=== PATIENT | male | born 1945 | race Caucasian/White ===

== ENCOUNTER 2016-08-10 10:15 | Inpatient (IN) | payer OTHER ==
[~2016-08-10] VITALS: Ht 165.1 cm; Wt 78.6 kg
[~2016-08-10 10:15] MED LIST: ACET-1311 PO; CALC500C3 PO; DOCU100C31 PO; DXM/4 PO; HYG25 PO; INSU1INJ SC; MELA1TAB5 PO; ONDA8TAB6 PO; TEMO1CAP2 PO
[2016-08-10] MEDS ORDERED: OPTIRAY 320 IV PRN (11:00)
[2016-08-10 11:04] LABS: BASO % 0.1 %; BASO ABS # 0.01 K/uL (0-0.2); COMPLETE YES; EOS % 0.6 %; HEMATOCRIT 36.7 % (42-52); IG% 0.7 %; LYMPH % 12.2 %; LYMPH ABS # 1.01 K/uL (1.2-3.4); MEAN CELL VOLUME 96.8 fL (80-100); MEAN CORPUSCULAR HEMOGLOBIN 31.7 pg (25-34); MEAN CORPUSCULAR HGB CONC 32.7 g/dl (32-36); MEAN PLATELET VOLUME 9.2 fL (7.4-10.4); MONO % 6.6 %; NEUT % 79.8 %; PLATELET COUNT 133 K/uL (130-400); RED BLOOD COUNT 3.79 M/uL (4.7-6.1); WHITE BLOOD COUNT 8.29 K/uL (4.8-10.8)
--- NOTE | 2016-08-10 11:09 | DIAGNOSTIC IMAGING REPORT ---
SINGLE VIEW CHEST CLINICAL HISTORY: Dyspnea. FINDINGS: An AP, portable, upright chest radiograph is obtained. No prior studies are available for comparison at the time of dictation. The examination is degraded by portable technique and patient rotation. The cardiomediastinal silhouette is unremarkable. There are peripheral airspace opacities in the right midlung and at the left lung base. No large pleural effusion or pneumothorax is seen. The skeletal structures are osteopenic. The bony thorax is grossly intact. IMPRESSION: There is peripheral airspace consolidation the right midlung as well as patchy consolidative change at the left lung base. Correlate clinically for evidence of pneumonia. Radiographic follow-up to resolution is recommended. Electronically signed by: Cade Douglass M.D. 08/10/2016 11:08 AM Dictated Date/Time: 08/10/2016 11:06 AM
[2016-08-10 11:12] LABS: ISTAT HEMOGLOBIN 12.6 g/dl (14.0-18.0); ISTAT IONIZED CALCIUM 1.12 mmol/l (1.12-1.32)
[2016-08-10 11:20] LABS: INR 1.1 (0.9-1.1); PROTHROMBIN TIME (PATIENT) 11.4 SECONDS (9.0-12.0)
[2016-08-10 11:27] LABS: ALT/SGPT 41 U/L (12-78); AST/SGOT 13 U/L (15-37); BLOOD UREA NITROGEN 25 mg/dl (7-18); BUN/CREATININE RATIO 25.4 (10-20); CALCIUM 8.8 mg/dl (8.5-10.1); CARBON DIOXIDE 34 mmol/L (21-32); CHLORIDE 101 mmol/L (98-107); GLUCOSE 126 mg/dl (70-99); POTASSIUM 3.7 mmol/L (3.5-5.1); SODIUM 142 mmol/L (136-145)
[2016-08-10 11:39] LABS: ALKALINE PHOSPHATASE 100 U/L (45-117)
--- NOTE | 2016-08-10 11:48 | DIAGNOSTIC IMAGING REPORT ---
CT ANGIOGRAM OF THE CHEST CLINICAL HISTORY: Hypoxia. COMPARISON STUDY: Chest x-ray dated 08/10/2016. TECHNIQUE: Following the IV administration of 95 cc of Optiray 320, CT angiogram of the chest was performed from the upper abdomen to the thoracic inlet utilizing the pulmonary embolus protocol. Images are reviewed in the axial, sagittal, and coronal planes. 3-D MIPS images are created and assessed. IV contrast was administered without complication. CT DOSE: 486.73 mGycm FINDINGS: Thyroid: Imaged portions of the thyroid gland are normal in size and attenuation. Thoracic aorta: There is mild atherosclerotic calcification of the thoracic aorta, which is normal in caliber and demonstrates standard 3-vessel arch anatomy. No dissection is seen. Pulmonary vasculature: The pulmonary trunk is mildly dilated, measuring 3.5 cm in diameter. This suggests pulmonary artery hypertension. There is a large pulmonary embolus within the mid to distal right main pulmonary artery. This extends into the upper, middle, and lower lobar branches, reaching segmental and subsegmental branches peripherally. There are also pulmonary emboli within the left upper and left lower lobe pulmonary arteries which extend into segmental and subsegmental branches. Heart: The heart is mildly enlarged and without pericardial effusion. Lungs and pleural spaces: There are foci of subpleural consolidation seen in the right upper lobe, the right lower lobe, and at the left lung base. No pleural effusion is seen. The trachea and central airways are clear. Mediastinum: There is no mediastinal lymphadenopathy. Dolly: Clear. Axillae: There is no axillary lymphadenopathy. Upper abdomen: Hepatic steatosis is noted. There is a tiny hiatal hernia. Partially visualized upper abdominal viscera is otherwise within normal limits. Skeletal structures: The skeletal structures are osteopenic. Mild degenerative change is noted throughout the thoracic spine. No lytic or blastic bony lesions are seen. IMPRESSION: 1. Extensive bilateral pulmonary emboli as above. 2. There are foci of subpleural wedge-shaped consolidation in the right upper, right lower, and left lower lobes. Given the presence of extensive pulmonary emboli these likely represent pulmonary infarcts. An infectious/inflammatory pneumonitis is considered less likely. Clinical correlation will be required. 3. Mild cardiomegaly with evidence of pulmonary artery hypertension. 4. Hepatic steatosis. 5. Additional findings as above. Electronically signed by: Cade Douglass M.D. 08/10/2016 11:47 AM Dictated Date/Time: 08/10/2016 11:38 AM
[2016-08-10] MEDS ORDERED: HEPARIN SOD 5000 UNIT/0.5 ML CARP ONE (12:13)
[2016-08-10] MEDS ORDERED: HEPARIN 25000 UNIT/500 ML D5W ONE (12:13)
[2016-08-10] MEDS: HEPARIN 25,000 UNIT/500ML D5W 500 ML IV PRN (12:22)
[2016-08-10] MEDS ORDERED: ACETAMINOPHEN 325 MG TAB PO PRN (13:45)
[2016-08-10] MEDS ORDERED: DEXTROSE 50% 50 ML SYR IV PRN (13:45)
[2016-08-10] MEDS ORDERED: CALCIUM CARBONATE 500 MG CHEWABLE PO PRN (13:45)
[2016-08-10] MEDS ORDERED: TEMAZEPAM 7.5 MG CAP PO PRN (13:45)
[2016-08-10] MEDS ORDERED: GLUCOSE 40% GEL 15 GM TUBE PO PRN (13:45)
[2016-08-10] MEDS ORDERED: GLUCAGON FOR INJ 1 MG VIAL SQ PRN (13:45)
[2016-08-10] MEDS ORDERED: GLUCOSE 10 TABS/TUBE PO PRN (13:45)
[2016-08-10 13:58] LABS: URINE APPEARANCE CLEAR (CLEAR); URINE BILIRUBIN NEG (NEG); URINE COLOR YELLOW; URINE NITRITE NEG (NEG); URINE PH 6.5 (4.5-7.5); URINE SPECIFIC GRAVITY > 1.045 (1.000-1.030); UROBILINOGEN NEG (NEG); ZZUR CULT IF INDIC CLEAN CATCH NO
[2016-08-10 14:05] LABS: MANUAL MICROSCOPIC REQUIRED? NO; REVIEW REQ? NO
--- NOTE | 2016-08-10 14:17 | EMERGENCY ROOM VISIT NOTE ---
History Report prepared by Michael: Magali Belle Under the Supervision of: Dr. Luis Leon D.O. First contact with patient: 10:30 Chief Complaint: RESPIRATORY PROBLEMS Stated Complaint: DESATS TO 70%ON RA LOW 90'S ON 3L History of Present Illness The patient is a 70 year old male who presents to the Emergency Room with complaints of worsening SOB starting 2 weeks ago. In the last 2-3 days it has become worse. He reports fatigue, some swelling of the calfs and sore throat. He has had the sore throat since getting surgery for glioblastoma. He denies any cough, rhinorrhea, hemoptysis, abdominal pain, nausea, vomiting, or chest pain. He is normally not on oxygen. He denies any history of asthma. He is not on blood thinners. His last radiation treatment was today. He has some paralysis due to the surgery, which he is still recovering from. Source of History: patient Onset: 2 weeks ago Position: other (global) Quality: other (SOB) Timing: worsening Associated Symptoms: + fatigue, + sorethroat, No abdominal pain, No chest pain, No cough, No nausea, No vomiting Note: Pt reports swelling of calfs. Pt denies rhinorrhea, hemoptysis. Review of Systems See HPI for pertinent positives & negatives. A total of 10 systems reviewed and were otherwise negative. Past Medical & Surgical Medical Problems: (1) DM type 2 (diabetes mellitus, type 2) (2) Dyslipidemia (3) GBM (glioblastoma multiforme) (4) Hypertension (5) Hypoxia (6) Pulmonary embolism (7) Pulmonary embolism, bilateral Surgical Problems: (1) H/O craniotomy (2) Status post skin graft Family History Diabetes mellitus FH: cancer FH: heart disease Social History Smoking Status: Never Smoker Alcohol Use: none Marital Status: Housing Status: lives with family Occupation Status: retired Current/Historical Medications Scheduled Chlorthalidone (Chlorthalidone), 12.5 MG PO DAILY Dexamethasone (Decadron), 2 MG PO BID Insulin Glargine (Lantus), 10 UNITS SC QPM Insulin Isophan/Regular (Humulin 70/30), 0 SC ACHS Metformin Hcl (Glucophage), 250 MG PO BID Pantoprazole (Protonix), 40 MG PO DAILY Temozolomide (Temodar), 140 MG PO HS Scheduled PRN Acetaminophen (Tylenol), 325 MG PO Q6 PRN for Pain Calcium Carbonate (Tums), 1 TAB PO Q6H PRN for Dyspepsia Melatonin (Kp Melatonin), 1 TAB PO HS PRN for Sleep Ondansetron Hcl (Zofran), 8 MG PO HS PRN for Nausea Temazepam (Restoril), 7.5 MG PO HS PRN for Sleep Allergies Coded Allergies: No Known Allergies (Unverified , 08/10/16) Physical Exam Vital Signs Date Time Temp Pulse Resp B/P Pulse Ox O2 Delivery O2 Flow Rate FiO2 08/10/16 12:26 91 22 97/67 97 Nasal Cannula 4.0 08/10/16 11:47 91 28 121/83 96 Nasal Cannula 08/10/16 11:05 91 Nasal Cannula 3.0 08/10/16 10:40 98 08/10/16 10:21 36.5 104 24 115/81 96 Nasal Cannula 2.0 Physical Exam GENERAL: sitting up in bed, ill appearing, moderate distress, on nasal cannula EYE EXAM: normal conjunctiva OROPHARYNX: no exudate, no erythema, lips, buccal mucosa, and tongue normal and mucous membranes are moist NECK: supple, no nuchal rigidity, no adenopathy, non-tender LUNGS: course of the bases. HEART: tachycardic rate, no murmurs, S1 normal and S2 normal ABDOMEN: abdomen soft, non-tender, normo-active bowel sounds, no masses, no rebound or guarding. BACK: Back is symmetrical on inspection and there is no deformity, no midline tenderness, no CVA tenderness. SKIN: no rashes and no bruising UPPER EXTREMITIES: upper extremities are grossly normal. LOWER EXTREMITIES: Left lower extremity bigger than right lower extremity. NEURO EXAM: Normal sensorium, cranial nerves II-XII grossly intact, normal speech, no gross weakness of arms, no gross weakness of legs. Medical Decision & Procedures ER Provider Diagnostic Interpretation: Xray results per the radiologist and my interpretation. Other results have been interpreted by the radiologist and reviewed by me. SINGLE VIEW CHEST CLINICAL HISTORY: Dyspnea. FINDINGS: An AP, portable, upright chest radiograph is obtained. No prior studies are available for comparison at the time of dictation. The examination is degraded by portable technique and patient rotation. The cardiomediastinal silhouette is unremarkable. There are peripheral airspace opacities in the right midlung and at the left lung base. No large pleural effusion or pneumothorax is seen. The skeletal structures are osteopenic. The bony thorax is grossly intact. IMPRESSION: There is peripheral airspace consolidation the right midlung as well as patchy consolidative change at the left lung base. Correlate clinically for evidence of pneumonia. Radiographic follow-up to resolution is recommended. Electronically signed by: Cade Douglass M.D. 08/10/2016 11:08 AM Dictated Date/Time: 08/10/2016 11:[address] ANGIOGRAM OF THE CHEST CLINICAL HISTORY: Hypoxia. COMPARISON STUDY: Chest x-ray dated 08/10/2016. TECHNIQUE: Following the IV administration of 95 cc of Optiray 320, CT angiogram of the chest was performed from the upper abdomen to the thoracic inlet utilizing the pulmonary embolus protocol. Images are reviewed in the axial, sagittal, and coronal planes. 3-D MIPS images are created and assessed. IV contrast was administered without complication. CT DOSE: 486.73 mGycm FINDINGS: Thyroid: Imaged portions of the thyroid gland are normal in size and attenuation. Thoracic aorta: There is mild atherosclerotic calcification of the thoracic aorta, which is normal in caliber and demonstrates standard 3-vessel arch anatomy. No dissection is seen. Pulmonary vasculature: The pulmonary trunk is mildly dilated, measuring 3.5 cm in diameter. This suggests pulmonary artery hypertension. There is a large pulmonary embolus within the mid to distal right main pulmonary artery. This extends into the upper, middle, and lower lobar branches, reaching segmental and subsegmental branches peripherally. There are also pulmonary emboli within the left upper and left lower lobe pulmonary arteries which extend into segmental and subsegmental branches. Heart: The heart is mildly enlarged and without pericardial effusion. Lungs and pleural spaces: There are foci of subpleural consolidation seen in the right upper lobe, the right lower lobe, and at the left lung base. No pleural effusion is seen. The trachea and central airways are clear. Mediastinum: There is no mediastinal lymphadenopathy. Dolly: Clear. Axillae: There is no axillary lymphadenopathy. Upper abdomen: Hepatic steatosis is noted. There is a tiny hiatal hernia. Partially visualized upper abdominal viscera is otherwise within normal limits. Skeletal structures: The skeletal structures are osteopenic. Mild degenerative change is noted throughout the thoracic spine. No lytic or blastic bony lesions are seen. IMPRESSION: 1. Extensive bilateral pulmonary emboli as above. 2. There are foci of subpleural wedge-shaped consolidation in the right upper, right lower, and left lower lobes. Given the presence of extensive pulmonary emboli these likely represent pulmonary infarcts. An infectious/inflammatory pneumonitis is considered less likely. Clinical correlation will be required. 3. Mild cardiomegaly with evidence of pulmonary artery hypertension. 4. Hepatic steatosis. 5. Additional findings as above. Electronically signed by: Cade Douglass M.D. 08/10/2016 11:47 AM Dictated Date/Time: 08/10/2016 11:38 AM Laboratory Results 08/10/16 10:52 Red Blood Count 3.79, Mean Corpuscular Volume 96.8, Mean Corpuscular Hemoglobin 31.7, Mean Corpuscular Hemoglobin Concent 32.7, Mean Platelet Volume 9.2, Neutrophils (%) (Auto) 79.8, Lymphocytes (%) (Auto) 12.2, Monocytes (%) (Auto) 6.6, Eosinophils (%) (Auto) 0.6, Basophils (%) (Auto) 0.1, Neutrophils # (Auto) 6.61, Lymphocytes # (Auto) 1.01, Monocytes # (Auto) 0.55, Eosinophils # (Auto) 0.05, Basophils # (Auto) 0.01 08/10/16 10:52 Test 08/10/16 10:52 08/10/16 10:57 08/10/16 13:30 White Blood Count 8.29 K/uL (4.8-10.8) Red Blood Count 3.79 M/uL (4.7-6.1) Hemoglobin 12.0 g/dL (14.0-18.0) Hematocrit 36.7 % (42-52) Mean Corpuscular Volume 96.8 fL (80-100) Mean Corpuscular Hemoglobin 31.7 pg (25-34) Mean Corpuscular Hemoglobin Concent 32.7 g/dl (32-36) Platelet Count 133 K/uL (130-400) Mean Platelet Volume 9.2 fL (7.4-10.4) Neutrophils (%) (Auto) 79.8 % Lymphocytes (%) (Auto) 12.2 % Monocytes (%) (Auto) 6.6 % Eosinophils (%) (Auto) 0.6 % Basophils (%) (Auto) 0.1 % Neutrophils # (Auto) 6.61 K/uL (1.4-6.5) Lymphocytes # (Auto) 1.01 K/uL (1.2-3.4) Monocytes # (Auto) 0.55 K/uL (0.11-0.59) Eosinophils # (Auto) 0.05 K/uL (0-0.5) Basophils # (Auto) 0.01 K/uL (0-0.2) RDW Standard Deviation 59.2 fL (36.4-46.3) RDW Coefficient of Variation 16.7 % (11.5-14.5) Immature Granulocyte % (Auto) 0.7 % Immature Granulocyte # (Auto) 0.06 K/uL (0.00-0.02) Nucleated RBC Absolute Count (auto) 0.09 K/uL (0-0) Nucleated Red Blood Cells % 1.1 % Prothrombin Time 11.4 SECONDS (9.0-12.0) Prothromb Time International Ratio 1.1 (0.9-1.1) Activated Partial Thromboplast Time 26.5 SECONDS (21.0-31.0) Partial Thromboplastin Ratio 1.0 Estimated GFR () 89.2 Estimated GFR (Non- 77.0 BUN/Creatinine Ratio 25.4 (10-20) Calcium Level 8.8 mg/dl (8.5-10.1) Total Bilirubin 0.4 mg/dl (0.2-1) Direct Bilirubin 0.1 mg/dl (0-0.2) Aspartate Amino Transf (AST/SGOT) 13 U/L (15-37) Alanine Aminotransferase (ALT/SGPT) 41 U/L (12-78) Alkaline Phosphatase 100 U/L (45-117) Total Protein 6.6 gm/dl (6.4-8.2) Albumin 2.4 gm/dl (3.4-5.0) Lipase 87 U/L (73-393) Bedside Hemoglobin 12.6 g/dl (14.0-18.0) Bedside Hematocrit 37 % (42-52) Bedside Sodium 140 mEq/L (135-144) Bedside Potassium 3.8 mEq/L (3.3-5.0) Bedside Chloride 96 mEq/L (101-112) Bedside Total CO2 30 mEq/l (24-31) Anion Gap 19.0 mmol/L (16-25) Bedside Blood Urea Nitrogen 25 mg/dl (7-18) Bedside Creatinine 1.0 mg/dl (0.6-1.3) Bedside Glucose (other) 126 mg/dl (70-99) Bedside Ionized Calcium (Laura) 1.12 mmol/l (1.12-1.32) Urine Color YELLOW Urine Appearance CLEAR (CLEAR) Urine pH 6.5 (4.5-7.5) Urine Specific Hamilton > 1.045 (1.000-1.030) Urine Protein NEG (NEG) Urine Glucose (UA) NEG (NEG) Urine Ketones NEG (NEG) Urine Occult Blood NEG (NEG) Urine Nitrite NEG (NEG) Urine Bilirubin NEG (NEG) Urine Urobilinogen NEG (NEG) Urine Leukocyte Esterase NEG (NEG) Urine WBC (Auto) 1-5 /hpf (0-5) Urine RBC (Auto) 0-4 /hpf (0-4) Urine Hyaline Casts (Auto) 5-10 /lpf (0-5) Urine Epithelial Cells (Auto) 10-20 /lpf (0-5) Urine Bacteria (Auto) NEG (NEG) Laboratory results per my review. Medications Administered Medications (Trade) Dose Ordered Sig/Clotilde Route Start Time Stop Time Status Last Admin Dose Admin Heparin Sodium/ Dextrose (Heparin 25,000 Unit/500ml D5W) 500 ml @ 26 mls/hr [id number] PRN IV 08/10/16 12:30 09/09/16 12:29 08/10/16 12:22 26 MLS/HR Heparin Sodium (Porcine) (Heparin Sq 5000 Unit/0.5ml) 10,000 unit STK-MED ONCE .ROUTE 08/10/16 12:13 08/10/16 12:17 DC 08/10/16 12:23 6,000 UNIT ECG Indication: SOB/dyspnea Rate (beats per minute): 101 Rhythm: sinus tachycardia Findings: PVC, left axis deviation, other (septal, inferior Q waves) ED Course ED COURSE: Vital signs were reviewed and showed tachycardia and hypoxia. The patients medical record was reviewed The above diagnostic studies were performed and reviewed. ED treatments and interventions as stated above. 1037: The patient was evaluated in room B12. A complete history and physical examination was performed. 1147: I reevaluated the patient. We had a long discussion. He is agreeable to TPA if he codes in light of recent surgery. 1159: I discussed the patient's case with LILLIAN Jiang - anticoagulation clinic. She recommends heparin bolus and drip based on current literature. 1202: Heparin Sodium/Dextrose 1 ea. 1212: I discussed the patient's case with Genna Cruz - neurological surgery. He agrees with full anticoagulation. 1213: Heparin Sodium (Porcine) 60818 unit IV, Heparin Sodium/Dextrose 82352 unit IV. 1219: I discussed the patient's case with KIERRA Wiggins. The patient will be evaluated for further management. 1223: Upon reevaluation, the patient is resting comfortably. I discussed my findings with the patient and he understands and agrees with the treatment plan. Based on the patients age, coexisting illnesses, exam and lab findings the decision to treat as an inpatient was made. The patient remained stable while under my care. The patient will be evaluated for further management. 1230: Heparin Sodium/Dextrose 500 ml @ 26 mls/hr IV. Medical Decision Differential diagnoses includes but is not limited to pneumonia, bronchitis, COPD/Asthma exacerbation, pneumothorax, pulmonary embolism, congestive heart failure, acute coronary syndrome. Patient is a 62-year-old male who presents the ER for shortness of breath. He is hypoxic, hypotensive and tachycardic. His left lower extremity is bigger than his right. Patient was given a bolus of normal saline and systolic blood pressures improved from the 90s to low 100s. Heart rate did trend down slightly. He had a GBM removed on May 21. This was done at [facility]. I immediately ordered an i-STAT sent him for CT PE. This showed diffuse bilateral PEs. He currently has heart strain with an elevated troponin and unstable vital signs. I discussed this with the patient along with our patent legal assistant and Genna's neurosurgeon that did the procedure. All 3 of us were in agreement of starting heparin drip and bolus. He was given a bolus of IV heparin. He remained stable while in the ER. He did not decompensate. He was not given TPA with the recent brain surgery as he is at a higher risk of bleeding. Patient was discussed with internal medicine and he was admitted for bilateral PEs. Consults Time Called: 1150 Consulting Physician: Dr. Pena [facility] - anticoagulation clinic Returned Call: [phone] I discussed the patient's case with her. She recommends heparin bolus and drip based on current literature. Additional Consults: Time Called: 1205 Consulted Physician: Genna Cruz - neurological surgery Returned Call: [phone] Additional Comments: I discussed the patient's case with him. He agrees with full anticoagulation. Time Called: 1215 Consulted Physician: KIERRA Wiggins Returned Call: [phone] Additional Comments: I discussed the patient's case with her. The patient will be evaluated for further management. Impression Primary Impression: Pulmonary embolism, bilateral Additional Impressions: Hypoxia Elevated troponin Hypotension Critical Care I have personally spent 75 minutes of critical care time in the direct management of this patient. This includes bedside care, interpretation of diagnostic studies, and testing, discussion with consultants, patient, and family members, and other required patient management activities. This 75 minutes is in excess of all separately billable procedures. Scribe Attestation The scribe's documentation has been prepared under my direction and personally reviewed by me in its entirety. I confirm that the note above accurately reflects all work, treatment, procedures, and medical decision making performed by me. Departure Information Dispostion Being Evaluated By Hospitalist Lashawn Husain M.D. (PCP) Patient Instructions My [facility] Problem Qualifiers Additional Impressions: Hypotension Hypotension type: unspecified hypotension type Qualified Codes: I95.9 - Hypotension, unspecified
--- NOTE | 2016-08-10 14:53 | Progress Note ---
Progress Note Date of Service Aug 10, 2016. Progress Note 70 year old male with PMH of Glioblastoma on chemo, DM, HTN presents to the Emergency Room with complaints of worsening SOB for the last 2 weeks.He had craniotomy done on 05/21/16 Pt. he just finshed radiation therapy today. Pt said that for the last few weeks he has not been ambulating much. he said that his SOB got worst even at rest. denies any chest pain, palpitation, cough and dizziness. General- obese Head- atraumatic Eyes- PERRL, EOMI ENT- oropharynx clear Neck- supple, no JVD Lungs- No wheezing, no crackles Heart-tachycardia Abdomen- normal bowel sounds, soft Extremities- + edema, no calf tenderness B/L PE Present with worsening SOB Possible due malignancy and decrease ambulation CTA chest showed Extensive bilateral pulmonary emboli Continue on heparin drip will get doppler of lower ext will start on coumadin pulmonary consult monitor CBC Elevated troponin mostly related to PE due to RV strain will get an echo follow up 2 more CM EKG in am monitor in telemetry Please refer to Lashawn IVORY's documentation for other problems. Conrad Benítez MD
[2016-08-10 16:21] VITALS: BP 110/75; PULSE 89; TEMP 36.5; O2SAT 99
--- NOTE | 2016-08-10 16:58 | History and Physical ---
History & Physical Date & Time of Service: Aug 10, 2016 at 13:40 Chief Complaint: Desats To 70%On Ra Low 90's On 3L Primary Care Physician: Isabel Fuentes C.R.N.P. History of Present Illness Source: patient, clinic records This is a 70 year old male with glioblastoma s/p resection, DM type 2, hypertension, dyslipidemia, who presents to the ED with SOB. Patient underwent resection of glioblastoma in early May 2016 at [facility]. He was in rehab for 1 month and states he was initially bed bound except for PT due to severe L sided weakness. Left side weakness had been improving and was starting to ambulate with a walker at home, but in past few days has been ambulating less due to fatigue. Patient reports SOB and for 2 weeks which has progressively worsened over past 2-3 days. Has dry throat and nonproductive cough since surgery. Has bilateral LE edema x 3 weeks. Denies fever, chills, chest pain, palpitations, N/ V/D, appetite loss, urinary change, calf pain, dizziness, HOWELL, vision change, numbness, seizure. Pt has been on Decadron, oral chemo with Temodar, and radiation with last treatment done today. At radiation oncology was hypoxic to 67% on RA which improved on nasal cannula and was therefore sent to ER after radiation tx. In ER, CT chest showed extensive bilateral PE's with possible infarcts and findings of pulmonary hypertension. Denies prior history of VTE. Denies hx of abnormal bleeding. Past Medical/Surgical History Medical Problems: (1) DM type 2 (diabetes mellitus, type 2) Status: Chronic (2) Dyslipidemia Status: Chronic (3) GBM (glioblastoma multiforme) Permanent Comment: Onset of left-sided weakness CT revealing a right frontal lobe mass Status post gross total resection 05/21/2016 ([facility]- Dr. Rich) Glioblastoma Multiforme, IDH-wild type WHO grade IV Status: Chronic (4) Hypertension Status: Chronic Surgical Problems: (1) H/O craniotomy Permanent Comment: excision of glioblastoma at [facility] 05/21/2016 Status: Chronic (2) Status post skin graft Status: Chronic Family History Diabetes mellitus FH: cancer FH: heart disease Social History Smoking Status: Never Smoker Alcohol Use: none Drug Use: none Marital Status: Housing status: lives with significant other Allergies Coded Allergies: No Known Allergies (Unverified , 08/10/16) Home Medications Scheduled Dexamethasone (Decadron), 2 MG PO BID Enoxaparin (Lovenox), 80 MG SQ Q12@0600,1800 Insulin Glargine (Lantus), 10 UNITS SC QPM Insulin Isophan/Regular (Humulin 70/30), 0 SC ACHS Metformin Hcl (Glucophage), 250 MG PO BID Pantoprazole (Protonix), 40 MG PO DAILY Temozolomide (Temodar), 140 MG PO HS Scheduled PRN Acetaminophen (Tylenol), 325 MG PO Q6 PRN for Pain Calcium Carbonate (Tums), 1 TAB PO Q6H PRN for Dyspepsia Melatonin (Kp Melatonin), 1 TAB PO HS PRN for Sleep Ondansetron Hcl (Zofran), 8 MG PO HS PRN for Nausea Temazepam (Restoril), 7.5 MG PO HS PRN for Sleep Review of Systems Ten point ROS performed with pertinent positives and negatives noted in HPI. Physical Exam Vital Signs Date Time Temp Pulse Resp B/P Pulse Ox O2 Delivery O2 Flow Rate FiO2 08/10/16 12:26 91 22 97/67 97 Nasal Cannula 4.0 08/10/16 11:47 91 28 121/83 96 Nasal Cannula 08/10/16 11:05 91 Nasal Cannula 3.0 08/10/16 10:40 98 08/10/16 10:21 36.5 104 24 115/81 96 Nasal Cannula 2.0 General Appearance: WD/WN, no apparent distress, + pertinent finding (pleasant alert 70 year old male) Head: normocephalic, atraumatic, + pertinent finding (well healed craniotomy scar right frontal scalp) Eyes: normal inspection, PERRL, EOMI ENT: hearing grossly normal, pharynx normal Neck: supple, no JVD, trachea midline Respiratory/Chest: lungs clear, normal breath sounds, no respiratory distress, no accessory muscle use Cardiovascular: regular rate, rhythm, no murmur Extremities/Musculoskelatal: no calf tenderness, + pedal edema (2+ pitting pretibial edema bilaterally), + pertinent finding Neurologic/Psych: alert, normal mood/affect, oriented x 3, + pertinent finding (left upper extremity strength 4/5, left lower extremity strength 3/5, RUE and RLE strength 5/5) Skin: normal color, warm/dry, + pertinent finding (excoriation LLE) Diagnostics Laboratory Results Results Past 24 Hours Test 08/10/16 10:52 08/10/16 10:57 Range/Units White Blood Count 8.29 4.8-10.8 K/uL Red Blood Count 3.79 4.7-6.1 M/uL Hemoglobin 12.0 14.0-18.0 g/dL Hematocrit 36.7 42-52 % Mean Corpuscular Volume 96.8 80-100 fL Mean Corpuscular Hemoglobin 31.7 25-34 pg Mean Corpuscular Hemoglobin Concent 32.7 32-36 g/dl Platelet Count 133 130-400 K/uL Mean Platelet Volume 9.2 7.4-10.4 fL Neutrophils (%) (Auto) 79.8 % Lymphocytes (%) (Auto) 12.2 % Monocytes (%) (Auto) 6.6 % Eosinophils (%) (Auto) 0.6 % Basophils (%) (Auto) 0.1 % Neutrophils # (Auto) 6.61 1.4-6.5 K/uL Lymphocytes # (Auto) 1.01 1.2-3.4 K/uL Monocytes # (Auto) 0.55 0.11-0.59 K/uL Eosinophils # (Auto) 0.05 0-0.5 K/uL Basophils # (Auto) 0.01 0-0.2 K/uL RDW Standard Deviation 59.2 36.4-46.3 fL RDW Coefficient of Variation 16.7 11.5-14.5 % Immature Granulocyte % (Auto) 0.7 % Immature Granulocyte # (Auto) 0.06 0.00-0.02 K/uL Nucleated RBC Absolute Count (auto) 0.09 0-0 K/uL Nucleated Red Blood Cells % 1.1 % Prothrombin Time 11.4 9.0-12.0 SECONDS Prothromb Time International Ratio 1.1 0.9-1.1 Activated Partial Thromboplast Time 26.5 21.0-31.0 SECONDS Partial Thromboplastin Ratio 1.0 Sodium Level 142 136-145 mmol/L Potassium Level 3.7 3.5-5.1 mmol/L Chloride Level 101 98-107 mmol/L Carbon Dioxide Level 34 21-32 mmol/L Anion Gap 7.0 19.0 16-25 mmol/L Blood Urea Nitrogen 25 7-18 mg/dl Creatinine 1.00 0.60-1.40 mg/dl Estimated GFR () 89.2 Estimated GFR (Non- 77.0 BUN/Creatinine Ratio 25.4 10-20 Random Glucose 126 70-99 mg/dl Calcium Level 8.8 8.5-10.1 mg/dl Total Bilirubin 0.4 0.2-1 mg/dl Direct Bilirubin 0.1 0-0.2 mg/dl Aspartate Amino Transf (AST/SGOT) 13 15-37 U/L Alanine Aminotransferase (ALT/SGPT) 41 12-78 U/L Alkaline Phosphatase 100 45-117 U/L Troponin I 0.245 0-0.045 ng/ml Total Protein 6.6 6.4-8.2 gm/dl Albumin 2.4 3.4-5.0 gm/dl Lipase 87 73-393 U/L Bedside Hemoglobin 12.6 14.0-18.0 g/dl Bedside Hematocrit 37 42-52 % Bedside Sodium 140 135-144 mEq/L Bedside Potassium 3.8 3.3-5.0 mEq/L Bedside Chloride 96 101-112 mEq/L Bedside Total CO2 30 24-31 mEq/l Bedside Blood Urea Nitrogen 25 7-18 mg/dl Bedside Creatinine 1.0 0.6-1.3 mg/dl Bedside Glucose (other) 126 70-99 mg/dl Bedside Ionized Calcium (Laura) 1.12 1.12-1.32 mmol/l Diagnostic Radiology SINGLE VIEW CHEST CLINICAL HISTORY: Dyspnea. FINDINGS: An AP, portable, upright chest radiograph is obtained. No prior studies are available for comparison at the time of dictation. The examination is degraded by portable technique and patient rotation. The cardiomediastinal silhouette is unremarkable. There are peripheral airspace opacities in the right midlung and at the left lung base. No large pleural effusion or pneumothorax is seen. The skeletal structures are osteopenic. The bony thorax is grossly intact. IMPRESSION: There is peripheral airspace consolidation the right midlung as well as patchy consolidative change at the left lung base. Correlate clinically for evidence of pneumonia. Radiographic follow-up to resolution is recommended. CT ANGIOGRAM OF THE CHEST CLINICAL HISTORY: Hypoxia. COMPARISON STUDY: Chest x-ray dated 08/10/2016. TECHNIQUE: Following the IV administration of 95 cc of Optiray 320, CT angiogram of the chest was performed from the upper abdomen to the thoracic inlet utilizing the pulmonary embolus protocol. Images are reviewed in the axial, sagittal, and coronal planes. 3-D MIPS images are created and assessed. IV contrast was administered without complication. CT DOSE: 486.73 mGycm FINDINGS: Thyroid: Imaged portions of the thyroid gland are normal in size and attenuation. Thoracic aorta: There is mild atherosclerotic calcification of the thoracic aorta, which is normal in caliber and demonstrates standard 3-vessel arch anatomy. No dissection is seen. Pulmonary vasculature: The pulmonary trunk is mildly dilated, measuring 3.5 cm in diameter. This suggests pulmonary artery hypertension. There is a large pulmonary embolus within the mid to distal right main pulmonary artery. This extends into the upper, middle, and lower lobar branches, reaching segmental and subsegmental branches peripherally. There are also pulmonary emboli within the left upper and left lower lobe pulmonary arteries which extend into segmental and subsegmental branches. Heart: The heart is mildly enlarged and without pericardial effusion. Lungs and pleural spaces: There are foci of subpleural consolidation seen in the right upper lobe, the right lower lobe, and at the left lung base. No pleural effusion is seen. The trachea and central airways are clear. Mediastinum: There is no mediastinal lymphadenopathy. Dolly: Clear. Axillae: There is no axillary lymphadenopathy. Upper abdomen: Hepatic steatosis is noted. There is a tiny hiatal hernia. Partially visualized upper abdominal viscera is otherwise within normal limits. Skeletal structures: The skeletal structures are osteopenic. Mild degenerative change is noted throughout the thoracic spine. No lytic or blastic bony lesions are seen. IMPRESSION: 1. Extensive bilateral pulmonary emboli as above. 2. There are foci of subpleural wedge-shaped consolidation in the right upper, right lower, and left lower lobes. Given the presence of extensive pulmonary emboli these likely represent pulmonary infarcts. An infectious/inflammatory pneumonitis is considered less likely. Clinical correlation will be required. 3. Mild cardiomegaly with evidence of pulmonary artery hypertension. 4. Hepatic steatosis. 5. Additional findings as above. EKG sinus tachycardia with PACs with aberrant conduction, possible old inferior infarct, possible old anteroseptal infarct, in comparison to prior EKG aberrant conduction is now present as per cardiology read Impression Assessment and Plan BILATERAL PULMONARY EMBOLISM Was hypoxic to 67% on RA at radiation oncology; improved to 99-100% on 4 liters NC Initially tachycardic to 100s- resolved; BP running low normal 90s-110s systolic CTA chest- Extensive bilateral pulmonary emboli with possible infarcts and findings of pulmonary hypertension Possibly triggered by malignancy and decreased mobility Check venous doppler of bilateral LE Consult pulmonology Continue heparin drip started in ER Possible transition to Lovenox before discharge as per pulmonology recommendation Continue supplemental O2 per protocol ELEVATED TROPONIN Likely secondary to RV strain from bilateral PE Check echo Trend serial cardiac markers Recheck EKG in am Monitor in telemetry GLIOBLASTOMA S/p craniotomy with resection of glioblastoma 05/21/2016 Has undergone radiation last tx today 08/10/16 Continue Decadron 2 mg BID Continue oral chemo with Temodar HYPERTENSION BP running low normal 90s- 110s systolic Hold chlorthalidone for now DM TYPE 2 Hold metformin Continue basal Lantus Insulin sliding scale coverage Check A1c in am CODE STATUS Full code per my discussion with the patient DISPOSITION Admit to telemetry [facility] Leon ([facility]) for neurosurgery Patient seen in collaboration with Dr. Benítez. Please see his addendum. VTE Prophylaxis VTE Risk Assessment Done? Y/N: Yes Risk Level: High Given or contraindicated: Other Anticoagulation
[2016-08-10] MEDS ORDERED: MELA1TAB5 PO (16:59)
[2016-08-10 17:16] VITALS: BMI 31.8
[2016-08-10 17:17] VITALS: BP 114/67; PULSE 84; TEMP 36.5; O2SAT 98; BMI 30.3
[2016-08-10] MEDS ORDERED: NURSING VERBAL MED ORDER ONE (18:00)
[2016-08-10] MEDS ORDERED: WARFARIN SOD 5 MG TAB PO ONE (18:00)
[2016-08-10] MEDS: INSULIN ASPART 100 UNITS/ML 3 ML PEN SC SCH ×2 (18:41→20:43)
[2016-08-10 19:19] LABS: PARTIAL THROMBOPLASTIN RATIO 3.2
[2016-08-10 19:27] VITALS: BP 116/74; PULSE 83; TEMP 37; O2SAT 96
[2016-08-10] MEDS: DEXAMETHASONE 4 MG TAB PO SCH (19:55)
--- NOTE | 2016-08-10 19:59 | PULMONARY CONSULTATION ---
DATE OF CONSULTATION: 08/10/2016 TIME: 5:15 p.m. HISTORY OF PRESENT ILLNESS: The patient was seen in room 244. He is a 70-year-old male who has a history of a glioblastoma that underwent surgery at [facility] on May 21. He was having some weakness of his left leg, which brought the problem to his attention. He ended up having the surgery. Subsequently, he has had radiation therapy. He also gets what he calls a chemo pill which he has been on for several weeks and he has to take it 1 more week. For about 2 weeks, he has been feeling short of breath. This would be with exertion. Subsequently, the breathing has been much more abnormal for the past 3 days. In spite of the shortness of breath, he has had no chest pains at all. He has had a dry cough, but that has been since his surgery as well. He also has had a sore throat since his surgery. He had gone to [facility] for rehabilitation for approximately 1 month and did very well there. He had been making a nice recovery until the recent problems. He presented to the Emergency Room today with the shortness of breath. He underwent a CAT scan of the chest to rule out pulmonary embolic disease. This shows mild dilation of the pulmonary trunk. There is a large pulmonary embolism within the mid to distal right main pulmonary artery which extends into the upper, middle and lower branches, reaching segmental and subsegmental branches. There are also pulmonary emboli in the left upper and left lower pulmonary arteries. These also extend into the segmental and subsegmental branches. In the lungs themselves, he has some peripheral consolidation seen in the right middle lobe and right lower lobe and at the left lung base. These are thought perhaps to be areas of pulmonary infarcts. Usually however, one does have pain when you have infarction. The patient has been started on IV heparin. The Emergency Room Department had conversations with the patient's neurosurgeon. They also had conversations with a physician from an anticoagulation clinic. They recommended the IV heparin. TPA is considered not usable due to the patient's relatively recent surgery. The patient is overall feeling more comfortable. He is overall fairly relaxed. He has no prior history of blood clots. He has been fairly inactive, especially recently. His energy level was actually better soon after the surgery, but it has gotten lower since the radiation and the chemo medicine started. PAST PULMONARY HISTORY: Denies any other pulmonary problems in the past. PAST SURGICAL HISTORY: 1. Rhinoplasty in the 1970s. 2. Skin grafting for sheppard in 2006. 3. Surgical removal for glioblastoma in May 2016. PAST MEDICAL HISTORY: 1. Hypertension. 2. Diabetes. 3. Hypercholesterolemia. 4. Denies history of coronary artery disease. He denies other illnesses. SOCIAL HISTORY: Tobacco never. ETOH -- None. ALLERGIES: No known allergies. FAMILY HISTORY: Father age 78 of [place]. Mother living, age 87, dementia. 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 REVIEW OF SYSTEMS: GENERAL: The patient's energy level has been fairly low. NEUROLOGIC: He has had a significant return of strength to the left side of his body, compared with before. OPHTHALMIC: No visual complaints. ENT: Denies nasal congestion or coryza. CARDIAC: Denies chest pains or palpitations. PULMONARY: As noted above. GASTROINTESTINAL: Denies nausea, vomiting, diarrhea, constipation. GENITOURINARY: Denies complaints. MUSCULOSKELETAL: Denies myalgias or arthralgias. EXTREMITIES: He has had edema of the lower extremities in the past few weeks. DERMATOLOGIC: No rash. ENDOCRINE: No lymphadenopathy. MEDICATIONS: At home: 1. Chlorthalidone 12.5 mg daily. 2. Decadron 2 mg b.i.d. 3. Lantus insulin 10 units daily. 4. Humulin 70/30 by coverage. 5. Glucophage 250 mg b.i.d. 6. Pantoprazole 40 mg daily. 7. Temodar 140 mg at bedtime. 8. Ondansetron 8 mg p.r.n. nausea. 9. Restoril 7.5 mg at bedtime. PHYSICAL EXAMINATION: GENERAL: The patient is a 70-year-old male who was cooperative, alert and oriented. He was in no distress. He had no difficulty with speech. Temperature was 36.5. HEENT: Pupils were reactive. Nares were clear. Mouth exam was negative. NECK: Palpation of the neck reveals no lymph nodes or masses. CHEST: Of normal expansion and development. HEART: The heart rate is 90 per minute. Occasional extrasystoles were heard. He was not aware of having prior cardiac arrhythmia. Blood pressure 110/75. The lowest pressure seen was 97/67. LUNGS: Respiratory rate was 20 breaths per minute. The lung dunlap were clear bilaterally. No wheezes or rhonchi were heard. Saturation was 99% on 4 liters. ABDOMEN: Soft. It was mildly obese. Bowel sounds were present. There was no tenderness to palpation or masses. EXTREMITIES: Reveal at least +2 edema bilaterally. He does have various sites of skin grafting on the extremities. LABORATORY DATA: White count is 8.29. Hemoglobin is 12. Platelets 133,000. Coags were normal. Urinalysis shows specific gravity greater than 1.045. Electrolytes show sodium 140, potassium 3.8, chloride 96, bicarb 30. BUN was 25 with a creatinine of 1.0. AST was 13, ALT 41, alk phos 100. Troponins were elevated at 0.245. The albumin was 2.4 with total protein of 6.6. EKG showed a sinus rhythm. There appeared to be an inferior wall infarction as well as an anteroseptal infarction. The patient himself is not aware of having had an OR previously. Occasional extrasystoles are seen. These were thought to be due to premature atrial complexes with aberrant conduction. IMPRESSION: Large bilateral pulmonary emboli. COMMENTS AND RECOMMENDATIONS: Apparently they have received recommendation to start IV heparin. This is obviously only a short-term solution. A decision will need to be made in a few days once he is totally stabilized, as to the most appropriate period. In light of his malignancy, Lovenox may be the best way to go. We will need to keep an eye on his renal function however. I believe the patient should have an echocardiogram done. Clearly, his EKG is abnormal and an echo is a good way to follow the stresses on the right side of the heart. I believe the echo has been ordered and possibly even completed. The results are still pending however. He should have a venous Doppler of both lower extremities done if that has not been done thus far. We will be happy to discuss the case with the hospitalist team. His CT angio was very impressive for the degree of clot, especially on the right side and he will need careful monitoring for several days.
[2016-08-10] MEDS: ONDANSETRON INJ 2 MG/ML 2 ML VIAL IV PRN (20:03)
[2016-08-10] MEDS ORDERED: TEMOzolomide 20 MG CAP PO SCH (21:00)
[2016-08-10] MEDS ORDERED: TEMOZOLOMIDE 100 MG PO SCH (21:00)
[2016-08-10] MEDS: INSULIN GLARGINE SOLOSTAR 100 UNITS/ML 3 ML PEN SC SCH (21:26)
[2016-08-10 23:48] LABS: CKMB/CK RATIO 6.3 (0-3.0)
[2016-08-11] VITALS (10 sets, daily range): BP systolic 108–155; BP diastolic 71–96; PULSE 73–99; TEMP 36.4–36.9; O2SAT 94–97; Ht 165.1 cm; Wt 78.6 kg
[2016-08-11 02:34] LABS: HEMATOCRIT 33.5 % (42-52); MEAN CELL VOLUME 94.9 fL (80-100); MEAN CORPUSCULAR HEMOGLOBIN 31.4 pg (25-34); MEAN CORPUSCULAR HGB CONC 33.1 g/dl (32-36); PLATELET COUNT 122 K/uL (130-400); RED BLOOD COUNT 3.53 M/uL (4.7-6.1); WHITE BLOOD COUNT 7.09 K/uL (4.8-10.8)
[2016-08-11 02:54] LABS: INR 1.1 (0.9-1.1); PROTHROMBIN TIME (PATIENT) 11.8 SECONDS (9.0-12.0)
[2016-08-11 07:58] LABS: ESTIMATED AVERAGE GLUCOSE 171 mg/dl; HA1C FLAG Normal (Normal)
--- NOTE | 2016-08-11 09:04 | DIAGNOSTIC IMAGING REPORT ---
BILATERAL LOWER EXTREMITY VENOUS DOPPLER HISTORY: Pain. Edema. assess for DVT COMPARISON STUDY: None. FINDINGS: Study is positive for acute deep venous thrombosis of the right popliteal vein, posterior tibial vein, as well as peroneal vein. There is also positive for acute deep venous thrombosis involving the left posterior tibial vein. IMPRESSION: Findings of bilateral acute deep thrombosis. Electronically signed by: Darren Witt M.D. 08/11/2016 9:03 AM Dictated Date/Time: 08/11/2016 9:02 AM
[2016-08-11] MEDS: PANTOprazole SOD 40 MG TAB PO SCH (09:08)
[2016-08-11] MEDS: DEXAMETHASONE 4 MG TAB PO SCH ×2 (09:08→21:09)
[2016-08-11] MEDS: INSULIN ASPART 100 UNITS/ML 3 ML PEN SC SCH ×4 (09:12→21:12)
[2016-08-11] MEDS: HEPARIN 25,000 UNIT/500ML D5W 500 ML IV PRN (09:14)
--- NOTE | 2016-08-11 13:11 | Clinical Documentation Query ---
PATRICIA Clemons : CLINICAL DOCUMENTATION QUERY Patient is a 70 year old male admitted with acute bilateral pulmonary emboli in the setting of malignancy and decreased mobility. Subsequent ultrasound of the bilateral lower extremities demonstrated bilateral acute deep thrombosis. 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 Thank you. In your clinical opinion is this patient being managed for: ( ) Bilateral pulmonary emboli secondary to acute bilateral DVT ( ) Other explanation of clinical findings (Please Explain) ( ) Unable to determine (Please Define) ( ) Need to Discuss ( ) Not Agree The medical record reflects the following clinical findings, treatment, and risk factors. Clinical Indicators: As above Treatment: Heparin drip, Ultrasound of the bilateral lower extremities, supplemental O2, pulmonary consultation Risk Factors: Malignancy, immobility. Please clarify and document your clinical opinion in the progress notes and discharge summary. Terms such as "probable", "suspected", "likely", "questionable", "possible", or "still to be ruled out" are acceptable. IF IN AGREEMENT, YOU MUST DOCUMENT ABOVE DIAGNOSTIC STATEMENT IN DAILY PROGRESS NOTES AND DISCHARGE SUMMARY. This document is not part of the patient's record. Thank You, Sinan Mckeon, NIECY [phone]
[2016-08-11] MEDS ORDERED: WARFARIN SOD 5 MG TAB PO SCH (16:00)
--- NOTE | 2016-08-11 16:07 | PULMONARY PROGRESS NOTE ---
DATE: 08/11/2016 TIME: 3:35 p.m. SUBJECTIVE: The patient is feeling much better. He is much less short of breath. He still has a dry cough that he has had since his surgery. There has been no sputum production. His appetite is good. OBJECTIVE: GENERAL: The patient is comfortable at rest. He is afebrile with a temperature 36.4. There has been no significant temperature elevation since admission. HEENT: Unremarkable. HEART: Rate is 97 per minute. Extrasystoles are heard. LUNGS: Daley were clear bilaterally. No wheezes, rales or rhonchi were heard. CHEST: Respiratory rate was 20 breaths per minute. Blood pressure 117/78. Saturation was 94% on 4 liters. ABDOMEN: Soft and nontender. Bowel sounds were normal. EXTREMITIES: Showed modest edema. DATA: The patient had a venous Doppler done and this shows evidence of bilateral acute deep vein thrombosis involving the right posterior popliteal, posterior tibial, and peroneal vein. There was also involvement in the left posterior tibial vein. Most recent PTT was 51.5. INR was 1.1. White count today was 7.09. Hemoglobin 11.1. Platelets 122,000. This is down slightly from 133,000 yesterday. We will need to follow the platelet counts. Blood sugar today was 142. Echocardiogram was done according to the patient. There is still no official report. IMPRESSIONS: 1. Acute pulmonary embolism. 2. Deep venous thrombosis involving the right and left legs. 3. Mild decrease in platelet count. COMMENTS AND RECOMMENDATIONS: The patient clinically is improved. If he continues for another day or two, would consider switching to whatever will be his long-term anticoagulation. I would suggest consideration of Lovenox in light of the patient's malignancy. It is suggested that this be discussed with the coke oven patcher to make the original recommendations for the heparin.
--- NOTE | 2016-08-11 17:15 | ECHOCARDIOGRAM REPORT ---
*NOTICE TO RECEIVING [facility] This information is strictly Confidential and protected under [place] law. [place] law prohibits you from making any further disclosure of this information unless further disclosure is expressly permitted by the written consent of the person to whom it pertains or is authorized by law. A general authorization for the release of medical or other information is not sufficient for this purpose. Hospital accepts no responsibility if the information is made available to any other person, INCLUDING THE PATIENT. Interpretation Summary * Name: CITLALY LEÓN Study Date: 08/11/2016 06:46 AM BP: 108/71 mmHg * Patient Location: C.2T\S\S244\S\1 HR: 107 * : 1945 (M/d/yyyy) Gender: Male Height: 66 in * Age: 70 yrs Ethnicity: CA Weight: 190 lb * Ordering Physician: Lashawn Patel * Referring Physician: No Doctor, Assigned * Performed By: Nataly Diamond RCS * * Reason For Study: B/L PE / PULM HTN ON CT / ELEVATED TROPONIN * BSA: 2.0 m2 * -- Conclusions -- * The right ventricle is severely dilated. * The right ventricular systolic function is severely reduced with severe right ventricular hypokinesis that spares the right ventricular apex. * The right atrium is severely dilated. * Flattened septum is consistent with RV pressure/volume overload. * The left ventricular wall motion is otherwise normal. * The left ventricular cavity is small and appears underfilled. * The left ventricle is hyperdynamic. * The LV Ejection Fraction = >70 %. * Findings are consistent with history of pulmonary embilism with resultant severe right ventricular strain. * Findings were discussed with Dr Enamorado and Dr Loyd by telephone, on 08/11/16 at 17:00 and 1708. Procedure Details * A complete two-dimensional transthoracic echocardiogram was performed (2D, M-mode, Doppler and color flow Doppler). * A saline contrast injection was performed to assess for cardiac shunting. * The injection was performed through an intravenous line in the right arm. * The attending nurse who injected the saline contrast was JOHN ORTIZ, RN. * A total of 30 cc of agitated saline was given. Left Ventricle * The left ventricular cavity is small. * There is mild concentric left ventricular hypertrophy. * The left ventricle is hyperdynamic. * Ejection Fraction = >70 %. * Flattened septum is consistent with RV pressure/volume overload. * The left ventricular wall motion is otherwise normal. Right Ventricle * The right ventricle is severely dilated. * The right ventricular systolic function is severely reduced. Atria * The left atrial size is normal. * The right atrium is severely dilated. 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 The interatrial septum is intact with no evidence for an atrial septal defect with administration of agitated saline contrast. The interatrial septum bows toward the left atrium consistent with elevated right atrial pressure. atrial pressure. Mitral Valve * The mitral valve is normal. * There is no mitral valve stenosis. * Significant mitral regurgitation is absent. Tricuspid Valve * The tricuspid valve is normal. * There is no tricuspid stenosis. * Significant tricuspid regurgitation is absent. Aortic Valve * The aortic valve is trileaflet. * Aortic stenosis is absent. * There is no significant aortic regurgitation. Pulmonic Valve * The pulmonary valve is not well seen, but the Doppler examination is normal without significant regurgitation or stenosis. Great Vessels * The aortic root and proximal ascending aorta are normal sized. Pericardium/Pleural * There is a small loculated posterior pericardial effusion. * There are no echocardiographic indications of cardiac tamponade. Great Vessels * Normal inferior vena cava diameter and respiratory variation suggests normal central venous pressure. MMode 2D Measurements and Calculations IVSd 1.1 cm IVSs 1.6 cm LVIDd 3.0 cm LVIDs 1.8 cm LVPWd 1.1 cm LVPWs 1.4 cm IVS/LVPW 0.98 FS 39.0 % EDV(Teich) 34.8 ml ESV(Teich) 10.1 ml EF(Teich) 71.1 % EDV(cubed) 26.8 ml ESV(cubed) 6.1 ml EF(cubed) 77.3 % % IVS thick 43.7 % % LVPW thick 25.5 % LV mass(C)d 94.4 grams LV mass(C)dI 48.3 grams/m\S\2 LV mass(C)s 86.2 grams LV mass(C)sI 44.0 grams/m\S\2 SV(Teich) 24.7 ml SI(Teich) 12.6 ml/m\S\2 SV(cubed) 20.7 ml SI(cubed) 10.6 ml/m\S\2 Ao root diam 3.9 cm Ao root area 12.0 cm\S\2 LA dimension 4.0 cm LA/Ao 1.0 LVOT diam 2.0 cm LVOT area 3.2 cm\S\2 LVAd ap4 22.7 cm\S\2 LVLd ap4 7.6 cm EDV(MOD-sp4) 55.0 ml EDV(sp4-el) 57.2 ml LVAs ap4 12.6 cm\S\2 LVLs ap4 7.3 cm ESV(MOD-sp4) 20.3 ml ESV(sp4-el) 18.6 ml EF(MOD-sp4) 63.1 % EF(sp4-el) 67.5 % LVAd ap2 21.9 cm\S\2 LVLd ap2 7.0 cm EDV(MOD-sp2) 56.2 ml EDV(sp2-el) 57.9 ml LVAs ap2 15.1 cm\S\2 LVLs ap2 6.2 cm ESV(MOD-sp2) 30.3 ml ESV(sp2-el) 31.4 ml EF(MOD-sp2) 46.1 % EF(sp2-el) 45.8 % LVLd %diff -8.78 % EDV(MOD-bp) 57.9 ml LVLs %diff -18.28 % ESV(MOD-bp) 25.1 ml EF(MOD-bp) 56.7 % SV(MOD-sp4) 34.7 ml SI(MOD-sp4) 17.7 ml/m\S\2 SV(MOD-sp2) 25.9 ml SI(MOD-sp2) 13.2 ml/m\S\2 SV(MOD-bp) 32.9 ml SI(MOD-bp) 16.8 ml/m\S\2 SV(sp4-el) 38.6 ml SI(sp4-el) 19.7 ml/m\S\2 SV(sp2-el) 26.5 ml SI(sp2-el) 13.6 ml/m\S\2 Doppler Measurements and Calculations MV E max candace 57.5 cm/sec MV A max candace 108.8 cm/sec MV E/A 0.53 MV P1/2t max candace 60.7 cm/sec MV P1/2t 61.0 msec MVA(P1/2t) 3.6 cm\S\2 MV dec slope 291.2 cm/sec\S\2 MV dec time 0.22 sec Ao V2 max 97.3 cm/sec Ao max PG 3.8 mmHg Ao max PG (full) 0.11 mmHg JES(V,A) 3.1 cm\S\2 JES(V,D) 3.1 cm\S\2 AI max candace 328.4 cm/sec AI max PG 43.1 mmHg AI dec slope 88.9 cm/sec\S\2 AI P1/2t 1082.4 msec LV V1 max PG 3.7 mmHg LV V1 max 95.8 cm/sec TR max candace 251.9 cm/sec
--- NOTE | 2016-08-11 19:12 | Progress Note ---
Subjective Date of Service: Aug 11, 2016. Subjective Pt evaluation today including: conversation w/ patient, physical exam, lab review, review of studies, review of inpatient medication list Saw/examined the patient in room 244 He states he feels much better; breathing is improved still seems to be working to breath slightly No chest pain, no palpitations no nausea/vomiting/diarrhea Problem List Medical Problems: (1) Brain mass Status: Acute (2) Elevated troponin Status: Acute (3) Hypotension Status: Acute (4) Left-sided weakness Status: Acute Review of Systems Constitutional: No chills, No fever Respiratory: + shortness of breath, No cough, No hemoptysis, No sputum, No wheezing Cardiac: No chest pain Abdomen: No diarrhea, No nausea, No pain, No vomiting Medications Current Inpatient Medications Medications (Trade) Dose Ordered Sig/Clotilde Route Start Time Stop Time Status Last Admin Dose Admin Ioversol 125 ml 125 ml UD PRN IV 08/10/16 11:00 08/14/16 10:59 Heparin Sodium/ Dextrose (Heparin 25,000 Unit/500ml D5W) 500 ml @ 23 mls/hr [id number] PRN IV 08/10/16 12:30 09/09/16 12:29 08/11/16 09:14 23 MLS/HR Acetaminophen (Tylenol Tab) 650 mg Q4H PRN PO 08/10/16 13:45 09/09/16 13:44 Ondansetron HCl (Zofran Inj) 4 mg Q6H PRN IV 08/10/16 13:45 09/09/16 13:44 08/10/16 20:03 4 MG Insulin Aspart (novoLOG ASPART) SLIDING SCALE If C... ACHS SC 08/10/16 16:15 09/09/16 16:14 08/11/16 18:34 5 UNITS Glucose (Glucose 40% Gel) 15-30 GRAMS 15 GRAMS... UD PRN PO 08/10/16 13:45 09/09/16 13:44 Glucose (Glucose Chew Tab) 4-8 Tablets 4 Tabl... UD PRN PO 08/10/16 13:45 09/09/16 13:44 Dextrose (Dextrose 50% 50ML Syringe) 25-50ML OF 50% DW IV FOR... UD PRN IV 08/10/16 13:45 09/09/16 13:44 Glucagon (Glucagon Inj) 1 mg UD PRN SQ 08/10/16 13:45 09/09/16 13:44 Calcium Carbonate (Tums Chew Tab) 500 mg Q6H PRN PO 08/10/16 13:45 09/09/16 13:44 Dexamethasone (Decadron Tab) 2 mg BID PO 08/10/16 21:00 09/09/16 20:59 08/11/16 09:08 2 MG Insulin Glargine (Lantus Solostar Pen) 10 unit QPM SC 08/10/16 21:00 09/09/16 20:59 08/10/16 21:26 10 UNIT Pantoprazole Sodium (Protonix Tab) 40 mg DAILY PO 08/11/16 09:00 09/10/16 08:59 08/11/16 09:08 40 MG Temazepam (Restoril Cap) 7.5 mg HS PRN PO 08/10/16 13:45 09/09/16 13:44 Non-Formulary Medication (Non-Formulary Patient'S Own Med) 1 ea HS PO 08/11/16 21:00 09/10/16 20:59 Objective Vital Signs Date Time Temp Pulse Resp B/P Pulse Ox O2 Delivery O2 Flow Rate FiO2 08/11/16 16:05 95 Nasal Cannula 4.0 08/11/16 16:02 36.8 92 18 155/96 95 Room Air 08/11/16 16:00 Nasal Cannula 4.0 08/11/16 13:46 Nasal Cannula 4.0 08/11/16 12:03 36.4 87 19 117/78 94 Nasal Cannula 4.0 08/11/16 12:00 Nasal Cannula 4.0 08/11/16 08:00 36.4 80 20 114/73 95 Nasal Cannula 4.0 08/11/16 08:00 Nasal Cannula 4.0 08/11/16 04:00 Nasal Cannula 4.0 08/11/16 03:32 36.6 73 20 108/71 97 Nasal Cannula 4.0 08/11/16 00:49 36.4 86 20 113/74 96 Nasal Cannula 4.0 08/10/16 23:59 Nasal Cannula 4.0 08/10/16 20:00 Nasal Cannula 4.0 08/10/16 19:27 37.0 83 20 116/74 96 Nasal Cannula 4.0 Physical Exam General Appearance: no apparent distress Respiratory/Chest: chest non-tender, lungs clear, normal breath sounds, no respiratory distress, no accessory muscle use Cardiovascular: regular rate, rhythm, no edema, no murmur Abdomen: normal bowel sounds, non tender, soft Neurologic/Psychiatric: no motor/sensory deficits, alert, normal mood/affect Laboratory Results Last 24 Hours Test 08/10/16 20:26 08/10/16 23:15 08/11/16 02:27 08/11/16 07:02 Bedside Glucose 108 mg/dl 101 mg/dl Total Creatine Kinase 24 U/L Creatine Kinase MB 1.5 ng/ml Creatine Kinase MB Ratio 6.3 Troponin I 0.172 ng/ml White Blood Count 7.09 K/uL Red Blood Count 3.53 M/uL Hemoglobin 11.1 g/dL Hematocrit 33.5 % Mean Corpuscular Volume 94.9 fL Mean Corpuscular Hemoglobin 31.4 pg Mean Corpuscular Hemoglobin Concent 33.1 g/dl RDW Standard Deviation 57.9 fL RDW Coefficient of Variation 16.7 % Platelet Count 122 K/uL Mean Platelet Volume 9.0 fL Nucleated RBC Absolute Count (auto) 0.09 K/uL Nucleated Red Blood Cells % 1.3 % Prothrombin Time 11.8 SECONDS Prothromb Time International Ratio 1.1 Activated Partial Thromboplast Time 51.5 SECONDS Partial Thromboplastin Ratio 2.0 Estimated Average Glucose 171 mg/dl Hemoglobin A1c 7.6 % Hepatitis C Antibody Screen NEG Test 08/11/16 11:18 08/11/16 15:56 08/11/16 16:22 Bedside Glucose 142 mg/dl 162 mg/dl 170 mg/dl Assessment and Plan This is a 70 year old male with PMH of glioblastoma s/p resection, HTN, DM2 presents with acute shortness of breath and found to have bilateral PE Acute Bilateral PEs significant and extensive bilateral PEs seen on chest CTA pulmonary infarction also seen on the chest CTA patient has been started on IV heparin convert to subq Lovenox soon - though patient states he prefers oral agent, will discuss with pulmonary U/S = bilateral acute DVTs seen on lower extremities echo performed - showing significant right heart strain * The right ventricle is severely dilated * The right ventricular systolic function is severely reduced with severe right ventricular hypokinesis that spares the right ventricular apex. * The right atrium is severely dilated appreciate cardiology input appreciate pulmonary input will consult vascular surgery for possible Homer filter - as next pulmonary emboli could have disastrous consequences regarding right heart Elevated Troponin this is more likely related to right heart strain echo showing significant right ventricular and right atrial dilatation, and significantly reduced right ventricular function Glioblastoma S/p craniotomy with resection of glioblastoma 05/21/2016 Has undergone radiation last tx today 08/10/16 Continue Decadron 2 mg BID Continue oral chemo with Temodar HTN holding thiazide diuretic secondary to low blood pressures can restart when blood pressures improve DM2 Ha1c = 7.6% hold oral agents insulin sliding scale continue Lantus 10 units FULL CODE
[2016-08-11] MEDS ORDERED: TEMOZOLOMIDE 140 MG PO SCH (21:00)
[2016-08-11] MEDS: INSULIN GLARGINE SOLOSTAR 100 UNITS/ML 3 ML PEN SC SCH (21:10)
[2016-08-12] VITALS (10 sets, daily range): BP systolic 112–146; BP diastolic 75–84; PULSE 65–93; TEMP 36.3–37; O2SAT 95–98
[2016-08-12] MEDS: HEPARIN 25,000 UNIT/500ML D5W 500 ML IV PRN (05:49)
[2016-08-12] MEDS ORDERED: CEFAZOLIN 2000 MG/60 ML D5W IV SCH (06:00)
[2016-08-12 07:16] LABS: HEMATOCRIT 35.1 % (42-52); MEAN CORPUSCULAR HEMOGLOBIN 31.5 pg (25-34); MEAN CORPUSCULAR HGB CONC 32.5 g/dl (32-36); PLATELET COUNT 129 K/uL (130-400); RED BLOOD COUNT 3.62 M/uL (4.7-6.1); WHITE BLOOD COUNT 6.37 K/uL (4.8-10.8)
[2016-08-12 07:47] LABS: INR 1.1 (0.9-1.1); PARTIAL THROMBOPLASTIN RATIO 1.8; PROTHROMBIN TIME (PATIENT) 11.8 SECONDS (9.0-12.0)
[2016-08-12 07:49] LABS: BUN/CREATININE RATIO 26.8 (10-20); CALCIUM 8.5 mg/dl (8.5-10.1); CREATININE 0.81 mg/dl (0.60-1.40); MAGNESIUM 1.9 mg/dl (1.8-2.4); POTASSIUM 3.8 mmol/L (3.5-5.1)
[2016-08-12] MEDS: PANTOprazole SOD 40 MG TAB PO SCH (08:05)
[2016-08-12] MEDS: DEXAMETHASONE 4 MG TAB PO SCH ×2 (08:06→21:47)
[2016-08-12] MEDS: INSULIN ASPART 100 UNITS/ML 3 ML PEN SC SCH ×4 (08:13→21:44)
--- NOTE | 2016-08-12 09:17 | Surgery Consultation ---
Consultation Date of Service Aug 12, 2016. (Luiza Tripp, KIERRA) Chief Complaint DVT/PE, R heart strain, glioblastome (Luiza Tripp PA-C) History of Present Illness The patient is a 70 year old male with hx of HTN and on chemo/radiation for glioblastoma since excision in 06/02, admitted with BLE DVT and extensive PE, seen in consultation for IVC filter insertion. Pt noted to have severe R heart strain on echo. Currently on heparin, however, senior care AC not recommended d/ t brain ca. Pt admits chronic L sided weakness since tumor discovery, as well as worsening generalized weakness since starting chemo. Admits KINGSLEY and SOB. Denies HOWELL, fever, chills, chest pain, abd pain, N/V, rest pain, claudication, other complaints. (Luiza Tripp, KIERRA) Vitals Vital Signs Past 12 Hours Date Time Temp Pulse Resp B/P Pulse Ox O2 Delivery O2 Flow Rate FiO2 08/12/16 08:44 36.9 75 20 133/83 98 Nasal Cannula 4.0 08/12/16 04:00 98 Nasal Cannula 4.0 08/12/16 03:41 36.6 80 18 130/84 98 Nasal Cannula 08/11/16 23:59 96 Nasal Cannula 4.0 08/11/16 23:53 36.6 84 18 110/77 96 Nasal Cannula (Luiza Tripp, KIERRA) Allergies Coded Allergies: No Known Allergies (Unverified , 08/10/16) Home Medications Scheduled Chlorthalidone (Chlorthalidone), 12.5 MG PO DAILY Dexamethasone (Decadron), 2 MG PO BID Insulin Glargine (Lantus), 10 UNITS SC QPM Insulin Isophan/Regular (Humulin 70/30), 0 SC ACHS Metformin Hcl (Glucophage), 250 MG PO BID Pantoprazole (Protonix), 40 MG PO DAILY Temozolomide (Temodar), 140 MG PO HS Scheduled PRN Acetaminophen (Tylenol), 325 MG PO Q6 PRN for Pain Calcium Carbonate (Tums), 1 TAB PO Q6H PRN for Dyspepsia Melatonin (Kp Melatonin), 1 TAB PO HS PRN for Sleep Ondansetron Hcl (Zofran), 8 MG PO HS PRN for Nausea Temazepam (Restoril), 7.5 MG PO HS PRN for Sleep Problem List Medical Problems: (1) DM type 2 (diabetes mellitus, type 2) (2) Dyslipidemia (3) GBM (glioblastoma multiforme) (4) Hypertension (5) Hypoxia (6) Pulmonary embolism (7) Pulmonary embolism, bilateral Surgical Problems: (1) H/O craniotomy (2) Status post skin graft (Luiza Tripp PA-C) Surgical / Medical History Hx Cardiac Surgery: No Hx Cancer Surgery: Yes (05/21/2016) Past Medical/Surgical History: Cancer, Diabetes, Hypertension (Luiza Tripp, ANGELC) Family History Diabetes mellitus FH: cancer FH: heart disease (Luiza Tripp PA-C) Diabetes mellitus FH: cancer FH: heart disease (Samson Boyd M.D.) Social History Smoking Status: Never Smoker Hx Tobacco Use In Past Year?: No Hx Alcohol Use - Type & Amnt: No Hx Substance Use -Type & Amnt: No (Luiza Tripp, ANGELC) Review of Systems Constitutional: + malaise, No chills, No fever Skin: No change in color Eyes: No visual changes ENMT: No sore throat Respiratory: + KINGSLEY, + cough (chronic), + short of breath, No hemoptysis Cardiovascular: + edema (mild), No chest pain, No intermittent claudication, No palpitations, No syncope Gastrointestinal: No abdominal pain, No nausea, No vomiting Neurologic: + numbness, + tingling, + weakness, No dizziness, No headache ( Luiza Tripp, CACHORRO-C) Physical Exam Constitutional: General Apperance: well-nourished, well-developed, obese Level of Distress: NAD, chronically ill Psychiatric: Mental Status: active & alert, normal mood, normal affect Orientation: oriented except where noted, to time, to place, to person Memory: recent memory normal, remote memory normal Head: normocephalic, atraumatic Eyes: EOM: EOMI ENMT: normal ENT inspection, hearing grossly normal Neck: supple, trachea midline Lungs: Respiratory effort: no dyspnea Auscultation: no rhonchi, decreased breath sounds Cardiovascular: Apical Impulse: not displaced Heart Auscultation: RRR, no rubs, no gallops Peripheral Pulses: Pulses: full and equal, in all extremities except if noted Bruits: none appreciated Carotid Pulse: normal on the left, normal on the right Brachial Pulses: normal on the left, normal on the right Radial Pulse: normal on the left, normal on the right Femoral Pulse: normal on the left, normal on the right Posterior Tibialis Pulse: decreased on the left, decreased on the right Dorsalis Pedis Pulse: decreased on the left, decreased on the right Abdomen: Bowel Sounds: normal Inspection & Palpation: soft, non-distended, no tenderness, guarding & rebound Musculoskeletal: normal tone, pertinent finding (L arm and leg weakness) Extremities: Upper Right: no cyanosis, no edema, no varicosities Upper Left: no cyanosis, no edema, no varicosities Lower Right: no cyanosis, no varicosities, edema (trace) Lower Left: no cyanosis, no varicosities, no palpable cord, edema Neurologic: Cranial Nerves: grossly intact Sensation: grossly intact (Luiza Tripp, PA-C) Assessment and Plan ASSESSMENT and PLAN: DVT/PE R heart strain Glioblastoma Pt discussed with Dr Boyd, recommends IVC filter insertion today in OR. Procedure, risks, benefits, and alternatives discussed with pt, he expresses understanding and agreement. Sister also present. (Luiza Tripp, PA-C) Patient was seen, examined, and chart reviewed. Agree with exam and treatment plan of the Vascular PA. Patient for insertion of IVC filter. I have discussed the risks options and benefits of the procedure with the patient. The patient understands the risks options and benefits and agrees to the procedure. (Samson Boyd M.D.)
[2016-08-12] MEDS ORDERED: CEFAZOLIN IV 1,000 MG in DEXTROSE 5% 50ML 50 ML IV ONE (09:30)
[2016-08-12] MEDS ORDERED: FENTANYL CITRATE INJ 50 MCG/1 ML 2 ML VIAL ONE (14:04)
[2016-08-12] MEDS ORDERED: MIDAZOLAM HCL 1 MG/ML 2ML VIAL ONE (14:05)
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
[2016-08-12] MEDS ORDERED: KEFZOL SPECIAL PROCEDURE STOCK 1 GM ADDVIAL IV ONE (14:42)
--- NOTE | 2016-08-12 14:52 | [facility] Post Operative Brief Note ---
Immediate Operative Summary Operative Date Aug 12, 2016. Pre-Operative Diagnosis Right Lower Extremity DVT, PE, Pulmonary hypertension Post-Operative Diagnosis Same Procedure(s) Performed Insertion of Vena Cava FIlter, Right Femoral Approach, Ultrasound Localization of Right Femoral Vein, Fluoroscopy for positioning. Surgeon Dr. Boyd Architecture Consultant Surgeon(s) Dr. Lozano Estimated Blood Loss 3 Findings filter in infrarenal vena cava upright, no cava clot seen Specimens none Anesthesia Local Complication(s) None Disposition
[2016-08-12] MEDS ORDERED: IODIXANOL (VISIPAQUE) 270 MG/ML 50ML FLUSH ONE (15:00)
[2016-08-12] MEDS ORDERED: LIDOCAINE HCL 1% 20 ML VIAL SQ ONE (15:00)
--- NOTE | 2016-08-12 15:10 | DIAGNOSTIC IMAGING REPORT ---
DATE OF PROCEDURE: 08/12/2016 PREOPERATIVE DIAGNOSIS: Deep venous thrombosis and pulmonary embolism in the setting of pulmonary hypertension and right heart strain. POSTOPERATIVE DIAGNOSIS: Same. PROCEDURE: 1. Ultrasound guided access right common femoral vein. 2. Insertion of Cook Celect inferior vena cava filter. SURGEON: Samson Boyd M.D. CAMPAIGN MANAGEMENT SPECIALIST: Sha Lozano M.D. ANESTHESIA: Local anesthesia only. ESTIMATED BLOOD LOSS: 2 mL. COMPLICATIONS: None. INDICATIONS: This is an unfortunate 70-year-old gentleman with a diagnosis of brain mass. He presented with DVT and PE. He also had a significant right heart strain and pulmonary hypertension. Vena cava filter was indicated to prevent massive PE. PROCEDURE: The patient was brought to the endovascular suite and placed in supine position. The right groin was prepped and draped in normal sterile fashion. A timeout was performed and all parties agreed to the correct patient and procedure to be performed. Appropriate surgical prophylactic antibiotics were administered within 1 hour of the incision. Under ultrasound guidance, the right common femoral vein was accessed on the first attempt. The wire was inserted to the level of the inferior vena cava. Dilator was used to dilate the tract and then the sheath was inserted. A venogram was performed at this time which showed clearly the right and left renal veins. The right renal vein was slightly lower. The sheath was positioned below the level of the renal veins. The filter was advanced through the sheath. The sheath was slowly retracted ensuring that it did not inadvertently advance. The sheath was retracted and the filter was deployed. It was in good position with only a very small tilt. All sheath wires and catheters were then removed. Pressure was held on the access site. Hemostasis was achieved. The patient was transferred to recovery room in satisfactory condition with no apparent complications.
[2016-08-12] MEDS: ENOXAPARIN 80 MG/0.8 ML SYR SQ SCH (17:44)
[2016-08-12] MEDS ORDERED: LOVENOX TEACHING KIT SCH (17:45)
[2016-08-12] MEDS: INSULIN GLARGINE SOLOSTAR 100 UNITS/ML 3 ML PEN SC SCH (21:50)
[2016-08-12] MEDS: TEMOZOLOMIDE 140 MG PO SCH (21:50)
[2016-08-13] VITALS (7 sets, daily range): BP systolic 115–144; BP diastolic 64–83; PULSE 67–80; TEMP 36.3–36.8; O2SAT 95–97
[2016-08-13] MEDS: ONDANSETRON INJ 2 MG/ML 2 ML VIAL IV PRN ×2 (06:06→21:33)
[2016-08-13] MEDS: ENOXAPARIN 80 MG/0.8 ML SYR SQ SCH ×2 (06:07→17:20)
[2016-08-13 07:42] LABS: HEMATOCRIT 33.8 % (42-52); MEAN CELL VOLUME 95.5 fL (80-100); MEAN CORPUSCULAR HEMOGLOBIN 31.4 pg (25-34); MEAN CORPUSCULAR HGB CONC 32.8 g/dl (32-36); PLATELET COUNT 129 K/uL (130-400); RED BLOOD COUNT 3.54 M/uL (4.7-6.1); WHITE BLOOD COUNT 5.66 K/uL (4.8-10.8)
[2016-08-13 07:52] LABS: INR 1.1 (0.9-1.1); PARTIAL THROMBOPLASTIN RATIO 1.2; PROTHROMBIN TIME (PATIENT) 11.8 SECONDS (9.0-12.0)
[2016-08-13 08:09] LABS: BUN/CREATININE RATIO 26.2 (10-20); CALCIUM 8.7 mg/dl (8.5-10.1); CREATININE 0.81 mg/dl (0.60-1.40); MAGNESIUM 1.9 mg/dl (1.8-2.4); POTASSIUM 4.2 mmol/L (3.5-5.1)
[2016-08-13] MEDS: PANTOprazole SOD 40 MG TAB PO SCH (08:26)
[2016-08-13] MEDS: DEXAMETHASONE 4 MG TAB PO SCH ×2 (08:26→21:32)
[2016-08-13] MEDS: INSULIN ASPART 100 UNITS/ML 3 ML PEN SC SCH ×4 (08:30→21:38)
--- NOTE | 2016-08-13 10:06 | Progress Note ---
Subjective Date of Service: Aug 13, 2016. Subjective Pt evaluation today including: conversation w/ patient, physical exam, lab review, review of studies, review of inpatient medication list Saw/examined the patient in room 244 Comfortable, in no acute distress today Oxygen via nasal cannula in place; no shortness of breath or respiratory distress good PO intake Denies chest pain/palpitations Problem List Medical Problems: (1) Brain mass Status: Acute (2) Elevated troponin Status: Acute (3) Hypotension Status: Acute (4) Left-sided weakness Status: Acute Review of Systems Constitutional: + weakness Respiratory: No cough, No dyspnea on exertion, No shortness of breath (improved ), No sputum Cardiac: No chest pain, No edema, No palpitations Abdomen: No diarrhea, No nausea, No pain, No vomiting Heme: No abnormal bleeding/bruising Medications Current Inpatient Medications Medications (Trade) Dose Ordered Sig/Clotilde Route Start Time Stop Time Status Last Admin Dose Admin Ioversol (Optiray 320) 125 ml UD PRN IV 08/10/16 11:00 08/14/16 10:59 Acetaminophen (Tylenol Tab) 650 mg Q4H PRN PO 08/10/16 13:45 09/09/16 13:44 Ondansetron HCl (Zofran Inj) 4 mg Q6H PRN IV 08/10/16 13:45 09/09/16 13:44 08/13/16 06:06 4 MG Insulin Aspart (novoLOG ASPART) SLIDING SCALE If C... ACHS SC 08/10/16 16:15 09/09/16 16:14 08/13/16 08:30 4 UNITS Glucose (Glucose 40% Gel) 15-30 GRAMS 15 GRAMS... UD PRN PO 08/10/16 13:45 09/09/16 13:44 Glucose (Glucose Chew Tab) 4-8 Tablets 4 Tabl... UD PRN PO 08/10/16 13:45 09/09/16 13:44 Dextrose (Dextrose 50% 50ML Syringe) 25-50ML OF 50% DW IV FOR... UD PRN IV 08/10/16 13:45 09/09/16 13:44 Glucagon (Glucagon Inj) 1 mg UD PRN SQ 08/10/16 13:45 09/09/16 13:44 Calcium Carbonate (Tums Chew Tab) 500 mg Q6H PRN PO 08/10/16 13:45 09/09/16 13:44 Dexamethasone (Decadron Tab) 2 mg BID PO 08/10/16 21:00 09/09/16 20:59 08/13/16 08:26 2 MG Insulin Glargine (Lantus Solostar Pen) 10 unit QPM SC 08/10/16 21:00 09/09/16 20:59 08/12/16 21:50 10 UNIT Pantoprazole Sodium (Protonix Tab) 40 mg DAILY PO 08/11/16 09:00 09/10/16 08:59 08/13/16 08:26 40 MG Temazepam (Restoril Cap) 7.5 mg HS PRN PO 08/10/16 13:45 09/09/16 13:44 Temozolomide (Temozolomide) 140 mg HS PO 08/12/16 21:00 09/11/16 20:59 08/12/16 21:50 140 MG Enoxaparin Sodium (Lovenox Inj) 80 mg Q12@0600,1800 SQ 08/12/16 16:30 09/11/16 16:29 08/13/16 06:07 80 MG Miscellaneous (Lovenox Teaching Kit) 1 ea UD N/A 08/12/16 17:45 09/11/16 17:44 Objective Vital Signs Date Time Temp Pulse Resp B/P Pulse Ox O2 Delivery O2 Flow Rate FiO2 08/13/16 07:48 36.5 67 20 115/71 97 Nasal Cannula 2.0 08/13/16 04:00 Nasal Cannula 08/13/16 03:50 36.8 79 20 144/83 97 Nasal Cannula 4.0 08/13/16 00:18 36.7 80 21 121/81 96 Nasal Cannula 4.0 08/12/16 23:59 Nasal Cannula 08/12/16 20:00 Nasal Cannula 08/12/16 19:45 36.3 79 20 141/77 95 Nasal Cannula 4.0 08/12/16 17:30 36.7 93 20 128/80 96 Nasal Cannula 4.0 08/12/16 16:30 37.0 65 20 129/80 95 Nasal Cannula 4.0 08/12/16 16:00 36.6 74 20 126/78 97 Nasal Cannula 4.0 08/12/16 15:48 Nasal Cannula 4.0 08/12/16 15:30 36.6 74 20 112/75 95 Nasal Cannula 4.0 08/12/16 12:24 36.4 87 20 146/84 96 Room Air 08/12/16 12:14 Nasal Cannula 4.0 08/12/16 11:06 36.9 75 20 133/83 98 Nasal Cannula 4.0 Physical Exam General Appearance: no apparent distress Respiratory/Chest: chest non-tender, lungs clear, normal breath sounds, no respiratory distress, no accessory muscle use Cardiovascular: regular rate, rhythm, no edema, no gallop, no JVD, no murmur Abdomen: normal bowel sounds, non tender, soft Extremities: normal inspection, no pedal edema Neurologic/Psychiatric: no motor/sensory deficits, alert, normal mood/affect Laboratory Results Last 24 Hours Test 08/12/16 11:03 08/12/16 16:02 08/12/16 20:25 08/13/16 06:52 Bedside Glucose 283 mg/dl 160 mg/dl 143 mg/dl 142 mg/dl Test 08/13/16 07:16 White Blood Count 5.66 K/uL Red Blood Count 3.54 M/uL Hemoglobin 11.1 g/dL Hematocrit 33.8 % Mean Corpuscular Volume 95.5 fL Mean Corpuscular Hemoglobin 31.4 pg Mean Corpuscular Hemoglobin Concent 32.8 g/dl RDW Standard Deviation 57.3 fL RDW Coefficient of Variation 16.3 % Platelet Count 129 K/uL Mean Platelet Volume 9.0 fL Nucleated RBC Absolute Count (auto) 0.03 K/uL Nucleated Red Blood Cells % 0.6 % Prothrombin Time 11.8 SECONDS Prothromb Time International Ratio 1.1 Activated Partial Thromboplast Time 31.1 SECONDS Partial Thromboplastin Ratio 1.2 Sodium Level 140 mmol/L Potassium Level 4.2 mmol/L Chloride Level 101 mmol/L Carbon Dioxide Level 32 mmol/L Anion Gap 7.0 mmol/L Blood Urea Nitrogen 21 mg/dl Creatinine 0.81 mg/dl Est Creatinine Clear Calc Drug Dose 85.1 ml/min Estimated GFR () 105.8 Estimated GFR (Non- 91.3 BUN/Creatinine Ratio 26.2 Random Glucose 136 mg/dl Calcium Level 8.7 mg/dl Magnesium Level 1.9 mg/dl Assessment and Plan This is a 70 year old male with PMH of glioblastoma s/p resection, HTN, DM2 presents with acute shortness of breath and found to have bilateral PE Acute Bilateral PEs 08/13 clinically improving s/p IVC filter on 08/12 Lovenox 1mg/kg q12 currently on 2L O2 via nasal cannula we can try to wean O2 as tolerated PT/OT ordered discharge planning to rehab (~08/14) 08/12 patient is doing okay today, breathing status improved currently on 4L O2 for symptomatic relief No chest pain currently on IV heparin, may switch to subq Lovenox in AM, he is agreeable to try to learn how to inject ( may need teaching) appreciate vascular surgery consultation plan for IVC filter later today 08/11 significant and extensive bilateral PEs seen on chest CTA pulmonary infarction also seen on the chest CTA patient has been started on IV heparin convert to subq Lovenox soon - though patient states he prefers oral agent, will discuss with pulmonary U/S = bilateral acute DVTs seen on lower extremities echo performed - showing significant right heart strain * The right ventricle is severely dilated * The right ventricular systolic function is severely reduced with severe right ventricular hypokinesis that spares the right ventricular apex. * The right atrium is severely dilated appreciate cardiology input appreciate pulmonary input will consult vascular surgery for possible [place] filter - as next pulmonary emboli could have disastrous consequences regarding right heart Elevated Troponin this is more likely related to right heart strain echo showing significant right ventricular and right atrial dilatation, and significantly reduced right ventricular function Glioblastoma S/p craniotomy with resection of glioblastoma 05/21/2016 Has undergone radiation last tx today 08/10/16 Continue Decadron 2 mg BID Continue oral chemo with Temodar HTN holding thiazide diuretic secondary to low blood pressures can restart when blood pressures improve DM2 Ha1c = 7.6% hold oral agents insulin sliding scale continue Lantus 10 units FULL CODE
--- NOTE | 2016-08-13 11:29 | PULMONARY PROGRESS NOTE ---
DATE: 08/13/2016 TIME: 11:10 a.m. SUBJECTIVE: The patient is feeling pretty well. He is not noticing any significant shortness of breath. He is not having chest pain. He has his chronic mild dry cough which started soon after his surgery. The patient does have a history of reflux. He relates that he used to get heartburn a lot at night. He has not had any such symptoms in here and he has been receiving pantoprazole. He feels that his cough may be getting better. The patient had a filter put in yesterday. He was in the OR, when I came to evaluate him yesterday. The suggestion for the filter was done because of a severely abnormal echocardiogram showing severe pulmonary hypertension with severely reduced right ventricular hypokinesis. Right atrium was severely dilated. OBJECTIVE: GENERAL: The patient appears comfortable at rest. He was awake, alert and oriented. Temperature was 36.5. EARS, NOSE, THROAT: Exam otherwise unremarkable. VITAL SIGNS: Heart rate was 67 per minute. It was somewhat irregular. Blood pressure is 115/71. Respiratory rate is 20 breaths per minute. LUNGS: Lung dunlap were clear bilaterally. Saturation was 97% on 2 liters. The patient does notice that he feels short of breath if he takes the oxygen off. ABDOMEN: Soft and nontender. No masses are palpable. EXTREMITIES: Showed the edema is lessening. He does have the scars from the chronic sheppard has had been noted previously. LABORATORY DATA: White count today is 5.66. Hemoglobin 11.1. Platelets 129,000. There has been relative stability since admission. Electrolytes show sodium 140, potassium 4.2, chloride 101, bicarbonate 32. BUN is 21 with a creatinine of 0.8. IMPRESSIONS: 1. Acute pulmonary embolism - severe. 2. Deep vein thrombosis involving both legs. 3. Mild decreased platelet count. COMMENTS AND RECOMMENDATIONS: The patient seems to be doing reasonably well. He is now on Lovenox. The patient is agreeable to using this at home. He may soon be able to increase his activity somewhat in terms of getting out of bed and mild walking.
[2016-08-13] MEDS: TEMOZOLOMIDE 140 MG PO SCH (21:32)
[2016-08-13] MEDS: INSULIN GLARGINE SOLOSTAR 100 UNITS/ML 3 ML PEN SC SCH (21:38)
[2016-08-14 00:26] VITALS: BP 132/81; PULSE 71; TEMP 36.6; O2SAT 94
[2016-08-14 03:53] VITALS: BP 126/74; PULSE 86; TEMP 36.8; O2SAT 93
[2016-08-14] MEDS: ENOXAPARIN 80 MG/0.8 ML SYR SQ SCH (06:01)
[2016-08-14 07:41] LABS: HEMATOCRIT 34.3 % (42-52); MEAN CELL VOLUME 97.2 fL (80-100); MEAN CORPUSCULAR HEMOGLOBIN 31.7 pg (25-34); MEAN CORPUSCULAR HGB CONC 32.7 g/dl (32-36); MEAN PLATELET VOLUME 8.9 fL (7.4-10.4); PLATELET COUNT 129 K/uL (130-400); RED BLOOD COUNT 3.53 M/uL (4.7-6.1); WHITE BLOOD COUNT 5.63 K/uL (4.8-10.8)
[2016-08-14] MEDS: DEXAMETHASONE 4 MG TAB PO SCH (07:55)
[2016-08-14] MEDS: PANTOprazole SOD 40 MG TAB PO SCH (07:55)
[2016-08-14 08:13] VITALS: BP 127/84; PULSE 59; TEMP 36.5; O2SAT 95
--- NOTE | 2016-08-14 08:44 | Progress Note ---
Subjective Date of Service: Aug 14, 2016. Subjective Pt evaluation today including: conversation w/ patient, physical exam, lab review, review of studies, review of inpatient medication list Saw/examined the patient in room 244 He's doing well, no chest pain currently requiring oxygen has ambulated to the bathroom and worked with PT/OT - states he felt fine walking No other issues to note Problem List Medical Problems: (1) Brain mass Status: Acute (2) Elevated troponin Status: Acute (3) Hypotension Status: Acute (4) Left-sided weakness Status: Acute Review of Systems Constitutional: No chills, No fever Respiratory: + shortness of breath (improving), No cough, No dyspnea at rest, No dyspnea on exertion, No hemoptysis, No sputum, No wheezing Cardiac: No chest pain, No edema, No palpitations Medications Current Inpatient Medications Medications (Trade) Dose Ordered Sig/Clotilde Route Start Time Stop Time Status Last Admin Dose Admin Ioversol (Optiray 320) 125 ml UD PRN IV 08/10/16 11:00 08/14/16 10:59 Acetaminophen (Tylenol Tab) 650 mg Q4H PRN PO 08/10/16 13:45 09/09/16 13:44 Ondansetron HCl (Zofran Inj) 4 mg Q6H PRN IV 08/10/16 13:45 09/09/16 13:44 08/13/16 21:33 4 MG Insulin Aspart (novoLOG ASPART) SLIDING SCALE If C... ACHS SC 08/10/16 16:15 09/09/16 16:14 08/13/16 21:38 2 UNITS Glucose (Glucose 40% Gel) 15-30 GRAMS 15 GRAMS... UD PRN PO 08/10/16 13:45 09/09/16 13:44 Glucose (Glucose Chew Tab) 4-8 Tablets 4 Tabl... UD PRN PO 08/10/16 13:45 09/09/16 13:44 Dextrose (Dextrose 50% 50ML Syringe) 25-50ML OF 50% DW IV FOR... UD PRN IV 08/10/16 13:45 09/09/16 13:44 Glucagon (Glucagon Inj) 1 mg UD PRN SQ 08/10/16 13:45 09/09/16 13:44 Calcium Carbonate (Tums Chew Tab) 500 mg Q6H PRN PO 08/10/16 13:45 09/09/16 13:44 Dexamethasone (Decadron Tab) 2 mg BID PO 08/10/16 21:00 09/09/16 20:59 08/13/16 21:32 2 MG Insulin Glargine (Lantus Solostar Pen) 10 unit QPM SC 08/10/16 21:00 09/09/16 20:59 08/13/16 21:38 10 UNIT Pantoprazole Sodium (Protonix Tab) 40 mg DAILY PO 08/11/16 09:00 09/10/16 08:59 08/13/16 08:26 40 MG Temazepam (Restoril Cap) 7.5 mg HS PRN PO 08/10/16 13:45 09/09/16 13:44 08/13/16 21:32 7.5 MG Temozolomide (Temozolomide) 140 mg HS PO 08/12/16 21:00 09/11/16 20:59 08/13/16 21:32 140 MG Enoxaparin Sodium (Lovenox Inj) 80 mg Q12@0600,1800 SQ 08/12/16 16:30 09/11/16 16:29 08/14/16 06:01 80 MG Miscellaneous (Lovenox Teaching Kit) 1 ea UD N/A 08/12/16 17:45 09/11/16 17:44 Objective Vital Signs Date Time Temp Pulse Resp B/P Pulse Ox O2 Delivery O2 Flow Rate FiO2 08/14/16 08:13 36.5 59 20 127/84 95 Nasal Cannula 2.0 08/14/16 04:00 Nasal Cannula 08/14/16 03:53 36.8 86 20 126/74 93 Nasal Cannula 3.0 08/14/16 00:26 36.6 71 22 132/81 94 Nasal Cannula 3.0 08/13/16 23:59 Nasal Cannula 08/13/16 20:00 Nasal Cannula 08/13/16 19:48 36.3 76 22 125/65 95 Nasal Cannula 4.0 08/13/16 16:00 Nasal Cannula 4.0 08/13/16 15:33 36.3 67 22 125/79 97 Nasal Cannula 4.0 08/13/16 14:45 95 08/13/16 12:23 36.4 80 20 117/64 97 Room Air 08/13/16 12:00 Nasal Cannula 4.0 Physical Exam General Appearance: no apparent distress Respiratory/Chest: chest non-tender, lungs clear, normal breath sounds, no respiratory distress, no accessory muscle use Cardiovascular: regular rate, rhythm, no edema, no JVD, no murmur Extremities: non-tender, no pedal edema Neurologic/Psychiatric: no motor/sensory deficits, alert, normal mood/affect Laboratory Results Last 24 Hours Test 08/13/16 10:58 08/13/16 16:21 08/13/16 20:11 08/14/16 06:57 Bedside Glucose 234 mg/dl 140 mg/dl 212 mg/dl 135 mg/dl Test 08/14/16 07:34 White Blood Count 5.63 K/uL Red Blood Count 3.53 M/uL Hemoglobin 11.2 g/dL Hematocrit 34.3 % Mean Corpuscular Volume 97.2 fL Mean Corpuscular Hemoglobin 31.7 pg Mean Corpuscular Hemoglobin Concent 32.7 g/dl RDW Standard Deviation 57.0 fL RDW Coefficient of Variation 16.2 % Platelet Count 129 K/uL Mean Platelet Volume 8.9 fL Assessment and Plan This is a 70 year old male with PMH of glioblastoma s/p resection, HTN, DM2 presents with acute shortness of breath and found to have bilateral PE Acute Bilateral PEs 08/14 clinically doing well s/p IVC filter on 08/12 continue Lovenox 1mg/kg q12 PT/OT discharge planning to [facility] 08/13 clinically improving s/p IVC filter on 08/12 Lovenox 1mg/kg q12 currently on 2L O2 via nasal cannula we can try to wean O2 as tolerated PT/OT ordered discharge planning to rehab (~08/14) 08/12 patient is doing okay today, breathing status improved currently on 4L O2 for symptomatic relief No chest pain currently on IV heparin, may switch to subq Lovenox in AM, he is agreeable to try to learn how to inject ( may need teaching) appreciate vascular surgery consultation plan for IVC filter later today 08/11 significant and extensive bilateral PEs seen on chest CTA pulmonary infarction also seen on the chest CTA patient has been started on IV heparin convert to subq Lovenox soon - though patient states he prefers oral agent, will discuss with pulmonary U/S = bilateral acute DVTs seen on lower extremities echo performed - showing significant right heart strain * The right ventricle is severely dilated * The right ventricular systolic function is severely reduced with severe right ventricular hypokinesis that spares the right ventricular apex. * The right atrium is severely dilated appreciate cardiology input appreciate pulmonary input will consult vascular surgery for possible [place] filter - as next pulmonary emboli could have disastrous consequences regarding right heart Elevated Troponin this is more likely related to right heart strain echo showing significant right ventricular and right atrial dilatation, and significantly reduced right ventricular function Glioblastoma S/p craniotomy with resection of glioblastoma 05/21/2016 Has undergone radiation last tx today 08/10/16 Continue Decadron 2 mg BID Continue oral chemo with Temodar HTN holding thiazide diuretic secondary to low blood pressures can restart when blood pressures improve DM2 Ha1c = 7.6% hold oral agents insulin sliding scale continue Lantus 10 units FULL CODE Discharge planning: rehab hospital
[2016-08-14] MEDS: INSULIN ASPART 100 UNITS/ML 3 ML PEN SC SCH ×3 (08:49→16:15)
[2016-08-14 12:02] VITALS: BP 132/75; PULSE 75; TEMP 36.5; O2SAT 97
[2016-08-14] MEDS ORDERED: LVNIS80 SQ (12:18)
--- NOTE | 2016-08-14 12:26 | Discharge Instructions ---
Discharge Instructions Date of Service Aug 14, 2016. Admission Reason for Admission: Hypoxia, Pulmonary Embolism, Bilateral Discharge Discharge Diagnosis / Problem: Acute Bilateral PE; severely dilated RV; hypoxia Discharge Goals Goal(s): Decrease discomfort, Improve function, Diagnostic testing, Therapeutic intervention Activity Recommendations Activity Level: Up Ad Linda, Ambulates in room, Assistance Required Therapies: Physical Therapy (ADL training only), Occupational Therapy (ADL training only) Exercise/Sports Limitations: as tolerated (ADL training) Due to severely dilated Right Ventricle - exercise should be limited to strengthening, fall prevention, gait training and ADL training Additional Information Patient informed of condition: Yes Advance Directives: No DNR: No Level of Care: Acute Rehab Communicable Disease: No Prognosis: Stable Oxygen at (LPM): 2L Instructions / Follow-Up Instructions / Follow-Up Due to severely dilated Right Ventricle - exercise should be limited to strengthening, fall prevention, gait training and ADL training Repeat echo in one month Lovenox subq 80mg BID for Bilateral PE s/p IVC filter to prevent further right heart strain Current Hospital Diet Patient's current hospital diet: AHA Diet (Heart Healthy), Diabetes Type 2 Diet Discharge Diet Recommended Diet: AHA Diet (Heart Healthy), Diabetes Type 2 Diet Procedures Procedures Performed: Insertion of Vena Cava Filter, Right Femoral Approach, Ultrasound Localization of Right Femoral Vein, Fluoroscopy for positioning. Pending Studies Studies pending at discharge: no Laboratory Results Hemoglobin A1c Test 08/11/16 02:27 Range/Units Estimated Average Glucose 171 mg/dl Hemoglobin A1c 7.6 H 4.5-5.6 % Medical Emergencies . Who to Call and When: Medical Emergencies: If at any time you feel your situation is an emergency, please call 911 immediately. . Non-Emergent Contact Non-Emergency issues call your: Primary Care Provider . . "Provider Documentation" section prepared by Lea Loyd. Core Measure Problem Core Measures: None
--- NOTE | 2016-08-14 12:29 | Discharge Summary ---
Discharge Summary Date of Service Aug 14, 2016. Discharge Summary Admission Date: Aug 10, 2016 at 13:31 Discharge Date: Aug 14, 2016 Discharge Disposition: Rehab Principal Diagnosis: Acute bilateral PE s/p IVC filter on Lovenox Severely Dilated Right Ventricle/Right Heart Strain Glioblastoma s/p resection Medication Reconciliation New Medications: Enoxaparin (Lovenox) 80 Mg/0.8 Ml Inj 80 MG SQ Q12@0600,1800 for 30 Days, #1 Continued Medications: Acetaminophen (Tylenol) 325 Mg Tab 325 MG PO Q6 PRN for Pain, TAB Calcium Carbonate (Tums) 500 Mg Chew 1 TAB PO Q6H PRN for Dyspepsia Dexamethasone (Decadron) 4 Mg Tab 2 MG PO BID, TAB Insulin Glargine (Lantus) 100 Unit/Ml Inj 10 UNITS SC QPM, VIAL Insulin Isophan/Regular (Humulin 70/30) Susp 0 SC ACHS, VIAL Sliding scale only. 0-150 = none 151-200 = 4 units 201-250 = 8 units 251-300 = 12 units 301-350 = 16 units Greater than 350 = call Melatonin ( Melatonin) 3 Mg Tab 1 TAB PO HS PRN for Sleep for 30 Days, #30 TAB 2 Refills Metformin Hcl (Glucophage) 500 Mg Tab 250 MG PO BID, TAB Ondansetron Hcl (Zofran) 8 Mg Tab 8 MG PO HS PRN for Nausea, TAB TAKES WITH TEMODAR AT NIGHT Pantoprazole (Protonix) 40 Mg Tab 40 MG PO DAILY, #30 TAB Temazepam (Restoril) Unknown Strength Cap 7.5 MG PO HS PRN for Sleep, CAP Temozolomide (Temodar) 100 Mg Cap 140 MG PO HS Discontinued Medications: Chlorthalidone (Chlorthalidone) 25 Mg Tab 12.5 MG PO DAILY Admission Information HPI (per Admitting provider): This is a 70 year old male with glioblastoma s/p resection, DM type 2, hypertension, dyslipidemia, who presents to the ED with SOB. Patient underwent resection of glioblastoma in early May 2016 at [facility] [place] He was in rehab for 1 month and states he was initially bed bound except for PT due to severe L sided weakness. Left side weakness had been improving and was starting to ambulate with a walker at home, but in past few days has been ambulating less due to fatigue. Patient reports SOB and for 2 weeks which has progressively worsened over past 2-3 days. Has dry throat and nonproductive cough since surgery. Has bilateral LE edema x 3 weeks. Denies fever, chills, chest pain, palpitations, N/ V/D, appetite loss, urinary change, calf pain, dizziness, HOWELL, vision change, numbness, seizure. Pt has been on Decadron, oral chemo with Temodar, and radiation with last treatment done today. At radiation oncology was hypoxic to 67% on RA which improved on nasal cannula and was therefore sent to ER after radiation tx. In ER, CT chest showed extensive bilateral PE's with possible infarcts and findings of pulmonary hypertension. Denies prior history of VTE. Denies hx of abnormal bleeding. Physical Exam (per Admitting): General Appearance: WD/WN, no apparent distress, + pertinent finding ( pleasant alert 70 year old male) Head: normocephalic, atraumatic, + pertinent finding (well healed craniotomy scar right frontal scalp) Eyes: normal inspection, PERRL, EOMI ENT: hearing grossly normal, pharynx normal Neck: supple, no JVD, trachea midline Respiratory/Chest: lungs clear, normal breath sounds, no respiratory distress, no accessory muscle use Cardiovascular: regular rate, rhythm, no murmur Extremities/Musculoskelatal: no calf tenderness, + pedal edema (2+ pitting pretibial edema bilaterally), + pertinent finding Neurologic/Psych: alert, normal mood/affect, oriented x 3, + pertinent finding (left upper extremity strength 4/5, left lower extremity strength 3/5, RUE and RLE strength 5/5) Skin: normal color, warm/dry, + pertinent finding (excoriation LLE) Hospital Course This is a 70 year old male with PMH of glioblastoma s/p resection, HTN, DM2 presents with acute shortness of breath and found to have bilateral PE Acute Bilateral PEs 08/14 clinically doing well s/p IVC filter on 08/12 continue Lovenox 1mg/kg q12 PT/OT [facility]13 clinically improving s/p IVC filter on 08/12 Lovenox 1mg/kg q12 currently on 2L O2 via nasal cannula we can try to wean O2 as tolerated PT/OT ordered discharge planning to rehab (~08/14) 08/12 patient is doing okay today, breathing status improved currently on 4L O2 for symptomatic relief No chest pain currently on IV heparin, may switch to subq Lovenox in AM, he is agreeable to try to learn how to inject ( may need teaching) appreciate vascular surgery consultation plan for IVC filter later today 08/11 significant and extensive bilateral PEs seen on chest CTA pulmonary infarction also seen on the chest CTA patient has been started on IV heparin convert to subq Lovenox soon - though patient states he prefers oral agent, will discuss with pulmonary U/S = bilateral acute DVTs seen on lower extremities echo performed - showing significant right heart strain * The right ventricle is severely dilated * The right ventricular systolic function is severely reduced with severe right ventricular hypokinesis that spares the right ventricular apex. * The right atrium is severely dilated appreciate cardiology input appreciate pulmonary input will consult vascular surgery for possible Darby filter - as next pulmonary emboli could have disastrous consequences regarding right heart Elevated Troponin this is more likely related to right heart strain echo showing significant right ventricular and right atrial dilatation, and significantly reduced right ventricular function Glioblastoma S/p craniotomy with resection of glioblastoma 05/21/2016 Has undergone radiation last tx today 08/10/16 Continue Decadron 2 mg BID Continue oral chemo with Temodar HTN holding thiazide diuretic secondary to low blood pressures can restart when blood pressures improve DM2 Ha1c = 7.6% hold oral agents insulin sliding scale continue Lantus 10 units FULL CODE Discharge planning: rehab hospital Total time spent on discharge = 60 minutes This includes examination of the patient, discharge planning, medication reconciliation, and communication with other providers. Discharge Instructions Due to severely dilated Right Ventricle - exercise should be limited to strengthening, fall prevention, gait training and ADL training Repeat echo in one month Lovenox subq 80mg BID for Bilateral PE s/p IVC filter to prevent further right heart strain
[2016-08-14 12:32] VITALS: BP 132/75; PULSE 75; TEMP 36.5; O2SAT 97
[2016-08-14 15:48] VITALS: BP 129/79; PULSE 73; TEMP 36.3; O2SAT 97
[2016-09-15] MEDS ORDERED: INSDGI SC (09:59)
[2016-09-15] MEDS ORDERED: PANT40TA PO (09:59)
[2016-09-15] MEDS ORDERED: TEMA15CA4 PO (11:07)
[2016-09-15] MEDS ORDERED: GLC/500 PO (13:19)
== END 2016-08-14 17:13 | DRG 252 ==
LOC: ENRESERVTM → ENRESERVDT → C.EDB 10:17 → C.2T 13:31
PROVIDERS: ADMIT Internal Medicine; ATTEND Family Medicine
PROC: 06H03DZ Insertion of Intraluminal Device into Inferior Vena Cava, Percutaneous Approach (ICD-10-PCS; principal; 2016-08-12 15:45)
DX: I82.431 Acute embolism and thrombosis of right popliteal vein (principal); I26.99 Other pulmonary embolism without acute cor pulmonale; C71.1 Malignant neoplasm of frontal lobe; I82.443 Acute embolism and thrombosis of tibial vein, bilateral; I82.491 Acute embolism and thrombosis of other specified deep vein of right lower extremity; I27.2 Other secondary pulmonary hypertension; R93.1 Abnormal findings on diagnostic imaging of heart and coronary circulation; I95.9 Hypotension, unspecified; I10 Essential (primary) hypertension; E11.9 Type 2 diabetes mellitus without complications; Z79.4 Long term (current) use of insulin; Z79.52 Long term (current) use of systemic steroids; Z79.84 Long term (current) use of oral hypoglycemic drugs; Z79.899 Other long term (current) drug therapy; Z83.3 Family history of diabetes mellitus; Z82.49 Family history of ischemic heart disease and other diseases of the circulatory system; Z82.0 Family history of epilepsy and other diseases of the nervous system; Z51.0 Encounter for antineoplastic radiation therapy

== ENCOUNTER → 2016-09-09 | Outpatient (CLI) | payer OTHER ==
[~2016-09-09] MED LIST changes: +ACET-1256 PO; +CIPR1TAB10 PO; -DOCU100C31 PO; +ENOX80IN SQ; +GLC/500 PO; -HYG25 PO; +INSDGI SC; +INSDGIPEN SC; +KFL500 PO; +LCTX PO; +LVNIS80 SQ; +MELA3TAB29 PO; +PANT40TA PO; +QSTP PO; +RST75 PO; +TEMA15CA4 PO
[2016-09-09 13:50] VITALS: BP 134/68; PULSE 100; TEMP 36.8; O2SAT 95
--- NOTE | 2016-09-09 14:48 | Radiation Oncology Follow-Up ---
Radiation Oncology Follow-Up Date of Visit Sep 09, 2016. (Terri Diamond PA-C) Reason For Visit One-month follow-up (Terri Diamond PA-C) Radiation Completion Date 08/10/16 (Terri Diamond PA-C) Diagnosis (1) GBM (glioblastoma multiforme) Status: Acute Onset Date: 05/21/2016 Location: right frontal lobe Stage: IV Permanent Comment: Onset of left-sided weakness CT revealing a right frontal lobe mass Status post gross total [place] [place] Glioblastoma Multiforme, IDH-wild type WHO grade IV Status post completion of combined radiation and chemotherapy. Radiation completed 08/10/2016 he received 6000 cGy. Chemotherapy comprised of Temodar Last Edited By: Terri Diamond on Aug 17, 2016 18:23 (Terri Diamond PA-C) History of Present Illness Mr. Sue is a 70 year old male who recently presented with left lower extremity weakness. He presented to the emergency room at [facility] and had a CT of the head on 05/05/2016 which revealed a 3 cm right frontal lobe mass with surrounding vasogenic edema concerning for malignancy. The patient was subsequently transferred to [facility] in [place], [place]. He did have an MRI of the brain on 05/14/2016 which revealed: "IMPRESSION: Large centrally-necrotic intra-axial mass with in the right frontal lobe satellite regions of enhancement likely represents a high- grade glioma, although a metastasis potentially appear similar." He subsequently underwent a CT chest, abdomen, pelvis on 05/14/2016 which revealed : "IMPRESSION: 1. No evidence of primary or metastasis within the chest, abdomen or pelvis. 2. Incidental findings as described." The patient subsequently underwent a right craniotomy and resection of the brain mass by Dr. Rich on 05/21/2016 which revealed glioblastoma, IDH wild-type, WHO grade IV. The patient subsequently had a postop MRI of the brain on 05/21/2016 which revealed: "IMPRESSION: Expected postoperative changes of right parietal craniotomy for resection of right frontal lobe tumor, as described above, with complete or near-complete resection of the dominant enhancing tumor. Several enhancing satellite lesions are again noted in the adjacent right frontal and parietal lobes." The patient's case was evaluated in the neuro oncology tumor clinic and the recommendation was for adjuvant chemotherapy and radiation therapy. The patient was evaluated by Dr. Leon who recommended temozolomide with radiation therapy. We are now seeing the patient in consultation discussed the role of radiation therapy. The patient is coming from [facility] where he is undergoing subacute rehabilitation. Overall, the patient states continues to do a little bit better. The patient states his strength in his left upper extremity is slowly increasing. He states that he does still have significant weakness in his left lower extremity. Otherwise he has no significant complaints. He was treated with combined radiation chemotherapy. Radiation was completed . He received 6000 cGy. Chemotherapy comprised of Temodar. (Terri Diamond PA-C) Interim History He developed shortness of breath and was found to have DVTs and bilateral PEs. He had a low pulse oximetry on the last day of treatment. He was sent to the emergency room and evaluated in the DVTs and bilateral PEs were found. He was hospitalized and anticoagulated treatment was started. He is on Lovenox. He had a filter placed. He had steady improvement in his respiratory status. He was in the hospital for 4 days. He was then discharged to the rehabilitation hospital. He was there for 2 weeks. During that time. He did have an episode of diarrhea which caused him to have fatigue. He was evaluated for Clostridium difficile. This was negative. The diarrhea has steadily resolved. He was able to continue his physical therapy 2-3 times per week. He continues have weakness of the left leg. He was down to [facility] and seen by Dr. Miko Leon. A new prescription was written for Temodar. He is currently waiting for this to arrive the mail and he will begin his chemotherapy. He'll take this 5 days of the month. While at [facility] he had a recheck MRI of the brain. (Terri Diamond PA-C) Allergies Coded Allergies: No Known Allergies (Unverified , 08/10/16) Home Medications Scheduled Dexamethasone (Decadron), 2 MG PO BID Enoxaparin (Lovenox), 80 MG SQ Q12@0600,1800 Insulin Glargine (Lantus), 20 UNITS SC QPM Insulin Isophan/Regular (Humulin 70/30), 0 SC ACHS Metformin Hcl (Glucophage), 250 MG PO BID Pantoprazole (Protonix), 40 MG PO DAILY Scheduled PRN Acetaminophen (Tylenol), 325 MG PO Q6 PRN for Pain Calcium Carbonate (Tums), 1 TAB PO Q6H PRN for Dyspepsia Ondansetron Hcl (Zofran), 8 MG PO HS PRN for Nausea Temazepam (Restoril), 7.5 MG PO HS PRN for Sleep Review of Systems Gastrointestinal: Symptoms: WNL Oral: Symptoms: No Problems Respiratory: Symptoms: WNL Urinary: Symptoms: WNL Skin: Symptoms: No Problems (Terri Diamond PA-C) Physical Exam Vital Signs Date Time Temp Pulse Resp B/P Pulse Ox O2 Delivery O2 Flow Rate FiO2 09/09/16 13:50 36.8 100 20 134/68 95 Pain: Patient Pain Scale: 0 - 10 Initial Pain Intensity: 0.0 Fatigue: Mild General Appearance: no apparent distress, + pertinent finding (well-healed incision of the right frontal area) Eyes: normal inspection, EOMI ENT: normal ENT inspection, hearing grossly normal, pharynx normal Neck: no adenopathy, thyroid normal Respiratory/Chest: lungs clear, no respiratory distress, no accessory muscle use Cardiovascular: regular rate, rhythm, no gallop, no murmur Extremities: no pedal edema Neurologic/Psychiatric: alert, normal mood/affect, + pertinent finding (there is weakness of the left leg to over 5. The remainder of the examination. Her strength is equal) Skin: warm/dry (Terri Diamond PA-C) Laboratory Studies Test 07/29/16 09:38 08/05/16 09:41 08/10/16 10:52 08/10/16 10:57 Globulin 3.6 gm/dl (2.5-4.0) 4.1 gm/dl (2.5-4.0) Albumin/Globulin Ratio 0.8 (0.9-2) 0.6 (0.9-2) Immature Granulocyte % (Auto) 0.4 % 0.7 % White Blood Count 9.42 K/uL (4.8-10.8) 8.29 K/uL (4.8-10.8) Red Blood Count 3.90 M/uL (4.7-6.1) 3.79 M/uL (4.7-6.1) Hemoglobin 12.6 g/dL (14.0-18.0) 12.0 g/dL (14.0-18.0) Hematocrit 38.3 % (42-52) 36.7 % (42-52) Mean Corpuscular Volume 98.2 fL (80-100) 96.8 fL (80-100) Mean Corpuscular Hemoglobin 32.3 pg (25-34) 31.7 pg (25-34) Mean Corpuscular Hemoglobin Concent 32.9 g/dl (32-36) 32.7 g/dl (32-36) Platelet Count 99 K/uL (130-400) 133 K/uL (130-400) Mean Platelet Volume 9.7 fL (7.4-10.4) 9.2 fL (7.4-10.4) Neutrophils (%) (Auto) 83.9 % 79.8 % Lymphocytes (%) (Auto) 9.0 % 12.2 % Monocytes (%) (Auto) 6.1 % 6.6 % Eosinophils (%) (Auto) 0.5 % 0.6 % Basophils (%) (Auto) 0.1 % 0.1 % Neutrophils # (Auto) 7.90 K/uL (1.4-6.5) 6.61 K/uL (1.4-6.5) Lymphocytes # (Auto) 0.85 K/uL (1.2-3.4) 1.01 K/uL (1.2-3.4) Monocytes # (Auto) 0.57 K/uL (0.11-0.59) 0.55 K/uL (0.11-0.59) Eosinophils # (Auto) 0.05 K/uL (0-0.5) 0.05 K/uL (0-0.5) Basophils # (Auto) 0.01 K/uL (0-0.2) 0.01 K/uL (0-0.2) Immature Granulocyte # (Auto) 0.04 K/uL (0.00-0.02) 0.06 K/uL (0.00-0.02) Platelet Estimate DECREASED Total Bilirubin 0.7 mg/dl (0.2-1) 0.4 mg/dl (0.2-1) Aspartate Amino Transferase (AST) 12 U/L (15-37) 13 U/L (15-37) Alanine Aminotransferase (ALT) 34 U/L (12-78) 41 U/L (12-78) Alkaline Phosphatase 104 U/L (45-117) 100 U/L (45-117) Total Protein 6.6 gm/dl (6.4-8.2) 6.6 gm/dl (6.4-8.2) Albumin 2.5 gm/dl (3.4-5.0) 2.4 gm/dl (3.4-5.0) Direct Bilirubin 0.1 mg/dl (0-0.2) Lipase 87 U/L (73-393) POC Hemoglobin 12.6 g/dl (14.0-18.0) POC Hematocrit 37 % (42-52) POC Sodium 140 mEq/L (135-144) POC Potassium 3.8 mEq/L (3.3-5.0) POC Chloride 96 mEq/L (101-112) POC Total CO2 30 mEq/l (24-31) POC Blood Urea Nitrogen 25 mg/dl (7-18) POC Creatinine 1.0 mg/dl (0.6-1.3) POC Glucose 126 mg/dl (70-99) POC Ionized Calcium (Laura) 1.12 mmol/l (1.12-1.32) Test 08/10/16 13:30 08/10/16 17:20 08/10/16 23:15 08/11/16 02:27 Urine Color YELLOW Urine Appearance CLEAR (CLEAR) Urine pH 6.5 (4.5-7.5) Urine Specific [place] > 1.045 (1.000-1.030) Urine Protein NEG (NEG) Urine Glucose (UA) NEG (NEG) Urine Ketones NEG (NEG) Urine Occult Blood NEG (NEG) Urine Nitrite NEG (NEG) Urine Bilirubin NEG (NEG) Urine Urobilinogen NEG (NEG) Urine Leukocyte Esterase NEG (NEG) Urine WBC (Auto) 1-5 /hpf (0-5) Urine RBC (Auto) 0-4 /hpf (0-4) Urine Hyaline Casts (Auto) 5-10 /lpf (0-5) Urine Epithelial Cells (Auto) 10-20 /lpf (0-5) Urine Bacteria (Auto) NEG (NEG) Total Creatine Kinase 30 U/L (39-308) 24 U/L (39-308) Creatine Kinase MB 1.8 ng/ml (0.5-3.6) 1.5 ng/ml (0.5-3.6) Creatine Kinase MB Ratio 6.0 (0-3.0) 6.3 (0-3.0) Troponin I 0.237 ng/ml (0-0.045) 0.172 ng/ml (0-0.045) Estimated Average Glucose 171 mg/dl Hemoglobin A1c 7.6 % (4.5-5.6) Hepatitis C Antibody Screen NEG (NEG) Test 08/12/16 06:55 08/13/16 07:16 08/14/16 06:57 08/14/16 07:34 Nucleated RBC Absolute Count (auto) 0.04 K/uL (0-0) 0.03 K/uL (0-0) Nucleated Red Blood Cells % 0.6 % 0.6 % Prothrombin Time 11.8 SECONDS (9.0-12.0) 11.8 SECONDS (9.0-12.0) Prothrombin Time INR 1.1 (0.9-1.1) 1.1 (0.9-1.1) PTT 47.4 SECONDS (21.0-31.0) 31.1 SECONDS (21.0-31.0) Partial Thromboplastin Ratio 1.8 1.2 Sodium Level 139 mmol/L (136-145) 140 mmol/L (136-145) Potassium Level 3.8 mmol/L (3.5-5.1) 4.2 mmol/L (3.5-5.1) Chloride Level 100 mmol/L (98-107) 101 mmol/L (98-107) Carbon Dioxide Level 34 mmol/L (21-32) 32 mmol/L (21-32) Anion Gap 5.0 mmol/L (3-11) 7.0 mmol/L (3-11) Blood Urea Nitrogen 22 mg/dl (7-18) 21 mg/dl (7-18) Creatinine 0.81 mg/dl (0.60-1.40) 0.81 mg/dl (0.60-1.40) Est Creatinine Clear Calc Drug Dose 85.7 ml/min 85.1 ml/min Estimated GFR () 105.8 105.8 Estimated GFR (Non- 91.3 91.3 BUN/Creatinine Ratio 26.8 (10-20) 26.2 (10-20) Random Glucose 147 mg/dl (70-99) 136 mg/dl (70-99) Calcium Level 8.5 mg/dl (8.5-10.1) 8.7 mg/dl (8.5-10.1) Magnesium Level 1.9 mg/dl (1.8-2.4) 1.9 mg/dl (1.8-2.4) White Blood Count 5.66 K/uL (4.8-10.8) 5.63 K/uL (4.8-10.8) Red Blood Count 3.54 M/uL (4.7-6.1) 3.53 M/uL (4.7-6.1) Hemoglobin 11.1 g/dL (14.0-18.0) 11.2 g/dL (14.0-18.0) Hematocrit 33.8 % (42-52) 34.3 % (42-52) Mean Corpuscular Volume 95.5 fL (80-100) 97.2 fL (80-100) Mean Corpuscular Hemoglobin 31.4 pg (25-34) 31.7 pg (25-34) Mean Corpuscular Hemoglobin Concent 32.8 g/dl (32-36) 32.7 g/dl (32-36) RDW Standard Deviation 57.3 fL (36.4-46.3) 57.0 fL (36.4-46.3) RDW Coefficient of Variation 16.3 % (11.5-14.5) 16.2 % (11.5-14.5) Platelet Count 129 K/uL (130-400) 129 K/uL (130-400) Mean Platelet Volume 9.0 fL (7.4-10.4) 8.9 fL (7.4-10.4) POC Glucose 135 mg/dl (70-99) Test 08/14/16 10:47 POC Glucose 226 mg/dl (70-99) (Terri Diamond PA-C) Additional Studies He had an MRI of the brain 09/07/2016 at [facility] in [place]. This showed evolving posttreatment changes following resection of right frontal glioblastoma with slight decreased parenchymal enhancement in the adjacent right frontal and parietal lobes and decreased peritumoral flare signal hyperintensity. (Terri Diamond PA-C) Assessment & Plan Plan: Patient is also seen and examined by Dr. Rothman today. He'll be starting his Temodar. He'll take this 5 days of the month. He is on a tapering dose of dexamethasone that will finish on Wednesday. He does have some pills for thrush that he will complete in the next few days. The MRI was reviewed. Currently he is continuing on Lovenox. Recheck scanning per Dr. Leon. We asked him to return to our office in 6 months. He is having physical therapy through home health agency. He may call if he has any questions or concerns in the interim. (Terri Diamond PA-C) I agree with note created by Terri Diamond PA-C. I reviewed the patient's chart and information with her. I have examined and evaluated the patient. I reviewed relevant clinical information and answered the patient's and/or family' s questions. (Veeral. Rothman MD) Total Time In Follow-Up I spent 20 minutes speaking to the patient and performing examination. I spent 15 minutes reviewing information in completing this note. (Terri Diamond PA-C) I spent 15 minutes examining and counseling the patient. (Veeral. Rothman MD) Copy To Lashawn Patten M.D.; Miko Leon M.D.
== END | disposition home or self-care (01) ==
LOC: C.ONC 13:15
PROVIDERS: ATTEND Physician Assistant Medical
DX: Z08 Encounter for follow-up examination after completed treatment for malignant neoplasm (principal); Z92.3 Personal history of irradiation; Z85.841 Personal history of malignant neoplasm of brain

== ENCOUNTER 2016-09-15 16:00 | Inpatient (IN) | payer OTHER ==
[~2016-09-15] VITALS: Ht 165.1 cm; Wt 83.9 kg
[~2016-09-15 16:00] MED LIST changes: -ACET-1256 PO; -CIPR1TAB10 PO; -ENOX80IN SQ; -INSDGIPEN SC; -KFL500 PO; -LCTX PO; -MELA1TAB5 PO; -MELA3TAB29 PO; -QSTP PO; -RST75 PO; -TEMO1CAP2 PO
[2016-09-15] MEDS ORDERED: ENOX80IN SQ (16:20)
[2016-09-15] MEDS ORDERED: ACET-1256 PO (16:22)
[2016-09-15] MEDS ORDERED: MELA3TAB29 PO (16:22)
[2016-09-15 16:49] LABS: HEMATOCRIT 34.3 % (42-52); MEAN CELL VOLUME 99.7 fL (80-100); MEAN CORPUSCULAR HEMOGLOBIN 31.4 pg (25-34); MEAN CORPUSCULAR HGB CONC 31.5 g/dl (32-36); MEAN PLATELET VOLUME 9.4 fL (7.4-10.4); PLATELET COUNT 128 K/uL (130-400); RED BLOOD COUNT 3.44 M/uL (4.7-6.1); WHITE BLOOD COUNT 10.81 K/uL (4.8-10.8)
[2016-09-15 17:03] LABS: INR 1.2 (0.9-1.1); PARTIAL THROMBOPLASTIN RATIO 1.5; PROTHROMBIN TIME (PATIENT) 12.7 SECONDS (9.0-12.0)
[2016-09-15 17:05] LABS: BLOOD UREA NITROGEN 20 mg/dl (7-18); BUN/CREATININE RATIO 17.8 (10-20); CALCIUM 8.6 mg/dl (8.5-10.1); CARBON DIOXIDE 28 mmol/L (21-32); CHLORIDE 104 mmol/L (98-107); GLUCOSE 144 mg/dl (70-99); POTASSIUM 3.9 mmol/L (3.5-5.1); SODIUM 140 mmol/L (136-145)
[2016-09-15 17:08] LABS: ALKALINE PHOSPHATASE 86 U/L (45-117); ALT/SGPT 31 U/L (12-78); AST/SGOT 14 U/L (15-37)
--- NOTE | 2016-09-15 17:18 | DIAGNOSTIC IMAGING REPORT ---
CHEST 2 VIEWS ROUTINE CLINICAL HISTORY: Shortness of breath and fever. COMPARISON STUDY: Chest radiograph and chest CT August 10, 2016. FINDINGS: No pneumothorax or pleural effusion is identified. An IVC filter is partially imaged. Cardiomediastinal silhouette is stable. There is no evidence of pulmonary edema. A 4.9 x 1.6 cm right midlung opacity is similar to prior exam. Mild left lower lung opacity is improved. IMPRESSION: Persistent 3.9 x 1.6 cm right mid lung opacity, similar to exam of August 10, 2016. This may reflect a resolving pulmonary infarct given the pulmonary emboli shown on prior CT. However, follow-up PA and lateral chest radiograph in 2 months to ensure complete resolution are recommended. Electronically signed by: Cam Jean Baptiste M.D. 09/15/2016 5:17 PM Dictated Date/Time: 09/15/2016 5:11 PM
[2016-09-15 17:38] LABS: BASO % 0.1 %; BASO ABS # 0.01 K/uL (0-0.2); COMPLETE YES; EOS % 0.4 %; IG% 0.4 %; LYMPH % 11.9 %; LYMPH ABS # 1.29 K/uL (1.2-3.4); MONO % 7.5 %; NEUT % 79.7 %
[2016-09-15 17:50] LABS: URINE APPEARANCE CLOUDY (CLEAR); URINE BILIRUBIN NEG (NEG); URINE COLOR DK YELLOW; URINE NITRITE POS (NEG); URINE PH 5.5 (4.5-7.5); URINE SPECIFIC GRAVITY 1.025 (1.000-1.030); UROBILINOGEN NEG (NEG); ZZUR CULT IF INDIC CLEAN CATCH YES
[2016-09-15 17:54] LABS: MANUAL MICROSCOPIC REQUIRED? NO; REVIEW REQ? YES
[2016-09-15] MEDS ORDERED: CIPROFLOXACIN 500 MG TAB PO STA (18:27)
--- NOTE | 2016-09-15 18:38 | EMERGENCY ROOM VISIT NOTE ---
ED Visit Note First contact with patient: 16:09 This Patient was discussed with the physician [employer], Jigna Witt PA-C. The pertinent historical and physical exam findings were confirmed. I agree with the studies ordered and with the interpretations of these studies. I agree with the disposition and care plan.
[2016-09-15] MEDS ORDERED: CIPR1TAB10 PO (18:41)
--- NOTE | 2016-09-15 18:42 | EMERGENCY ROOM VISIT NOTE ---
History First contact with patient: 16:09 Chief Complaint: DIARRHEA Stated Complaint: HIGH TEMP,WEAKNESS,DIARRHEA History of Present Illness The patient is a 70 year old male who presents to the Emergency Room with complaints of fever and weakness. The patient has a home health nurse and she took his temperature earlier today and it was over [address] Rothman, the patient's oncologist and they were instructed to come to the emergency room. The patient had a glioblastoma removed by Dr. Rich in [place] in May. He underwent chemotherapy and radiation therapy. His last chemotherapy was 3 weeks ago. In that timeframe he also was admitted to the hospital for multiple clots in his legs and lungs. He had a filter placed. The patient states he has continued to be very weak and is taking Lovenox daily. The home health nurse was concerned because he started coughing and had the fever. He also states that he has ongoing diarrhea. He states he had diarrhea the last 5 days he was in [facility] which she was released from one week ago. For the past week he has had 2 or more loose bowel movements daily. The patient denies any chest pain or any abdominal pain. The patient denies any urinary symptoms of frequency, urgency or dysuria. Review of Systems 10 system review was performed and was negative unless stated otherwise history of present illness. Past Medical/Surgical History Medical Problems: (1) DM type 2 (diabetes mellitus, type 2) (2) Dyslipidemia (3) Hypertension (4) Hypoxia (5) Pulmonary embolism (6) Pulmonary embolism, bilateral Surgical Problems: (1) H/O craniotomy (2) Status post skin graft Family History Diabetes mellitus FH: cancer FH: heart disease Social History Smoking Status: Never Smoker Alcohol Use: none Drug Use: none Marital Status: Housing Status: lives with family Current/Historical Medications Scheduled Ciprofloxacin Hcl (Cipro), 500 MG PO BID Enoxaparin (Lovenox), 80 MG SQ Q12H Insulin Glargine (Lantus), 20 UNITS SC QPM Melatonin (Cvs Melatonin), 3 MG PO HS Metformin Hcl (Glucophage), 250 MG PO BID Pantoprazole (Protonix), 40 MG PO DAILY Scheduled PRN Acetaminophen (Tylenol), 500 MG PO Q4 PRN for Pain or Fever Temazepam (Restoril), 7.5 MG PO HS PRN for Sleep Allergies Coded Allergies: No Known Allergies (Unverified , 09/15/16) Physical Exam Vital Signs Date Time Temp Pulse Resp B/P Pulse Ox O2 Delivery O2 Flow Rate FiO2 09/15/16 19:37 101 18 95/66 95 Room Air 09/15/16 18:40 99/61 09/15/16 17:45 80 21 94 09/15/16 17:41 97/63 09/15/16 17:40 66 30 93 09/15/16 16:55 70 29 94 09/15/16 16:50 84 20 94 09/15/16 16:45 93 13 09/15/16 16:43 92 Room Air 09/15/16 16:40 71 17 09/15/16 16:02 36.8 82 20 131/46 96 Room Air Physical Exam GENERAL: 70-year-old white male appears in no acute distress. MENTAL Status: Alert and oriented 3. EYES: PERRLA. EOMs intact. EARS: Canals clear. TMs without fluid level noted. NECK: Supple, no lymphadenopathy noted. No carotid bruits noted. LUNGS: Clear auscultation without wheezes rales or rhonchi. The patient is taking shallow breaths. CARDIAC: Regular rate and rhythm without murmur. Pulses is full and equal throughout. ABDOMEN: Positive bowel sounds all 4 quadrants. Soft, nontender to palpation without organomegaly or masses. LOWER EXTREMITIES: No cyanosis or edema noted. Medical Decision & Procedures ER Provider Diagnostic Interpretation: CHEST 2 VIEWS ROUTINE CLINICAL HISTORY: Shortness of breath and fever. COMPARISON STUDY: Chest radiograph and chest CT August 10, 2016. FINDINGS: No pneumothorax or pleural effusion is identified. An IVC filter is partially imaged. Cardiomediastinal silhouette is stable. There is no evidence of pulmonary edema. A 4.9 x 1.6 cm right midlung opacity is similar to prior exam. Mild left lower lung opacity is improved. IMPRESSION: Persistent 3.9 x 1.6 cm right mid lung opacity, similar to exam of August 10, 2016. This may reflect a resolving pulmonary infarct given the pulmonary emboli shown on prior CT. However, follow-up PA and lateral chest radiograph in 2 months to ensure complete resolution are recommended. Electronically signed by: Cam Jean Baptiste M.D. 09/15/2016 5:17 PM Laboratory Results 09/15/16 16:40 Red Blood Count 3.44, Mean Corpuscular Volume 99.7, Mean Corpuscular Hemoglobin 31.4, Mean Corpuscular Hemoglobin Concent 31.5, Mean Platelet Volume 9.4, Neutrophils (%) (Auto) 79.7, Lymphocytes (%) (Auto) 11.9, Monocytes (%) (Auto) 7.5, Eosinophils (%) (Auto) 0.4, Basophils (%) (Auto) 0.1, Neutrophils # (Auto) 8.62, Lymphocytes # (Auto) 1.29, Monocytes # (Auto) 0.81, Eosinophils # (Auto) 0.04, Basophils # (Auto) 0.01 09/15/16 16:40 Test 09/15/16 16:40 09/15/16 16:42 09/15/16 17:25 09/15/16 17:50 White Blood Count 10.81 K/uL (4.8-10.8) Red Blood Count 3.44 M/uL (4.7-6.1) Hemoglobin 10.8 g/dL (14.0-18.0) Hematocrit 34.3 % (42-52) Mean Corpuscular Volume 99.7 fL (80-100) Mean Corpuscular Hemoglobin 31.4 pg (25-34) Mean Corpuscular Hemoglobin Concent 31.5 g/dl (32-36) Platelet Count 128 K/uL (130-400) Mean Platelet Volume 9.4 fL (7.4-10.4) Neutrophils (%) (Auto) 79.7 % Lymphocytes (%) (Auto) 11.9 % Monocytes (%) (Auto) 7.5 % Eosinophils (%) (Auto) 0.4 % Basophils (%) (Auto) 0.1 % Neutrophils # (Auto) 8.62 K/uL (1.4-6.5) Lymphocytes # (Auto) 1.29 K/uL (1.2-3.4) Monocytes # (Auto) 0.81 K/uL (0.11-0.59) Eosinophils # (Auto) 0.04 K/uL (0-0.5) Basophils # (Auto) 0.01 K/uL (0-0.2) RDW Standard Deviation 59.1 fL (36.4-46.3) RDW Coefficient of Variation 16.2 % (11.5-14.5) Immature Granulocyte % (Auto) 0.4 % Immature Granulocyte # (Auto) 0.04 K/uL (0.00-0.02) Prothrombin Time 12.7 SECONDS (9.0-12.0) Prothromb Time International Ratio 1.2 (0.9-1.1) Activated Partial Thromboplast Time 38.0 SECONDS (21.0-31.0) Partial Thromboplastin Ratio 1.5 Anion Gap 8.0 mmol/L (3-11) Estimated GFR () 79.5 Estimated GFR (Non- 68.6 BUN/Creatinine Ratio 17.8 (10-20) Calcium Level 8.6 mg/dl (8.5-10.1) Magnesium Level 2.1 mg/dl (1.8-2.4) Total Bilirubin 0.5 mg/dl (0.2-1) Direct Bilirubin 0.1 mg/dl (0-0.2) Aspartate Amino Transf (AST/SGOT) 14 U/L (15-37) Alanine Aminotransferase (ALT/SGPT) 31 U/L (12-78) Alkaline Phosphatase 86 U/L (45-117) Total Protein 6.2 gm/dl (6.4-8.2) Albumin 2.5 gm/dl (3.4-5.0) Lipase 59 U/L (73-393) Bedside D-Dimer > 450 ng/mlFEU (0-450) Urine Color DK YELLOW Urine Appearance CLOUDY (CLEAR) Urine pH 5.5 (4.5-7.5) Urine Specific [place] 1.025 (1.000-1.030) Urine Protein 2+ (NEG) Urine Glucose (UA) NEG (NEG) Urine Ketones TRACE (NEG) Urine Occult Blood 2+ (NEG) Urine Nitrite POS (NEG) Urine Bilirubin NEG (NEG) Urine Urobilinogen NEG (NEG) Urine Leukocyte Esterase MODERATE (NEG) Urine WBC (Auto) >30 /hpf (0-5) Urine RBC (Auto) 0-4 /hpf (0-4) Urine Hyaline Casts (Auto) 1-5 /lpf (0-5) Urine Epithelial Cells (Auto) 5-10 /lpf (0-5) Urine Bacteria (Auto) 4+ (NEG) Urine Pathogenic Casts /lpf (0) Bedside Troponin I 0.030 ng/ml (0-0.045) Test 09/15/16 19:02 Random Cortisol 19.05 mcg/dl Medications Administered Medications (Trade) Dose Ordered Sig/Clotilde Route Start Time Stop Time Status Last Admin Dose Admin Ciprofloxacin 500 mg 500 mg NOW STAT PO 09/15/16 18:27 09/15/16 18:28 DC 09/15/16 18:38 500 MG Sodium Chloride (Nss 1000ml) 1,000 ml @ 999 mls/hr Q1H1M STAT IV 09/15/16 18:45 09/15/16 19:45 DC 09/15/16 18:45 999 MLS/HR ECG Indication: SOB/dyspnea Rhythm: sinus tachycardia Findings: no acute ischemic change, other (bigeminy) Comparison ECG Date: no longer evidence of PVCs, new bigeminy ED Course The patient was evaluated. The patient's EMR was reviewed. IV access was obtained. CBC and differential, renal profile, LFTs and lipase levels were ordered. Coags were ordered. CBC and differential and renal profile were unremarkable. LFTs were normal. Patient's d-dimer was elevated but he is already under treatment for pulmonary embolus. Point of care d-dimer was ordered. Magnesium was 2.1. Troponin was .02 which was compared to his prior troponin when he was hospitalized for PE which was 0.17. EKG was ordered and interpreted as above. No acute ST changes. Chest x-ray was ordered and interpreted by the radiologist and myself as above. Urinalysis was ordered. His urine revealed positive nitrates positive leukocytes and positive blood and positive bacteria. Urine will be sent for culture. The patient was given Cipro 500 mg by mouth. He was also given a Cipro home pack. The patient's case was discussed with Dr. Lamb who independently evaluated the patient. The patient's blood pressure dropped to 99/61. The patient was given a liter of normal saline wide-open. Cortisol level was checked and was normal. Due to the patient's pressure dropping and UTI I feel at the patient needs to be admitted. A lactic acid was ordered as well as blood cultures 2. Hospitalist was consulted for admission. Medical Decision Differential diagnosis include pneumonia, UTI, resolving PE Impression Primary Impression: UTI (urinary tract infection) Additional Impressions: Shortness of breath Hypotension Departure Information Dispostion Being Evaluated By Hospitalist Condition GOOD Prescriptions Ciprofloxacin Hcl (CIPRO) 500 Mg Tab 500 MG PO BID for 8 Days, #16 TAB Prov: Jigna Witt PA-C 09/15/16 Referrals Isabel Fuentes C.R.N.PDanii (PCP) Forms HOME CARE DOCUMENTATION FORM, IMPORTANT VISIT INFORMATION, WORK / SCHOOL INSTRUCTIONS Patient Instructions [facility] Problem Qualifiers Primary Impression: UTI (urinary tract infection) Urinary tract infection type: acute cystitis Hematuria presence: with hematuria Qualified Codes: N30.01 - Acute cystitis with hematuria
[2016-09-15] MEDS ORDERED: CIPROFLOXACIN 500MG HOME PACK PO ONE (18:45)
[2016-09-15] MEDS ORDERED: SODIUM CHLORIDE 0.9% 1000ML 1,000 ML IV STA (18:45)
[2016-09-15] MEDS ORDERED: DEXTROSE 50% 50 ML SYR IV PRN (20:30)
[2016-09-15] MEDS ORDERED: GLUCAGON FOR INJ 1 MG VIAL SQ PRN (20:30)
[2016-09-15] MEDS ORDERED: ACETAMINOPHEN 325 MG TAB PO PRN (20:30)
[2016-09-15] MEDS ORDERED: TEMAZEPAM 7.5 MG CAP PO PRN (20:30)
[2016-09-15] MEDS ORDERED: ZOLPIDEM TARTRATE 5 MG TAB PO PRN (20:30)
[2016-09-15] MEDS ORDERED: ONDANSETRON INJ 2 MG/ML 2 ML VIAL IV PRN (20:30)
[2016-09-15] MEDS ORDERED: GLUCOSE 10 TABS/TUBE PO PRN (20:30)
[2016-09-15] MEDS ORDERED: GLUCOSE 40% GEL 15 GM TUBE PO PRN (20:30)
[2016-09-15] MEDS: INSULIN ASPART 100 UNITS/ML 3 ML PEN SC SCH (21:00)
[2016-09-15] MEDS ORDERED: MELATONIN 3 MG PO SCH (21:00)
[2016-09-15 21:43] VITALS: BP 106/63; PULSE 109; TEMP 37.2; O2SAT 94; Ht 165.1 cm; Wt 83.9 kg
[2016-09-15] MEDS ORDERED: PATIENT'S HEIGHT AND/OR WEIGHT NEEDED SCH (21:45)
[2016-09-15] MEDS: NSS + 20MEQ KCL 1000ML 1,000 ML IV SCH (21:50)
[2016-09-15] MEDS: CEFTRIAXONE SOD INJ 1 GM in DEXTROSE 5% ADD-VANTAGE 50ML 50 ML IV SCH (22:07)
[2016-09-15] MEDS: INSULIN GLARGINE SOLOSTAR 100 UNITS/ML 3 ML PEN SC SCH (22:12)
--- NOTE | 2016-09-15 23:23 | History and Physical ---
History & Physical Date & Time of Service: September 15, 2016 at 23:24 Chief Complaint: Sirs, Uti Primary Care Physician: Isabel Fuentes C.R.N.P. History of Present Illness Source: patient The patient is a 70-year-old male who presents to the emergency department with complaint of severe generalized weakness and fatigue and fever. He was sent to the ED by his oncologist Dr. Rothman after that office received a call from the home health nurse with a temperature reported over 100. He is status post glioblastoma multiform surgery by Dr. Rich at [place] in May, then underwent chemotherapy, with the last therapy being 3 weeks ago, and radiation therapy. He was admitted to [facility] from August 10 to August 14 for extensive bilateral pulmonary emboli, and has been on therapeutic Lovenox since that time , and had an IVC filter placed. He was discharged from [facility] 1 week ago. He's had intermittent loose bowels since that time without abdominal pain. Past Medical/Surgical History Medical Problems: (1) DM type 2 (diabetes mellitus, type 2) Status: Chronic (2) Dyslipidemia Status: Chronic (3) Hypertension Status: Chronic Surgical Problems: (1) H/O craniotomy Permanent Comment[place] [facility] [place] Status: Chronic (2) Status post skin graft Status: Chronic Family History Diabetes mellitus FH: cancer FH: heart disease Social History Smoking Status: Never Smoker Smokeless Tobacco Use: No Alcohol Use: none Drug Use: none Marital Status: Housing status: lives with significant other Multi-Drug Resistant Organisms History of MDRO: No Allergies Coded Allergies: No Known Allergies (Unverified , 09/15/16) Home Medications Scheduled Ciprofloxacin Hcl (Cipro), 500 MG PO BID Enoxaparin (Lovenox), 80 MG SQ Q12H Insulin Glargine (Lantus), 20 UNITS SC QPM Melatonin (Cvs Melatonin), 3 MG PO HS Metformin Hcl (Glucophage), 250 MG PO BID Pantoprazole (Protonix), 40 MG PO DAILY Scheduled PRN Acetaminophen (Tylenol), 500 MG PO Q4 PRN for Pain or Fever Temazepam (Restoril), 7.5 MG PO HS PRN for Sleep Review of Systems Constitutional: + chills, + fatigue, + fever, + sweats, + weakness, No weight loss Eyes: No diplopia, No discharge, No eye pain, No problem reported, No redness, No worsening of vision ENT: No dental problems, No hearing loss, No nasal symptoms, No problem reported, No sore throat, No tinnitus, No trouble swallowing, No unusual epistaxis Respiratory: + dyspnea on exertion, + shortness of breath, No cough, No dyspnea at rest, No hemoptysis, No sputum, No wheezing Cardiovascular: + chest pain, No PND, No claudication, No edema, No orthopnea, No palpitations Abdomen: + diarrhea, No GI bleeding, No constipation, No nausea, No pain, No vomiting Musculoskeletal: No calf pain, No joint pain, No muscle pain, No problem reported, No swelling Genitourinary - Male: No dysuria, No hematuria, No impotence, No lesions, No penile discharge, No problem reported, No urinary frequency, No urinary hesitancy, No urinary incontinence, No urinary retention, No urinary urgency Neurologic: No balance problems, No memory loss, No numbness/tingling, No paralysis, No problem reported, No vertigo, No weakness Psychiatric: No anhedonism, No anxiety, No depression symptoms, No insomnia, No problem reported, No substance abuse Endocrine: No excessive thirst, No excessive urination, No fatigue, No problem reported Hematologic / Lymphatic: No abnormal bleeding/bruising, No clotting problems, No night sweats, No problem reported, No swollen lymph nodes Allergic / Immunologic: No environmental allergies, No food allergies, No frequent infections, No hives, No pet sensitivities, No poor healing, No problem reported, No prolonged convalescence, No seasonal allergies Physical Exam Vital Signs Date Time Temp Pulse Resp B/P Pulse Ox O2 Delivery O2 Flow Rate FiO2 09/15/16 21:43 37.2 109 20 106/63 94 Room Air 09/15/16 21:20 36.8 71 18 104/56 94 09/15/16 21:12 104/56 09/15/16 20:56 71 96/45 94 Room Air 09/15/16 19:37 101 18 95/66 95 Room Air 09/15/16 19:36 95/66 09/15/16 18:40 99/61 09/15/16 18:37 99/61 09/15/16 18:35 98 27 93 09/15/16 18:20 69 21 92 09/15/16 18:05 60 30 92 09/15/16 17:50 101 23 92 09/15/16 17:45 80 21 94 09/15/16 17:41 97/63 09/15/16 17:40 66 30 93 09/15/16 16:55 70 29 94 09/15/16 16:50 84 20 94 09/15/16 16:45 93 13 09/15/16 16:43 92 Room Air 09/15/16 16:40 71 17 09/15/16 16:02 36.8 82 20 131/46 96 Room Air General Appearance: no apparent distress Head: normocephalic, atraumatic Eyes: normal inspection, PERRL, EOMI ENT: normal ENT inspection, hearing grossly normal, pharynx normal Neck: supple, no adenopathy, thyroid normal, no JVD, no carotid bruits, trachea midline Respiratory/Chest: chest non-tender, lungs clear, no respiratory distress, no accessory muscle use, + decreased breath sounds Cardiovascular: regular rate, rhythm, no edema, no gallop, no JVD, no murmur, normal peripheral pulses Abdomen/GI: normal bowel sounds, non tender, soft, no organomegaly, no pulsatile mass Back: normal inspection, no CVA tenderness, no muscle spasm, normal range of motion Extremities/Musculoskelatal: normal inspection, no calf tenderness, normal capillary refill, no pedal edema, normal range of motion, non-tender Neurologic/Psych: machine sorter II-XII nml as tested, no motor/sensory deficits, alert, normal mood/affect, oriented x 3 Skin: normal color, warm/dry, no rash Lymphatic: no adenopathy Diagnostics Laboratory Results Results Past 24 Hours Test 09/15/16 16:40 09/15/16 16:42 09/15/16 17:25 09/15/16 17:50 Range/Units White Blood Count 10.81 4.8-10.8 K/uL Red Blood Count 3.44 4.7-6.1 M/uL Hemoglobin 10.8 14.0-18.0 g/dL Hematocrit 34.3 42-52 % Mean Corpuscular Volume 99.7 80-100 fL Mean Corpuscular Hemoglobin 31.4 25-34 pg Mean Corpuscular Hemoglobin Concent 31.5 32-36 g/dl Platelet Count 128 130-400 K/uL Mean Platelet Volume 9.4 7.4-10.4 fL Neutrophils (%) (Auto) 79.7 % Lymphocytes (%) (Auto) 11.9 % Monocytes (%) (Auto) 7.5 % Eosinophils (%) (Auto) 0.4 % Basophils (%) (Auto) 0.1 % Neutrophils # (Auto) 8.62 1.4-6.5 K/uL Lymphocytes # (Auto) 1.29 1.2-3.4 K/uL Monocytes # (Auto) 0.81 0.11-0.59 K/uL Eosinophils # (Auto) 0.04 0-0.5 K/uL Basophils # (Auto) 0.01 0-0.2 K/uL RDW Standard Deviation 59.1 36.4-46.3 fL RDW Coefficient of Variation 16.2 11.5-14.5 % Immature Granulocyte % (Auto) 0.4 % Immature Granulocyte # (Auto) 0.04 0.00-0.02 K/uL Prothrombin Time 12.7 9.0-12.0 SECONDS Prothromb Time International Ratio 1.2 0.9-1.1 Activated Partial Thromboplast Time 38.0 21.0-31.0 SECONDS Partial Thromboplastin Ratio 1.5 Sodium Level 140 136-145 mmol/L Potassium Level 3.9 3.5-5.1 mmol/L Chloride Level 104 98-107 mmol/L Carbon Dioxide Level 28 21-32 mmol/L Anion Gap 8.0 3-11 mmol/L Blood Urea Nitrogen 20 7-18 mg/dl Creatinine 1.10 0.60-1.40 mg/dl Estimated GFR () 79.5 Estimated GFR (Non- 68.6 BUN/Creatinine Ratio 17.8 10-20 Random Glucose 144 70-99 mg/dl Calcium Level 8.6 8.5-10.1 mg/dl Magnesium Level 2.1 1.8-2.4 mg/dl Total Bilirubin 0.5 0.2-1 mg/dl Direct Bilirubin 0.1 0-0.2 mg/dl Aspartate Amino Transf (AST/SGOT) 14 15-37 U/L Alanine Aminotransferase (ALT/SGPT) 31 12-78 U/L Alkaline Phosphatase 86 45-117 U/L Total Protein 6.2 6.4-8.2 gm/dl Albumin 2.5 3.4-5.0 gm/dl Lipase 59 73-393 U/L Bedside D-Dimer > 450 0-450 ng/mlFEU Urine Color DK YELLOW Urine Appearance CLOUDY CLEAR Urine pH 5.5 4.5-7.5 Urine Specific [place] 1.025 1.000-1.030 Urine Protein 2+ NEG Urine Glucose (UA) NEG NEG Urine Ketones TRACE NEG Urine Occult Blood 2+ NEG Urine Nitrite POS NEG Urine Bilirubin NEG NEG Urine Urobilinogen NEG NEG Urine Leukocyte Esterase MODERATE NEG Urine WBC (Auto) >30 0-5 /hpf Urine RBC (Auto) 0-4 0-4 /hpf Urine Hyaline Casts (Auto) 1-5 0-5 /lpf Urine Epithelial Cells (Auto) 5-10 0-5 /lpf Urine Bacteria (Auto) 4+ NEG Urine Pathogenic Casts 0 /lpf Bedside Troponin I 0.030 0-0.045 ng/ml Test 09/15/16 19:02 09/15/16 20:44 09/15/16 21:36 Range/Units Random Cortisol 19.05 mcg/dl Bedside Lactic Acid Venous 0.85 0.90-1.70 mmol/L Bedside Glucose 98 70-99 mg/dl Microbiology Results 09/15/16 Blood Culture, Received Pending 09/15/16 Blood Culture, Received Pending 09/15/16 Urine Culture, Received Pending Diagnostic Radiology Patient Name: CITLALY LEÓN Unit Number: [id number] Dictated: 09/15/161710 Transcribed: 09/15/161710 FEROZ Printed Date/Time: [~ rep prt dt]/[~ rep prt tm] [~ rep ct labl] - [~ rep ct ivnm] [facility] Radiology Department [place], [place] [id number] Dictated: 09/15/161710 Transcribed: 09/15/161710 FEROZ Printed Date/Time: [~ rep prt dt]/[~ rep prt tm] [~ rep ct labl] - [~ rep ct ivnm] [~ rep ct add3]] CHEST 2 VIEWS ROUTINE CLINICAL HISTORY: Shortness of breath and fever. COMPARISON STUDY: Chest radiograph and chest CT August 10, 2016. FINDINGS: No pneumothorax or pleural effusion is identified. An IVC filter is partially imaged. Cardiomediastinal silhouette is stable. There is no evidence of pulmonary edema. A 4.9 x 1.6 cm right midlung opacity is similar to prior exam. Mild left lower lung opacity is improved. IMPRESSION: Persistent 3.9 x 1.6 cm right mid lung opacity, similar to exam of August 10, 2016. This may reflect a resolving pulmonary infarct given the pulmonary emboli shown on prior CT. However, follow-up PA and lateral chest radiograph in 2 months to ensure complete resolution are recommended. Electronically signed by: Cam Jean Baptiste M.D. 09/15/2016 5:17 PM Dictated Date/Time: 09/15/2016 5:11 PM The status of this report is Signed. Draft = Not yet reviewed or approved by Radiologist. Signed = Reviewed and approved by Radiologist. <AttendingPhy></AttendingPhy> <FamilyPhy>Isabel Fuentes C.RDaniiN.P.</FamilyPhy> < PrimaryPhy>Isabel Fuentes C.R.N.P.</PrimaryPhy> <UnitNumber>[id number]</ UnitNumber> <VisitNumber>[id number]</VisitNumber> <PatientName>CITLALY LEÓN</PatientName> <DateOfBirth>1945</DateOfBirth> <Location>[facility]</ Location> <ServiceDate>09/15/16</ServiceDate> <MNE>ESINDI</MNE> <OrderingPhy> Jigna Witt PA-C</OrderingPhy> <OrderingPhyMNE>f rep ord dr evans</ OrderingPhyMNE> <DictatingPhyMNE>f rep dict dr evans</DictatingPhyMNE> <CCListMNE> f rep ct [facility]</CCListMNE> <AdmittingPhyMNE>f pt admit dr evans</AdmittingPhyMNE> < AttendingPhyMNE>f pt attend dr evans</AttendingPhyMNE> <ConsultingPhyMNE>f pt consult dr evans</ConsultingPhyMNE> <FamilyPhyMNE>f pt fam dr evans</FamilyPhyMNE> <OtherPhyMNE>f pt other dr evans</OtherPhyMNE> < PrimaryPhyMNE>f pt prim care dr evans</PrimaryPhyMNE> <ReferringPhyMNE>f pt referring dr evans</ReferringPhyMNE> EKG EKG shows sinus tachycardia 110 bpm, old inferior RI, old anterior RI, PACs, no acute ST-T changes. Impression Assessment and Plan UTI/SIRS/dehydration-- placed on normal saline with KCl 20 mEq at 100 ML's per hour, ceftriaxone 1 g IV daily. Follow urine culture and sensitivity results. Serial BMP and magnesium levels. Bilateral pulmonary emboli/status post IVC filter--continue Lovenox 80 mg subcutaneous every 12 hours. Diabetes mellitus--continue Lantus insulin 20 units subcutaneous every afternoon. Hold metformin 250 mg by mouth twice a day. Ice and Accu-Cheks before meals and at bedtime with NovoLog coverage scale. Status post GBM surgery/chemotherapy/radiation therapy--no acute issues at this time. Most recently following with Dr. Rothman from radiation oncology. GERD--continue pantoprazole 40 mg by mouth daily. Insomnia--continue melatonin 3 mg by mouth at bedtime and temazepam 0.5 mg by mouth at bedtime when necessary. Level of Care Telemetry Advanced Directives Existing Advance Directive: No Existing Living Will: No Existing Power of Search Analyst: No Resuscitation Status FULL RESUSCITATION VTE Prophylaxis VTE Risk Assessment Done? Y/N: Yes Risk Level: Moderate Given or contraindicated: Enoxaparin (Lovenox)SQ Social Service Consult Cancer Patient Under [place]
[2016-09-15 23:53] VITALS: BP 103/57; PULSE 94; TEMP 37.2; O2SAT 94
[2016-09-16 04:18] VITALS: BP 93/50; PULSE 73; TEMP 36.9; O2SAT 92
[2016-09-16 06:01] LABS: MEAN CELL VOLUME 101.6 fL (80-100); MEAN CORPUSCULAR HEMOGLOBIN 32.1 pg (25-34); MEAN CORPUSCULAR HGB CONC 31.6 g/dl (32-36); RED BLOOD COUNT 3.05 M/uL (4.7-6.1); WHITE BLOOD COUNT 5.92 K/uL (4.8-10.8)
[2016-09-16 06:18] LABS: INR 1.1 (0.9-1.1); PARTIAL THROMBOPLASTIN RATIO 1.4; PROTHROMBIN TIME (PATIENT) 11.4 SECONDS (9.0-12.0)
[2016-09-16 06:24] LABS: PLATELET COUNT 98 K/uL (130-400)
[2016-09-16 06:27] LABS: BASO % 0.2 %; BASO ABS # 0.01 K/uL (0-0.2); COMPLETE YES; EOS % 1.9 %; LYMPH % 14.2 %; LYMPH ABS # 0.84 K/uL (1.2-3.4); MONO % 7.4 %; NEUT % 76.3 %; PLT ESTIMATE DECREASED; TOXIC GRANULATION 1+
[2016-09-16] MEDS: ENOXAPARIN 80 MG/0.8 ML SQ SCH ×2 (06:30→18:24)
[2016-09-16 06:49] LABS: BUN/CREATININE RATIO 19.6 (10-20); CALCIUM 7.9 mg/dl (8.5-10.1); CREATININE 0.78 mg/dl (0.60-1.40); MAGNESIUM 2.1 mg/dl (1.8-2.4); POTASSIUM 3.8 mmol/L (3.5-5.1)
[2016-09-16 07:44] VITALS: BP 91/50; PULSE 90; TEMP 37.2; O2SAT 91
[2016-09-16] MEDS: PANTOprazole SOD 40 MG TAB PO SCH (08:09)
[2016-09-16] MEDS: NSS + 20MEQ KCL 1000ML 1,000 ML IV SCH ×2 (08:10→17:17)
[2016-09-16] MEDS: INSULIN ASPART 100 UNITS/ML 3 ML PEN SC SCH ×4 (08:14→21:00)
--- NOTE | 2016-09-16 09:39 | Hospitalist Progress Note ---
Hospitalist Progress Note Date of Service September 16, 2016. Subjective Pt evaluation today including: conversation w/ patient, physical exam, chart review, lab review, review of studies, review of inpatient medication list Patient seen and evaluated. He was admitted overnight for generalized weakness , fatigue, fever. He reports that he is feeling somewhat better this morning and not at baseline. He denies fever/chills. Urine culture significant for Escherichia coli with sensitivities pending. He denies urinary symptoms. He complains of a nonproductive cough and intermittent wheezing with exertion that has been present since his glioblastoma resection. Also notes baseline bilateral lower extremity edema but denies calf tenderness. Patient's last chemotherapy was 3 weeks ago. He follows with Dr. Rothman for radiation and Dr. Leon as his primary oncologist. He has home health services 2-3 times a week for PT therapy. He uses a walker for ambulation at home and states that he may need some more services. After resection of his glioblastoma he developed left-sided deficits that are slowly improving. Additional Comments: REVIEW OF SYSTEMS: General/Constitutional: +fatigue/generalized weakness (improving); Denies fever/ chills ENT: Denies visual changes, nasal drainage, hearing loss, sore throat, trouble swallowing Cardiovascular: Denies chest pain, palpitations, edema Respiratory: +nonproductive cough (chronic); +exertion intermittent wheeze ( chronic); Denies sputum, SOB, orthopnea GI: Denies nausea, vomiting, abdominal pain, constipation, diarrhea, melena/ hematochezia : Denies dysuria, frequency, hematuria Musculoskeletal: bilateral lower extremity edema (chronic - baseline); Denies joint/muscle aches Neurologic: +L sided weakness (chronic - improving with outpatient PT); Denies dizziness/lightheadedness, numbness/tingling Psychiatric: Deferred Endocrine: Deferred Hematologic/Lymphatic: Denies bleeding/clotting abnormalities Skin: Denies rash, itch, new skin changes, easy bruising Allergy/Immunologic: Deferred Medications Current Inpatient Medications Medications (Trade) Dose Ordered Sig/Clotilde Route Start Time Stop Time Status Last Admin Dose Admin Potassium Chloride/Sodium Chloride (Nss + 20meq KCl 1000ml) 1,000 ml @ 100 mls/hr Q10H IV 09/15/16 21:15 10/15/16 21:14 09/16/16 08:10 100 MLS/HR Acetaminophen (Tylenol Tab) 650 mg Q4H PRN PO 09/15/16 20:30 10/15/16 20:29 Zolpidem Tartrate (Ambien Tab) 5 mg HSZ PRN PO 09/15/16 20:30 10/15/16 20:29 Enoxaparin Sodium (Lovenox Inj) 80 mg Q12H SQ 09/16/16 06:00 10/16/16 05:59 09/16/16 06:30 80 MG Insulin Glargine (Lantus Solostar Pen) 20 unit QPM SC 09/15/16 21:00 10/15/16 20:59 09/15/16 22:12 20 UNIT Pantoprazole Sodium (Protonix Tab) 40 mg DAILY PO 09/16/16 09:00 10/16/16 08:59 09/16/16 08:09 40 MG Temazepam (Restoril Cap) 7.5 mg HS PRN PO 09/15/16 20:30 10/15/16 20:29 Ondansetron HCl (Zofran Inj) 4 mg Q6H PRN IV 09/15/16 20:30 10/15/16 20:29 Insulin Aspart (novoLOG ASPART) SLIDING SCALE If C... ACHS SC 09/15/16 21:00 10/15/16 20:59 09/16/16 08:14 3 UNITS Glucose (Glucose 40% Gel) UD PRN PO 09/15/16 20:30 10/15/16 20:29 Glucose (Glucose Chew Tab) 1 tabs UD PRN PO 09/15/16 20:30 10/15/16 20:29 Dextrose (Dextrose 50% 50ML Syringe) 50 ml UD PRN IV 09/15/16 20:30 10/15/16 20:29 Glucagon 1 mg 1 mg UD PRN SQ 09/15/16 20:30 10/15/16 20:29 Ceftriaxone Sodium/Dextrose (Rocephin Inj/ Dextrose Add-[place] 50ML) 50 ml @ 100 mls/hr Q24H IV 09/15/16 22:00 09/25/16 21:59 09/15/16 22:07 100 MLS/HR Objective Vital Signs Date Time Temp Pulse Resp B/P Pulse Ox O2 Delivery O2 Flow Rate FiO2 09/16/16 07:44 37.2 90 18 91/50 91 Room Air 09/16/16 04:18 36.9 73 20 93/50 92 Room Air 09/16/16 04:00 Room Air 09/15/16 23:59 Room Air 09/15/16 23:53 37.2 94 16 103/57 94 Room Air 09/15/16 21:43 37.2 109 20 106/63 94 Room Air 09/15/16 21:20 36.8 71 18 104/56 94 09/15/16 21:12 104/56 09/15/16 20:56 71 96/45 94 Room Air 09/15/16 19:37 101 18 95/66 95 Room Air 09/15/16 19:36 95/66 09/15/16 18:40 99/61 09/15/16 18:37 99/61 09/15/16 18:35 98 27 93 09/15/16 18:20 69 21 92 09/15/16 18:05 60 30 92 09/15/16 17:50 101 23 92 09/15/16 17:45 80 21 94 09/15/16 17:41 97/63 09/15/16 17:40 66 30 93 09/15/16 16:55 70 29 94 09/15/16 16:50 84 20 94 09/15/16 16:45 93 13 09/15/16 16:43 92 Room Air 09/15/16 16:40 71 17 09/15/16 16:02 36.8 82 20 131/46 96 Room Air Physical Exam Notes: PHYSICAL EXAM:: General Appearance: WDWN in NAD who is A&O x 3 HEENT: Head is normocephalic; EOMI; PERRLA; Hearing grossly intact; Mucous membranes moist; Pharynx negative for exudate/lesions Neck: Supple; Trachea midline; Neg JVD; Neg lymphadenopathy Heart: regular rate with irregular rhythm with no M/G/R Lungs: CTA in all lung dunlap bilaterally but diminished at bases; Respirations unlabored; Neg accessory muscle use Abdomen: Soft, non-tender, non-distended; Positive BS x 4 quadrants; Neg organomegaly Extremities: 1+ pitting edema bilateral lower extremities; neg calf tenderness Neurological: Speech clear Psychiatric: Appropriate mood/affect Skin: Normal Color; Warm/Dry; Neg rashes, ecchymosis, lacerations/ulcerations Laboratory Results Last 24 Hours Test 09/15/16 16:40 09/15/16 16:42 09/15/16 17:25 09/15/16 17:50 White Blood Count 10.81 K/uL Red Blood Count 3.44 M/uL Hemoglobin 10.8 g/dL Hematocrit 34.3 % Mean Corpuscular Volume 99.7 fL Mean Corpuscular Hemoglobin 31.4 pg Mean Corpuscular Hemoglobin Concent 31.5 g/dl Platelet Count 128 K/uL Mean Platelet Volume 9.4 fL Neutrophils (%) (Auto) 79.7 % Lymphocytes (%) (Auto) 11.9 % Monocytes (%) (Auto) 7.5 % Eosinophils (%) (Auto) 0.4 % Basophils (%) (Auto) 0.1 % Neutrophils # (Auto) 8.62 K/uL Lymphocytes # (Auto) 1.29 K/uL Monocytes # (Auto) 0.81 K/uL Eosinophils # (Auto) 0.04 K/uL Basophils # (Auto) 0.01 K/uL RDW Standard Deviation 59.1 fL RDW Coefficient of Variation 16.2 % Immature Granulocyte % (Auto) 0.4 % Immature Granulocyte # (Auto) 0.04 K/uL Prothrombin Time 12.7 SECONDS Prothromb Time International Ratio 1.2 Activated Partial Thromboplast Time 38.0 SECONDS Partial Thromboplastin Ratio 1.5 Sodium Level 140 mmol/L Potassium Level 3.9 mmol/L Chloride Level 104 mmol/L Carbon Dioxide Level 28 mmol/L Anion Gap 8.0 mmol/L Blood Urea Nitrogen 20 mg/dl Creatinine 1.10 mg/dl Estimated GFR () 79.5 Estimated GFR (Non- 68.6 BUN/Creatinine Ratio 17.8 Random Glucose 144 mg/dl Calcium Level 8.6 mg/dl Magnesium Level 2.1 mg/dl Total Bilirubin 0.5 mg/dl Direct Bilirubin 0.1 mg/dl Aspartate Amino Transf (AST/SGOT) 14 U/L Alanine Aminotransferase (ALT/SGPT) 31 U/L Alkaline Phosphatase 86 U/L Total Protein 6.2 gm/dl Albumin 2.5 gm/dl Lipase 59 U/L Bedside D-Dimer > 450 ng/mlFEU Urine Color DK YELLOW Urine Appearance CLOUDY Urine pH 5.5 Urine Specific [place] 1.025 Urine Protein 2+ Urine Glucose (UA) NEG Urine Ketones TRACE Urine Occult Blood 2+ Urine Nitrite POS Urine Bilirubin NEG Urine Urobilinogen NEG Urine Leukocyte Esterase MODERATE Urine WBC (Auto) >30 /hpf Urine RBC (Auto) 0-4 /hpf Urine Hyaline Casts (Auto) 1-5 /lpf Urine Epithelial Cells (Auto) 5-10 /lpf Urine Bacteria (Auto) 4+ Urine Pathogenic Casts /lpf Bedside Troponin I 0.030 ng/ml Test 09/15/16 19:02 09/15/16 20:44 09/15/16 21:36 09/16/16 05:49 Random Cortisol 19.05 mcg/dl Bedside Lactic Acid Venous 0.85 mmol/L Bedside Glucose 98 mg/dl White Blood Count 5.92 K/uL Red Blood Count 3.05 M/uL Hemoglobin 9.8 g/dL Hematocrit 31.0 % Mean Corpuscular Volume 101.6 fL Mean Corpuscular Hemoglobin 32.1 pg Mean Corpuscular Hemoglobin Concent 31.6 g/dl Platelet Count 98 K/uL Mean Platelet Volume 9.0 fL Neutrophils (%) (Auto) 76.3 % Lymphocytes (%) (Auto) 14.2 % Monocytes (%) (Auto) 7.4 % Eosinophils (%) (Auto) 1.9 % Basophils (%) (Auto) 0.2 % Neutrophils # (Auto) 4.52 K/uL Lymphocytes # (Auto) 0.84 K/uL Monocytes # (Auto) 0.44 K/uL Eosinophils # (Auto) 0.11 K/uL Basophils # (Auto) 0.01 K/uL RDW Standard Deviation 60.8 fL RDW Coefficient of Variation 16.2 % Immature Granulocyte % (Auto) 0.0 % Immature Granulocyte # (Auto) 0.00 K/uL Toxic Granulation 1+ Platelet Estimate DECREASED Prothrombin Time 11.4 SECONDS Prothromb Time International Ratio 1.1 Activated Partial Thromboplast Time 36.4 SECONDS Partial Thromboplastin Ratio 1.4 Sodium Level 144 mmol/L Potassium Level 3.8 mmol/L Chloride Level 111 mmol/L Carbon Dioxide Level 28 mmol/L Anion Gap 5.0 mmol/L Blood Urea Nitrogen 15 mg/dl Creatinine 0.78 mg/dl Est Creatinine Clear Calc Drug Dose 89.7 ml/min Estimated GFR () 107.5 Estimated GFR (Non- 92.8 BUN/Creatinine Ratio 19.6 Random Glucose 95 mg/dl Calcium Level 7.9 mg/dl Magnesium Level 2.1 mg/dl Test 09/16/16 07:14 Bedside Glucose 82 mg/dl Assessment and Plan Mr. Sue is a 70 y/o male with PMHx of Glioblastoma S/P Excision, T2DM, and PE who presents for generalized weakness/fatigue with evidence of SIRS and UTI. SIRS 2/2 E. coli UTI with Assoc. Dehydration: IMPROVING - Await UCx sensitivities - Ceftriaxone 1 g IV daily - NSS + 20 mEq KCl at 100 mL/hr Bilateral Pulmonary Emboli S/P IVC Filter: - Therapeutic Lovenox 80 mg SC BID T2DM: - Lantus 20 units SC daily and SSI Glioblastoma Multiforme S/P Resection/Chemo/Radiation: Last Tx 3 weeks ago - Follows with Dr. Rothman - Primary Oncologist - Dr. Leon - [facility] DVT Prophylaxis: Therapeutic Lovenox Code Status: FULL RESUSCITATION Disposition: [facility] for PT therapy - PT/OT evaluations - lives at home with and utilizes walker - Recommend PA/Lat CXR in 2 months - monitor resolution of opacity likely due to recent PE - resolving pulmonary infarct Continued [facility] stay due to: multiple IV medications needed Discharge planning: home with home health
[2016-09-16 11:05] VITALS: BP 97/43; PULSE 82; TEMP 37.1; O2SAT 94
[2016-09-16] MEDS ORDERED: SODIUM CHLORIDE 0.9% 500ML 500 ML IV ONE (13:15)
--- NOTE | 2016-09-16 14:02 | Clinical Documentation Query ---
CLINICAL DOCUMENTATION QUERY Dr. ACEVEDO, In your clinical opinion is this patient being managed for: (x ) Sepsis with a UTI ( ) UTI without sepsis ( ) Other explanation of clinical findings (Please Explain) ( ) Unable to determine (Please Define) ( ) Need to Discuss ( ) Not Agree The medical record reflects the following clinical findings, treatment, and risk factors. Clinical Indicators: 70 yo male presenting with fever and weakness. Pt is also currently being treated with chemotherapy (last dose 3 weeks ago). WBC 10.81, E Coli UTI, VS 36.8-82-20 131/46. BP did drop as low as 91/50. Reportedly fever of > 100 at home which was reported to oncologist's office. Treatment:1L NSS bolus then continuous, IV rocephin, IV cipro, pending blood cx Risk Factors: immunocompromised, DM, UTI In ICD 10, SIRS with an infectious source (UTI in this case) will not be coded to SEPSIS with a UTI. Please clarify and document your clinical opinion in the progress notes and discharge summary. Terms such as "probable", "suspected", "likely", "questionable", "possible", or "still to be ruled out" are acceptable. IF IN AGREEMENT, YOU MUST DOCUMENT ABOVE DIAGNOSTIC STATEMENT IN DAILY PROGRESS NOTES AND DISCHARGE SUMMARY. This document is not part of the patient's record. Thank You, Mariya Mohan, RN [phone]
--- NOTE | 2016-09-16 14:04 | Clinical Documentation Query ---
CLINICAL DOCUMENTATION QUERY Ms. HONG, In your clinical opinion is this patient being managed for: NOT SEEING THIS PATIENT. HE IS ON DR. ACEVEDO' SERVICE WITH ALEXY MCINTOSH PA-C ( x ) Sepsis with a UTI ( ) UTI without sepsis ( ) Other explanation of clinical findings (Please Explain) ( ) Unable to determine (Please Define) ( ) Need to Discuss ( ) Not Agree The medical record reflects the following clinical findings, treatment, and risk factors. Clinical Indicators: 70 yo male presenting with fever and weakness. Pt is also currently being treated with chemotherapy (last dose 3 weeks ago). WBC 10.81, E Coli UTI, VS 36.8-82-20 131/46. BP did drop as low as 91/50. Reportedly fever of > 100 at home which was reported to oncologist's office. Treatment:1L NSS bolus then continuous, IV rocephin, IV cipro, pending blood cx Risk Factors: immunocompromised, DM, UTI In ICD 10, SIRS with an infectious source (UTI in this case) will not be coded to SEPSIS with a UTI. Please clarify and document your clinical opinion in the progress notes and discharge summary. Terms such as "probable", "suspected", "likely", "questionable", "possible", or "still to be ruled out" are acceptable. IF IN AGREEMENT, YOU MUST DOCUMENT ABOVE DIAGNOSTIC STATEMENT IN DAILY PROGRESS NOTES AND DISCHARGE SUMMARY. This document is not part of the patient's record. Thank You, Mariya Mohan RN [phone]
[2016-09-16 15:14] VITALS: BP 115/81; PULSE 97; TEMP 36.5; O2SAT 95
[2016-09-16 16:00] VITALS: O2SAT 95
[2016-09-16] MEDS: CEFTRIAXONE SOD INJ 1 GM in DEXTROSE 5% ADD-VANTAGE 50ML 50 ML IV SCH (21:39)
[2016-09-16] MEDS: INSULIN GLARGINE SOLOSTAR 100 UNITS/ML 3 ML PEN SC SCH (21:40)
[2016-09-16 23:32] VITALS: BP 102/69; PULSE 94; TEMP 37.1; O2SAT 95
[2016-09-17] VITALS: O2SAT 95
[2016-09-17] MEDS: ENOXAPARIN 80 MG/0.8 ML SQ SCH ×2 (05:51→17:44)
[2016-09-17] MEDS: NSS + 20MEQ KCL 1000ML 1,000 ML IV SCH (05:51)
[2016-09-17 07:13] VITALS: BP 116/74; PULSE 71; TEMP 36.9; O2SAT 95
[2016-09-17 07:22] LABS: BASO % 0.2 %; BASO ABS # 0.01 K/uL (0-0.2); COMPLETE YES; EOS % 2.7 %; HEMATOCRIT 30.2 % (42-52); IG% 0.2 %; LYMPH % 17.2 %; LYMPH ABS # 0.69 K/uL (1.2-3.4); MEAN CELL VOLUME 101.3 fL (80-100); MEAN CORPUSCULAR HEMOGLOBIN 30.9 pg (25-34); MEAN CORPUSCULAR HGB CONC 30.5 g/dl (32-36); MEAN PLATELET VOLUME 9.1 fL (7.4-10.4); MONO % 9.2 %; NEUT % 70.5 %; PLATELET COUNT 110 K/uL (130-400); RED BLOOD COUNT 2.98 M/uL (4.7-6.1); WHITE BLOOD COUNT 4.01 K/uL (4.8-10.8)
[2016-09-17 07:33] LABS: PARTIAL THROMBOPLASTIN RATIO 1.4; PROTHROMBIN TIME (PATIENT) 10.9 SECONDS (9.0-12.0)
[2016-09-17 07:57] LABS: BUN/CREATININE RATIO 15.9 (10-20); CALCIUM 7.9 mg/dl (8.5-10.1); CREATININE 0.74 mg/dl (0.60-1.40); MAGNESIUM 2.1 mg/dl (1.8-2.4)
[2016-09-17] MEDS: INSULIN ASPART 100 UNITS/ML 3 ML PEN SC SCH ×4 (08:33→20:35)
[2016-09-17] MEDS ORDERED: CEPHALEXIN MONOHYDRATE 500 MG CAP PO ONE (10:00)
[2016-09-17] MEDS: PANTOprazole SOD 40 MG TAB PO SCH (10:19)
[2016-09-17 11:04] VITALS: BP 116/74; PULSE 71; O2SAT 95
--- NOTE | 2016-09-17 12:45 | Hospitalist Progress Note ---
Hospitalist Progress Note Date of Service September 17, 2016. Subjective Pt evaluation today including: conversation w/ patient, physical exam, chart review, lab review, review of studies, review of inpatient medication list Patient seen and evaluated. No acute events overnight. He is reporting more frequent bowel movements that are diarrhea. Will obtain C. difficile. Continues to have generalized weakness with ambulation. Urine culture reveals pansensitive Escherichia coli. Bilateral lower extremity edema is chronic however appears slightly worse today. Left lower extremity worse than right lower extremity due to limited movement. Small bolus given due to low blood pressure yesterday but will discontinue IV fluids at this time as he is adequately taking in oral. Verbalizes no new complaints. Additional Comments: General/Constitutional: +fatigue/generalized weakness; Denies fever/chills ENT: Denies nasal drainage, sore throat, trouble swallowing Cardiovascular: Denies chest pain, palpitations, edema Respiratory: +nonproductive cough (chronic); +exertion intermittent wheeze ( chronic); Denies sputum, SOB, orthopnea GI: +diarrhea; Denies nausea, vomiting, abdominal pain, constipation, melena/ hematochezia : Denies dysuria, frequency, hematuria Musculoskeletal: bilateral lower extremity edema (chronic - baseline - L>R); Denies joint/muscle aches Neurologic: +L sided weakness (chronic - improving with outpatient PT); Denies dizziness/lightheadedness, numbness/tingling Psychiatric: Deferred Endocrine: Deferred Hematologic/Lymphatic: Denies bleeding/clotting abnormalities Skin: Denies rash, itch, new skin changes, easy bruising Allergy/Immunologic: Deferred Medications Current Inpatient Medications Medications (Trade) Dose Ordered Sig/Clotilde Route Start Time Stop Time Status Last Admin Dose Admin Acetaminophen (Tylenol Tab) 650 mg Q4H PRN PO 09/15/16 20:30 10/15/16 20:29 Zolpidem Tartrate (Ambien Tab) 5 mg HSZ PRN PO 09/15/16 20:30 10/15/16 20:29 Enoxaparin Sodium (Lovenox Inj) 80 mg Q12H SQ 09/16/16 06:00 10/16/16 05:59 09/17/16 05:51 80 MG Insulin Glargine (Lantus Solostar Pen) 20 unit QPM SC 09/15/16 21:00 10/15/16 20:59 09/16/16 21:40 20 UNIT Pantoprazole Sodium (Protonix Tab) 40 mg DAILY PO 09/16/16 09:00 10/16/16 08:59 09/17/16 10:19 40 MG Temazepam (Restoril Cap) 7.5 mg HS PRN PO 09/15/16 20:30 10/15/16 20:29 Ondansetron HCl (Zofran Inj) 4 mg Q6H PRN IV 09/15/16 20:30 10/15/16 20:29 Insulin Aspart (novoLOG ASPART) SLIDING SCALE If C... ACHS SC 09/15/16 21:00 10/15/16 20:59 09/17/16 12:11 5 UNITS Glucose (Glucose 40% Gel) UD PRN PO 09/15/16 20:30 10/15/16 20:29 Glucose (Glucose Chew Tab) 1 tabs UD PRN PO 09/15/16 20:30 10/15/16 20:29 Dextrose (Dextrose 50% 50ML Syringe) 50 ml UD PRN IV 09/15/16 20:30 10/15/16 20:29 Glucagon (Glucagon Inj) 1 mg UD PRN SQ 09/15/16 20:30 10/15/16 20:29 Cephalexin Monohydrate (Keflex Cap) 500 mg BID PO 09/17/16 21:00 09/27/16 20:59 Objective Vital Signs Date Time Temp Pulse Resp B/P Pulse Ox O2 Delivery O2 Flow Rate FiO2 09/17/16 11:04 71 95 09/17/16 09:36 Room Air 09/17/16 07:13 36.9 71 18 116/74 95 Room Air 09/17/16 00:00 95 Room Air 09/16/16 23:32 37.1 94 16 102/69 95 Room Air 09/16/16 16:00 95 Room Air 09/16/16 15:14 36.5 97 20 115/81 95 Room Air Physical Exam Notes: PHYSICAL EXAM:: General Appearance: WDWN in NAD who is A&O x 3 HEENT: Head is normocephalic; Hearing grossly intact; Mucous membranes moist; Pharynx negative for exudate/lesions Neck: Supple; Trachea midline; Neg JVD; Neg lymphadenopathy Heart: regular rate with irregular rhythm with no M/G/R Lungs: CTA in all lung dunlap bilaterally but diminished at bases; Respirations unlabored; Neg accessory muscle use Abdomen: Soft, non-tender, non-distended; Positive BS x 4 quadrants; Neg organomegaly Extremities: 3+ pitting edema L lower extremity with 1-2+ pitting edema of RLE; neg calf tenderness Neurological: Speech clear, residual L sided weakness compared to R extremities Psychiatric: Appropriate mood/affect Skin: Normal Color; Warm/Dry; Neg rashes, ecchymosis, lacerations/ulcerations Laboratory Results Last 24 Hours Test 09/16/16 20:18 09/17/16 07:11 09/17/16 07:20 Bedside Glucose 117 mg/dl 74 mg/dl White Blood Count 4.01 K/uL Red Blood Count 2.98 M/uL Hemoglobin 9.2 g/dL Hematocrit 30.2 % Mean Corpuscular Volume 101.3 fL Mean Corpuscular Hemoglobin 30.9 pg Mean Corpuscular Hemoglobin Concent 30.5 g/dl Platelet Count 110 K/uL Mean Platelet Volume 9.1 fL Neutrophils (%) (Auto) 70.5 % Lymphocytes (%) (Auto) 17.2 % Monocytes (%) (Auto) 9.2 % Eosinophils (%) (Auto) 2.7 % Basophils (%) (Auto) 0.2 % Neutrophils # (Auto) 2.82 K/uL Lymphocytes # (Auto) 0.69 K/uL Monocytes # (Auto) 0.37 K/uL Eosinophils # (Auto) 0.11 K/uL Basophils # (Auto) 0.01 K/uL RDW Standard Deviation 60.2 fL RDW Coefficient of Variation 16.1 % Immature Granulocyte % (Auto) 0.2 % Immature Granulocyte # (Auto) 0.01 K/uL Prothrombin Time 10.9 SECONDS Prothromb Time International Ratio 1.0 Activated Partial Thromboplast Time 36.9 SECONDS Partial Thromboplastin Ratio 1.4 Sodium Level 145 mmol/L Potassium Level 4.0 mmol/L Chloride Level 112 mmol/L Carbon Dioxide Level 26 mmol/L Anion Gap 7.0 mmol/L Blood Urea Nitrogen 12 mg/dl Creatinine 0.74 mg/dl Est Creatinine Clear Calc Drug Dose 95.5 ml/min Estimated GFR () 109.8 Estimated GFR (Non- 94.8 BUN/Creatinine Ratio 15.9 Random Glucose 71 mg/dl Calcium Level 7.9 mg/dl Magnesium Level 2.1 mg/dl Assessment and Plan Mr. Sue is a 70 y/o male with PMHx of Glioblastoma S/P Excision, T2DM, and PE who presents for generalized weakness/fatigue with evidence of SIRS and UTI. SIRS 2/2 E. coli UTI with Assoc. Dehydration: Pansensitive - Keflex 500 mg BID x 10 days - DAY #3/10 - Allow oral intake of fluids and monitor for reinstitution Bilateral Pulmonary Emboli S/P IVC Filter: - Therapeutic Lovenox 80 mg SC BID T2DM: - Lantus 20 units SC daily and SSI Glioblastoma Multiforme S/P Resection/Chemo/Radiation: Last Tx 3 weeks ago - Follows with Dr. Rothman - Primary Oncologist - Dr. Leon - [facility] DVT Prophylaxis: Therapeutic Lovenox Code Status: FULL RESUSCITATION Disposition: [facility] for PT therapy - PT/OT evaluations - lives at home with and utilizes walker - PT recommending rehab - [facility] - If tolerating oral conversion of Abx possible discharge tomorrow if [facility] accept - Recommend PA/Lat CXR in 2 months - monitor resolution of opacity likely due to recent PE - resolving pulmonary infarct Continued [facility] stay due to: ambulation difficulties Discharge planning: custodial facility
[2016-09-17 14:58] VITALS: BP 116/70; PULSE 79; TEMP 36.9; O2SAT 95
[2016-09-17] MEDS: CEPHALEXIN MONOHYDRATE 500 MG CAP PO SCH (20:35)
[2016-09-17] MEDS ORDERED: INSULIN GLARGINE SOLOSTAR 100 UNITS/ML 3 ML PEN SC SCH (21:00)
[2016-09-17 23:07] VITALS: BP 130/71; PULSE 96; TEMP 37.6; O2SAT 94
[2016-09-18] MEDS: INSULIN ASPART 100 UNITS/ML 3 ML PEN SC SCH ×2 (06:30→11:00)
[2016-09-18 06:48] LABS: BASO % 0.6 %; BASO ABS # 0.02 K/uL (0-0.2); COMPLETE YES; EOS % 3.2 %; HEMATOCRIT 31.4 % (42-52); IG% 0.3 %; LYMPH % 22.3 %; LYMPH ABS # 0.76 K/uL (1.2-3.4); MEAN CELL VOLUME 100.3 fL (80-100); MEAN CORPUSCULAR HEMOGLOBIN 30.4 pg (25-34); MEAN CORPUSCULAR HGB CONC 30.3 g/dl (32-36); MEAN PLATELET VOLUME 8.8 fL (7.4-10.4); MONO % 7.9 %; NEUT % 65.7 %; PLATELET COUNT 129 K/uL (130-400); RED BLOOD COUNT 3.13 M/uL (4.7-6.1); WHITE BLOOD COUNT 3.41 K/uL (4.8-10.8)
[2016-09-18 06:58] LABS: PARTIAL THROMBOPLASTIN RATIO 1.2; PROTHROMBIN TIME (PATIENT) 10.7 SECONDS (9.0-12.0)
[2016-09-18 07:28] LABS: BUN/CREATININE RATIO 14.3 (10-20); CALCIUM 7.7 mg/dl (8.5-10.1); CREATININE 0.73 mg/dl (0.60-1.40); MAGNESIUM 2.1 mg/dl (1.8-2.4); POTASSIUM 3.7 mmol/L (3.5-5.1)
[2016-09-18 07:53] VITALS: BP 133/75; PULSE 90; TEMP 36.8; O2SAT 92
[2016-09-18] MEDS: ENOXAPARIN 80 MG/0.8 ML SQ SCH (08:04)
[2016-09-18] MEDS: PANTOprazole SOD 40 MG TAB PO SCH (08:48)
[2016-09-18] MEDS: CEPHALEXIN MONOHYDRATE 500 MG CAP PO SCH (08:48)
[2016-09-18] MEDS ORDERED: CHOLESTYRAMINE LIGHT 4 GM PKT PO SCH (10:00)
[2016-09-18] MEDS ORDERED: INSDGIPEN SC (11:08)
[2016-09-18] MEDS ORDERED: QSTP PO (11:08)
[2016-09-18] MEDS ORDERED: RST75 PO (11:08)
[2016-09-18] MEDS ORDERED: KFL500 PO (11:08)
[2016-09-18] MEDS ORDERED: LCTX PO (11:08)
--- NOTE | 2016-09-18 11:19 | Discharge Instructions ---
Discharge Instructions Date of Service September 18, 2016. Admission Reason for Admission: Sirs, Uti Discharge Discharge Diagnosis / Problem: Urinary Tract Infection - E. Coli Pansensitive Discharge Goals Goal(s): Decrease discomfort, Improve function, Increase independence Activity Recommendations Activity Level: Assistance Required Therapies: Physical Therapy, Occupational Therapy Shower/Bathe: no limitations . Additional Information Patient informed of condition: Yes Advance Directives: No DNR: No Level of Care: Skilled Communicable Disease: No Prognosis: Improving Monte Catheter: No Instructions / Follow-Up Instructions / Follow-Up Mr. Sue is a 70 y/o male with PMHx of Glioblastoma S/P Excision, T2DM, and PE who presents for generalized weakness/fatigue with evidence of SIRS and UTI. Sepsis 2/2 E. coli UTI with Assoc. Dehydration: Pansensitive - Keflex 500 mg BID x 10 days - DAY #08/24 -- Had morning dose. Needs dose this evening 09/18 then resume twice a day to finish a 10 day course - Allow oral intake of fluids Diarrhea: C. Diff is negative - Has had frequent loose stool likely due to antibiotic treatment - having 4-8 BMs a day - Continue Questran while having diarrhea and probiotic while on antibiotic treatment Bilateral Pulmonary Emboli S/P IVC Filter: - Therapeutic Lovenox 80 mg SC BID T2DM: - His Lantus dose was reduced to 15 units SC daily from his home dose of 20 units daily due to lower glucose readings that were going into the 70s - I have continued to hold his Metformin in regards to hypoglycemia and mildly reduced oral intake. Can be reinstituted when oral intake better and when glucose readings dictate Glioblastoma Multiforme S/P Resection/Chemo/Radiation: Last Tx 3 weeks ago - Follows with Dr. Rothman - Has left upper and lower extremity weakness since resection and will need assistance with certain tasks - Primary Oncologist - Dr. Edward Vail DVT Prophylaxis: Therapeutic Lovenox Code Status: FULL RESUSCITATION Disposition: - PT/OT evaluations - lives at home with and utilizes walker - Recommend PA/Lat CXR in 2 months - monitor resolution of opacity likely due to recent PE - resolving pulmonary infarct - this can be handled as outpatient Current Hospital Diet Patient's current hospital diet: AHA Diet (Heart Healthy), Diabetes Type 2 Diet Discharge Diet Recommended Diet: Diabetes Type 2 Diet Pending Studies Studies pending at discharge: no Physician Orders On Transfer POLST Discussion: Not Applicable Laboratory Results Hemoglobin A1c Test 08/11/16 02:27 Range/Units Estimated Average Glucose 171 mg/dl Hemoglobin A1c 7.6 H 4.5-5.6 % Medical Emergencies . Who to Call and When: Medical Emergencies: If at any time you feel your situation is an emergency, please call 911 immediately. . Non-Emergent Contact Non-Emergency issues call your: Primary Care Provider Call Non-Emergent contact if: you have a fever, your pain is concerning you, you have any medication questions . . "Provider Documentation" section prepared by Lourdes Howard. . Core Measure Problem Core Measures: None
[2016-09-18] MEDS ORDERED: LACTOBACILLUS ACIDOPHILUS (FLORANEX) TAB PO SCH (12:00)
[2016-09-18 12:21] VITALS: BP 133/75; PULSE 90; TEMP 36.8; O2SAT 92
--- NOTE | 2016-09-18 13:28 | Discharge Summary ---
Discharge Summary Date of Service September 18, 2016. Discharge Summary Admission Date: September 15, 2016 at 20:26 Discharge Date: September 18, 2016 Discharge Disposition: halfway facility Principal Diagnosis: Sepsis from Pansenstive E. Coli UTI Problems/Secondary Diagnoses: 1. Glioblastoma Multiforme S/P Craniotomy/Chemo/Radiation 2. Type 2 Diabetes Mellitus 3. Bilateral Pulmonary Embolism S/P IVC Filter Procedures: 1. CHEST 2 VIEWS ROUTINE FINDINGS: No pneumothorax or pleural effusion is identified. An IVC filter is partially imaged. Cardiomediastinal silhouette is stable. There is no evidence of pulmonary edema. A 4.9 x 1.6 cm right midlung opacity is similar to prior exam. Mild left lower lung opacity is improved. IMPRESSION: Persistent 3.9 x 1.6 cm right mid lung opacity, similar to exam of August 10, 2016. This may reflect a resolving pulmonary infarct given the pulmonary emboli shown on prior CT. However, follow-up PA and lateral chest radiograph in 2 months to ensure complete resolution are recommended. Consultations: 1. PT/OT Evaluations Medication Reconciliation New Medications: Cephalexin Monohydrate (Cephalexin) 500 Mg Cap 500 MG PO BID, #13 CAP Take one dose tonight 5/5 then resume twice a day Cholestyramine (Cholestyramine Light) 4 Gm Pack 4 GM PO BID@10,22 for 14 Days Take while having loose stool Insulin Glargine (Lantus Solostar) 100 Unit/Ml Inj 15 UNIT SC QPM for 14 Days Lactobacillus Acidophilus (Floranex) 1 Tab Tab 4 TAB PO TIDM for 10 Days, TAB Take while on antibiotics Temazepam (Temazepam) 7.5 Mg Cap 7.5 MG PO HS PRN for Insomnia for 14 Days, CAP Continued Medications: Acetaminophen (Tylenol) 500 Mg Tab 500 MG PO Q4 PRN for Pain or Fever, TAB Enoxaparin (Lovenox) 80 Mg/0.8 Ml Inj 80 MG SQ Q12H, SYR Melatonin (Cvs Melatonin) 3 Mg Tab 3 MG PO HS Pantoprazole (Protonix) 40 Mg Tab 40 MG PO DAILY, #30 TAB Discontinued Medications: Ciprofloxacin Hcl (Cipro) 500 Mg Tab 500 MG PO BID for 8 Days, #16 TAB Insulin Glargine (Lantus) 100 Unit/Ml Inj 20 UNITS SC QPM, VIAL Metformin Hcl (Glucophage) 500 Mg Tab 250 MG PO BID, TAB Temazepam (Restoril) Unknown Strength Cap 7.5 MG PO HS PRN for Sleep, CAP Discharge Exam General/Constitutional: +fatigue/generalized weakness (mild improvement); Denies fever/chills ENT: Denies nasal drainage, sore throat, trouble swallowing Cardiovascular: Denies chest pain, palpitations, edema Respiratory: +nonproductive cough (chronic); +exertion intermittent wheeze ( chronic); Denies sputum, SOB, orthopnea GI: +diarrhea; Denies nausea, vomiting, abdominal pain, constipation, melena/ hematochezia : Denies dysuria, frequency, hematuria Musculoskeletal: bilateral lower extremity edema (chronic - baseline - L>R); Denies joint/muscle aches Neurologic: +L sided weakness (chronic - some improvement); Denies dizziness/ lightheadedness, numbness/tingling Psychiatric: Deferred Endocrine: Deferred Hematologic/Lymphatic: Denies bleeding/clotting abnormalities Skin: Denies rash, itch, new skin changes, easy bruising Allergy/Immunologic: Deferred PHYSICAL EXAM:: General Appearance: WDWN in NAD who is A&O x 3 HEENT: Head is normocephalic; Hearing grossly intact; Mucous membranes moist; Pharynx negative for exudate/lesions Neck: Supple; Trachea midline; Neg JVD; Neg lymphadenopathy Heart: RRR with no M/G/R Lungs: CTA in all lung dunlap bilaterally but diminished at bases; Respirations unlabored; Neg accessory muscle use Abdomen: Soft, non-tender, non-distended; Positive BS x 4 quadrants; Neg organomegaly Extremities: 2+ pitting edema L lower extremity with 1-2+ pitting edema of RLE; neg calf tenderness Neurological: Speech clear, residual L sided weakness compared to R extremities Psychiatric: Appropriate mood/affect Skin: Normal Color; Warm/Dry; Neg rashes, ecchymosis, lacerations/ulcerations Hospital Course ADMISSION: The patient is a 70-year-old male who presents to the emergency department with complaint of severe generalized weakness and fatigue and fever. He was sent to the ED by his oncologist Dr. Rothman after that office received a call from the home health nurse with a temperature reported over 100. He is status post glioblastoma multiform surgery by Dr. Rich at [facility] in May, then underwent chemotherapy, with the last therapy being 3 weeks ago, and radiation therapy. He was admitted to [facility] from August 10 to August 14 for extensive bilateral pulmonary emboli, and has been on therapeutic Lovenox since that time, and had an IVC filter placed. He was discharged from [facility] week ago. He's had intermittent loose bowels since that time without abdominal pain. HOSPITAL COURSE: Mr. Sue was admitted for generalized weakness, fatigue, and fever which revealed sepsis 2/2 pansensitive E. coli. Blood cultures with NGTD. He was treated with IV antibiotics and converted to Keflex 500 mg BID to finish a 10 day course. During admission, he developed loose stools with frequency of 4-8 BMs a day. He was C. diff negative and initiated on Questran and probiotics. Glucose readings significant for readings in the 70s and Lantus was reduced from 20 units to 15 units SC daily. His metformin was on hold during admission due to concern for not having adequate oral intake and prevention of hypoglycemia. PT/OT evaluations completed suggesting need for acute inpatient rehab due to generalized weakness and L sided residual deficits from his resection of his glioblastoma. Instructions given to [facility] to continue holding Metformin and reinstitute based on oral intake and glucose readings. All home medications continued as previously prescribed except for Metformin. His therapeutic Lovenox continued for recent PEs. He is optimal for discharge to [facility] today. Disposition: - Recommend PA/Lat CXR in 2 months - monitor resolution of opacity likely due to recent PE - resolving pulmonary infarct Total Time Spent: Greater than 30 minutes This includes examination of the patient, discharge planning, medication reconciliation, and communication with other providers. Discharge Instructions Please refer to the electronic Patient Visit Report (Discharge Instructions) for additional information. Additional Copies To Isabel Fuentes C.R.N.P.
== END 2016-09-18 15:58 | DRG 871 ==
LOC: ENRESERVTM → ENRESERVDT → C.EDB 16:01 → C.2E 20:26 → C.MS2W 09-16 14:58
PROVIDERS: ADMIT Hospitalist; ATTEND Internal Medicine
DX: A41.51 Sepsis due to Escherichia coli [E. coli] (principal); I26.99 Other pulmonary embolism without acute cor pulmonale; N39.0 Urinary tract infection, site not specified; C71.9 Malignant neoplasm of brain, unspecified; E86.0 Dehydration; R19.7 Diarrhea, unspecified; T36.95XA Adverse effect of unspecified systemic antibiotic, initial encounter; E11.9 Type 2 diabetes mellitus without complications; K21.9 Gastro-esophageal reflux disease without esophagitis; G47.00 Insomnia, unspecified; Z95.828 Presence of other vascular implants and grafts; Z79.01 Long term (current) use of anticoagulants; Z79.4 Long term (current) use of insulin; Z79.84 Long term (current) use of oral hypoglycemic drugs; Z79.899 Other long term (current) drug therapy

== ENCOUNTER 2017-09-16 15:16 | Inpatient (IN) | payer OTHER ==
[~2017-09-16] VITALS: Ht 165.1 cm; Wt 78.2 kg
[~2017-09-16 15:16] MED LIST changes: +ACET-1256 PO; -ACET-1311 PO; -CALC500C3 PO; -DXM/4 PO; +ENOX80IN SQ; -GLC/500 PO; -INSDGI SC; +INSDGIPEN SC; -INSU1INJ SC; +KFL500 PO; +LCTX PO; -LVNIS80 SQ; +MELA3TAB29 PO; -ONDA8TAB6 PO; +QSTP PO; +RST75 PO; -TEMA15CA4 PO
[2017-09-16] MEDS ORDERED: ONDANSETRON INJ 2 MG/ML 2 ML VIAL IV STA (15:36)
[2017-09-16] MEDS ORDERED: SODIUM CHLORIDE 0.9% 1000ML 1,000 ML IV STA ×2 (15:36→20:29)
--- NOTE | 2017-09-16 15:53 | DIAGNOSTIC IMAGING REPORT ---
CHEST ONE VIEW PORTABLE CLINICAL HISTORY: 71 years-old Male presenting with EVALUATE WEAKNESS. TECHNIQUE: Portable upright AP view of the chest was obtained. COMPARISON: 09/15/2016. FINDINGS: Atherosclerosis of aortic arch. Cardiac silhouette enlarged. Mildly low lung volumes, unchanged. Significant interval decrease in right midlung opacity. Only a thin linear opacity remains. No large pleural effusion or pneumothorax. Osseous structures normal. Upper abdomen normal. IMPRESSION: 1. Near-complete resolution of the right midlung opacity. Only a thin linear opacity remains, likely scarring or atelectasis. Electronically signed by: Mason Wells M.D. 09/16/2017 3:51 PM Dictated Date/Time: 09/16/2017 3:50 PM
[2017-09-16 16:15] LABS: BASO % 0.1 %; BASO ABS # 0.01 K/uL (0-0.2); EOS % 0.1 %; EOS ABS # 0.01 K/uL (0-0.5); HEMATOCRIT 29.6 % (42-52); HEMOGLOBIN 10.2 g/dL (14.0-18.0); IG# 0.08 K/uL (0.00-0.02); LYMPH % 9.3 %; LYMPH ABS # 0.62 K/uL (1.2-3.4); MEAN CELL VOLUME 95.5 fL (80-100); MEAN CORPUSCULAR HEMOGLOBIN 32.9 pg (25-34); MEAN CORPUSCULAR HGB CONC 34.5 g/dl (32-36); MEAN PLATELET VOLUME 9.4 fL (7.4-10.4); MONO % 7.6 %; MONO ABS # 0.51 K/uL (0.11-0.59); NEUT % 81.7 %; NEUT ABS # 5.44 K/uL (1.4-6.5); NUCLEATED RED BLOOD CELL ABS 0.09 K/uL (0-0); PLATELET COUNT 105 K/uL (130-400); RED CELL DISTRIBUTION WIDTH CV 19.1 % (11.5-14.5); RED CELL DISTRIBUTION WIDTH SD 63.8 fL (36.4-46.3); WHITE BLOOD COUNT 6.67 K/uL (4.8-10.8)
[2017-09-16 16:27] LABS: PTT PATIENT 30.3 SECONDS (21.0-31.0)
[2017-09-16] MEDS ORDERED: CALC1CHW46 PO (16:27)
[2017-09-16] MEDS ORDERED: ERGO500037 PO (16:27)
[2017-09-16] MEDS ORDERED: OMEP20TA PO (16:27)
[2017-09-16] MEDS ORDERED: INSDGIPEN SC (16:27)
[2017-09-16] MEDS ORDERED: LEVE750T PO (16:27)
[2017-09-16] MEDS ORDERED: TEMA15CA4 PO (16:27)
[2017-09-16] MEDS ORDERED: DXM/4 PO (16:27)
[2017-09-16] MEDS ORDERED: CZR50 PO (16:27)
[2017-09-16 16:37] LABS: ALBUMIN 2.5 gm/dl (3.4-5.0); ALT/SGPT 37 U/L (12-78); AST/SGOT 25 U/L (15-37); BLOOD UREA NITROGEN 20 mg/dl (7-18); CALCIUM 7.6 mg/dl (8.5-10.1); CARBON DIOXIDE 25 mmol/L (21-32); CREATININE 0.74 mg/dl (0.60-1.40); GLUCOSE 194 mg/dl (70-99); LIPASE 119 U/L (73-393); POTASSIUM 3.7 mmol/L (3.5-5.1); SODIUM 138 mmol/L (136-145)
[2017-09-16] MEDS ORDERED: CALCIUM GLUCONATE 10% 10 ML VIAL IV STA (16:54)
[2017-09-16 16:56] LABS: ALKALINE PHOSPHATASE 95 U/L (45-117); TOTAL PROTEIN 5.3 gm/dl (6.4-8.2)
[2017-09-16] MEDS ORDERED: CALCIUM GLUCONATE 10% 2,000 MG in SODIUM CHLORIDE 0.9% 50ML 50 ML IV ONE (17:30)
--- NOTE | 2017-09-16 19:24 | DIAGNOSTIC IMAGING REPORT ---
CAD LIBRARIAN TOMOGRAM OF THE BRAIN CLINICAL HISTORY: Generalized weakness. FINDINGS: A lateral accounting office manager tomogram of the brain was performed prior to CT scan of the brain. Numerous metallic electronic electrodes liver the calvarium. This could not be removed and CT scan was not performed due to the degree of expected metallic artifact. No calvarial abnormality is seen on the tomographic image. IMPRESSION: Leather Cleaner tomogram as above. CT was deferred due to numerous metallic electrodes surrounding the calvarium. Electronically signed by: Cade Douglass M.D. 09/16/2017 4:43 PM Dictated Date/Time: 09/16/2017 4:41 PM
--- NOTE | 2017-09-16 19:42 | DIAGNOSTIC IMAGING REPORT ---
HEAD WITHOUT CONTRAST (CT) CLINICAL HISTORY: 71 years-old Male presenting with WEAKNESS. TECHNIQUE: Multidetector CT imaging of the head was performed without the use of intravenous contrast. IV contrast: None. A dose lowering technique was used consistent with the principles of ALARA (as low as reasonably achievable). COMPARISON: 05/21/2016. CT DOSE (mGy.cm): The estimated cumulative dose is 687.98 mGy.cm. FINDINGS: Precision Aircraft Structure Assembler topogram: Unremarkable. Proportional ventricular and sulcal prominence, likely age-related parenchymal volume loss. Periventricular and subcortical white matter hypoattenuation, nonspecific but likely indicative of chronic small vessel ischemic change. Bilateral old lacunar infarcts in the basal ganglia. Encephalomalacia and gliosis noted in the right paramedian frontal lobe near the vertex with associated ex vacuo dilatation of the body of the right lateral ventricle. No mass effect or midline shift. No hemorrhage or acute territorial infarct. No extra-axial fluid collection. Paranasal sinuses and mastoid air cells clear. Postsurgical changes of right frontal craniotomy. IMPRESSION: 1. Postsurgical changes of right frontal craniotomy with encephalomalacia and gliosis in the right frontal lobe vertex resection cavity. 2. Chronic small vessel ischemic change and bilateral old lacunar infarcts in the basal ganglia. 3. No acute intracranial abnormality. Electronically signed by: Mason Wells M.D. 09/16/2017 7:41 PM Dictated Date/Time: 09/16/2017 7:37 PM
--- NOTE | 2017-09-16 20:15 | EMERGENCY ROOM VISIT NOTE ---
History Report prepared by Michael: Kel Agrawal Under the Supervision of: Dr. Madi Dai M.D. First contact with patient: 15:22 Chief Complaint: WEAKNESS Stated Complaint: WEAKNESS History of Present Illness The patient is a 71 year old white male with a past medical history of glioblastoma, craniotomy, diabetes mellitus, hypertension, and pulmonary emboli who presents to the Emergency Room with complaints of progressively worsening weakness that began 1 week ago. The patient states the before this past week the patient has been able to get himself up out of his wheel chair and walk. Recently, he is not able to do either. He did mention that he slid off of his wheelchair a couple of days ago. He hit his back on this fall, but did not hit his head. He denies any recent headaches or vision/hearing irregularities. The patient did notice some blood in his stool recently as well. He is on Lovenox. Source of History: patient Onset: 1 week ago Position: leg, other (Globally) Quality: other (weakness) Timing: worsening Associated Symptoms: No headache Review of Systems See HPI for pertinent positives and negatives. A total of ten systems were reviewed and were otherwise negative. Past Medical & Surgical Medical Problems: (1) DM type 2 (diabetes mellitus, type 2) (2) Dyslipidemia (3) Generalized weakness (4) Hypertension (5) Hypoxia (6) Paroxysmal atrial fibrillation with RVR (7) Pulmonary embolism (8) Pulmonary embolism, bilateral (9) SIRS (systemic inflammatory response syndrome) Surgical Problems: (1) H/O craniotomy (2) Status post skin graft Family History Diabetes mellitus FH: cancer FH: heart disease Social History Smoking Status: Never Smoker Alcohol Use: none Drug Use: none Marital Status: Housing Status: lives with family Current/Historical Medications Scheduled Dexamethasone (Decadron), 2 MG PO AMPM Enoxaparin (Lovenox), 80 MG SQ Q12H Ergocalciferol (Vitamin D 97786 Unit), 50,000 UNIT PO WK Insulin Glargine (Lantus Solostar), 8 UNITS SC HS Levetiracetam (Keppra), 750 MG PO BID Losartan Potassium (Losartan Potassium), 50 MG PO QAM Omeprazole (Omeprazole), 20 MG PO HS Temazepam (Restoril), 15 MG PO HS Scheduled PRN Acetaminophen (Tylenol), 500 MG PO Q4 PRN for Pain or Fever Calcium Carbonate-Mag Hydrox (Antacid), 750 MG PO DIRECTED PRN for Indigestion Allergies Coded Allergies: No Known Allergies (Unverified , 09/16/17) Physical Exam Vital Signs Date Time Temp Pulse Resp B/P (MAP) Pulse Ox O2 Delivery O2 Flow Rate FiO2 09/16/17 20:42 124 18 150/106 98 Room Air 09/16/17 20:30 135 09/16/17 19:58 69 19 164/95 98 Room Air 09/16/17 19:41 65 09/16/17 18:18 36.4 75 18 164/84 97 Room Air 09/16/17 17:22 72 18 136/83 96 Room Air 09/16/17 15:56 Room Air 09/16/17 15:29 75 09/16/17 15:27 36.8 80 18 135/83 96 Room Air Physical Exam GENERAL: Awake, alert, well-appearing, NAD HENT: Normocephalic, atraumatic. Brain stimulator is in place. PEERL. No anisocoria, right eye is slightly proptotic as compared to the left. No conjunctival injection. EYES: Normal conjunctiva. Sclera non-icteric. PERRL. No anisocoria. NECK: Supple. No nuchal rigidity. FROM. RESPIRATORY: CTAB, no rhonchi, wheezing, crackles CARDIAC: RRR, no MRG ABDOMEN: Soft, NTND, BS+ MSK: No chest wall TTP, no LE edema NEURO: GCS 15, CN 2-12 intact, moves all 4s on command. 3/5 strength in LLE and LUE, 5/5 in RUE and RLE. LLE is in a lower extremity brace. SKIN: No rash or jaundice noted. Old scarring to RUE consistent w/ prior skin graft placement and scarring Medical Decision & Procedures ER Provider Diagnostic Interpretation: Radiology results as stated below per my review and radiologist interpretation: CHEST ONE VIEW PORTABLE CLINICAL HISTORY: 71 years-old Male presenting with EVALUATE WEAKNESS. TECHNIQUE: Portable upright AP view of the chest was obtained. COMPARISON: 09/15/2016. FINDINGS: Atherosclerosis of aortic arch. Cardiac silhouette enlarged. Mildly low lung volumes, unchanged. Significant interval decrease in right midlung opacity. Only a thin linear opacity remains. No large pleural effusion or pneumothorax. Osseous structures normal. Upper abdomen normal. IMPRESSION: 1. Near-complete resolution of the right midlung opacity. Only a thin linear opacity remains, likely scarring or atelectasis. Electronically signed by: Mason Wells M.D. 09/16/2017 3:51 PM Dictated Date/Time: 09/16/2017 3:50 PM [employer]NCER TOMOGRAM OF THE BRAIN CLINICAL HISTORY: Generalized weakness. FINDINGS: A lateral mapping technician tomogram of the brain was performed prior to CT scan of the brain. Numerous metallic electronic electrodes liver the calvarium. This could not be removed and CT scan was not performed due to the degree of expected metallic artifact. No calvarial abnormality is seen on the tomographic image. IMPRESSION: [employer] tomogram as above. CT was deferred due to numerous metallic electrodes surrounding the calvarium. Electronically signed by: Cade Douglass M.D. 09/16/2017 4:43 PM Dictated Date/Time: 09/16/2017 4:41 PM HEAD WITHOUT CONTRAST (CT) CLINICAL HISTORY: 71 years-old Male presenting with WEAKNESS. TECHNIQUE: Multidetector CT imaging of the head was performed without the use of intravenous contrast. IV contrast: None. A dose lowering technique was used consistent with the principles of ALARA (as low as reasonably achievable). COMPARISON: 05/21/2016. CT DOSE (mGy.cm): The estimated cumulative dose is 687.98 mGy.cm. FINDINGS: [employer] topogram: Unremarkable. Proportional ventricular and sulcal prominence, likely age-related parenchymal volume loss. Periventricular and subcortical white matter hypoattenuation, nonspecific but likely indicative of chronic small vessel ischemic change. Bilateral old lacunar infarcts in the basal ganglia. Encephalomalacia and gliosis noted in the right paramedian frontal lobe near the vertex with associated ex vacuo dilatation of the body of the right lateral ventricle. No mass effect or midline shift. No hemorrhage or acute territorial infarct. No extra-axial fluid collection. Paranasal sinuses and mastoid air cells clear. Postsurgical changes of right frontal craniotomy. IMPRESSION: 1. Postsurgical changes of right frontal craniotomy with encephalomalacia and gliosis in the right frontal lobe vertex resection cavity. 2. Chronic small vessel ischemic change and bilateral old lacunar infarcts in the basal ganglia. 3. No acute intracranial abnormality. Electronically signed by: Mason Wells M.D. 09/16/2017 7:41 PM Dictated Date/Time: 09/16/2017 7:37 PM Laboratory Results 09/16/17 16:00 Red Blood Count 3.10, Mean Corpuscular Volume 95.5, Mean Corpuscular Hemoglobin 32.9, Mean Corpuscular Hemoglobin Concent 34.5, Mean Platelet Volume 9.4, Neutrophils (%) (Auto) 81.7, Lymphocytes (%) (Auto) 9.3, Monocytes (%) (Auto) 7.6, Eosinophils (%) (Auto) 0.1, Basophils (%) (Auto) 0.1, Neutrophils # (Auto) 5.44, Lymphocytes # (Auto) 0.62, Monocytes # (Auto) 0.51, Eosinophils # (Auto) 0.01, Basophils # (Auto) 0.01 09/16/17 16:00 Test 09/16/17 16:00 09/16/17 17:10 White Blood Count 6.67 K/uL (4.8-10.8) Red Blood Count 3.10 M/uL (4.7-6.1) Hemoglobin 10.2 g/dL (14.0-18.0) Hematocrit 29.6 % (42-52) Mean Corpuscular Volume 95.5 fL (80-100) Mean Corpuscular Hemoglobin 32.9 pg (25-34) Mean Corpuscular Hemoglobin Concent 34.5 g/dl (32-36) Platelet Count 105 K/uL (130-400) Mean Platelet Volume 9.4 fL (7.4-10.4) Neutrophils (%) (Auto) 81.7 % Lymphocytes (%) (Auto) 9.3 % Monocytes (%) (Auto) 7.6 % Eosinophils (%) (Auto) 0.1 % Basophils (%) (Auto) 0.1 % Neutrophils # (Auto) 5.44 K/uL (1.4-6.5) Lymphocytes # (Auto) 0.62 K/uL (1.2-3.4) Monocytes # (Auto) 0.51 K/uL (0.11-0.59) Eosinophils # (Auto) 0.01 K/uL (0-0.5) Basophils # (Auto) 0.01 K/uL (0-0.2) RDW Standard Deviation 63.8 fL (36.4-46.3) RDW Coefficient of Variation 19.1 % (11.5-14.5) Immature Granulocyte % (Auto) 1.2 % Immature Granulocyte # (Auto) 0.08 K/uL (0.00-0.02) Nucleated RBC Absolute Count (auto) 0.09 K/uL (0-0) Nucleated Red Blood Cells % 1.3 % Prothrombin Time 10.2 SECONDS (9.0-12.0) Prothromb Time International Ratio 1.0 (0.9-1.1) Activated Partial Thromboplast Time 30.3 SECONDS (21.0-31.0) Partial Thromboplastin Ratio 1.2 Anion Gap 8.0 mmol/L (3-11) Est Creatinine Clear Calc Drug Dose 95.7 ml/min Estimated GFR () 109.1 Estimated GFR (Non- 94.1 BUN/Creatinine Ratio 27.2 (10-20) Calcium Level 7.6 mg/dl (8.5-10.1) Magnesium Level 2.0 mg/dl (1.8-2.4) Total Bilirubin 0.5 mg/dl (0.2-1) Direct Bilirubin 0.1 mg/dl (0-0.2) Aspartate Amino Transf (AST/SGOT) 25 U/L (15-37) Alanine Aminotransferase (ALT/SGPT) 37 U/L (12-78) Alkaline Phosphatase 95 U/L (45-117) Total Creatine Kinase 300 U/L (39-308) Troponin I < 0.015 ng/ml (0-0.045) Pro-B-Type Natriuretic Peptide 66 pg/ml (0-900) Total Protein 5.3 gm/dl (6.4-8.2) Albumin 2.5 gm/dl (3.4-5.0) Lipase 119 U/L (73-393) Thyroid Stimulating Hormone (TSH) 1.020 uIu/ml (0.300-4.500) Urine Color YELLOW Urine Appearance CLEAR (CLEAR) Urine pH 5.5 (4.5-7.5) Urine Specific Butler 1.028 (1.000-1.030) Urine Protein NEG (NEG) Urine Glucose (UA) TRACE (NEG) Urine Ketones NEG (NEG) Urine Occult Blood NEG (NEG) Urine Nitrite NEG (NEG) Urine Bilirubin NEG (NEG) Urine Urobilinogen NEG (NEG) Urine Leukocyte Esterase NEG (NEG) Laboratory results reviewed by me Medications Administered Medications (Trade) Dose Ordered Sig/Clotilde Route Start Time Stop Time Status Last Admin Dose Admin Sodium Chloride 1,000 ml @ 999 mls/hr Q1H1M STAT IV 09/16/17 15:36 09/16/17 16:36 DC 09/16/17 15:42 999 MLS/HR Calcium Gluconate 2000 mg/Sodium Chloride 70 ml @ 140 mls/hr TODAY@1730 ONCE IV 09/16/17 17:30 09/16/17 17:59 DC 09/16/17 17:44 140 MLS/HR Sodium Chloride 1,000 ml @ 999 mls/hr Q1H1M STAT IV 09/16/17 20:29 09/16/17 21:29 DC 09/16/17 20:33 999 MLS/HR Levetiracetam (Keppra Tab) 750 mg BID STAT PO 09/16/17 20:39 09/16/17 20:54 DC 09/16/17 21:13 750 MG Dexamethasone (Decadron Tab) 2 mg BID STAT PO 09/16/17 20:39 09/16/17 20:54 DC 09/16/17 21:13 2 MG ECG Per My Interpretation Indication: weakness Rate (beats per minute): 73 Rhythm: normal sinus Findings: Q waves (Inferior), T-wave inversion (Lead 3), other (Normal intervals, LAD) Change: Repeat EKG obtained showed a fib w/ RVR, ventricular rate of 132, normal QRS duration, PVCs noted, +ectopy, depressions in lateral leads and TWI in high lateral leads ED Course 1529: The patient was evaluated in room B5. A complete history and physical exam was performed. 1640: The patient cannot have a CT of the head secondary to the brain stimulator that is in place. 1722: I discussed the case with Dr. Haq - Neurology. He said that there was nothing to do for the patient. He recommended we talk to the Doctor. 1801: I discussed the case with Dr. Robin - Neurooncology. He states that we can take the brain stimulator off and the patient will be fine to have it placed back on in 4 days. Medical Decision The patient is a 71 year old white male with a past medical history of glioblastoma, craniotomy, diabetes mellitus, hypertension, and pulmonary emboli who presents to the Emergency Room with complaints of progressively worsening weakness that began 1 week ago. Nursing notes reviewed. Ancillary studies and prior records reviewed. Differential diagnosis: Etiologies such as metabolic, infection, hypo/hyperglycemia, electrolyte abnormalities, cardiac sources, intracerebral event, toxicologic, neurologic, as well as others were entertained. Patient was seen and evaluated the bedside. Patient does have a prior history of glioblastoma status post resection completed by Dr. Lee at [facility] in May 2016. Patient is presented with a complaint of weakness. Patient reports that his generalized nonfocal. The patient does have some baseline left-sided deficits secondary to his glioblastoma but denies of any focal weakness at this time. Patient denies of infectious symptoms. The patient currently does live at home with his and does ambulate with a walker but states he is too weak to do even this. Patient did blood work completed, EKG, troponin, chest x-ray, CT brain, urinalysis. Patient CT brain does show some encephalomalacia from his prior GBM status post resection but no acute changes. It did show older lacunar infarcts of the basal ganglia. Patient's chest x-ray was improved compared to prior. Urinalysis negative. The patient does have some hypocalcemia and some prerenal azotemia. The patient was given IV fluids and repleted with calcium. Patient's white blood cell count is normal. The patient does have some chronic anemia. I did discuss the case with the on-call neurosurgeon at [facility] given prior concerns about removing his brain stimulator for CT scan. I did refer me to a neuro-oncologist. I did discuss with the neuro oncologist who stated that it was perfectly acceptable to remove the brain stimulator and told the patient to have it placed back on his head as soon as he is able. Upon reassessment, the patient is unable to be ambulatory at this time. He does have chronic L sided weakness but does ambulate w/ a walker at home. He is unable to get up out of bed nor ambulate at this time. He was given additional IV and p.o. fluids. Given that the patient is unable to be ambulatory and cannot be placed in rehab at this time he would require PT and OT evaluation prior to discharge to a rehab facility. I did discuss this with the on-call hospitalist who agreed to further evaluate and treat patient. Shortly after the patient was admitted to the hospitalist service it was noted that the patient had a fast heart rate. The patient denied any chest pains or shortness of breath. An EKG was obtained at the bedside. This showed A. fib with RVR. I did perform a bedside ultrasound. This was a technically difficult study but there appeared to be no evidence of a pericardial effusion. There was no septal bowing demonstrating increased or elevated right-sided heart pressures. Of note the patient is currently on Lovenox for bilateral PEs and is already anticoagulated. The patient does not take any rate control medications. Patient does have a prior history of A. fib but is not on any rate control medications i.e. beta donnell or CCBs. The patient was continued on IV fluids and a Cardizem drip was ordered. Additional potassium was also ordered. His calcium had been repleted earlier during his stay. This was further discussed with the hospitalist during the admission process and patient was admitted to the medicine service. Consults Time Called: 1718 Consulting Physician: Dr. Haq - Neurology Returned Call: 1722 I discussed the case with Dr. eSverino Vail. He said that there was nothing to do for the patient. He recommended we talk to the neuro-oncologist w / regard to patient's brain stimulator. Additional Consults: Time Called: 1726 Consulted Physician: Dr. Robin - Neuroncology Returned Call: [id number] Additional Comments: I discussed the case with Dr. Robin - Neuro-oncology. He states that we can take the brain stimulator off and the patient will be fine to have it placed back on in 4 days. Impression Primary Impression: Weakness Additional Impressions: Dehydration Left-sided weakness Hypocalcemia Anemia Paroxysmal atrial fibrillation with RVR Critical Care I have personally spent greater than 38 minutes of critical care time in the direct management of this patient. This includes bedside care, interpretation of diagnostic studies, and testing, discussion with consultants, patient, and family members, and other required patient management activities. This 38 minutes is in excess of all separately billable procedures. Scribe Attestation The scribe's documentation has been prepared under my direction and personally reviewed by me in its entirety. I confirm that the note above accurately reflects all work, treatment, procedures, and medical decision making performed by me. Departure Information Dispostion Being Evaluated By Hospitalist Referrals Isabel Fuentes C.R.N.P. (PCP) Patient Instructions My [facility] Problem Qualifiers Additional Impressions: Anemia Anemia type: unspecified type Qualified Codes: D64.9 - Anemia, unspecified
[2017-09-16] MEDS ORDERED: LEVETIRACETAM 250 MG TAB PO STA (20:39)
[2017-09-16] MEDS ORDERED: DEXAMETHASONE 1 MG TAB PO STA (20:39)
[2017-09-16] MEDS: POTASSIUM CHLR 10 MEQ / WTR 100 ML IV STA ×2 (20:54→21:16)
[2017-09-16] MEDS ORDERED: DILTIAZEM BOLUS / DRIP IV STA ×2 (20:54→22:40)
[2017-09-16] MEDS ORDERED: ACETAMINOPHEN 325 MG TAB PO PRN (21:00)
[2017-09-16] MEDS ORDERED: DILTIAZEM HCL INJ 125 MG in DEXTROSE 5% 100ML IV PRN (21:00)
[2017-09-16] MEDS ORDERED: DILTIAZEM BOLUS / DRIP IV SCH (21:00)
[2017-09-16] MEDS ORDERED: INSULIN GLARGINE SOLOSTAR 100 UNITS/ML 3 ML PEN SC SCH (21:00)
[2017-09-16] MEDS ORDERED: DILTIAZEM HCL 5 MG/ML 5 ML VIAL ONE (21:31)
[2017-09-16] MEDS ORDERED: ALBUMIN HUMAN 25% 12.5 GM/50 ML VIAL IV STA (21:35)
[2017-09-16] MEDS: ALBUMIN HUMAN 25% 12.5 GM/50 ML VIAL IV SCH ×2 (21:39→21:40)
--- NOTE | 2017-09-16 22:45 | History and Physical ---
History & Physical Date & Time of Service: September 16, 2017 at 22:45 Chief Complaint: Weakness Primary Care Physician: Isabel Fuentes C.R.N.P. History of Present Illness Source: patient, hospital records The patient is a 71-year-old white male with a past medical history of glioblastoma, status post craniotomy 2, diabetes mellitus, hypertension and pulmonary emboli who presents to the emergency department with complaint of progressively worsening weakness over the past 3-4 weeks, in particular over the past week. His initial surgery was May 2016, and second surgery was May 2017. Over the past week he has not been able to get himself up out of his chair. Prior to that he was able to pull himself up out of his wheelchair and walk. He has residual left-sided weakness from previous surgeries. He reports a recent episode where he slid out of his chair a few days ago,did not sustain any head injury, but did have some minor back discomfort. Past Medical/Surgical History Medical Problems: (1) Brain mass (2) DM type 2 (diabetes mellitus, type 2) (3) Dyslipidemia (4) Elevated troponin (5) GBM (glioblastoma multiforme) (6) Generalized weakness (7) Hypertension (8) Hypotension (9) Hypotension (10) Hypoxia (11) Left-sided weakness (12) Paroxysmal atrial fibrillation with RVR (13) Pulmonary embolism (14) Pulmonary embolism, bilateral (15) Shortness of breath (16) SIRS (systemic inflammatory response syndrome) (17) UTI (urinary tract infection) Surgical Problems: (1) H/O craniotomy (2) Status post skin graft Family History Diabetes mellitus FH: cancer FH: heart disease Social History Smoking Status: Never Smoker Smokeless Tobacco Use: No Alcohol Use: none Drug Use: none Marital Status: Housing status: lives with significant other Occupational Status: disabled Immunizations History of Influenza Vaccine: Unknown History of Tetanus Vaccine?: Unknown History of Pneumococcal: Unknown History of Hepatitis B Vaccine: Unknown Allergies Coded Allergies: No Known Allergies (Unverified , 09/16/17) Home Medications Scheduled Dexamethasone (Decadron), 2 MG PO AMPM Enoxaparin (Lovenox), 80 MG SQ Q12H Ergocalciferol (Vitamin D 62492 Unit), 50,000 UNIT PO WK Insulin Glargine (Lantus Solostar), 8 UNITS SC HS Levetiracetam (Keppra), 750 MG PO BID Losartan Potassium (Losartan Potassium), 50 MG PO QAM Omeprazole (Omeprazole), 20 MG PO HS Temazepam (Restoril), 15 MG PO HS Scheduled PRN Acetaminophen (Tylenol), 500 MG PO Q4 PRN for Pain or Fever Calcium Carbonate-Mag Hydrox (Antacid), 750 MG PO DIRECTED PRN for Indigestion Review of Systems The patient denies chest pain, palpitations, shortness of breath, dyspnea on exertion, cough, sore throat, fevers, chills, sweats, nausea, vomiting, diarrhea , constipation, abdominal pain, pelvic pain, blood in urine, dysuria, urinary frequency or urgency, loss of consciousness, rash, generalized arthralgias or myalgias, neck pain, or night sweats. The review of systems is otherwise negative other than for that already noted above, and at least 10 systems have been reviewed. Physical Exam Vital Signs Date Time Temp Pulse Resp B/P (MAP) Pulse Ox O2 Delivery O2 Flow Rate FiO2 09/16/17 22:28 124 152/96 95 09/16/17 21:40 132 16 129/85 95 Room Air 09/16/17 20:42 124 18 150/106 98 Room Air 09/16/17 20:30 135 09/16/17 19:58 69 19 164/95 98 Room Air 09/16/17 19:41 65 09/16/17 18:18 36.4 75 18 164/84 97 Room Air 09/16/17 17:22 72 18 136/83 96 Room Air 09/16/17 15:56 Room Air 09/16/17 15:29 75 09/16/17 15:27 36.8 80 18 135/83 96 Room Air The patient is awake, alert and oriented 3, lying in bed and in no acute distress. HEENT--PERRL, EOMI, mucous membranes and oropharynx dry. Neck--supple. No JVD. No bruits. Thyroid normal, trachea midline, no adenopathy. Heart--normal S1 and S2. No murmurs, rubs or gallops. Lungs--clear bilaterally, no respiratory distress, no accessory muscle use. Abdomen--normal bowel sounds and soft. Nontender. Nondistended. Extremities--no cyanosis or clubbing. There is bilateral pretibial 2-3+ pitting edema. Dermatologic--normal skin turgor, normal color, no abnormal lymph nodes, no rash. Right upper extremity with skin graft scarring Neurologic--cranial nerves II through XII grossly intact. Left upper and left lower extremity 3/5 strength. Right upper extremity and right lower extremity 5 /5 strength Rheumatologic--normal range of motion. Psychiatric--normal affect. Diagnostics Laboratory Results Results Past 24 Hours Test 09/16/17 16:00 09/16/17 17:10 Range/Units White Blood Count 6.67 4.8-10.8 K/uL Red Blood Count 3.10 4.7-6.1 M/uL Hemoglobin 10.2 14.0-18.0 g/dL Hematocrit 29.6 42-52 % Mean Corpuscular Volume 95.5 80-100 fL Mean Corpuscular Hemoglobin 32.9 25-34 pg Mean Corpuscular Hemoglobin Concent 34.5 32-36 g/dl Platelet Count 105 130-400 K/uL Mean Platelet Volume 9.4 7.4-10.4 fL Neutrophils (%) (Auto) 81.7 % Lymphocytes (%) (Auto) 9.3 % Monocytes (%) (Auto) 7.6 % Eosinophils (%) (Auto) 0.1 % Basophils (%) (Auto) 0.1 % Neutrophils # (Auto) 5.44 1.4-6.5 K/uL Lymphocytes # (Auto) 0.62 1.2-3.4 K/uL Monocytes # (Auto) 0.51 0.11-0.59 K/uL Eosinophils # (Auto) 0.01 0-0.5 K/uL Basophils # (Auto) 0.01 0-0.2 K/uL RDW Standard Deviation 63.8 36.4-46.3 fL RDW Coefficient of Variation 19.1 11.5-14.5 % Immature Granulocyte % (Auto) 1.2 % Immature Granulocyte # (Auto) 0.08 0.00-0.02 K/uL Nucleated RBC Absolute Count (auto) 0.09 0-0 K/uL Nucleated Red Blood Cells % 1.3 % Prothrombin Time 10.2 9.0-12.0 SECONDS Prothromb Time International Ratio 1.0 0.9-1.1 Activated Partial Thromboplast Time 30.3 21.0-31.0 SECONDS Partial Thromboplastin Ratio 1.2 Sodium Level 138 136-145 mmol/L Potassium Level 3.7 3.5-5.1 mmol/L Chloride Level 105 98-107 mmol/L Carbon Dioxide Level 25 21-32 mmol/L Anion Gap 8.0 3-11 mmol/L Blood Urea Nitrogen 20 7-18 mg/dl Creatinine 0.74 0.60-1.40 mg/dl Est Creatinine Clear Calc Drug Dose 95.7 ml/min Estimated GFR () 109.1 Estimated GFR (Non- 94.1 BUN/Creatinine Ratio 27.2 10-20 Random Glucose 194 70-99 mg/dl Calcium Level 7.6 8.5-10.1 mg/dl Magnesium Level 2.0 1.8-2.4 mg/dl Total Bilirubin 0.5 0.2-1 mg/dl Direct Bilirubin 0.1 0-0.2 mg/dl Aspartate Amino Transf (AST/SGOT) 25 15-37 U/L Alanine Aminotransferase (ALT/SGPT) 37 12-78 U/L Alkaline Phosphatase 95 45-117 U/L Total Creatine Kinase 300 39-308 U/L Troponin I < 0.015 0-0.045 ng/ml Pro-B-Type Natriuretic Peptide 66 0-900 pg/ml Total Protein 5.3 6.4-8.2 gm/dl Albumin 2.5 3.4-5.0 gm/dl Lipase 119 73-393 U/L Thyroid Stimulating Hormone (TSH) 1.020 0.300-4.500 uIu/ml Urine Color YELLOW Urine Appearance CLEAR CLEAR Urine pH 5.5 4.5-7.5 Urine Specific [place] 1.028 1.000-1.030 Urine Protein NEG NEG Urine Glucose (UA) TRACE NEG Urine Ketones NEG NEG Urine Occult Blood NEG NEG Urine Nitrite NEG NEG Urine Bilirubin NEG NEG Urine Urobilinogen NEG NEG Urine Leukocyte Esterase NEG NEG Microbiology Results 09/16/17 Urine Culture, Received Pending Diagnostic Radiology Patient Name: CITLALY LEÓN Unit Number: [id number] Dictated: 09/16/171640 Transcribed: 09/16/171640 EV Printed Date/Time: [~ rep prt dt]/[~ rep prt tm] [~ rep ct labl] - [~ rep ct ivnm] [facility] [place] [address] Dictated: 09/16/171640 Transcribed: 09/16/171640 EV Printed Date/Time: [~ rep prt dt]/[~ rep prt tm] [~ rep ct labl] - [~ rep ct ivnm] VP ANCILLARY TOMOGRAM OF THE BRAIN CLINICAL HISTORY: Generalized weakness. FINDINGS: A lateral center mgr tomogram of the brain was performed prior to CT scan of the brain. Numerous metallic electronic electrodes liver the calvarium. This could not be removed and CT scan was not performed due to the degree of expected metallic artifact. No calvarial abnormality is seen on the tomographic image. IMPRESSION: Gluing Machine Adjuster tomogram as above. CT was deferred due to numerous metallic electrodes surrounding the calvarium. Electronically signed by: Cade Douglass M.D. 09/16/2017 4:43 PM Dictated Date/Time: 09/16/2017 4:41 PM The status of this report is Signed. Draft = Not yet reviewed or approved by Radiologist. Signed = Reviewed and approved by Radiologist. <AttendingPhy></AttendingPhy> <FamilyPhy>Isabel Fuentes C.R.N.P.</FamilyPhy> < PrimaryPhy>Isabel Fuentes C.R.N.P.</PrimaryPhy> <UnitNumber>[id number]</ UnitNumber> <VisitNumber>[id number]</VisitNumber> <PatientName>CITLALY LEÓN</PatientName> <DateOfBirth>1945</DateOfBirth> <Location>[facility]</ Location> <ServiceDate>09/16/17</ServiceDate> <MNE>ESINDI</MNE> <OrderingPhy> Madi Dai M.D.</OrderingPhy> <OrderingPhyMNE>f rep ord dr evans</ OrderingPhyMNE> <DictatingPhyMNE>f rep dict dr evans</DictatingPhyMNE> <CCListMNE> f rep ct mne</CCListMNE> <AdmittingPhyMNE>f pt admit dr evans</AdmittingPhyMNE> < AttendingPhyMNE>f pt attend dr evans</AttendingPhyMNE> <ConsultingPhyMNE>f pt consult dr evans</ConsultingPhyMNE> <FamilyPhyMNE>f pt fam dr evans</FamilyPhyMNE> <OtherPhyMNE>f pt other dr evans</OtherPhyMNE> < PrimaryPhyMNE>f pt prim care dr evans</PrimaryPhyMNE> <ReferringPhyMNE>f pt referring dr evans</ReferringPhyMNE> Patient Name: CITLALY LEÓN Unit Number: [id number] Dictated: 09/16/171549 Transcribed: 09/16/171549 PBS Printed Date/Time: [~ rep prt dt]/[~ rep prt tm] [~ rep ct labl] - [~ rep ct ivnm] [facility] [place] [address] Dictated: 09/16/171549 Transcribed: 09/16/171549 PBS Printed Date/Time: [~ rep prt dt]/[~ rep prt tm] [~ rep ct labl] - [~ rep ct ivnm] CHEST ONE VIEW PORTABLE CLINICAL HISTORY: 71 years-old Male presenting with EVALUATE WEAKNESS. TECHNIQUE: Portable upright AP view of the chest was obtained. COMPARISON: 09/15/2016. FINDINGS: Atherosclerosis of aortic arch. Cardiac silhouette enlarged. Mildly low lung volumes, unchanged. Significant interval decrease in right midlung opacity. Only a thin linear opacity remains. No large pleural effusion or pneumothorax. Osseous structures normal. Upper abdomen normal. IMPRESSION: 1. Near-complete resolution of the right midlung opacity. Only a thin linear opacity remains, likely scarring or atelectasis. Electronically signed by: Mason Wells M.D. 09/16/2017 3:51 PM Dictated Date/Time: 09/16/2017 3:50 PM The status of this report is Signed. Draft = Not yet reviewed or approved by Radiologist. Signed = Reviewed and approved by Radiologist. <AttendingPhy></AttendingPhy> <FamilyPhy>Isabel Fuentes C.R.N.P.</FamilyPhy> < PrimaryPhy>Isabel Fuentes C.R.N.P.</PrimaryPhy> <UnitNumber>[id number]</ UnitNumber> <VisitNumber>[id number]</VisitNumber> <PatientName>CITLALY LEÓN</PatientName> <DateOfBirth>1945</DateOfBirth> <Location>[facility]</ Location> <ServiceDate>09/16/17</ServiceDate> <MNE>ESINDI</MNE> <OrderingPhy> Madi Dai M.D.</OrderingPhy> <OrderingPhyMNE>f rep ord dr evans</ OrderingPhyMNE> <DictatingPhyMNE>f rep dict dr evans</DictatingPhyMNE> <CCListMNE> f rep ct mne</CCListMNE> <AdmittingPhyMNE>f pt admit dr evans</AdmittingPhyMNE> < AttendingPhyMNE>f pt attend dr evans</AttendingPhyMNE> <ConsultingPhyMNE>f pt consult dr evans</ConsultingPhyMNE> <FamilyPhyMNE>f pt fam dr evans</FamilyPhyMNE> <OtherPhyMNE>f pt other dr evans</OtherPhyMNE> < PrimaryPhyMNE>f pt prim care dr evans</PrimaryPhyMNE> <ReferringPhyMNE>f pt referring dr evans</ReferringPhyMNE> Patient Name: CITLALY LEÓN Unit Number: [id number] Dictated: 09/16/171936 Transcribed: 09/16/171936 PBS Printed Date/Time: [~ rep prt dt]/[~ rep prt tm] [~ rep ct labl] - [~ rep ct ivnm] [facility] [place] [address] Dictated: 09/16/171936 Transcribed: 09/16/171936 PBS Printed Date/Time: [~ rep prt dt]/[~ rep prt tm] [~ rep ct labl] - [~ rep ct ivnm] HEAD WITHOUT CONTRAST (CT) CLINICAL HISTORY: 71 years-old Male presenting with WEAKNESS. TECHNIQUE: Multidetector CT imaging of the head was performed without the use of intravenous contrast. IV contrast: None. A dose lowering technique was used consistent with the principles of ALARA (as low as reasonably achievable). COMPARISON: 05/21/2016. CT DOSE (mGy.cm): The estimated cumulative dose is 687.98 mGy.cm. FINDINGS: Gluing Machine Adjuster topogram: Unremarkable. Proportional ventricular and sulcal prominence, likely age-related parenchymal volume loss. Periventricular and subcortical white matter hypoattenuation, nonspecific but likely indicative of chronic small vessel ischemic change. Bilateral old lacunar infarcts in the basal ganglia. Encephalomalacia and gliosis noted in the right paramedian frontal lobe near the vertex with associated ex vacuo dilatation of the body of the right lateral ventricle. No mass effect or midline shift. No hemorrhage or acute territorial infarct. No extra-axial fluid collection. Paranasal sinuses and mastoid air cells clear. Postsurgical changes of right frontal craniotomy. IMPRESSION: 1. Postsurgical changes of right frontal craniotomy with encephalomalacia and gliosis in the right frontal lobe vertex resection cavity. 2. Chronic small vessel ischemic change and bilateral old lacunar infarcts in the basal ganglia. 3. No acute intracranial abnormality. Electronically signed by: Mason Wells M.D. 09/16/2017 7:41 PM Dictated Date/Time: 09/16/2017 7:37 PM The status of this report is Signed. Draft = Not yet reviewed or approved by Radiologist. Signed = Reviewed and approved by Radiologist. <AttendingPhy></AttendingPhy> <FamilyPhy>Isabel Fuentes C.RDaniiNDaniiPDanii</FamilyPhy> < PrimaryPhy>Isabel Fuentes C.RDaniiN.P.</PrimaryPhy> <UnitNumber>[id number]</ UnitNumber> <VisitNumber>[id number]</VisitNumber> <PatientName>CITLALY LEÓN</PatientName> <DateOfBirth>1945</DateOfBirth> <Location>[facility]</ Location> <ServiceDate>09/16/17</ServiceDate> <MNE>ESINDI</MNE> <OrderingPhy> Madi Dai M.D.</OrderingPhy> <OrderingPhyMNE>f rep ord dr evans</ OrderingPhyMNE> <DictatingPhyMNE>f rep dict dr evans</DictatingPhyMNE> <CCListMNE> f rep ct drewe</CCListMNE> <AdmittingPhyMNE>f pt admit dr evans</AdmittingPhyMNE> < AttendingPhyMNE>f pt attend dr evans</AttendingPhyMNE> <ConsultingPhyMNE>f pt consult dr evans</ConsultingPhyMNE> <FamilyPhyMNE>f pt fam dr evans</FamilyPhyMNE> <OtherPhyMNE>f pt other dr evans</OtherPhyMNE> < PrimaryPhyMNE>f pt prim care dr evans</PrimaryPhyMNE> <ReferringPhyMNE>f pt referring dr evans</ReferringPhyMNE> EKG CITLALY LEÓN ID:[id number] 16-SEP-2017 16:07:45 [facility] Poor data quality, interpretation may be adversely affected Normal sinus rhythm Left axis deviation Minimal voltage criteria for LVH, may be normal variant Inferior infarct (cited on or before 13-MAY-2016) Anteroseptal infarct (cited on or before 13-MAY-2016) Abnormal ECG When compared with ECG of 17-SEP-2016 07:29, Premature ventricular complexes are no longer Present Premature atrial complexes are no longer Present ... 25mm/s 10mm/mV 150Hz 8.0 SP2 12SL 241 EMY: 10 Referred by: Referred Self Confirmed By: HANSA Ruano rate 73 BPM KS interval 178 ms QRS duration 68 ms QT/QTc 370/407 ms P-R-T axes 44 -35 35 1945 (71 yr) Male Room: Loc:15 Exercise Equipment Repair Technician:YARI PATTERSON Impression Assessment and Plan Progressive generalized weakness/history of glioblastoma with surgery 2-- Initial CT performed primarily showed scarring in the right frontoparietal area. MRI of head showed mildly increased enhancement adjacent to the resection cavity and more extensive, now confluent T2/flair hyperintensity in the right frontal and parietal lobes which is suspicious for tumor progression, with recommendation to compare to more recent MRIs than this comparison of 09/07/16. We will increase Decadron 2 mg p.o. twice daily to 4 mg p.o. twice daily for possible adrenal insufficiency. Continue Keppra 750 mg p.o. twice daily. His case was discussed by Dr. Ford from the ED with neurosurgery Dr. Haq and neuro oncology Dr. Robin from [facility]. New onset paroxysmal atrial fibrillation with RVR/hypertension-- The patient will be admitted to telemetry for serial cardiac enzymes, serial EKG's, cardiac rhythm monitoring and a 2-D echocardiogram with Dopplers. Patient did develop this rhythm while in the emergency department. He was started on Cardizem drip after bolus. He is already anticoagulated on Lovenox, and will continue. We will consult cardiology in the a.m. MRI did not show any new strokes related to possible previous episodes of atrial fibrillation. Hold losartan 50 mg p.o. every morning. Diabetes mellitus-- Continue Lantus 8 units subcu at bedtime, as would expect sugars to increase on increased Decadron. Placed on Accu-Cheks before meals and at bedtime with NovoLog coverage per scale. GERD--change omeprazole to pantoprazole. Insomnia-- Continue temazepam 15 mg p.o. at bedtime. Advanced Directives Existing Advance Directive: No Existing Living Will: No Existing Power of Senior Radiation Therapist: No Resuscitation Status VTE Prophylaxis Will order VTE Prophylaxis: Yes
[2017-09-17] VITALS (7 sets, daily range): BP systolic 100–135; BP diastolic 58–79; PULSE 70–113; TEMP 36.3–36.9; O2SAT 94–97; Ht 165.1 cm; Wt 78.2 kg
[2017-09-17] MEDS ORDERED: GADAVIST IV PRN
[2017-09-17] MEDS ORDERED: GLUCOSE 40% GEL 15 GM TUBE PO PRN (01:00)
[2017-09-17] MEDS ORDERED: CARBOHYDRATES FOR HYPOGLYCEMIA PO PRN (01:00)
[2017-09-17] MEDS ORDERED: DEXTROSE 50% 50 ML SYR IV PRN (01:00)
[2017-09-17] MEDS ORDERED: GLUCAGON FOR INJ 1 MG VIAL IM PRN (01:00)
[2017-09-17] MEDS ORDERED: GLUCOSE 10 TABS/TUBE PO PRN (01:00)
[2017-09-17] MEDS: ENOXAPARIN 80 MG/0.8 ML SYR SQ SCH ×3 (01:07→20:50)
[2017-09-17] MEDS: NSS + 20MEQ KCL 1000ML 1,000 ML IV SCH ×2 (01:08→13:58)
[2017-09-17] MEDS: DEXAMETHASONE 4 MG TAB PO SCH ×3 (01:08→20:40)
[2017-09-17] MEDS: LEVETIRACETAM 250 MG TAB PO SCH ×3 (01:09→20:41)
[2017-09-17] MEDS ORDERED: DILTIAZEM HCL INJ 125 MG in DEXTROSE 5% 100ML IV PRN (01:15)
[2017-09-17] MEDS: TEMAZEPAM 15 MG CAP PO SCH ×2 (01:16→20:48)
[2017-09-17] MEDS: ALBUMIN HUMAN 25% 12.5 GM/50 ML VIAL IV SCH ×2 (04:09→10:53)
[2017-09-17 06:40] LABS: HEMATOCRIT 29.7 % (42-52); HEMOGLOBIN 9.8 g/dL (14.0-18.0); MEAN CELL VOLUME 97.7 fL (80-100); MEAN CORPUSCULAR HEMOGLOBIN 32.2 pg (25-34); NUCLEATED RED BLOOD CELL ABS 0.05 K/uL (0-0); RED CELL DISTRIBUTION WIDTH CV 19.6 % (11.5-14.5); RED CELL DISTRIBUTION WIDTH SD 66.7 fL (36.4-46.3); WHITE BLOOD COUNT 6.07 K/uL (4.8-10.8)
--- NOTE | 2017-09-17 07:10 | DIAGNOSTIC IMAGING REPORT ---
MRI OF THE BRAIN COMBO CLINICAL HISTORY: Generalized weakness. COMPARISON STUDY: CT of the brain dated 09/16/2017. TECHNIQUE: MRI of the brain was performed utilizing various T1 and T2-weighted sequences in the axial, sagittal, and coronal planes. Contrast-enhanced sequences were acquired following the administration of 8.5 cc of Gadavist. The examination is performed using the seizure protocol. FINDINGS: Brain parenchyma: There are age-related involutional changes noting moderate subcortical and periventricular microangiopathic disease. There is no hemorrhage or mass effect. Right frontoparietal encephalomalacia is consistent with a site of previous resection. Foci of hemosiderin deposition are likely related to remote blood products. There is increasing sulcal enhancement deep to the craniotomy site (coronal image #16, axial image #21). There is also increasing FLAIR signal abnormality within the right frontoparietal region. There is no restricted diffusion to suggest acute ischemia. Pat-white matter differentiation is preserved. No extra-axial fluid collection is seen. The cerebellar tonsils are normal in configuration. Ventricles, sulci, and cisterns: Prominent secondary to involutional change. Pituitary and sella: Partially empty sella is incidentally noted. Intracranial vasculature: Normal flow voids are maintained at the skull base. Orbits: The bony orbits are grossly intact. Orbital contents are normal in appearance. Sinuses and mastoids: Clear. Calvarium: There is evidence of previous right-sided craniotomy. No destructive calvarial lesion is seen. Cervical cord: Partially visualized cervical spinal cord is normal in morphology and signal intensity. IMPRESSION: 1. There is no hemorrhage or evidence of acute ischemia. 2. Again seen are postoperative changes from right frontoparietal mass resection. 3. There is increasing gyriform enhancement along the resection margin. Although this could represent postoperative change, the appearance is more concerning for tumor progression. 4. Increasing FLAIR signal abnormality throughout the right frontoparietal white matter could related to tumor progression or possibly post radiation change. Electronically signed by: Cade Douglass M.D. 09/17/2017 7:08 AM Dictated Date/Time: 09/17/2017 6:59 AM
[2017-09-17 07:13] LABS: IG# 0.06 K/uL (0.00-0.02); LYMPH % 8.4 %; LYMPH ABS # 0.51 K/uL (1.2-3.4); MEAN PLATELET VOLUME 8.9 fL (7.4-10.4); MONO % 5.3 %; MONO ABS # 0.32 K/uL (0.11-0.59); NEUT % 85.3 %; NEUT ABS # 5.18 K/uL (1.4-6.5); PLATELET COUNT 80 K/uL (130-400)
[2017-09-17 07:20] LABS: CALCIUM 8.5 mg/dl (8.5-10.1); CREATININE 0.68 mg/dl (0.60-1.40); PHOSPHORUS 2.8 mg/dl (2.5-4.9); POTASSIUM 4.2 mmol/L (3.5-5.1)
[2017-09-17] MEDS: LOSARTAN POTASSIUM 50 MG TAB PO SCH (07:49)
[2017-09-17] MEDS: PANTOprazole SOD 40 MG TAB PO SCH (07:49)
[2017-09-17] MEDS ORDERED: POLYETHYLENE (MIRALAX) 17 GM PACK ONE (08:59)
[2017-09-17] MEDS ORDERED: NURSING VERBAL MED ORDER ONE ×3 (09:00→10:45)
--- NOTE | 2017-09-17 09:01 | Hospitalist Progress Note ---
Hospitalist Progress Note Date of Service September 17, 2017. (Libia Medina PA-C) Subjective Pt evaluation today including: conversation w/ patient, conversation w/ family , physical exam, chart review, lab review, review of studies Pain: None PO Intake: Fair Voiding: no voiding problems The patient was seen and examined this morning. Pt reports he initially had surgery in May 2016 and then underwent radiation tx daily x 6 weeks. He then had recurrence and yet had another surgery in May 2017. He now presents with increase LLE weakness to the point where he is unable to transfer from his wheelchair to another chair. He follows with Dr. Lee and Debbie Light PA-C from [facility] neurosurgery in [place]. He denies any lightheadedness or dizziness, no chest pain or chest complaints. This morning he remains in Afib, with rates in the 90s and was transitioned off cardizem gtt to an amiodarone gtt per cardiology. Constitutional: + fatigue, No fever, No chills, No sweats Eyes: No redness, No diplopia ENT: No nasal symptoms, No sore throat Respiratory: No cough, No dyspnea at rest Cardiovascular: No chest pain, No edema Abdomen: No pain, No nausea, No vomiting, No diarrhea, No constipation Musculoskeletal: + see HPI Male : No dysuria Neurologic: + see HPI, + weakness, + balance problems, No numbness/tingling Endo: No fatigue Skin: No rash, No itch (Libia Medina PA-C) Objective Vital Signs Date Time Temp Pulse Resp B/P (MAP) Pulse Ox O2 Delivery O2 Flow Rate FiO2 09/17/17 08:00 Room Air 09/17/17 07:05 36.4 70 18 125/72 (89) 94 Room Air 09/17/17 04:00 Room Air 09/17/17 03:00 36.4 70 16 115/74 (88) 95 Room Air 09/17/17 01:50 36.4 113 16 133/79 94 Room Air 09/16/17 22:28 124 152/96 95 09/16/17 21:40 132 16 129/85 95 Room Air 09/16/17 20:42 124 18 150/106 98 Room Air 09/16/17 20:30 135 09/16/17 19:58 69 19 164/95 98 Room Air 09/16/17 19:41 65 09/16/17 18:18 36.4 75 18 164/84 97 Room Air 09/16/17 17:22 72 18 136/83 96 Room Air 09/16/17 15:56 Room Air 09/16/17 15:29 75 09/16/17 15:27 36.8 80 18 135/83 96 Room Air (Libia Medina PA-C) Physical Exam General Appearance: WD/WN, no apparent distress, + pertinent finding (alopecia) Eyes: PERRL, EOMI ENT: hearing grossly normal, pharynx normal, + pertinent finding (MMM ) Neck: supple, no JVD Respiratory/Chest: lungs clear, no respiratory distress, no accessory muscle use Cardiovascular: + systolic murmur, + irregularly irregular (HR in 90s and fluctuating on cardizem gtt) Abdomen: normal bowel sounds, non tender, soft Extremities: + pertinent finding (LLE weakness grade 3/5 compared to the RLL grade 5/5. LUE with weakness rate 1/5 compared to RUE rated 5/5. + BLE 2+ pitting edema.) Neurologic/Psychiatric: alert, normal mood/affect, oriented x 3 Skin: normal color, warm/dry (Libia Medina PA-C) Laboratory Results Last 24 Hours Test 09/16/17 16:00 09/16/17 17:10 09/17/17 01:05 09/17/17 06:16 White Blood Count 6.67 K/uL 6.07 K/uL Red Blood Count 3.10 M/uL 3.04 M/uL Hemoglobin 10.2 g/dL 9.8 g/dL Hematocrit 29.6 % 29.7 % Mean Corpuscular Volume 95.5 fL 97.7 fL Mean Corpuscular Hemoglobin 32.9 pg 32.2 pg Mean Corpuscular Hemoglobin Concent 34.5 g/dl 33.0 g/dl Platelet Count 105 K/uL 80 K/uL Mean Platelet Volume 9.4 fL 8.9 fL Neutrophils (%) (Auto) 81.7 % 85.3 % Lymphocytes (%) (Auto) 9.3 % 8.4 % Monocytes (%) (Auto) 7.6 % 5.3 % Eosinophils (%) (Auto) 0.1 % 0.0 % Basophils (%) (Auto) 0.1 % 0.0 % Neutrophils # (Auto) 5.44 K/uL 5.18 K/uL Lymphocytes # (Auto) 0.62 K/uL 0.51 K/uL Monocytes # (Auto) 0.51 K/uL 0.32 K/uL Eosinophils # (Auto) 0.01 K/uL 0.00 K/uL Basophils # (Auto) 0.01 K/uL 0.00 K/uL RDW Standard Deviation 63.8 fL 66.7 fL RDW Coefficient of Variation 19.1 % 19.6 % Immature Granulocyte % (Auto) 1.2 % 1.0 % Immature Granulocyte # (Auto) 0.08 K/uL 0.06 K/uL Nucleated RBC Absolute Count (auto) 0.09 K/uL 0.05 K/uL Nucleated Red Blood Cells % 1.3 % 0.7 % Prothrombin Time 10.2 SECONDS Prothromb Time International Ratio 1.0 Activated Partial Thromboplast Time 30.3 SECONDS Partial Thromboplastin Ratio 1.2 Sodium Level 138 mmol/L 140 mmol/L Potassium Level 3.7 mmol/L 4.2 mmol/L Chloride Level 105 mmol/L 108 mmol/L Carbon Dioxide Level 25 mmol/L 27 mmol/L Anion Gap 8.0 mmol/L 5.0 mmol/L Blood Urea Nitrogen 20 mg/dl 18 mg/dl Creatinine 0.74 mg/dl 0.68 mg/dl Est Creatinine Clear Calc Drug Dose 95.7 ml/min 101.1 ml/min Estimated GFR () 109.1 112.9 Estimated GFR (Non- 94.1 97.4 BUN/Creatinine Ratio 27.2 26.0 Random Glucose 194 mg/dl 183 mg/dl Calcium Level 7.6 mg/dl 8.5 mg/dl Magnesium Level 2.0 mg/dl 2.2 mg/dl Total Bilirubin 0.5 mg/dl Direct Bilirubin 0.1 mg/dl Aspartate Amino Transf (AST/SGOT) 25 U/L Alanine Aminotransferase (ALT/SGPT) 37 U/L Alkaline Phosphatase 95 U/L Total Creatine Kinase 300 U/L Troponin I < 0.015 ng/ml Pro-B-Type Natriuretic Peptide 66 pg/ml Total Protein 5.3 gm/dl Albumin 2.5 gm/dl Lipase 119 U/L Thyroid Stimulating Hormone (TSH) 1.020 uIu/ml Urine Color YELLOW Urine Appearance CLEAR Urine pH 5.5 Urine Specific [place] 1.028 Urine Protein NEG Urine Glucose (UA) TRACE Urine Ketones NEG Urine Occult Blood NEG Urine Nitrite NEG Urine Bilirubin NEG Urine Urobilinogen NEG Urine Leukocyte Esterase NEG Bedside Glucose 189 mg/dl Toxic Granulation 1+ Platelet Estimate DECREASED Anisocytosis PRESENT Phosphorus Level 2.8 mg/dl Test 09/17/17 07:20 Bedside Glucose 193 mg/dl (Libia Medina PA-C) Assessment and Plan This is a 71 yo M with Progressive generalized weakness Hx of glioblastoma with surgery 2 - Initial surgery completed by Dr. Rich May 2016 followed by 6wks XRT and chemotherapy, and subsequent resection in May 2017. Currently undergoing oral chemotherapy with PO temazolamide - has underwent 3 rounds. Next round scheduled around 10/04 this month. - Discussion held with Debbie Light PA-C neurosurg at [facility] - agree with increased decadron dosing, requesting MRI imaging to have it for Tumor Board review next Wednesday. - MRI showing mildly increased enhancement adjacent to the resection cavity and more extensive, now confluent T2/flair hyperintensity in the right frontal and parietal lobes which is suspicious for tumor progression, Pt was scheduled for outpatient MRI follow up on October 01, as well as has outpatient f/u with KIERRA above on 10/01 at 10:10am. Will send MRI to [facility] today, Fax report to [phone] If questions for neurosurg at [facility] call: [phone] for Tracy or [phone] - Cont Decadron 4 mg p.o BID for tumor swelling - Follow ANC, consider antibiotics for prophylaxis if ANC < 0.5 due to immunosuppression - Continue Keppra 750 mg p.o. BID - Will ask palliative care to consult on the patient. New onset paroxysmal atrial fibrillation with RVR Hypertension - on telemetry - initial trop neg, will check 2nd set as add on to labs this morning - EKG showing afib this morning at 06:51 but rate is much better controlled. - Cards on board- Pt switched off cardizem gtt to amiodarone gtt, with plan to transition to PO tabs tomorrow. - 2D echo pending. - Pt currently anticoagulated on Lovenox - cardiology recommending switch to xarelto - will need to discuss wtih pt. - MRI did not show any new strokes related to possible previous episodes of atrial fibrillation. - Hold losartan 50 mg p.o. every morning. Thrombocytopenia - Plt 80 and have dropped from 105, follow cbc - monitor for signs of pancytopenia. Hgb/hct wbc ok so far. - neurosurg recommending prophylaxis with bactrim if ANC drops as above. Strep UTI - Pt without urinary complaints, UA appeared clean, currently not on antibiotic therapy - may start on amoxicillin. Diabetes mellitus-- - Continue Lantus 8 units subcu at bedtime, as would expect sugars to increase on increased Decadron. - likely will need to increase - ISS with accuchecks achs GERD- -change omeprazole to pantoprazole Insomnia - Continue temazepam 15 mg qhs DVT ppx: lovenox, scds, teds CODE: Full Disposition: From home, PT/OT evals, await neurosurgery recs, palliative care consult. Likely to be in the hospital over the weekend. Discussion was held with pts brother and sister at bedside. Long discussion held with sister, Candie, outside of the room where she talked very rapidly and seemed irritated when discussing the health concerns of multiple family members. It appears she has taken on a large role caring for the mother in this time as the patient has been declining in health. POA is the patients who may have issues with travel outside the home. No next of kin. This was also discussed with Sophie [place]. Time spent discussing with family, outside neurosurgery sales operations consultant, chart review , and direct care includes 75 min. (Libia Medina, PALorna) Attending Attestation - pt seen/examined, chart reviewed, care plan d/w CACHORRO Medina. I agree w/ the oro components of her documentation. Pt w/ c/o fatigue and weakness on left side (arm worse than leg). Weakness progressive for 1 month. NO dysuria, frequency, incontinence, stream issues, suprapubic pain. NO fever. Good appetite. tele - a. fib VSS no fever gen - nad, wearing device on head neck - no JVD mouth - MMM heart - irregular, s1, s2, rate <100 lungs - CTA b/l abd - soft, NT ext - no edema musculo - left knee w/ minimal effusion with mild warmth but NO pain w/ passive ROM neuro - strength 3/ LUE, LLE A/P: 1. new onset a. fib - agree w/ plans outlined by cardiology. leave on tele. 2. h/o DVT/PE - cont lovenox. 3. progressive GBM - cont higher dose of steroids; Ms. Medina spoke with [facility] Neurosurgery - films sent to them for their review. They agree w/ plan of care. 4. progressive weakness - 2nd to #3 5. ?UTI - no symptoms, and u/a was normal; would not Rx 6. uncontrolled T2DM - increase lantus, add novolog, and adjust as needed 7. anemia, thrombocytopenia - these are chronic and near baseline PT, OT ms. Medina thoroughly updated family today Jeni PERAZA MD (Pedro Peraza MD)
[2017-09-17] MEDS ORDERED: POLYETHYLENE (MIRALAX) 17 GM PACK PO PRN (09:15)
[2017-09-17] MEDS ORDERED: AMIODARONE IV BOLUS / DRIP IV STA (09:42)
--- NOTE | 2017-09-17 10:12 | Cardiology Consultation ---
Cardiology Consultation Date of Consultation: September 17, 2017. Requesting Physician: Dr. Bell Attending Physician: Dr. Rodriguez Reason for Consultation: Atrial fibrillation with RVR Pt evaluation today including: conversation w/ patient, conversation w/ family , physical exam, chart review, lab review, review of studies, review of inpatient medication list, conversation w/ attending History of Present Illness Mr. Sue is a 71-year-old male with a complex past medical history including glioblastoma status post surgical resection x2, history of DVT/PE status post IVC filter and chronic anticoagulation with Lovenox, RV dysfunction following PE , hypertension, dyslipidemia, and type 2 diabetes mellitus who presented to the ED yesterday with complaints of progressively worsening generalized weakness. The patient reports that he underwent his second surgery for glioblastoma in May of this year. He was in rehab for about a month following surgery and then returned home. Since being back home, he has noted gradual decline and increased weakness. He had gotten to the point where he was unable to stand up at all from his wheelchair and therefore came to [facility] for further evaluation. On arrival to the ED, he was in normal sinus rhythm. He subsequently went into atrial fibrillation with RVR while in the ED and was treated with a Diltiazem bolus followed by a Dilt drip. His rate was adequately controlled in the 70's- 90s overnight, but he has had rates up to the 140s this morning. He remains on SQ Lovenox for anticoagulation therapy. The patient is currently being seen in his room in [facility]. His brother accompanies him in the room today. He reports that he is asymptomatic in regards to the atrial fibrillation. He specifically denies any palpitations and is unaware of the abnormal heart rhythm. He denies chest pain or shortness of breath. He denies lightheadedness, syncope, or presyncope. He notes chronic lower extremity edema following his first surgery on his glioblastoma last year with the left leg being worse than the right. He notes that he has been having difficulty with constipation and had some bright red blood when having a hard bowel movement a few days ago. He denies melena or hematuria. He denies coughing , wheezing, fevers, or chills. He denies abdominal pain, nausea, or vomiting. Review of Systems: As noted in HPI. All other 10 point ROS are reviewed and otherwise negative at this time. Past Medical/Surgical History 1. Glioblastoma status post surgical removal in May 2016 and repeat surgery in May 2017 for recurrence. Patient also received prior radiation therapy, and is currently undergoing chemotherapy. 2. History of bilateral deep venous thrombosis and pulmonary emboli in July 2016 status post IVC filter and chronic anticoagulation therapy with Lovenox. 3. Severe RV dysfunction following PE 4. Diabetes mellitus, on insulin 5. Hypertension 6. Dyslipidemia 7. Rhinoplasty in 1970s 8. Skin grafting for sheppard in 2006 Family History Diabetes mellitus FH: cancer FH: heart disease Father with intracoronary stenting in 60s; of an SD at the age of 78. Mother is currently living with dementia; history of intracoronary stenting in 60s. Social History Smoking Status: Never Smoker History of Alcohol Use: No No smoking, alcohol, or illicit drug use. Allergies Coded Allergies: No Known Allergies (Unverified , 09/16/17) Medications Current Inpatient Medications Medications (Trade) Dose Ordered Sig/Clotilde Route Start Time Stop Time Status Last Admin Dose Admin Potassium Chloride/Sodium Chloride 1,000 ml @ 80 mls/hr [id number] IV 09/17/17 01:00 10/17/17 00:59 09/17/17 01:08 80 MLS/HR Acetaminophen (Tylenol Tab) 650 mg Q4H PRN PO 09/16/17 21:00 10/16/17 20:59 Dexamethasone (Decadron Tab) 4 mg BID PO 09/16/17 21:00 10/16/17 20:59 09/17/17 07:49 4 MG Enoxaparin Sodium (Lovenox Inj) 80 mg Q12H SQ 09/16/17 21:00 10/16/17 20:59 09/17/17 07:51 80 MG Insulin Glargine (Lantus Solostar Pen) 8 units HS SC 09/16/17 21:00 10/16/17 20:59 09/17/17 01:15 8 UNITS Levetiracetam (Keppra Tab) 750 mg BID PO 09/16/17 21:00 10/16/17 20:59 09/17/17 07:49 750 MG Losartan Potassium (coZAAR TAB) 50 mg QAM PO 09/17/17 09:00 10/17/17 08:59 09/17/17 07:49 50 MG Temazepam (Restoril Cap) 15 mg HS PO 09/16/17 21:00 10/16/17 20:59 09/17/17 01:16 15 MG Pantoprazole Sodium (Protonix Tab) 40 mg QAM PO 09/17/17 09:00 10/17/17 08:59 09/17/17 07:49 40 MG Albumin Human (Albumin 25%) 25 gm Q6H IV 09/17/17 04:00 09/17/17 10:00 09/17/17 04:09 25 GM Glucose (Glucose 40% Gel) 15-30 GRAMS 15 GRAMS... UD PRN PO 09/17/17 01:00 10/17/17 00:59 Glucose (Glucose Chew Tab) 4-8 Tablets 4 Tabl... UD PRN PO 09/17/17 01:00 10/17/17 00:59 Dextrose (Dextrose 50% 50ML Syringe) 25-50ML 25ML FOR ... UD PRN IV 09/17/17 01:00 10/17/17 00:59 Glucagon (Glucagon Inj) 1 mg UD PRN IM 09/17/17 01:00 10/17/17 00:59 Carbohydrates (Carbohydrates For Hypoglycemia) 15-30 GRAMS 15 grams if BSG 54-69... UD PRN PO 09/17/17 01:00 10/17/17 00:59 Diltiazem HCl 125 mg/Dextrose 125 ml @ 0 mls/hr Q0M PRN IV 09/17/17 01:15 10/17/17 01:14 Gadobutrol (Gadavist) 8.5 mmol UD PRN IV 09/17/17 00:00 09/21/17 00:00 Polyethylene (Miralax Powder Packet) 17 gm DAILY PRN PO 09/17/17 09:15 10/17/17 09:14 Physical Exam Vital Signs Past 12 Hours Date Time Temp Pulse Resp B/P (MAP) Pulse Ox O2 Delivery O2 Flow Rate FiO2 09/17/17 08:00 Room Air 09/17/17 07:05 36.4 70 18 125/72 (89) 94 Room Air 09/17/17 04:00 Room Air 09/17/17 03:00 36.4 70 16 115/74 (88) 95 Room Air 09/17/17 01:50 36.4 113 16 133/79 94 Room Air 09/16/17 22:28 124 152/96 95 09/16/17 21:40 132 16 129/85 95 Room Air Constitutional: Alert, oriented, in no acute distress HEENT: Head is atraumatic. EOMs intact. Sclera anicteric. Face is symmetric. No perioral cyanosis. Mucous membranes moist. Neck: Supple, difficult to assess JVP given thick neck, no carotid bruits Pulmonary: Normal respiratory effort, clear to auscultation bilaterally Cardiac: Irregularly irregular, normal S1 and S2, no gallops, no rubs, no murmurs Extremities: 1-2+ left lower extremity edema extending to the knee and trace above the knee. Trace to 1+ right lower extremity edema to the knee. No clubbing or cyanosis. Pulses 2+ and symmetric Abdomen: Normal bowel sounds, soft, non-tender, no abdominal mass palpated Skin: Scattered areas of ecchymosis. No rash or skin lesions Neurological: Oriented to person, place, and time Data Laboratory Results: Last 24 Hours Test 09/16/17 16:00 09/16/17 17:10 09/17/17 01:05 09/17/17 06:16 White Blood Count 6.67 K/uL 6.07 K/uL Red Blood Count 3.10 M/uL 3.04 M/uL Hemoglobin 10.2 g/dL 9.8 g/dL Hematocrit 29.6 % 29.7 % Mean Corpuscular Volume 95.5 fL 97.7 fL Mean Corpuscular Hemoglobin 32.9 pg 32.2 pg Mean Corpuscular Hemoglobin Concent 34.5 g/dl 33.0 g/dl Platelet Count 105 K/uL 80 K/uL Mean Platelet Volume 9.4 fL 8.9 fL Neutrophils (%) (Auto) 81.7 % 85.3 % Lymphocytes (%) (Auto) 9.3 % 8.4 % Monocytes (%) (Auto) 7.6 % 5.3 % Eosinophils (%) (Auto) 0.1 % 0.0 % Basophils (%) (Auto) 0.1 % 0.0 % Neutrophils # (Auto) 5.44 K/uL 5.18 K/uL Lymphocytes # (Auto) 0.62 K/uL 0.51 K/uL Monocytes # (Auto) 0.51 K/uL 0.32 K/uL Eosinophils # (Auto) 0.01 K/uL 0.00 K/uL Basophils # (Auto) 0.01 K/uL 0.00 K/uL RDW Standard Deviation 63.8 fL 66.7 fL RDW Coefficient of Variation 19.1 % 19.6 % Immature Granulocyte % (Auto) 1.2 % 1.0 % Immature Granulocyte # (Auto) 0.08 K/uL 0.06 K/uL Nucleated RBC Absolute Count (auto) 0.09 K/uL 0.05 K/uL Nucleated Red Blood Cells % 1.3 % 0.7 % Prothrombin Time 10.2 SECONDS Prothromb Time International Ratio 1.0 Activated Partial Thromboplast Time 30.3 SECONDS Partial Thromboplastin Ratio 1.2 Sodium Level 138 mmol/L 140 mmol/L Potassium Level 3.7 mmol/L 4.2 mmol/L Chloride Level 105 mmol/L 108 mmol/L Carbon Dioxide Level 25 mmol/L 27 mmol/L Anion Gap 8.0 mmol/L 5.0 mmol/L Blood Urea Nitrogen 20 mg/dl 18 mg/dl Creatinine 0.74 mg/dl 0.68 mg/dl Est Creatinine Clear Calc Drug Dose 95.7 ml/min 101.1 ml/min Estimated GFR () 109.1 112.9 Estimated GFR (Non- 94.1 97.4 BUN/Creatinine Ratio 27.2 26.0 Random Glucose 194 mg/dl 183 mg/dl Calcium Level 7.6 mg/dl 8.5 mg/dl Magnesium Level 2.0 mg/dl 2.2 mg/dl Total Bilirubin 0.5 mg/dl Direct Bilirubin 0.1 mg/dl Aspartate Amino Transf (AST/SGOT) 25 U/L Alanine Aminotransferase (ALT/SGPT) 37 U/L Alkaline Phosphatase 95 U/L Total Creatine Kinase 300 U/L Troponin I < 0.015 ng/ml Pro-B-Type Natriuretic Peptide 66 pg/ml Total Protein 5.3 gm/dl Albumin 2.5 gm/dl Lipase 119 U/L Thyroid Stimulating Hormone (TSH) 1.020 uIu/ml Urine Color YELLOW Urine Appearance CLEAR Urine pH 5.5 Urine Specific [place] 1.028 Urine Protein NEG Urine Glucose (UA) TRACE Urine Ketones NEG Urine Occult Blood NEG Urine Nitrite NEG Urine Bilirubin NEG Urine Urobilinogen NEG Urine Leukocyte Esterase NEG Bedside Glucose 189 mg/dl Toxic Granulation 1+ Platelet Estimate DECREASED Anisocytosis PRESENT Phosphorus Level 2.8 mg/dl Test 09/17/17 07:20 Bedside Glucose 193 mg/dl Initial ECG with normal sinus rhythm, left axis deviation, voltage criteria for LVH, inferior infarct, and anteroseptal infarct. Subsequent ECGs show atrial fibrillation. Telemetry reviewed: Atrial fibrillation with rates in the 70-90s overnight. Atrial fibrillation in the 100-110s on average but at times, it rises to the 130 -140s. Assessment & Plan ASSESSMENT/PLAN: 1. Atrial fibrillation: Patient developed new onset atrial fibrillation with rapid ventricular response during admission. He is asymptomatic with the arrhythmia. He has been treated with a Diltiazem bolus/drip thus far with inadequate rate control. Recommend discontinuing Diltiazem drip and initiating Amiodarone drip for a rhythm control strategy. The IV amiodarone can be converted to PO Amiodarone prior to discharge. He has been chronically anticoagulated with Lovenox following his DVT/PE in July 2016. As this is not an ideal jail anticoagulation strategy, would consider switching him to a novel anticoagulant such as Eliquis or Xarelto. Will defer the decision to the primary service as he has other significant comorbidities which have to be considered. Echocardiogram is pending. 2. RV dysfunction: He has known RV systolic dysfunction following bilateral PE in July 2016. Repeat echocardiogram is pending. 3. Hypertension: BP has been well controlled. Continue his current antihypertensive regimen with losartan 50 mg daily. 4. History of bilateral DVT/PE in 2017 status post IVC filter: Would consider switching his Lovenox to a novel anticoagulant. Thank you for allowing us to see this patient in consultation. The patient was discussed with Dr. Rodriguez, who will also be in to see the patient later today.
[2017-09-17] MEDS ORDERED: AMIODARONE / D5W 100 ML PHARMACY PREPARED IV ONE ×2 (10:30)
[2017-09-17] MEDS ORDERED: 0.2 MICRON FILTER SET 1 EA IV ONE (10:30)
[2017-09-17] MEDS ORDERED: AMIODARONE / D5W 200 ML IV SCH (10:30)
[2017-09-17] MEDS ORDERED: BISACODYL 10 MG SUPP ONE (10:46)
--- NOTE | 2017-09-17 13:55 | ECHOCARDIOGRAM REPORT ---
*NOTICE TO RECEIVING CONSTITUTION PARTY AGENCY This information is strictly Confidential and protected under [place] law. [place] law prohibits you from making any further disclosure of this information unless further disclosure is expressly permitted by the written consent of the person to whom it pertains or is authorized by law. A general authorization for the release of medical or other information is not sufficient for this purpose. Hospital accepts no responsibility if the information is made available to any other person, INCLUDING THE PATIENT. Interpretation Summary * Name: CITLALY LEÓN Study Date: 09/17/2017 10:48 AM BP: 125/72 mmHg * Patient Location: C.2T\S\S240\S\2 HR: 88 * : 1945 (M/d/yyyy) Gender: Male Height: 65 in * Age: 71 yrs Ethnicity: CA Weight: 192 lb * Ordering Physician: Thor Bell * Referring Physician: Self, Referred * Performed By: Nataly Diamond RCS * * Reason For Study: A-FIB * BSA: 1.9 m2 * -- Conclusions -- * Left ventricular systolic function is normal. * No regional wall motion abnormalities noted. * Ejection Fraction = 60-65%. * There is mild concentric left ventricular hypertrophy. * Mild aortic regurgitation. Procedure Details * A complete two-dimensional transthoracic echocardiogram was performed (2D, M-mode, Doppler and color flow Doppler). Left Ventricle * The left ventricle is normal in size. * There is mild concentric left ventricular hypertrophy. * Left ventricular systolic function is normal. * Ejection Fraction = 60-65%. * No regional wall motion abnormalities noted. Right Ventricle * The right ventricle is grossly normal size. * The right ventricular systolic function is normal as assessed by tricuspid annular plane systolic excursion (TAPSE) (normal >1.5 cm). Atria * The left atrial size is normal. * Right atrial size is normal. * No ASD detected; PFO is not assessed. Mitral Valve * The mitral valve anatomy is normal. * There is no mitral valve stenosis. * Significant mitral regurgitation is absent. Tricuspid Valve * The tricuspid valve anatomy is normal. * There is no tricuspid stenosis. * Significant tricuspid regurgitation is absent. Aortic Valve * The aortic valve is trileaflet. * The aortic valve opens well. * No hemodynamically significant valvular aortic stenosis. * Mild aortic regurgitation. Pulmonic Valve * The pulmonary valve is not well seen, but the Doppler examination is normal without significant regurgitation or stenosis. Great Vessels * The aortic root is normal size. * The pulmonary is not well visualized. Pericardium/Pleural * There is no pericardial effusion. Great Vessels * Normal inferior vena cava size and collapsability with sniff indicates a normal right atrial pressure of 3 mmHg MMode 2D Measurements and Calculations IVSd 1.1 cm IVSs 1.7 cm LVIDd 3.4 cm LVIDs 1.6 cm LVPWd 1.0 cm LVPWs 10 cm IVS/LVPW 1.0 FS 54.0 % EDV(Teich) 46.7 ml ESV(Teich) 6.6 ml EF(Teich) 85.8 % EDV(cubed) 38.6 ml ESV(cubed) 3.8 ml EF(cubed) 90.3 % % IVS thick 64.4 % % LVPW thick -4.36 % LV mass(C)d 105.6 grams LV mass(C)dI 54.3 grams/m\S\2 LV mass(C)s 63.4 grams LV mass(C)sI 32.6 grams/m\S\2 SV(Teich) 40.1 ml SI(Teich) 20.6 ml/m\S\2 SV(cubed) 34.8 ml SI(cubed) 17.9 ml/m\S\2 Ao root diam 3.4 cm Ao root area 8.8 cm\S\2 LA dimension 4.1 cm LA/Ao 1.2 LVOT diam 2.3 cm LVOT area 4.1 cm\S\2 LVAd ap4 30.5 cm\S\2 LVLd ap4 8.2 cm EDV(MOD-sp4) 91.7 ml EDV(sp4-el) 96.5 ml LVAs ap4 18.7 cm\S\2 LVLs ap4 7.2 cm ESV(MOD-sp4) 39.3 ml ESV(sp4-el) 41.0 ml EF(MOD-sp4) 57.1 % EF(sp4-el) 57.5 % LVAd ap2 28.3 cm\S\2 LVLd ap2 8.1 cm EDV(MOD-sp2) 80.6 ml EDV(sp2-el) 84.2 ml LVAs ap2 18.0 cm\S\2 LVLs ap2 7.2 cm ESV(MOD-sp2) 37.5 ml ESV(sp2-el) 38.4 ml EF(MOD-sp2) 53.5 % EF(sp2-el) 54.5 % LVLd %diff -1.50 % EDV(MOD-bp) 87.3 ml LVLs %diff -0.64 % ESV(MOD-bp) 38.4 ml EF(MOD-bp) 56.0 % SV(MOD-sp4) 52.4 ml SI(MOD-sp4) 26.9 ml/m\S\2 SV(MOD-sp2) 43.1 ml SI(MOD-sp2) 22.2 ml/m\S\2 SV(MOD-bp) 48.9 ml SI(MOD-bp) 25.1 ml/m\S\2 SV(sp4-el) 55.5 ml SI(sp4-el) 28.5 ml/m\S\2 SV(sp2-el) 45.9 ml SI(sp2-el) 23.6 ml/m\S\2 Doppler Measurements and Calculations MV E max candace 109.3 cm/sec MV P1/2t max candace 100.9 cm/sec MV P1/2t 79.3 msec MVA(P1/2t) 2.8 cm\S\2 MV dec slope 372.7 cm/sec\S\2 MV dec time 0.15 sec Ao V2 max 113.0 cm/sec Ao max PG 5.1 mmHg Ao max PG (full) 2.3 mmHg JES(V,A) 3.0 cm\S\2 JES(V,D) 3.0 cm\S\2 AI max candace 337.3 cm/sec AI max PG 45.5 mmHg AI dec slope 97.9 cm/sec\S\2 AI P1/2t 1009.4 msec LV V1 max PG 2.8 mmHg LV V1 max 83.8 cm/sec TR max candace 220.0 cm/sec
[2017-09-17] MEDS: AMIODARONE / D5W 200 ML IV SCH (17:34)
[2017-09-17] MEDS ORDERED: INSULIN GLARGINE SOLOSTAR 100 UNITS/ML 3 ML PEN SC SCH (21:00)
[2017-09-17] MEDS: INSULIN ASPART 100 UNITS/ML 3 ML PEN SC SCH (21:44)
[2017-09-18 03:48] VITALS: BP 117/72; PULSE 94; TEMP 36.4; O2SAT 96
[2017-09-18] MEDS: AMIODARONE / D5W 200 ML IV SCH ×2 (05:18→17:01)
[2017-09-18 07:15] VITALS: BP 130/77; PULSE 95; TEMP 36.6; O2SAT 96
[2017-09-18 07:19] LABS: HEMATOCRIT 30.4 % (42-52); MEAN CELL VOLUME 97.4 fL (80-100); MEAN CORPUSCULAR HEMOGLOBIN 32.1 pg (25-34); MEAN CORPUSCULAR HGB CONC 32.9 g/dl (32-36); NUCLEATED RED BLOOD CELL ABS 0.13 K/uL (0-0); RED CELL DISTRIBUTION WIDTH CV 19.7 % (11.5-14.5); RED CELL DISTRIBUTION WIDTH SD 68.2 fL (36.4-46.3); WHITE BLOOD COUNT 5.74 K/uL (4.8-10.8)
[2017-09-18 07:42] LABS: MEAN PLATELET VOLUME 9.1 fL (7.4-10.4); PLATELET COUNT 91 K/uL (130-400)
[2017-09-18 07:53] LABS: IG# 0.05 K/uL (0.00-0.02); LYMPH % 6.1 %; LYMPH ABS # 0.35 K/uL (1.2-3.4); MONO % 7.3 %; MONO ABS # 0.42 K/uL (0.11-0.59); NEUT % 85.7 %; NEUT ABS # 4.92 K/uL (1.4-6.5)
[2017-09-18 07:54] LABS: CALCIUM 8.6 mg/dl (8.5-10.1); CREATININE 0.77 mg/dl (0.60-1.40); POTASSIUM 4.1 mmol/L (3.5-5.1)
[2017-09-18] MEDS: ENOXAPARIN 80 MG/0.8 ML SYR SQ SCH ×2 (09:00→21:03)
[2017-09-18] MEDS ORDERED: INSULIN GLARGINE SOLOSTAR 100 UNITS/ML 3 ML PEN SC SCH (09:00)
[2017-09-18] MEDS: LOSARTAN POTASSIUM 50 MG TAB PO SCH (09:01)
[2017-09-18] MEDS: LEVETIRACETAM 250 MG TAB PO SCH ×2 (09:01→21:02)
[2017-09-18] MEDS: DEXAMETHASONE 4 MG TAB PO SCH ×2 (09:01→21:03)
[2017-09-18] MEDS: PANTOprazole SOD 40 MG TAB PO SCH (09:01)
[2017-09-18] MEDS: INSULIN ASPART 100 UNITS/ML 3 ML PEN SC SCH ×4 (09:07→21:02)
--- NOTE | 2017-09-18 10:47 | CARDIOLOGY PROGRESS NOTE ---
DATE: 09/18/2017 SUBJECTIVE: Mr. Sue is resting comfortably in bed without complaints of chest pain, dyspnea, or palpitations. OBJECTIVE: VITAL SIGNS: Blood pressure 130/77 with an irregular pulse of 90. Respiratory rate is 20. The patient is afebrile at 36.6 degrees Celsius. Saturation is 96% on room air. NECK: Supple with full carotid upstrokes. No carotid bruits. Jugular venous pressure is flat at 90 degrees. There is no thyromegaly. CARDIOVASCULAR: Reveals an irregular regular rhythm with distant heart sounds. No obvious murmurs. No S3. LUNGS: Clear without rales, rhonchi, or wheeze. ABDOMEN: Soft without bruits. EXTREMITIES: Reveal intact radial artery pulses bilaterally. There is no peripheral edema. DATA: CBC notes hemoglobin of 10.0, hematocrit 30.4, white count 5.7, platelet count 91,000. The electrolytes note a sodium of 136, potassium 4.1, chloride 105, bicarbonate 26, BUN 22, creatinine 0.77, glucose of 297. Telemetry monitoring notes atrial fibrillation with ventricular response varying between 80 and 110 beats per minute. IMPRESSION AND PLAN: 1. Paroxysmal atrial fibrillation - the patient remains on intravenous amiodarone. Hopefully, he will convert to sinus rhythm soon. Could use IV metoprolol if necessary for an elevated ventricular response. 2. Hypertension - controlled. 3. Hypercholesterolemia. 4. Glioblastoma multiforme - may have progressive tumor. 5. History of deep venous thrombosis/pulmonary embolism - 07/2016. Status post Darby filter and chronic anticoagulation.
[2017-09-18 11:04] VITALS: BP 127/74; PULSE 102; TEMP 36.6; O2SAT 96
[2017-09-18 15:20] VITALS: BP 160/79; PULSE 65; TEMP 36.8; O2SAT 96
[2017-09-18 19:16] VITALS: BP 164/64; PULSE 61; TEMP 36.5; O2SAT 96
[2017-09-18] MEDS: INSULIN GLARGINE SOLOSTAR 100 UNITS/ML 3 ML PEN SC SCH (21:01)
[2017-09-18] MEDS: TEMAZEPAM 15 MG CAP PO SCH (21:11)
--- NOTE | 2017-09-18 21:25 | Progress Note ---
Subjective Date of Service: September 18, 2017. Subjective Pt evaluation today including: conversation w/ patient, physical exam, chart review, lab review, review of inpatient medication list Pain: denies PO Intake: normal Voiding: no voiding problems, no incontinence tele overnight a. fib, then converted to NSR late this am has been NSR since then feels "better" today with more energy left sided weakness is unchanged no new complaints Problem List Medical Problems: (1) Anemia Status: Acute (2) Brain mass Status: Acute (3) Dehydration Status: Acute (4) Elevated troponin Status: Acute (5) Hypocalcemia Status: Acute (6) Hypotension Status: Acute (7) Hypotension Status: Acute (8) Left-sided weakness Status: Acute (9) Left-sided weakness Status: Acute (10) Shortness of breath Status: Acute (11) UTI (urinary tract infection) Status: Acute (12) Weakness Status: Acute Review of Systems Constitutional: No fever, No chills Respiratory: No shortness of breath Cardiac: No chest pain Abdomen: No pain Male : No dysuria Objective Vital Signs Date Time Temp Pulse Resp B/P (MAP) Pulse Ox O2 Delivery O2 Flow Rate FiO2 09/18/17 19:16 36.5 61 19 164/64 (97) 96 Room Air 09/18/17 16:00 Room Air 09/18/17 15:20 36.8 65 18 160/79 (106) 96 Room Air 09/18/17 12:00 Room Air 09/18/17 11:04 36.6 102 18 127/74 (91) 96 Room Air 09/18/17 08:00 Room Air 09/18/17 07:15 36.6 95 20 130/77 (94) 96 Room Air 09/18/17 04:00 Room Air 09/18/17 03:48 36.4 94 16 117/72 (87) 96 Room Air 09/18/17 00:01 Room Air 09/17/17 23:34 36.6 92 18 135/70 (91) 97 Room Air Physical Exam General Appearance: no apparent distress ENT: pharynx normal Neck: no JVD Respiratory/Chest: lungs clear, no respiratory distress, no accessory muscle use Cardiovascular: regular rate, rhythm, no gallop, no murmur Abdomen: normal bowel sounds, non tender, soft, no organomegaly Extremities: + pedal edema (b/l legs, worse on left) Neurologic/Psychiatric: alert, oriented x 3, + motor weakness (LUE/LLE - no change) Laboratory Results Last 24 Hours Test 09/18/17 06:37 09/18/17 07:05 09/18/17 11:18 09/18/17 16:29 White Blood Count 5.74 K/uL Red Blood Count 3.12 M/uL Hemoglobin 10.0 g/dL Hematocrit 30.4 % Mean Corpuscular Volume 97.4 fL Mean Corpuscular Hemoglobin 32.1 pg Mean Corpuscular Hemoglobin Concent 32.9 g/dl Platelet Count 91 K/uL Mean Platelet Volume 9.1 fL Neutrophils (%) (Auto) 85.7 % Lymphocytes (%) (Auto) 6.1 % Monocytes (%) (Auto) 7.3 % Eosinophils (%) (Auto) 0.0 % Basophils (%) (Auto) 0.0 % Neutrophils # (Auto) 4.92 K/uL Lymphocytes # (Auto) 0.35 K/uL Monocytes # (Auto) 0.42 K/uL Eosinophils # (Auto) 0.00 K/uL Basophils # (Auto) 0.00 K/uL RDW Standard Deviation 68.2 fL RDW Coefficient of Variation 19.7 % Immature Granulocyte % (Auto) 0.9 % Immature Granulocyte # (Auto) 0.05 K/uL Nucleated RBC Absolute Count (auto) 0.13 K/uL Nucleated Red Blood Cells % 2.2 % Polychromasia 1+ Anisocytosis PRESENT Sodium Level 136 mmol/L Potassium Level 4.1 mmol/L Chloride Level 105 mmol/L Carbon Dioxide Level 26 mmol/L Anion Gap 5.0 mmol/L Blood Urea Nitrogen 22 mg/dl Creatinine 0.77 mg/dl Est Creatinine Clear Calc Drug Dose 89.1 ml/min Estimated GFR () 107.3 Estimated GFR (Non- 92.6 BUN/Creatinine Ratio 28.1 Random Glucose 297 mg/dl Calcium Level 8.6 mg/dl Bedside Glucose 233 mg/dl 285 mg/dl 254 mg/dl Test 09/18/17 20:47 Bedside Glucose 321 mg/dl Assessment and Plan 71yo male - 1. new onset a. fib - resolved, converted to NSR today. Can likely convert IV amiodarone to PO amiodarone tomorrow. Appreciate cardiology input. Remains on therapeutic lovenox. 2. h/o DVT/PE - cont lovenox. 3. progressive GBM - cont higher dose of steroids; Ms. Medina spoke with [facility] [place] [facility] yesterday - films sent to them for their review. They agree w/ plan of care. 4. progressive weakness - 2nd to #3; PT, OT; likely needs rehab. 5. ?UTI - no symptoms, and u/a was normal; would not Rx as this likely represents asymptomatic bacteriuria. 6. uncontrolled T2DM - increase lantus once again, adjust novolog correction and carb ratio. Could consider metformin 500 BID as well. 7. anemia, thrombocytopenia - these are chronic and near baseline; check b12/ folate to be complete. 8. HTN - uncontrolled; suspect due to higher doses of steroids; will increase losartan. 9. seizure d/o - cont keppra. Continued [facility] stay due to: multiple IV medications needed Discharge planning: uncertain
[2017-09-18 23:40] VITALS: BP 137/69; PULSE 63; TEMP 36.6; O2SAT 96
[2017-09-19 03:43] VITALS: BP 126/70; PULSE 59; TEMP 36.6; O2SAT 96
[2017-09-19] MEDS: AMIODARONE / D5W 200 ML IV SCH (04:44)
[2017-09-19 06:44] LABS: HEMATOCRIT 30.9 % (42-52); HEMOGLOBIN 10.3 g/dL (14.0-18.0); LYMPH % 9.6 %; MEAN CELL VOLUME 98.1 fL (80-100); MEAN CORPUSCULAR HEMOGLOBIN 32.7 pg (25-34); MEAN CORPUSCULAR HGB CONC 33.3 g/dl (32-36); MEAN PLATELET VOLUME 9.3 fL (7.4-10.4); NEUT % 81.7 %; PLATELET COUNT 100 K/uL (130-400); RED CELL DISTRIBUTION WIDTH CV 19.8 % (11.5-14.5); RED CELL DISTRIBUTION WIDTH SD 69.2 fL (36.4-46.3); WHITE BLOOD COUNT 6.68 K/uL (4.8-10.8)
[2017-09-19 06:45] LABS: BASO % 0.1 %; BASO ABS # 0.01 K/uL (0-0.2); IG# 0.07 K/uL (0.00-0.02); LYMPH ABS # 0.64 K/uL (1.2-3.4); MONO % 7.6 %; MONO ABS # 0.51 K/uL (0.11-0.59); NEUT ABS # 5.45 K/uL (1.4-6.5); NUCLEATED RED BLOOD CELL ABS 0.21 K/uL (0-0)
[2017-09-19 07:10] VITALS: BP 149/69; PULSE 63; TEMP 36.7; O2SAT 96
[2017-09-19 07:26] LABS: CALCIUM 8.8 mg/dl (8.5-10.1); CREATININE 0.77 mg/dl (0.60-1.40); POTASSIUM 4.2 mmol/L (3.5-5.1)
[2017-09-19] MEDS: PANTOprazole SOD 40 MG TAB PO SCH (08:46)
[2017-09-19] MEDS: LOSARTAN POTASSIUM 50 MG TAB PO SCH (08:46)
[2017-09-19] MEDS: DEXAMETHASONE 4 MG TAB PO SCH ×2 (08:46→20:53)
[2017-09-19] MEDS: LEVETIRACETAM 250 MG TAB PO SCH ×2 (08:46→20:52)
[2017-09-19] MEDS: ENOXAPARIN 80 MG/0.8 ML SYR SQ SCH ×2 (08:47→20:57)
[2017-09-19] MEDS: INSULIN ASPART 100 UNITS/ML 3 ML PEN SC SCH ×5 (08:50→20:56)
[2017-09-19] MEDS: INSULIN GLARGINE SOLOSTAR 100 UNITS/ML 3 ML PEN SC SCH ×2 (08:51→20:57)
[2017-09-19] MEDS: CYANOCOBALAMIN 1000 MCG/ML VIAL IM SCH (10:08)
--- NOTE | 2017-09-19 10:48 | CARDIOLOGY PROGRESS NOTE ---
DATE: 09/19/2017 SUBJECTIVE: Mr. Sue is resting comfortably in bed without complaints of chest pain, dyspnea, or palpitations. Continues to note fatigue. OBJECTIVE: VITAL SIGNS: Blood pressure is 149/69 with a regular pulse of 63. Respiratory rate is 20. The patient is afebrile at 36.7 degrees Celsius. Saturations 96% on room air. NECK: Supple with full carotid upstrokes. There are no carotid bruits. Jugular venous pressure is flat at 90 degrees. There is no thyromegaly. CARDIOVASCULAR: Reveals a regular rhythm with normal S1, S2. Heart sounds are distant. No obvious murmurs. No S3. LUNGS: Clear without rales, rhonchi, or wheezes. ABDOMEN: Soft and nontender without bruits. EXTREMITIES: Reveal intact radial artery pulses bilaterally. There is no peripheral edema. DATA: CBC notes hemoglobin 10.3, hematocrit 30.9, white count 6.6, platelet count 100,000. Electrolytes note a sodium of 136, potassium 4.2, chloride 104, bicarbonate 27, BUN 27, creatinine 0.77, glucose 199. laboratory monitor notes normal sinus rhythm. Converted from atrial fibrillation at approximately 11:00 a.m. yesterday. IMPRESSION AND PLAN: 1. Paroxysmal atrial fibrillation - the patient has successfully converted to sinus rhythm on intravenous amiodarone. Could discontinue the drip today and start amiodarone at 200 mg twice daily for approximately 1-2 weeks. Could then reduce to 200 mg daily. 2. Hypertension - controlled. 3. Hypercholesterolemia. 4. Glioblastoma multiforme - with progressive tumor burden. 5. History of deep venous thrombosis/pulmonary embolism - 07/2016. Status post Darby filter and chronic anticoagulation. 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
[2017-09-19 11:53] VITALS: BP 132/72; PULSE 61; TEMP 36.5; O2SAT 94
[2017-09-19] MEDS ORDERED: AMIODARONE 200 MG TAB PO ONE (12:30)
[2017-09-19 15:28] VITALS: BP 112/56; PULSE 86; TEMP 36.7; O2SAT 94
[2017-09-19 19:23] VITALS: BP 125/68; PULSE 70; TEMP 36.4; O2SAT 96
[2017-09-19] MEDS: METFORMIN HCL 500 MG TABCR PO SCH (20:52)
[2017-09-19] MEDS: AMIODARONE 200 MG TAB PO SCH (20:53)
[2017-09-19] MEDS: TEMAZEPAM 15 MG CAP PO SCH (20:59)
[2017-09-19 23:40] VITALS: BP 118/61; PULSE 69; TEMP 36.7; O2SAT 95
[2017-09-20] VITALS (8 sets, daily range): BP systolic 101–118; BP diastolic 60–73; PULSE 58–76; TEMP 36.4–36.9; O2SAT 94–97
[2017-09-20 06:52] LABS: CREATININE 0.78 mg/dl (0.60-1.40); POTASSIUM 5.1 mmol/L (3.5-5.1)
--- NOTE | 2017-09-20 07:30 | Progress Note ---
Subjective Date of Service: September 19, 2017. Subjective Pt evaluation today including: conversation w/ patient, conversation w/ family ( by phone), physical exam, chart review, lab review, review of inpatient medication list Pain: denies PO Intake: eating well Voiding: no voiding problems tele stable overnight feeling "pretty good" today denies any new complaints left hemiparesis is at baseline he confirms he wants to go to [facility] ([facility]] tele with NSR overnight; no a. fib Problem List Medical Problems: (1) Anemia Status: Acute (2) Brain mass Status: Acute (3) Dehydration Status: Acute (4) Elevated troponin Status: Acute (5) Hypocalcemia Status: Acute (6) Hypotension Status: Acute (7) Hypotension Status: Acute (8) Left-sided weakness Status: Acute (9) Left-sided weakness Status: Acute (10) Shortness of breath Status: Acute (11) UTI (urinary tract infection) Status: Acute (12) Weakness Status: Acute Review of Systems Constitutional: No fever, No chills Respiratory: No cough, No shortness of breath Cardiac: No chest pain Abdomen: No pain Male : No dysuria Objective Vital Signs Date Time Temp Pulse Resp B/P (MAP) Pulse Ox O2 Delivery O2 Flow Rate FiO2 09/19/17 23:59 Room Air 09/19/17 23:40 36.7 69 17 118/61 (80) 95 Room Air 09/19/17 20:00 Room Air 09/19/17 19:23 36.4 70 19 125/68 (87) 96 Room Air 09/19/17 16:00 Room Air 09/19/17 15:28 36.7 86 20 112/56 (74) 94 Room Air 09/19/17 12:00 Room Air 09/19/17 11:53 36.5 61 19 132/72 (92) 94 Room Air 09/19/17 08:00 Room Air 09/19/17 07:10 36.7 63 20 149/69 (95) 96 Room Air 09/19/17 04:00 Room Air 09/19/17 03:43 36.6 59 16 126/70 (88) 96 Room Air Physical Exam General Appearance: no apparent distress, + pertinent finding (wearing electronic device on head) ENT: pharynx normal Neck: no JVD Respiratory/Chest: lungs clear, no respiratory distress, no accessory muscle use Cardiovascular: regular rate, rhythm, no gallop, no murmur Abdomen: normal bowel sounds, non tender, soft, no organomegaly Extremities: + pedal edema (trace-1+ on left, trace on right) Neurologic/Psychiatric: alert, oriented x 3, + motor weakness (LUE/LLE, about 3 /5 strength (worse in arm)) Laboratory Results Last 24 Hours Test 09/19/17 06:13 09/19/17 07:21 09/19/17 11:09 09/19/17 16:17 White Blood Count 6.68 K/uL Red Blood Count 3.15 M/uL Hemoglobin 10.3 g/dL Hematocrit 30.9 % Mean Corpuscular Volume 98.1 fL Mean Corpuscular Hemoglobin 32.7 pg Mean Corpuscular Hemoglobin Concent 33.3 g/dl Platelet Count 100 K/uL Mean Platelet Volume 9.3 fL Neutrophils (%) (Auto) 81.7 % Lymphocytes (%) (Auto) 9.6 % Monocytes (%) (Auto) 7.6 % Eosinophils (%) (Auto) 0.0 % Basophils (%) (Auto) 0.1 % Neutrophils # (Auto) 5.45 K/uL Lymphocytes # (Auto) 0.64 K/uL Monocytes # (Auto) 0.51 K/uL Eosinophils # (Auto) 0.00 K/uL Basophils # (Auto) 0.01 K/uL RDW Standard Deviation 69.2 fL RDW Coefficient of Variation 19.8 % Immature Granulocyte % (Auto) 1.0 % Immature Granulocyte # (Auto) 0.07 K/uL Nucleated RBC Absolute Count (auto) 0.21 K/uL Nucleated Red Blood Cells % 3.1 % Anisocytosis PRESENT Sodium Level 136 mmol/L Potassium Level 4.2 mmol/L Chloride Level 104 mmol/L Carbon Dioxide Level 27 mmol/L Anion Gap 5.0 mmol/L Blood Urea Nitrogen 27 mg/dl Creatinine 0.77 mg/dl Est Creatinine Clear Calc Drug Dose 89.0 ml/min Estimated GFR () 107.3 Estimated GFR (Non- 92.6 BUN/Creatinine Ratio 34.9 Random Glucose 199 mg/dl Calcium Level 8.8 mg/dl Vitamin B12 Level 188 pg/mL Folate 8.96 ng/mL Bedside Glucose 209 mg/dl 144 mg/dl 319 mg/dl Test 09/19/17 20:05 Bedside Glucose 208 mg/dl Assessment and Plan 71yo male - 1. new onset a. fib - resolved, converted to NSR yesterday on amiodarone infusion. convert IV amiodarone to PO amiodarone today 200mg BID. Appreciate cardiology input. Remains on therapeutic lovenox. Echo was wnl with preserved LV function and valve function. 2. h/o DVT/PE - cont lovenox. 3. progressive GBM - cont higher dose of steroids; Ms. Medina spoke with [facility] [place] [facility] on Wednesday - MRI brain sent to them for their review. They plan to discuss his plan of care at [facility] on Wednesday of this week. They agree w/ plan of care. 4. progressive weakness - 2nd to #3; PT, OT; likely needs rehab. 5. ?UTI - no symptoms, and u/a was normal; would not Rx as this likely represents asymptomatic bacteriuria. 6. uncontrolled T2DM - increase lantus once again and adjust novolog correction and carb ratio. Also add metformin 500mg once daily to help with insulin resistance. 7. anemia, thrombocytopenia - this could be 2nd to vitamin B12 deficiency - will start daily IM shots while hospitalized, and can convert to PO B12 after discharge. 8. HTN - was uncontrolled but now improved. Cont home meds. 9. seizure d/o - cont keppra. can likely d/c tele tomorrow if he remains in NSR progressing social work to assist w/ dispo - again pt desires to go to [facility] in their [place] location extensively updated by phone 09/19/17 Continued [facility] stay due to: ambulation difficulties, multiple IV medications needed Discharge planning: rehab hospital (vs SNF for rehab)
[2017-09-20] MEDS: DEXAMETHASONE 4 MG TAB PO SCH ×2 (07:57→20:49)
[2017-09-20] MEDS: AMIODARONE 200 MG TAB PO SCH ×2 (07:57→20:50)
[2017-09-20] MEDS: ENOXAPARIN 80 MG/0.8 ML SYR SQ SCH ×2 (07:58→20:49)
[2017-09-20] MEDS: LOSARTAN POTASSIUM 50 MG TAB PO SCH (07:58)
[2017-09-20] MEDS: CYANOCOBALAMIN 1000 MCG/ML VIAL IM SCH (07:58)
[2017-09-20] MEDS: LEVETIRACETAM 250 MG TAB PO SCH ×2 (07:58→20:50)
[2017-09-20] MEDS: PANTOprazole SOD 40 MG TAB PO SCH (07:58)
[2017-09-20] MEDS: INSULIN ASPART 100 UNITS/ML 3 ML PEN SC SCH ×4 (08:00→20:56)
[2017-09-20] MEDS: INSULIN GLARGINE SOLOSTAR 100 UNITS/ML 3 ML PEN SC SCH ×2 (08:01→20:57)
--- NOTE | 2017-09-20 09:39 | CARDIOLOGY PROGRESS NOTE ---
DATE: 09/20/2017 SUBJECTIVE: Mr. uSe is resting comfortably in bed without complaints of chest pain or dyspnea. He is anxious for hospital discharge. Tolerating amiodarone without difficulty. OBJECTIVE: VITAL SIGNS: Blood pressure is 118/70 with a regular pulse of 58. Respiratory rate is 20. The patient is afebrile at 36.8 degrees Celsius. Saturations 97% on room air. NECK: Supple with full carotid upstrokes. There are no carotid bruits. Jugular venous pressure is flat at 90 degrees. There is no thyromegaly. CARDIOVASCULAR: Reveals a regular rhythm with normal S1 and S2. No S3, S4, or murmurs are noted. LUNGS: Clear without rales, rhonchi, or wheezes. ABDOMEN: Soft and nontender without bruits. EXTREMITIES: Reveal intact radial artery pulses bilaterally. There is no peripheral edema. DATA: Electrolytes note a sodium of 140, potassium 5.1, chloride 104, bicarbonate 31, BUN 32, creatinine 0.78, glucose 111. data entry supervisor notes sinus rhythm with occasional PVCs. IMPRESSION AND PLAN: 1. Paroxysmal atrial fibrillation - patient has converted to sinus rhythm with amiodarone. Tolerating oral amiodarone at this time. Currently, on enoxaparin for thromboembolic prophylaxis. Could convert to one of the newer agents for hospital discharge. 2. Hypertension - controlled. 3. Hypercholesterolemia. 4. Glioblastoma multiforme with progressive tumor burden. 5. History of deep venous thrombosis/pulmonary embolism - 07/2016. Status post Schlater filter, on chronic anticoagulation.
--- NOTE | 2017-09-20 11:07 | Palliative Care Consultation ---
Consultation Date of Consultation: September 20, 2017. Requesting Physician: Dr. Peraza Attending Physician: Dr. Steiner Reason for Consultation: GOALS OF CARE History of Present Illness This patient is a 71 year old male who has glioblastoma s/p craniotomy x 2 (May 2016 and May 2017) who presented to the hospital with increased weakness over the past 3-4 weeks. Additionally, he has significant Left hemiplegia s/p surgery which he states is at baseline. Additional PMH for this patient includes : DM, HTN, PE, anemia/thrombocytopenia. This patient will be discussed tomorrow at Tumor Board to determine what additional treatment options this patient has. Palliative Care was consulted primarily for GOALS of CARE and to address CODE STATUS. I did express to the patient that these conversations are important to have when he is able - he started crying and said "it's the steroids" (His Decadron was recently increased from 2mg po BID to 4 mg po BID). I asked him if there was something specific that upset him with the conversation regarding CODE STATUS - and he said that he feels that he would be giving up. We discussed the typical outcomes of CPR. The patient stated that his has ovarian cancer and is not doing well at this time. For now, patient wants to remain FULL CODE. The plan is for him to go to [facility] tomorrow 09/21/17. Past Medical/Surgical History Medical History: DM HTN Pulmonary Embolism Anemia Thrombocytopenia Surgical History: Craniotomy x 2 (May 2016 and May 2017) Social History Smoking Status: Never Smoker History of Alcohol Use: No Drug Use: none Marital Status: ( - Ruba) Housing Status: lives with significant other Occupation Status: disabled Review of Systems Patient denies SOB, CP, palpitations, dizziness, decreased appetite, visual changes including blurring or double vision Allergies Coded Allergies: No Known Allergies (Unverified , 09/16/17) Medications Current Inpatient Medications Medications (Trade) Dose Ordered Sig/Clotilde Route Start Time Stop Time Status Last Admin Dose Admin Acetaminophen (Tylenol Tab) 650 mg Q4H PRN PO 09/16/17 21:00 10/16/17 20:59 09/17/17 20:49 650 MG Dexamethasone (Decadron Tab) 4 mg BID PO 09/16/17 21:00 10/16/17 20:59 09/20/17 07:57 4 MG Enoxaparin Sodium (Lovenox Inj) 80 mg Q12H SQ 09/16/17 21:00 10/16/17 20:59 09/20/17 07:58 80 MG Levetiracetam (Keppra Tab) 750 mg BID PO 09/16/17 21:00 10/16/17 20:59 09/20/17 07:58 750 MG Losartan Potassium (coZAAR TAB) 50 mg QAM PO 09/17/17 09:00 10/17/17 08:59 09/20/17 07:58 50 MG Temazepam (Restoril Cap) 15 mg HS PO 09/16/17 21:00 10/16/17 20:59 09/19/17 20:59 15 MG Pantoprazole Sodium (Protonix Tab) 40 mg QAM PO 09/17/17 09:00 10/17/17 08:59 09/20/17 07:58 40 MG Glucose (Glucose 40% Gel) 15-30 GRAMS 15 GRAMS... UD PRN PO 09/17/17 01:00 10/17/17 00:59 Glucose (Glucose Chew Tab) 4-8 Tablets 4 Tabl... UD PRN PO 09/17/17 01:00 10/17/17 00:59 Dextrose (Dextrose 50% 50ML Syringe) 25-50ML 25ML FOR ... UD PRN IV 09/17/17 01:00 10/17/17 00:59 Glucagon (Glucagon Inj) 1 mg UD PRN IM 09/17/17 01:00 10/17/17 00:59 Carbohydrates (Carbohydrates For Hypoglycemia) 15-30 GRAMS 15 grams if BSG 54-69... UD PRN PO 09/17/17 01:00 10/17/17 00:59 Gadobutrol (Gadavist) 8.5 mmol UD PRN IV 09/17/17 00:00 09/21/17 00:00 Polyethylene (Miralax Powder Packet) 17 gm DAILY PRN PO 09/17/17 09:15 10/17/17 09:14 Insulin Aspart (novoLOG ASPART) SLIDING SCALE G... ACHS SC 09/17/17 21:00 10/17/17 20:59 09/20/17 08:00 10 UNITS Insulin Glargine (Lantus Solostar Pen) 20 units BID SC 09/18/17 21:00 10/16/17 20:59 09/20/17 08:01 20 UNITS Cyanocobalamin (Vitamin B-12 Inj) 1,000 mcg DAILY IM 09/19/17 09:00 10/19/17 08:59 09/20/17 07:58 1,000 MCG Amiodarone HCl (Cordarone Tab) 200 mg BID PO 09/19/17 21:00 10/19/17 20:59 09/20/17 07:57 200 MG Metformin HCl (Glucophage Extended Rel Tab) 500 mg QDD PO 09/19/17 18:30 10/19/17 18:29 09/19/17 20:52 500 MG Physical Exam Date Time Temp Pulse Resp B/P (MAP) Pulse Ox O2 Delivery O2 Flow Rate FiO2 09/20/17 08:00 Room Air 09/20/17 07:22 36.8 58 20 118/70 (86) 97 Room Air 09/20/17 04:00 Room Air 09/20/17 04:00 36.4 64 18 114/72 (86) 97 Room Air 09/19/17 23:59 Room Air 09/19/17 23:40 36.7 69 17 118/61 (80) 95 Room Air 09/19/17 20:00 Room Air 09/19/17 19:23 36.4 70 19 125/68 (87) 96 Room Air 09/19/17 16:00 Room Air 09/19/17 15:28 36.7 86 20 112/56 (74) 94 Room Air 09/19/17 12:00 Room Air 09/19/17 11:53 36.5 61 19 132/72 (92) 94 Room Air General Appearance: no apparent distress Neck: supple, no adenopathy, thyroid normal, no JVD Respiratory: chest non-tender, lungs clear, normal breath sounds, no respiratory distress, no accessory muscle use Cardiovascular: regular rate, rhythm, no edema, no gallop, no JVD, no murmur Abdomen: normal bowel sounds, non tender, soft Musculoskeletal: pertinent finding (LLE 2/5 LUE 2/5 RLE 4+/5 RUE 5/5) Neurologic/Psychiatric: oriented x 3 Skin: warm/dry Laboratory Results Last 24 Hours Test 09/19/17 11:09 09/19/17 16:17 09/19/17 20:05 09/20/17 05:45 Bedside Glucose 144 mg/dl 319 mg/dl 208 mg/dl Sodium Level 140 mmol/L Potassium Level 5.1 mmol/L Chloride Level 104 mmol/L Carbon Dioxide Level 31 mmol/L Anion Gap 5.0 mmol/L Blood Urea Nitrogen 32 mg/dl Creatinine 0.78 mg/dl Est Creatinine Clear Calc Drug Dose 87.8 ml/min Estimated GFR () 106.7 Estimated GFR (Non- 92.1 BUN/Creatinine Ratio 41.3 Random Glucose 111 mg/dl Calcium Level 9.0 mg/dl Test 09/20/17 07:21 Bedside Glucose 110 mg/dl Assessment & Plan Palliative Performance Scale: 50 % Palliative Care Encounter Goals of Care Glioblastoma s/p craniotomy Palliative Care Recommendations: -Patient to remain FULL CODE -Continue with supportive treatment -Patient's case to be presented at Tumor board tomorrow 09/21/17 with Genna Cortez/Onc to discuss tx options -Would suggest increasing Decadron as it has been to 4mg po BID - patient stated that he is very emotional with the increase and experiencing insomnia -If patient is not discharged tomorrow for logisitic reasons - continue to have GOALS OF CARE discussion. Counseling and Coordination Total time spent 70 minutes with > 50% of that time assessing patient and discussing GOALS OF CARE with the patient.
--- NOTE | 2017-09-20 17:09 | Hospitalist Progress Note ---
Hospitalist Progress Note Date of Service September 20, 2017. Subjective Pt evaluation today including: conversation w/ patient, conversation w/ family Pt reports feeling a little stronger. No other symptoms, is eating and drinking. Tele with one short run of PAT, otherwise NSR All Other Systems: Reviewed and Negative Objective Vital Signs Date Time Temp Pulse Resp B/P (MAP) Pulse Ox O2 Delivery O2 Flow Rate FiO2 09/20/17 16:00 94 Room Air 09/20/17 15:19 36.8 69 18 115/73 (87) 95 Room Air 09/20/17 12:06 36.6 76 16 117/73 (88) 95 Room Air 09/20/17 12:00 Room Air 09/20/17 08:00 Room Air 09/20/17 07:22 36.8 58 20 118/70 (86) 97 Room Air 09/20/17 04:00 Room Air 09/20/17 04:00 36.4 64 18 114/72 (86) 97 Room Air 09/19/17 23:59 Room Air 09/19/17 23:40 36.7 69 17 118/61 (80) 95 Room Air 09/19/17 20:00 Room Air 09/19/17 19:23 36.4 70 19 125/68 (87) 96 Room Air Physical Exam General Appearance: WD/WN, no apparent distress Eyes: normal inspection, sclerae normal ENT: hearing grossly normal, + pertinent finding (pharynx with scattered white plaques on buccal mucosa and posterior OP) Neck: trachea midline Respiratory/Chest: lungs clear, normal breath sounds, no respiratory distress, no accessory muscle use Cardiovascular: regular rate, rhythm, no murmur Abdomen: normal bowel sounds, non tender, soft Extremities: no calf tenderness, + pertinent finding (Left side flaccid) Neurologic/Psychiatric: alert, normal mood/affect, oriented x 3 Skin: normal color, warm/dry, no rash Laboratory Results Last 24 Hours Test 09/19/17 20:05 09/20/17 05:45 09/20/17 07:21 09/20/17 11:44 Bedside Glucose 208 mg/dl 110 mg/dl 139 mg/dl Sodium Level 140 mmol/L Potassium Level 5.1 mmol/L Chloride Level 104 mmol/L Carbon Dioxide Level 31 mmol/L Anion Gap 5.0 mmol/L Blood Urea Nitrogen 32 mg/dl Creatinine 0.78 mg/dl Est Creatinine Clear Calc Drug Dose 87.8 ml/min Estimated GFR () 106.7 Estimated GFR (Non- 92.1 BUN/Creatinine Ratio 41.3 Random Glucose 111 mg/dl Calcium Level 9.0 mg/dl Test 09/20/17 16:23 Bedside Glucose 116 mg/dl Assessment and Plan Pt is a 71yo male with a h/o GBM s/p excision x 2, XRT and chemo, DVT/PE, here with progressive weakness 1. new onset a. fib - resolved, converted to NSR on amiodarone infusion. converted IV amiodarone to PO amiodarone 200mg BID x 2 weeks then switch to 200mg once daily on 10/03. Appreciate cardiology input. Remains on therapeutic lovenox and [facility] not [facility]AC. Echo was wnl with preserved LV function and valve function. 2. h/o DVT/PE - cont lovenox. 3. Suspected progressive GBM - cont higher dose of steroids; Ms. Medina spoke with [facility] [place] - MRI brain sent to them for their review. They plan to discuss his plan of care at Tumor Board on Wednesday of this week. They agree w/ plan of care. 4. progressive weakness - 2nd to #3; PT, OT; needs rehab. 5. ?UTI - no symptoms, and u/a was normal; would not Rx as this likely represents asymptomatic bacteriuria. 6. uncontrolled T2DM -HgbA1C 7.6% in the last 2 months. Improved control now -continue increased lantus and novolog correction and carb ratio. -continue metformin 500mg once daily to help with insulin resistance. 7. anemia, thrombocytopenia - this could be 2nd to vitamin B12 deficiency - -continue daily IM shots while hospitalized, and can convert to PO B12 after discharge. 8. HTN - was uncontrolled but now improved. Cont home meds. 9. seizure d/o - cont keppra. 10. Oral Candidiasis-secondary to steroids -start Nystatin swish and swallow x 14 day course progressing social work to assist w/ dispo - again pt desires to go to [facility] in their [place] location-auth applied for today and possible dc tomorrow
[2017-09-20] MEDS: METFORMIN HCL 500 MG TABCR PO SCH (17:59)
[2017-09-20] MEDS: NYSTATIN SUSP 500,000 U/5 ML UDC PO SCH ×2 (18:05→20:48)
[2017-09-20] MEDS: TEMAZEPAM 15 MG CAP PO SCH (20:52)
[2017-09-21] VITALS (7 sets, daily range): BP systolic 103–126; BP diastolic 60–73; PULSE 61–68; TEMP 36.4–36.7; O2SAT 93–99
[2017-09-21] MEDS: PANTOprazole SOD 40 MG TAB PO SCH (07:46)
[2017-09-21] MEDS: AMIODARONE 200 MG TAB PO SCH ×2 (07:46→21:08)
[2017-09-21] MEDS: CYANOCOBALAMIN 1000 MCG/ML VIAL IM SCH (07:46)
[2017-09-21] MEDS: ENOXAPARIN 80 MG/0.8 ML SYR SQ SCH ×2 (07:47→21:11)
[2017-09-21] MEDS: LOSARTAN POTASSIUM 50 MG TAB PO SCH (07:47)
[2017-09-21] MEDS: DEXAMETHASONE 4 MG TAB PO SCH ×2 (07:47→21:08)
[2017-09-21] MEDS: LEVETIRACETAM 250 MG TAB PO SCH ×2 (07:47→21:08)
[2017-09-21] MEDS: NYSTATIN SUSP 500,000 U/5 ML UDC PO SCH ×4 (07:47→21:08)
[2017-09-21] MEDS: INSULIN ASPART 100 UNITS/ML 3 ML PEN SC SCH ×4 (07:52→20:48)
[2017-09-21] MEDS: INSULIN GLARGINE SOLOSTAR 100 UNITS/ML 3 ML PEN SC SCH ×2 (07:54→21:11)
--- NOTE | 2017-09-21 10:27 | CARDIOLOGY PROGRESS NOTE ---
DATE: 09/21/2017 Cardiology progress note. SUBJECTIVE: Mr. Martines is resting comfortably in bed without complaints of chest pain, dyspnea, or palpitations. OBJECTIVE: VITAL SIGNS: Blood pressure 115/73 with a regular pulse of 62. Respiratory rate is 18. The patient is afebrile at 36.4 degrees Celsius. Saturation is 97% on room air. HEENT: Negative. NECK: Supple with full carotid upstrokes. There are no carotid bruits. Jugular venous pressure is flat at 90 degrees. There is no thyromegaly. CARDIOVASCULAR: Reveals a regular rhythm with a normal S1 and S2. No S3 or S4, or murmurs are noted. LUNGS: Clear without rales, rhonchi, or wheezes. ABDOMEN: Soft and nontender without bruits. EXTREMITIES: Reveal intact radial artery pulses bilaterally. There is no peripheral edema. DATA: Bedside glucose is 102. night monitor notes sinus rhythm with occasional PACs and PVCs. IMPRESSION AND PLAN: 1. Paroxysmal atrial fibrillation -- patient remains in sinus rhythm on amiodarone at 200 mg twice daily. Can reduce to once daily dosing in approximately 2 weeks. Long-term anticoagulation is indicated; however, he may be at high risk realizing his central nervous system malignancy. We could possibly discuss no anticoagulation realizing this point although he was stable on subcutaneous Lovenox previously. 2. Hypertension -- controlled. 3. Hypercholesterolemia. 4. Glioblastoma multiforme with progressive tumor burden. 5. History of deep vein thrombosis/pulmonary embolism -- July 2016. Status post [place] filter and long-term anticoagulation.
[2017-09-21] MEDS: METFORMIN HCL 500 MG TABCR PO SCH (16:56)
--- NOTE | 2017-09-21 19:09 | Hospitalist Progress Note ---
Hospitalist Progress Note Date of Service September 21, 2017. Subjective Pt evaluation today including: conversation w/ patient, conversation w/ family No pain. Tele with NSR, PACs,PVCs, rates 60s-70s. Still feeling weak. Was OOB to chair today for lunch and it took 3 people to get him there. He had a BM today All Other Systems: Reviewed and Negative Objective Vital Signs Date Time Temp Pulse Resp B/P (MAP) Pulse Ox O2 Delivery O2 Flow Rate FiO2 09/21/17 16:00 Room Air 09/21/17 15:09 36.7 65 20 126/72 (90) 95 Room Air 09/21/17 12:00 Room Air 09/21/17 10:39 36.6 68 20 121/68 (85) 94 Room Air 09/21/17 08:00 Room Air 09/21/17 07:09 36.4 62 19 115/73 (87) 97 Room Air 09/21/17 04:01 Room Air 09/21/17 03:45 36.6 61 17 116/67 (83) 99 Room Air 09/21/17 00:10 36.4 65 103/60 (74) 97 Room Air 09/21/17 00:02 Room Air 09/20/17 23:40 36.4 62 17 103/60 (74) 97 Room Air 09/20/17 20:00 95 Room Air 09/20/17 19:15 36.9 76 18 101/67 (78) 95 Room Air Physical Exam General Appearance: WD/WN, no apparent distress Eyes: normal inspection ENT: hearing grossly normal Neck: trachea midline Respiratory/Chest: lungs clear, normal breath sounds, no respiratory distress, no accessory muscle use Cardiovascular: regular rate, rhythm, no edema, no murmur Abdomen: normal bowel sounds, non tender, soft, no organomegaly Extremities: no pedal edema, no calf tenderness Neurologic/Psychiatric: alert, normal mood/affect Skin: normal color, warm/dry Laboratory Results Last 24 Hours Test 09/20/17 20:53 09/21/17 07:30 09/21/17 11:28 09/21/17 16:18 Bedside Glucose 163 mg/dl 102 mg/dl 124 mg/dl 108 mg/dl Assessment and Plan Pt is a 71yo male with a h/o GBM s/p excision x 2, XRT and chemo, DVT/PE, here with progressive weakness, possible progression of tumor vs from new onset A-fib 1. new onset a. fib - resolved, converted to NSR on amiodarone infusion and continues in NSR. converted IV amiodarone to PO amiodarone 200mg BID x 2 weeks then switch to 200mg once daily on 10/03. Appreciate cardiology input. Remains on therapeutic lovenox and [facility] not [facility] NOAC. Echo was wnl with preserved LV function and valve function. -will need Cardiology follow up within 2 weeks after discharge 2. h/o DVT/PE - cont lovenox, has IVC filter in place 3. Suspected progressive GBM/Weakness/Abnormal Brain MRI - cont higher dose of steroids 4mg bid (home dose 2 mg bid); Ms. Medina spoke with [facility] [place] - MRI brain sent to them for their review. They plan to discuss his plan of care at Tumor Board today -advised family to keep appointment they have for next Wednesday at [facility] unless told otherwise They agree w/ plan of care. - PT, OT; needs rehab placement-still awaiting auth 4. ?UTI - no symptoms, and u/a was normal; would not Rx as this likely represents asymptomatic bacteriuria. 5. uncontrolled T2DM -HgbA1C 7.6% in the last 2 months. Improved control now -continue increased lantus and novolog correction and carb ratio. -continue metformin 500mg once daily to help with insulin resistance. 6. anemia, thrombocytopenia/ Vit B12 deficiency -B12 level only 188 -continue daily IM shots while hospitalized, and can convert to PO B12 after discharge. -check B12 level as outpt after discharge and may end up needing monthly B12 injections 7. HTN - was uncontrolled but now improved. Cont home meds. 9. seizure d/o - no seizure activity here -cont keppra. 10. Oral Candidiasis-secondary to steroids -continue Nystatin swish and swallow x 14 day course-today day #06/30 progressing social work to assist w/ dispo - again pt desires to go to [facility] in their [place] location-still awaiting auth-hopefully dc tomorrow
[2017-09-21] MEDS: TEMAZEPAM 15 MG CAP PO SCH (21:08)
[2017-09-22 03:50] VITALS: BP 109/65; PULSE 63; TEMP 36.7; O2SAT 94
[2017-09-22 07:00] VITALS: BP 121/67; PULSE 61; TEMP 36.4; O2SAT 96
[2017-09-22 07:21] LABS: HEMATOCRIT 34.4 % (42-52); HEMOGLOBIN 11.3 g/dL (14.0-18.0); IG# 0.09 K/uL (0.00-0.02); LYMPH ABS # 0.54 K/uL (1.2-3.4); MEAN CELL VOLUME 100.3 fL (80-100); MEAN CORPUSCULAR HEMOGLOBIN 32.9 pg (25-34); MEAN CORPUSCULAR HGB CONC 32.8 g/dl (32-36); MEAN PLATELET VOLUME 9.7 fL (7.4-10.4); MONO % 13.6 %; MONO ABS # 1.05 K/uL (0.11-0.59); NEUT % 78.2 %; NEUT ABS # 6.05 K/uL (1.4-6.5); NUCLEATED RED BLOOD CELL ABS 0.09 K/uL (0-0); PLATELET COUNT 145 K/uL (130-400); RED CELL DISTRIBUTION WIDTH CV 20.5 % (11.5-14.5); RED CELL DISTRIBUTION WIDTH SD 73.4 fL (36.4-46.3); WHITE BLOOD COUNT 7.73 K/uL (4.8-10.8)
[2017-09-22] MEDS: LEVETIRACETAM 250 MG TAB PO SCH ×2 (07:47→21:02)
[2017-09-22] MEDS: CYANOCOBALAMIN 1000 MCG/ML VIAL IM SCH (07:47)
[2017-09-22] MEDS: DEXAMETHASONE 4 MG TAB PO SCH ×2 (07:47→21:02)
[2017-09-22] MEDS: LOSARTAN POTASSIUM 50 MG TAB PO SCH (07:47)
[2017-09-22] MEDS: PANTOprazole SOD 40 MG TAB PO SCH (07:47)
[2017-09-22] MEDS: ENOXAPARIN 80 MG/0.8 ML SYR SQ SCH ×2 (07:47→21:07)
[2017-09-22] MEDS: NYSTATIN SUSP 500,000 U/5 ML UDC PO SCH ×4 (07:47→21:02)
[2017-09-22] MEDS: AMIODARONE 200 MG TAB PO SCH ×2 (07:47→21:02)
[2017-09-22 07:52] LABS: ALBUMIN 2.9 gm/dl (3.4-5.0); CALCIUM 8.6 mg/dl (8.5-10.1); CREATININE 0.79 mg/dl (0.60-1.40); POTASSIUM 4.4 mmol/L (3.5-5.1)
[2017-09-22] MEDS: INSULIN ASPART 100 UNITS/ML 3 ML PEN SC SCH ×4 (07:52→21:00)
[2017-09-22] MEDS: INSULIN GLARGINE SOLOSTAR 100 UNITS/ML 3 ML PEN SC SCH ×2 (07:54→21:06)
--- NOTE | 2017-09-22 09:43 | CARDIOLOGY PROGRESS NOTE ---
DATE: 09/22/2017 SUBJECTIVE: Mr. Sue is resting comfortably in bed without complaints of chest pain, dyspnea, or palpitations. He is anxious for hospital discharge. OBJECTIVE: VITAL SIGNS: Blood pressure is 120/67 with a regular pulse of 60. Respiratory rate is 18. The patient is afebrile at 36.4 degrees Celsius. Saturation is 96% on room air. NECK: Supple with full carotid upstrokes. There are no carotid bruits. Jugular venous pressure is flat at 90 degrees. There is no thyromegaly. CARDIOVASCULAR EXAMINATION: Reveals a regular rhythm with normal S1, S2. Heart sounds are distant. No obvious murmurs. LUNGS: Clear without rales, rhonchi, or wheezes. ABDOMEN: Soft without bruits. EXTREMITIES: Reveal intact radial artery pulse bilaterally. There is no peripheral edema. DATA: CBC notes hemoglobin of 11.3, hematocrit 34.4, white count 7.7, platelet count 145,000. Electrolytes note a sodium of 137, potassium 4.4, chloride 103, bicarbonate 29, BUN 34, creatinine 0.79, glucose 116. college advisor notes sinus rhythm with occasional PVCs and PACs. IMPRESSION AND PLAN: 1. Paroxysmal atrial fibrillation -- converted to sinus rhythm on amiodarone. Currently, on 200 mg twice daily. This can be reduced to once daily in approximately 2 weeks. As noted previously, long-term anticoagulation is indicated. However, he may be considered at high risk realizing his central nervous system malignancy. Could discuss no anticoagulation and simply continue amiodarone to maintain sinus rhythm. 2. Hypertension, this is controlled. 3. Hypercholesterolemia. 4. Progressive glioblastoma multiforme. 5. History of DVT/PE -- July 2016. Status post [place] filter, on long-term anticoagulation.
[2017-09-22 11:11] VITALS: BP 120/71; PULSE 64; TEMP 36.4; O2SAT 95
[2017-09-22 15:17] VITALS: BP 126/70; PULSE 67; TEMP 36.6; O2SAT 94
[2017-09-22] MEDS: METFORMIN HCL 500 MG TABCR PO SCH (17:24)
[2017-09-22 19:11] VITALS: BP 113/65; PULSE 70; TEMP 36.6; O2SAT 95
[2017-09-22] MEDS: TEMAZEPAM 15 MG CAP PO SCH (21:06)
--- NOTE | 2017-09-22 22:25 | Hospitalist Progress Note ---
Hospitalist Progress Note Date of Service September 22, 2017. Subjective Pt evaluation today including: conversation w/ patient Feeling ok, no changes, still weak. Did not get OOB today. Tele with NSR All Other Systems: Reviewed and Negative Objective Vital Signs Date Time Temp Pulse Resp B/P (MAP) Pulse Ox O2 Delivery O2 Flow Rate FiO2 09/22/17 19:11 36.6 70 18 113/65 (81) 95 Room Air 09/22/17 16:05 Room Air 09/22/17 15:17 36.6 67 19 126/70 (88) 94 Room Air 09/22/17 12:37 Room Air 09/22/17 11:11 36.4 64 20 120/71 (87) 95 Room Air 09/22/17 08:40 Room Air 09/22/17 07:00 36.4 61 18 121/67 (85) 96 Room Air 09/22/17 04:02 Room Air 09/22/17 03:50 36.7 63 20 109/65 (80) 94 Room Air 09/22/17 00:04 Room Air 09/21/17 23:33 36.5 66 17 112/69 (83) 97 Room Air Physical Exam General Appearance: WD/WN, no apparent distress Eyes: normal inspection, sclerae normal ENT: hearing grossly normal Neck: trachea midline Respiratory/Chest: lungs clear, normal breath sounds, no respiratory distress, no accessory muscle use Cardiovascular: regular rate, rhythm, no edema, no murmur Abdomen: normal bowel sounds, non tender, soft Extremities: no calf tenderness Neurologic/Psychiatric: alert, normal mood/affect Skin: normal color, warm/dry, no rash Laboratory Results Last 24 Hours Test 09/22/17 06:21 09/22/17 07:30 09/22/17 11:09 09/22/17 16:19 White Blood Count 7.73 K/uL Red Blood Count 3.43 M/uL Hemoglobin 11.3 g/dL Hematocrit 34.4 % Mean Corpuscular Volume 100.3 fL Mean Corpuscular Hemoglobin 32.9 pg Mean Corpuscular Hemoglobin Concent 32.8 g/dl Platelet Count 145 K/uL Mean Platelet Volume 9.7 fL Neutrophils (%) (Auto) 78.2 % Lymphocytes (%) (Auto) 7.0 % Monocytes (%) (Auto) 13.6 % Eosinophils (%) (Auto) 0.0 % Basophils (%) (Auto) 0.0 % Neutrophils # (Auto) 6.05 K/uL Lymphocytes # (Auto) 0.54 K/uL Monocytes # (Auto) 1.05 K/uL Eosinophils # (Auto) 0.00 K/uL Basophils # (Auto) 0.00 K/uL RDW Standard Deviation 73.4 fL RDW Coefficient of Variation 20.5 % Immature Granulocyte % (Auto) 1.2 % Immature Granulocyte # (Auto) 0.09 K/uL Nucleated RBC Absolute Count (auto) 0.09 K/uL Nucleated Red Blood Cells % 1.2 % Anisocytosis PRESENT Tear Drop Cells 1+ Sodium Level 137 mmol/L Potassium Level 4.4 mmol/L Chloride Level 103 mmol/L Carbon Dioxide Level 29 mmol/L Anion Gap 6.0 mmol/L Blood Urea Nitrogen 34 mg/dl Creatinine 0.79 mg/dl Est Creatinine Clear Calc Drug Dose 86.7 ml/min Estimated GFR () 106.2 Estimated GFR (Non- 91.6 BUN/Creatinine Ratio 43.4 Random Glucose 116 mg/dl Calcium Level 8.6 mg/dl Magnesium Level 2.2 mg/dl Total Bilirubin 0.6 mg/dl Direct Bilirubin 0.1 mg/dl Aspartate Amino Transf (AST/SGOT) 16 U/L Alanine Aminotransferase (ALT/SGPT) 28 U/L Alkaline Phosphatase 84 U/L Total Protein 6.0 gm/dl Albumin 2.9 gm/dl Bedside Glucose 116 mg/dl 99 mg/dl 117 mg/dl Test 09/22/17 20:33 Bedside Glucose 152 mg/dl Assessment and Plan Pt is a 71yo male with a h/o GBM s/p excision x 2, XRT and chemo, DVT/PE, here with progressive weakness, possible progression of tumor vs from new onset A-fib 1. new onset a. fib - resolved, converted to NSR on amiodarone infusion and continues in NSR. converted IV amiodarone to PO amiodarone 200mg BID x 2 weeks then switch to 200mg once daily on 10/03. Appreciate cardiology input. Remains on therapeutic lovenox and [facility] not [facility] NOAC. Echo was wnl with preserved LV function and valve function. -will need Cardiology follow up within 2 weeks after discharge 2. h/o DVT/PE - cont lovenox, has IVC filter in place 3. Suspected progressive GBM/Weakness/Abnormal Brain MRI - cont higher dose of steroids 4mg bid (home dose 2 mg bid); Ms. Medina spoke with [facility] [place] [facility] [place] - MRI brain sent to them for their review. They planned to discuss his plan of care at Tumor Board this week to see about next course of action -advised family to keep appointment they have for next Sunday 10/01 at [facility] unless told otherwise They agree w/ plan of care. - PT, OT; plan for SNF placement tomorrow 4. ?UTI - no symptoms, and u/a was normal; would not Rx as this likely represents asymptomatic bacteriuria. 5. uncontrolled T2DM -HgbA1C 7.6% in the last 2 months. Improved control now -continue increased lantus and novolog correction and carb ratio. -continue metformin 500mg once daily to help with insulin resistance. 6. anemia, thrombocytopenia/ Vit B12 deficiency -B12 level only 188 -continue daily IM shots while hospitalized, and can convert to PO B12 after discharge. -check B12 level as outpt after discharge and may end up needing monthly B12 injections 7. HTN - was uncontrolled but now improved. Cont home meds. 9. seizure d/o - no seizure activity here -cont keppra. 10. Oral Candidiasis-secondary to steroids -continue Nystatin swish and swallow x 14 day course-today day #3 progressing social work to assist w/ dispo - denied auth for [facility] despite my Peer to Peer appeal. Pt ok with this and wants to go to [facility]-awaiting a bed
[2017-09-23 00:37] VITALS: BP 109/69; PULSE 61; TEMP 36.4; O2SAT 95
[2017-09-23 04:59] VITALS: BP 104/64; PULSE 59; TEMP 36.4; O2SAT 98
[2017-09-23 07:21] VITALS: BP 127/75; PULSE 62; TEMP 36.4; O2SAT 94
[2017-09-23] MEDS: AMIODARONE 200 MG TAB PO SCH (07:32)
[2017-09-23] MEDS: DEXAMETHASONE 4 MG TAB PO SCH (07:32)
[2017-09-23] MEDS: CYANOCOBALAMIN 1000 MCG/ML VIAL IM SCH (07:32)
[2017-09-23] MEDS: PANTOprazole SOD 40 MG TAB PO SCH (07:32)
[2017-09-23] MEDS: NYSTATIN SUSP 500,000 U/5 ML UDC PO SCH ×2 (07:32→12:20)
[2017-09-23] MEDS: LEVETIRACETAM 250 MG TAB PO SCH (07:32)
[2017-09-23] MEDS: LOSARTAN POTASSIUM 50 MG TAB PO SCH (07:32)
[2017-09-23] MEDS: ENOXAPARIN 80 MG/0.8 ML SYR SQ SCH (08:23)
[2017-09-23] MEDS: INSULIN ASPART 100 UNITS/ML 3 ML PEN SC SCH ×2 (08:27→12:23)
[2017-09-23] MEDS: INSULIN GLARGINE SOLOSTAR 100 UNITS/ML 3 ML PEN SC SCH (08:29)
--- NOTE | 2017-09-23 09:10 | CARDIOLOGY PROGRESS NOTE ---
DATE: 09/23/2017 SUBJECTIVE: Mr. Martines is resting comfortably in bed without complaints of chest pain or dyspnea. Anxious for hospital discharge. OBJECTIVE: VITAL SIGNS: Blood pressure 127/75 with a regular pulse of 62. Respiratory rate is 18. The patient is afebrile at 36.4 degrees Celsius. Saturation is 94% on room air. NECK: Supple with full carotid upstrokes. There are no carotid bruits. Jugular venous pressure is flat at 90 degrees. There is no thyromegaly. CARDIOVASCULAR EXAMINATION: Reveals a regular rhythm with normal S1 and S2. Heart sounds are distant. No obvious murmurs. LUNGS: Clear without rales, rhonchi, or wheezes. ABDOMEN: Soft without bruits. EXTREMITIES: Reveal intact radial artery pulses bilaterally. There is no peripheral edema. DATA: Bedside glucose is 107. groundwater monitoring technician notes sinus rhythm with occasional PACs and PVCs. IMPRESSION AND PLAN: 1. Paroxysmal atrial fibrillation -- remains in sinus rhythm on amiodarone 200 mg twice daily. This dose can be reduced to once daily in approximately 1 week. We would consider long-term anticoagulation with an agent other than Lovenox. However, realizing central nervous system malignancy, we could discuss no anticoagulation as amiodarone is maintaining sinus rhythm. 2. Hypertension -- controlled. 3. Hypercholesterolemia. 4. Progressive glioblastoma multiforme. 5. History of DVT/PE - July 2016. Status post [place] filter and long-term anticoagulation.
[2017-09-23] MEDS ORDERED: DXM/4 PO (10:39)
[2017-09-23] MEDS ORDERED: CRD200 PO (10:39)
[2017-09-23] MEDS ORDERED: GLCSR500 PO (10:39)
[2017-09-23] MEDS ORDERED: INSDGIPEN SC (10:39)
[2017-09-23] MEDS ORDERED: MRLP17X PO (10:39)
[2017-09-23] MEDS ORDERED: NYSS5 PO (10:39)
[2017-09-23] MEDS ORDERED: CYNI1000 IM (10:39)
[2017-09-23 10:47] VITALS: BP 111/71; PULSE 62; TEMP 36.4; O2SAT 94
--- NOTE | 2017-09-23 12:38 | Discharge Instructions ---
Discharge Instructions Date of Service September 23, 2017. Admission Reason for Admission: Generalized Weakness, Paroxysmal Afib With Rvr Discharge Discharge Diagnosis / Problem: Progressive generalized weakness, paroxysmal atrial fibrillation with RVR Discharge Goals Goal(s): Improve disease control, Diagnostic testing, Therapeutic intervention Activity Recommendations Activity Level: Assistance Required Therapies: Physical Therapy, Occupational Therapy Exercise/Sports Limitations: gradually increase as tolerated Shower/Bathe: no limitations . Additional Information Patient informed of condition: Yes Advance Directives: No DNR: No Level of Care: Skilled Communicable Disease: No Prognosis: Stable [place] Catheter: No Instructions / Follow-Up Instructions / Follow-Up Pt is a 71yo male with a h/o GBM s/p excision x 2, XRT and chemo, DVT/PE, here with progressive weakness, possible progression of tumor vs from new onset A-fib 1. new onset a. fib - resolved, converted to NSR on amiodarone infusion and continues in NSR. converted IV amiodarone to PO amiodarone 200mg BID x 2 weeks then switch to 200mg once daily on 09/30. Appreciate cardiology input. Remains on therapeutic lovenox and [facility]AC. Echo was wnl with preserved LV function and valve function. -will need Cardiology follow up within 2 weeks after discharge 2. h/o DVT/PE - cont full dose Lovenox, has IVC filter in place 3. Suspected progressive GBM/Weakness/Abnormal Brain MRI - cont higher dose of steroids 4mg bid (home dose 2 mg bid) at least until seen in follow-up with oncology next week; Ms. Medina spoke with [facility] [place] [facility] on Wednesday - MRI brain sent to them for their review. They planned to discuss his plan of care at [facility] this week to see about next course of action -advised family to keep appointment they have for next Sunday 10/01 at [place] unless told otherwise They agree w/ plan of care. - PT, OT; plan for SNF placement today 4. Asymptomatic bacteriuria-no symptoms, and u/a was normal; would not Rx as this likely represents asymptomatic bacteriuria. 5. uncontrolled T2DM -HgbA1C 7.6% in the last 2 months. Improved control now -continue increased lantus and novolog correction and carb ratio. -continue metformin 500mg once daily to help with insulin resistance. 6. anemia, thrombocytopenia/ Vit B12 deficiency -B12 level only 188 -continue daily IM shots while hospitalized, and then transition to B12 1000 mcg IM once monthly after discharge. -check B12 level as outpt after discharge 7. HTN - was uncontrolled but now improved. Cont home meds. 9. seizure d/o - no seizure activity here -cont keppra. 10. Oral Candidiasis-secondary to steroids -continue Nystatin swish and swallow x 14 day course-today day #08/28 Stable for discharge to SNF today Current Hospital Diet Patient's current hospital diet: AHA Diet (Heart Healthy), Diabetes Type 2 Diet Discharge Diet Recommended Diet: AHA Diet (Heart Healthy), Diabetes Type 2 Diet Procedures Procedures Performed: Echocardiogram Brain MRI Head CT Chest x-ray Pending Studies Studies pending at discharge: no Physician Orders On Transfer Special Precautions: Fall risk IV Therapy: None Vital Signs: Daily Weigh: Daily POLST Discussion: Not Applicable Medical Emergencies . Who to Call and When: Medical Emergencies: If at any time you feel your situation is an emergency, please call 911 immediately. . Non-Emergent Contact Non-Emergency issues call your: Primary Care Provider Call Non-Emergent contact if: temperature is above 101, you have any medication questions . . "Provider Documentation" section prepared by Ame Steiner. . Core Measure Problem Core Measures: None
[2017-09-23 12:43] VITALS: BP 111/71; PULSE 62; TEMP 36.4; O2SAT 94
--- NOTE | 2017-09-23 12:48 | Discharge Summary ---
Discharge Summary Date of Service September 23, 2017. 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 with Lovenox Possible progression of tumor New onset atrial fibrillation with rapid ventricular response Abnormal Brain MRI Asymptomatic bacteriuria Uncontrolled DM 2, on long-term insulin, with hyperglycemia B12 deficiency anemia Thrombocytopenia HTN Seizure disorder Oral Candidiasis Immunizations: Have You Had Influenza Vaccine: Unknown History of Tetanus Vaccine?: Unknown History of Pneumococcal: Unknown History of Hepatitis B Vaccine: Unknown Procedures: Echocardiogram Head CT 2 Chest x-ray Brain MRI Consultations: Cardiology Medication Reconciliation New Medications: Amiodarone HCl (Amiodarone HCl) 200 Mg Tab 200 MG PO BID for 7 Days, #14 TAB AND THEN DECREASE TO 200MG ONCE DAILY Cyanocobalamin (Cyanocobalamin) 1,000 Mcg/Ml Inj 1000 MCG IM Q4WK for 180 Days Metformin HCl (Metformin HCl ER) 500 Mg Tabcr 500 MG PO QDD for 30 Days Nystatin (Nystatin) 5 Ml Susp 5 ML PO QID for 12 Days Polyethylene (Miralax) 17 Gm Pow 17 GM PO DAILY PRN for Constipation for 30 Days Changed Medications: Insulin Glargine (Lantus Solostar) 100 Unit/Ml Inj 20 UNITS SC BID for 30 Days, PEN (Changed from: 8 UNITS; HS) Continued Medications: Acetaminophen (Tylenol) 500 Mg Tab 500 MG PO Q4 PRN for Pain or Fever, TAB Calcium Carbonate-Mag Hydrox (Antacid) 1 Chw Chw 750 MG PO DIRECTED PRN for Indigestion Dexamethasone (Decadron) 4 Mg Tab 2 MG PO AMPM for 14 Days, TAB (This prescription has been renewed) Enoxaparin (Lovenox) 80 Mg/0.8 Ml Inj 80 MG SQ Q12H, SYR Ergocalciferol (Vitamin D 72960 Unit) 50,000 Unit Cap 94978 UNIT PO WK, CAP TAKE FOR 8 WEEKS THEN TAKE VITAMIN D3-1000 UNITS DAILY. Levetiracetam (Keppra) 750 Mg Tab 750 MG PO BID, TAB Losartan Potassium (Losartan Potassium) 50 Mg Tab 50 MG PO QAM Omeprazole (Omeprazole) 20 Mg Tab 20 MG PO HS for 90 Days, TAB 3 Refills Temazepam (Restoril) 15 Mg Cap 15 MG PO HS, CAP Discharge Exam Patient still feeling weak, no chest pain or shortness of breath, no headache. No abdominal pain. Is tolerating p.o. telemetry with normal sinus rhythm and some PACs and PVCs Physical Exam General Appearance: WD/WN, no apparent distress Eyes: normal inspection, sclerae normal ENT: hearing grossly normal Neck: trachea midline Respiratory/Chest: lungs clear, normal breath sounds, no respiratory distress, no accessory muscle use Cardiovascular: regular rate, rhythm, no edema, no murmur Abdomen: normal bowel sounds, non tender, soft Extremities: no calf tenderness Neurologic/Psychiatric: alert, normal mood/affect, 2 out of 5 strength in the entire left side Skin: normal color, warm/dry, no rash, feet appear purple and mottled left greater than right Review of Systems: Constitutional: No problem reported Eyes: No problem reported ENT: No problem reported Respiratory: No problem reported Cardiovascular: No problem reported Abdomen: No problem reported Musculoskeletal: No problem reported Genitourinary - Male: No problem reported Neurologic: + weakness Psychiatric: No problem reported Endocrine: No problem reported Hematologic / Lymphatic: No problem reported Integumentary: No problem reported Hospital Course Pt is a 71yo male with a h/o GBM s/p excision x 2, XRT and chemo, DVT/PE, here with progressive weakness, possible progression of tumor vs from new onset A-fib 1. new onset a. fib - resolved, converted to NSR on amiodarone infusion and continues in NSR. converted IV amiodarone to PO amiodarone 200mg BID x 2 weeks then switch to 200mg once daily on 09/30. Appreciate cardiology input. Remains on therapeutic lovenox and [facility] not [facility] NOAC. Echo was wnl with preserved LV function and valve function. -will need Cardiology follow up within 2 weeks after discharge 2. h/o DVT/PE - cont full dose Lovenox, has IVC filter in place 3. Suspected progressive GBM/Weakness/Abnormal Brain MRI - cont higher dose of steroids 4mg bid (home dose 2 mg bid) at least until seen in follow-up with oncology next week; Danii Medina spoke with [facility] [place] [facility] on Wednesday - MRI brain sent to them for their review. They planned to discuss his plan of care at [facility] this week to see about next course of action -advised family to keep appointment they have for next Sunday 10/01 at [place] unless told otherwise They agree w/ plan of care. - PT, OT; plan for SNF placement today 4. Asymptomatic bacteriuria-no symptoms, and u/a was normal; would not Rx as this likely represents asymptomatic bacteriuria. 5. uncontrolled T2DM -HgbA1C 7.6% in the last 2 months. Improved control now -continue increased lantus and novolog correction and carb ratio. -continue metformin 500mg once daily to help with insulin resistance. 6. anemia, thrombocytopenia/ Vit B12 deficiency -B12 level only 188 -continue daily IM shots while hospitalized, and then transition to B12 1000 mcg IM once monthly after discharge. -check B12 level as outpt after discharge 7. HTN - was uncontrolled but now improved. Cont home meds. 9. seizure d/o - no seizure activity here -cont keppra. 10. Oral Candidiasis-secondary to steroids -continue Nystatin swish and swallow x 14 day course-today day #08/28 Stable for discharge to SNF today Total Time Spent: Greater than 30 minutes This includes examination of the patient, discharge planning, medication reconciliation, and communication with other providers. Discharge Instructions Please refer to the electronic Patient Visit Report (Discharge Instructions) for additional information. Follow-Up With cardiology within 2 weeks With PCP within 1-2 weeks after discharge from rehab With oncology next week as scheduled in [facility] Additional Copies To Can Rodriguez M.D.; Isabel Fuentes C.R.N.P.
== END 2017-09-23 16:20 | DRG 309 ==
LOC: EDBD 15:16 → C.EDB 15:17 → C.2T 20:46 → ENRESERV 20:59 → CANRESERV 20:59 → ENRESERV 23:54
PROVIDERS: ADMIT Hospitalist; ATTEND Family Medicine
DX: I48.0 Paroxysmal atrial fibrillation (principal); N39.0 Urinary tract infection, site not specified; C71.9 Malignant neoplasm of brain, unspecified; G81.94 Hemiplegia, unspecified affecting left nondominant side; B37.0 Candidal stomatitis; R53.1 Weakness; I10 Essential (primary) hypertension; D69.6 Thrombocytopenia, unspecified; E11.65 Type 2 diabetes mellitus with hyperglycemia; E78.5 Hyperlipidemia, unspecified; K21.9 Gastro-esophageal reflux disease without esophagitis; G47.00 Insomnia, unspecified; B95.5 Unspecified streptococcus as the cause of diseases classified elsewhere; D64.9 Anemia, unspecified; G40.909 Epilepsy, unspecified, not intractable, without status epilepticus; Z79.01 Long term (current) use of anticoagulants; Z79.4 Long term (current) use of insulin; Z79.899 Other long term (current) drug therapy; Z83.3 Family history of diabetes mellitus; Z86.711 Personal history of pulmonary embolism; Z86.718 Personal history of other venous thrombosis and embolism; Z92.3 Personal history of irradiation; T38.0X5A Adverse effect of glucocorticoids and synthetic analogues, initial encounter

== ENCOUNTER 2017-12-28 18:08 | Inpatient (IN) | payer OTHER ==
[~2017-12-28] VITALS: Ht 165.1 cm; Wt 79.4 kg
[~2017-12-28 18:08] MED LIST changes: +CALC1CHW46 PO; +CRD200 PO; +CYNI1000 IM; +CZR50 PO; +DXM/4 PO; +ERGO500037 PO; +GLCSR500 PO; -KFL500 PO; -LCTX PO; +LEVE750T PO; -MELA3TAB29 PO; +MRLP17X PO; +NYSS5 PO; +OMEP20TA PO; -PANT40TA PO; -QSTP PO; -RST75 PO; +TEMA15CA4 PO
[2017-12-28] MEDS ORDERED: SODIUM CHLORIDE 0.9% 1000ML 500 ML IV STA (18:20)
[2017-12-28] MEDS ORDERED: MoRPHine SULFATE 4 MG/ML 1 ML CARP\\VIAL IV STA (18:20)
[2017-12-28] MEDS ORDERED: ONDANSETRON INJ 2 MG/ML 2 ML VIAL IV STA (18:20)
[2017-12-28] MEDS ORDERED: MoRPHine SULFATE 4 MG/ML 1 ML CARP\\VIAL IV PRN (18:30)
--- NOTE | 2017-12-28 18:54 | DIAGNOSTIC IMAGING REPORT ---
CHEST ONE VIEW PORTABLE CLINICAL HISTORY: ABDOMINAL PAIN/GI pain COMPARISON STUDY: 09/16/2017 FINDINGS: Chronic pleural reactive changes left base. Lungs otherwise appear clear. Diaphragms are smooth. IMPRESSION: No acute process. The above report was generated using voice recognition software. It may contain grammatical, syntax or spelling errors. Electronically signed by: Darren Witt M.D. 12/28/2017 6:53 PM Dictated Date/Time: 12/28/2017 6:53 PM
[2017-12-28 18:59] LABS: EOS % 0.2 %; EOS ABS # 0.01 K/uL (0-0.5); HEMATOCRIT 32.8 % (42-52); HEMOGLOBIN 10.4 g/dL (14.0-18.0); IG# 0.01 K/uL (0.00-0.02); LYMPH % 6.7 %; LYMPH ABS # 0.27 K/uL (1.2-3.4); MEAN CELL VOLUME 110.1 fL (80-100); MEAN CORPUSCULAR HEMOGLOBIN 34.9 pg (25-34); MEAN CORPUSCULAR HGB CONC 31.7 g/dl (32-36); MEAN PLATELET VOLUME 9.4 fL (7.4-10.4); MONO % 6.7 %; MONO ABS # 0.27 K/uL (0.11-0.59); NEUT % 86.2 %; NEUT ABS # 3.48 K/uL (1.4-6.5); NUCLEATED RED BLOOD CELL ABS 0.15 K/uL (0-0); PLATELET COUNT 168 K/uL (130-400); RED CELL DISTRIBUTION WIDTH CV 17.4 % (11.5-14.5); RED CELL DISTRIBUTION WIDTH SD 68.3 fL (36.4-46.3); WHITE BLOOD COUNT 4.04 K/uL (4.8-10.8)
[2017-12-28 19:01] LABS: ISTAT CREATININE 0.3 mg/dl (0.6-1.3); ISTAT IONIZED CALCIUM 0.86 mmol/l (1.12-1.32); ISTAT POTASSIUM 4.2 mEq/L (3.3-5.0)
[2017-12-28 19:06] LABS: PTT PATIENT 32.2 SECONDS (21.0-31.0)
[2017-12-28] MEDS ORDERED: PIPERACILLIN/TAZOBACTAM 4.5 GM/100ML D5W IV STA (19:13)
[2017-12-28 19:17] LABS: ALBUMIN 2.1 gm/dl (3.4-5.0); CALCIUM 8.7 mg/dl (8.5-10.1); CREATININE 0.57 mg/dl (0.60-1.40); POTASSIUM 3.9 mmol/L (3.5-5.1); TOTAL PROTEIN 6.6 gm/dl (6.4-8.2)
[2017-12-28] MEDS ORDERED: SODIUM CHLORIDE 0.9% 1000ML 1,000 ML IV STA (19:19)
--- NOTE | 2017-12-28 19:22 | DIAGNOSTIC IMAGING REPORT ---
ABD/PELVIS NO IV OR ORAL CONT CT DOSE: 1362.20 mGy.cm HISTORY: Pain. Nausea. ABD PAIN, POSSIBLE OBSTRUCTION, NO CONTRAST TECHNIQUE: Multiaxial CT images of the abdomen and pelvis were performed without contrast. A dose lowering technique was utilized adhering to the principles of ALARA. COMPARISON STUDY: None. FINDINGS: Lung bases show mild pleural reactive change with minimal right basilar infiltrative change. Findings of free intra-abdominal air. This is seen scattered throughout the abdomen and pelvis. Etiology is unknown. Nonobstructive bowel pattern. Kidneys demonstrate several renal cysts as well as moderate cortical scarring. No evidence for hydronephrosis. Inferior vena caval filter in position. Subcutaneous nodules most likely injection artifact sites. Trace free fluid within the low pelvic cul-de-sac. Chronic colonic diverticulosis. No evidence for abscess collection or obstruction. IMPRESSION: 1. Free intraperitoneal air. 2. Etiology is unclear as is the site of origin. 3. Scattered colonic diverticulosis with near potentially originating from perforated diverticulum. 4. No evidence for abscess collection or obstruction. The above report was generated using voice recognition software. It may contain grammatical, syntax or spelling errors. Electronically signed by: Darren Witt M.D. 12/28/2017 7:20 PM Dictated Date/Time: 12/28/2017 7:14 PM
[2017-12-28] MEDS ORDERED: AMIO200T4 PO (19:36)
[2017-12-28] MEDS ORDERED: CYNI1000 IM (19:37)
[2017-12-28] MEDS ORDERED: DAPS100T PO (19:40)
[2017-12-28] MEDS ORDERED: DXM/4 PO (19:42)
[2017-12-28] MEDS ORDERED: INSDGI SQ (19:46)
[2017-12-28] MEDS ORDERED: MELATAB2 PO (19:49)
[2017-12-28] MEDS ORDERED: GLC/500 PO (19:50)
[2017-12-28] MEDS ORDERED: OXYC-90 PO ×2 (19:52→20:03)
[2017-12-28] MEDS ORDERED: POLY335019 PO (19:53)
[2017-12-28] MEDS ORDERED: SENN-65 PO (19:55)
[2017-12-28] MEDS ORDERED: TRAZ100T29 PO (19:57)
[2017-12-28] MEDS ORDERED: CHOL1000 PO (19:59)
[2017-12-28] MEDS ORDERED: IPRA-64 INH (20:01)
[2017-12-28] MEDS ORDERED: MECL1TAB42 PO (20:04)
--- NOTE | 2017-12-28 20:08 | EMERGENCY ROOM VISIT NOTE ---
History Report prepared by Michael: Yaya Wallis Under the Supervision of: Dr. Cade Khan M.D. First contact with patient: 18:12 Stated Complaint: AB PAIN History of Present Illness The patient is a 72 year old male who presents to the Emergency Room with complaints of constant abdominal pain beginning 5 days ago. He rates his current pain at an 8/10 in severity. The patient reports that he was in the hospital twice recently due to a glioblastoma, and had 2 brain surgeries done at [facility]. The patient notes bruising across his abdomen that he states is from Lovenox. The patient reports that he is able to urinate, but cannot do it well. The patient states that he is unable to move his left side. He also notes that he is able to eat a little bit. He denies chest pain and shortness of breath, but states that he is lying down most of the time. He reports that he takes oxycodone for pain. The patient states that he currently lives at [facility]. Source of History: patient Onset: 5 days ago Position: abdomen Symptom Intensity: 8/10 Timing: constant Associated Symptoms: No chest pain, No SOB Review of Systems See HPI for pertinent positives & negatives. A total of 10 systems reviewed and were otherwise negative. Past Medical & Surgical Medical Problems: (1) Abdominal pain (2) DM type 2 (diabetes mellitus, type 2) (3) Dyslipidemia (4) Generalized weakness (5) Hypertension (6) Hypoxia (7) Paroxysmal atrial fibrillation with RVR (8) Pulmonary embolism (9) Pulmonary embolism, bilateral (10) SIRS (systemic inflammatory response syndrome) Surgical Problems: (1) H/O craniotomy (2) Status post skin graft Family History Diabetes mellitus FH: cancer FH: heart disease Social History Smoking Status: Never Smoker Alcohol Use: none Drug Use: none Marital Status: Housing Status: lives with family Occupation Status: disabled Current/Historical Medications Scheduled Amiodarone Hcl (Cordarone), 200 MG PO DAILY Cholecalciferol (Vitamin D3), 1,000 UNITS PO DAILY Cyanocobalamin (Cyanocobalamin), 1 ML IM Q4WK Dapsone (Dapsone), 100 MG PO DAILY Dexamethasone (Decadron), 2 MG PO BID Enoxaparin (Lovenox), 80 MG SQ Q12H Insulin Glargine (Lantus), 20 UNITS SQ BID Levetiracetam (Keppra), 750 MG PO BID Losartan Potassium (Losartan Potassium), 50 MG PO QAM Melatonin (Melatonin Maximum Strengt), 5 MG PO HS Metformin Hcl (Glucophage), 500 MG PO EVENING MEAL Omeprazole (Omeprazole), 20 MG PO HS Oxycodone Ir (Roxicodone Ir), 5 MG PO QID Polyethylene Glycol 3350 (Miralax), 17 GM PO DAILY Senna/Docusate Sod (Senokot S), 2 TAB PO BID Trazodone Hcl (Trazodone), 100 MG PO HS Scheduled PRN Acetaminophen (Tylenol), 500 MG PO Q4 PRN for Pain or Fever Calcium Carbonate-Mag Hydrox (Antacid), 750 MG PO DIRECTED PRN for Indigestion Ipratropium-Albuterol (Duoneb), 1 TREATMENT INH Q4H PRN for Shortness of Breath Meclizine Hcl (Meclizine Hcl), 1 TAB PO TID PRN for Dizziness or Vertigo Oxycodone Ir (Roxicodone Ir), 10 MG PO Q4H PRN for Severe Pain Promethazine Hcl (Phenergan), 25 MG PO Q6H PRN for Nausea Allergies Coded Allergies: No Known Allergies (Unverified , 09/16/17) Physical Exam Vital Signs Date Time Temp Pulse Resp B/P (MAP) Pulse Ox O2 Delivery O2 Flow Rate FiO2 12/28/17 21:35 100 20 92/54 99 Nasal Cannula 2.0 12/28/17 21:22 Nasal Cannula 2.0 12/28/17 20:05 127 20 123/81 94 Nasal Cannula 2.0 12/28/17 19:23 118 20 113/71 91 Room Air 12/28/17 18:24 130 12/28/17 18:21 36.3 130 22 119/81 Room Air Physical Exam GENERAL: Patient is in no acute distress. HEENT: No acute trauma, normocephalic atraumatic, mucous membranes dry, no nasal congestion, no scleral icterus. NECK: No stridor, no adenopathy, no meningismus, trachea is midline. LUNGS: Clear to auscultation bilaterally, no wheeze, no rhonchi, breath sounds equal. HEART: Tachycardic rate, regular rhythm, no murmurs ABDOMEN: Distended, tympani with percussion, contusions about abdominal wall, significantly tender primarily to left lower abdomen over the area of contusion. No bowel sounds heard. EXTREMITIES: Awake, no speech slur, alert. Mottling of knees noted. Paralyzed on left side. Moves upper and lower extremities on right side to command. SKIN: No rash, no jaundice, no diaphoresis. Medical Decision & Procedures ER Provider Diagnostic Interpretation: Radiology results as stated below per my review and radiologist interpretation: CHEST ONE VIEW PORTABLE CLINICAL HISTORY: ABDOMINAL PAIN/GI pain COMPARISON STUDY: 09/16/2017 FINDINGS: Chronic pleural reactive changes left base. Lungs otherwise appear clear. Diaphragms are smooth. IMPRESSION: No acute process. The above report was generated using voice recognition software. It may contain grammatical, syntax or spelling errors. Electronically signed by: Darren Witt M.D. 12/28/2017 6:53 PM Dictated Date/Time: 12/28/2017 6:53 PM ABD/PELVIS NO IV OR ORAL CONT CT DOSE: 1362.20 mGy.cm HISTORY: Pain. Nausea. ABD PAIN, POSSIBLE OBSTRUCTION, NO CONTRAST TECHNIQUE: Multiaxial CT images of the abdomen and pelvis were performed without contrast. A dose lowering technique was utilized adhering to the principles of ALARA. COMPARISON STUDY: None. FINDINGS: Lung bases show mild pleural reactive change with minimal right basilar infiltrative change. Findings of free intra-abdominal air. This is seen scattered throughout the abdomen and pelvis. Etiology is unknown. Nonobstructive bowel pattern. Kidneys demonstrate several renal cysts as well as moderate cortical scarring. No evidence for hydronephrosis. Inferior vena caval filter in position. Subcutaneous nodules most likely injection artifact sites. Trace free fluid within the low pelvic cul-de-sac. Chronic colonic diverticulosis. No evidence for abscess collection or obstruction. IMPRESSION: 1. Free intraperitoneal air. 2. Etiology is unclear as is the site of origin. 3. Scattered colonic diverticulosis with near potentially originating from perforated diverticulum. 4. No evidence for abscess collection or obstruction. The above report was generated using voice recognition software. It may contain grammatical, syntax or spelling errors. Electronically signed by: Darren Witt M.D. 12/28/2017 7:20 PM Dictated Date/Time: 12/28/2017 7:14 PM Laboratory Results 12/28/17 18:30 Red Blood Count 2.98, Mean Corpuscular Volume 110.1, Mean Corpuscular Hemoglobin 34.9, Mean Corpuscular Hemoglobin Concent 31.7, Mean Platelet Volume 9.4, Neutrophils (%) (Auto) 86.2, Lymphocytes (%) (Auto) 6.7, Monocytes (%) ( Auto) 6.7, Eosinophils (%) (Auto) 0.2, Basophils (%) (Auto) 0.0, Neutrophils # ( Auto) 3.48, Lymphocytes # (Auto) 0.27, Monocytes # (Auto) 0.27, Eosinophils # ( Auto) 0.01, Basophils # (Auto) 0.00 12/28/17 18:30 Test 12/28/17 18:30 12/28/17 18:40 12/28/17 18:43 12/28/17 18:46 White Blood Count 4.04 K/uL (4.8-10.8) Red Blood Count 2.98 M/uL (4.7-6.1) Hemoglobin 10.4 g/dL (14.0-18.0) Hematocrit 32.8 % (42-52) Mean Corpuscular Volume 110.1 fL (80-100) Mean Corpuscular Hemoglobin 34.9 pg (25-34) Mean Corpuscular Hemoglobin Concent 31.7 g/dl (32-36) Platelet Count 168 K/uL (130-400) Mean Platelet Volume 9.4 fL (7.4-10.4) Neutrophils (%) (Auto) 86.2 % Lymphocytes (%) (Auto) 6.7 % Monocytes (%) (Auto) 6.7 % Eosinophils (%) (Auto) 0.2 % Basophils (%) (Auto) 0.0 % Neutrophils # (Auto) 3.48 K/uL (1.4-6.5) Lymphocytes # (Auto) 0.27 K/uL (1.2-3.4) Monocytes # (Auto) 0.27 K/uL (0.11-0.59) Eosinophils # (Auto) 0.01 K/uL (0-0.5) Basophils # (Auto) 0.00 K/uL (0-0.2) RDW Standard Deviation 68.3 fL (36.4-46.3) RDW Coefficient of Variation 17.4 % (11.5-14.5) Immature Granulocyte % (Auto) 0.2 % Immature Granulocyte # (Auto) 0.01 K/uL (0.00-0.02) Nucleated RBC Absolute Count (auto) 0.15 K/uL (0-0) Nucleated Red Blood Cells % 3.6 % Macrocytosis PRESENT Spherocytes 2+ Tear Drop Cells 1+ Prothrombin Time 10.1 SECONDS (9.0-12.0) Prothromb Time International Ratio 1.0 (0.9-1.1) Activated Partial Thromboplast Time 32.2 SECONDS (21.0-31.0) Partial Thromboplastin Ratio 1.2 Est Creatinine Clear Calc Drug Dose 117.1 ml/min Estimated GFR () 120.6 Estimated GFR (Non- 104.0 BUN/Creatinine Ratio 48.4 (10-20) Calcium Level 8.7 mg/dl (8.5-10.1) Total Bilirubin 0.6 mg/dl (0.2-1) Aspartate Amino Transf (AST/SGOT) 19 U/L (15-37) Alanine Aminotransferase (ALT/SGPT) 39 U/L (12-78) Alkaline Phosphatase 111 U/L (45-117) Total Protein 6.6 gm/dl (6.4-8.2) Albumin 2.1 gm/dl (3.4-5.0) Globulin 4.5 gm/dl (2.5-4.0) Albumin/Globulin Ratio 0.5 (0.9-2) Lipase 41 U/L (73-393) Urine Color YELLOW Urine Appearance CLOUDY (CLEAR) Urine pH 5.0 (4.5-7.5) Urine Specific [place] 1.024 (1.000-1.030) Urine Protein 1+ (NEG) Urine Glucose (UA) 1+ (NEG) Urine Ketones NEG (NEG) Urine Occult Blood TRACE (NEG) Urine Nitrite NEG (NEG) Urine Bilirubin NEG (NEG) Urine Urobilinogen NEG (NEG) Urine Leukocyte Esterase NEG (NEG) Urine WBC (Auto) 1-5 /hpf (0-5) Urine RBC (Auto) 5-10 /hpf (0-4) Urine Hyaline Casts (Auto) 1-5 /lpf (0-5) Urine Epithelial Cells (Auto) 10-20 /lpf (0-5) Urine Bacteria (Auto) NEG (NEG) Bedside Lactic Acid Venous 3.24 mmol/L (0.90-1.70) Bedside Hemoglobin 11.6 g/dl (14.0-18.0) Bedside Hematocrit 34 % (42-52) Bedside Sodium 135 mEq/L (135-144) Bedside Potassium 4.2 mEq/L (3.3-5.0) Bedside Chloride 102 mEq/L (101-112) Bedside Total CO2 27 mEq/l (24-31) Anion Gap 10.0 mmol/L (16-25) Bedside Blood Urea Nitrogen 27 mg/dl (7-18) Bedside Creatinine 0.3 mg/dl (0.6-1.3) Bedside Glucose (other) 218 mg/dl (70-99) Bedside Ionized Calcium (Laura) 0.86 mmol/l (1.12-1.32) Test 12/28/17 18:47 Bedside Troponin I 0.040 ng/ml (0-0.045) Laboratory results reviewed by me. Medications Administered Medications (Trade) Dose Ordered Sig/Clotilde Route Start Time Stop Time Status Last Admin Dose Admin Sodium Chloride 500 ml @ 999 mls/hr Q31M STAT IV 12/28/17 18:20 12/28/17 18:50 DC 12/28/17 18:47 999 MLS/HR Ondansetron HCl (Zofran Inj) 4 mg NOW STAT IV 12/28/17 18:20 12/28/17 18:24 DC 12/28/17 18:56 4 MG Morphine Sulfate (MoRPHine SULFATE INJ) 4 mg NOW STAT IV 12/28/17 18:20 12/28/17 18:24 DC 12/28/17 18:57 4 MG Piperacillin Sod/ Tazobactam Sod (Zosyn Iv) 4.5 gm NOW STAT IV 12/28/17 19:13 12/28/17 19:15 DC 12/28/17 19:21 4.5 GM Sodium Chloride 1,000 ml @ 999 mls/hr Q1H1M STAT IV 12/28/17 19:19 12/28/17 20:19 DC 12/28/17 19:21 999 MLS/HR Levetiracetam 750 mg/Dextrose 107.5 ml @ 420 mls/hr Q12H IV 12/28/17 21:00 01/27/18 20:59 12/28/17 23:13 420 MLS/HR Insulin Glargine (Lantus Solostar Pen) 10 units Q12 SC 12/28/17 21:00 01/27/18 20:59 12/28/17 22:38 10 UNITS Insulin Aspart (novoLOG ASPART) SLIDING SCALE If C... ACHS SC 12/28/17 21:00 01/27/18 20:59 12/28/17 22:38 2 UNITS Sodium Chloride 1,000 ml @ 100 mls/hr Q10H IV 12/28/17 20:45 12/29/17 16:44 12/28/17 21:59 100 MLS/HR Morphine Sulfate (MoRPHine SULFATE INJ) 2 mg Q2R PRN IV 12/28/17 21:00 01/11/18 20:59 12/28/17 22:03 2 MG Amiodarone HCL/ Dextrose 100 ml @ 600 mls/hr ONE STAT IV 12/28/17 21:13 12/28/17 21:22 DC 12/28/17 21:23 600 MLS/HR ECG Per My Interpretation Indication: abdominal pain Rate (beats per minute): 135 Rhythm: other (Possible sinus tachycardia vs. 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 A complete history and physical exam was performed. 1819: Ordered Morphine Sulfate 4 mg IV, Zofran 4 mg IV, Sodium Chloride 500 ml @ 999 mls/hr IV 1829: Ordered Morphine Sulfate 4 mg IV 1857: I spoke to the patients brother, Nik, who has the power of compliance attorney. 1903: I spoke to the patients , Ruba. 1907: I checked on the patient, but he was at CT scan. 1912: Ordered Zosyn 4.5 gm IV 1913: I checked on the patient and updated him on current findings. He states that he wants to be comfortable. 1918: Ordered Sodium Chloride 1000 ml @ 999 mls/hr IV 1921: I spoke with Dr. Witt - Radiology. He confirms free air in the patient' s belly. 1924: I spoke with Dr. Abreu - Surgery. She states that the patient is not a surgical candidate at this time, and believes he would not survive the operation. 1927: I checked on the patient, who states he feels a little more comfortable. 1928: I updated with the patient's family, who state they are on their way to the ER. 1929: I spoke with Dr. Demetra Cunningham - [facility] Hospitalist. She will reevaluate the patient for hospitalization. 2013: I updated the patient. His family is in the room with him. Medical Decision Differential diagnoses include: bowel obstruction, bowel perforation, bowel ischemia, abdominal wall hematoma, intraabdominal bleeding, AAA, UTI, urinary retention, dehydration , electrolyte imbalance, IA, dysrhythmia There is no leukocytosis. The patient is anemic but this is baseline looking back at previous testing. No significant electrolyte abnormality, kidney failure or hepatitis. There is no pancreatitis. Lactic acid level is quite elevated at over 3, this is consistent with dehydration, infection and possibly bowel ischemia. There was no coagulopathy. EKG shows what appears to be either a sinus tachycardia or an A. fib or A flutter. The rhythm was difficult to interpret given the baseline artifact. There was no evidence by my reading for acute IA. Cardiac enzyme testing 1 is not consistent with acute cardiac injury. Chest film does not show free air or pneumonia, there was no CHF. Urinalysis does not show evidence for infection. Abdominal and pelvis CT shows free intra-abdominal air, no abscess. Blood cultures are pending. The patient was aggressively managed. He appeared quite ill upon my initial evaluation. The patient received IV saline, IV morphine and IV Zofran. He was given IV Zosyn as antibiotic coverage. I talked with the patient about his wishes with [employer]. He does not want aggressive measures. I spoke with his power of compliance attorney, his brother, he also agreed with no aggressive measures. I spoke to his who concurred as well. The patient is now a DNR. I do not believe he will survive this hospitalization. He is quite ill. I did speak with the on-call general surgeon , the patient will likely not survive an operation and is not a surgical candidate at this point. The patient is aware of his findings. He is critically ill and I do not believe this event for him is survivable. He is to be made comfortable. His family did arrive and I spoke to them at length about my diagnosis. Medication Reconcilliation Current Medication List: was personally reviewed by me Blood Pressure Screening Patient's blood pressure: Normal blood pressure Blood pressure disposition: Did not require urgent referral Consults Time Called: 1919 Consulting Physician: Dr. Witt - Radiology Returned Call: [address] Witt - Radiology. He confirms free air in the patient's belly. Additional Consults: Time Called: 1922 Consulted Physician: Dr. Abreu - Surgery Returned Call: 1923 Additional Comments: I spoke with Dr. Abreu - Surgery. She states that the patient is not a surgical candidate at this time, and believes he would not survive the operation. Time Called: 1925 Consulted Physician: Dr. Demetra Cunningham - [facility] Hospitalist Returned Call: 1929 Additional Comments: I spoke with Dr. Demetra Cunningham - [facility] Hospitalist. She will reevaluate the patient for hospitalization. Impression Primary Impression: Rupture of bowel Additional Impressions: Intra-abdominal free air of unknown etiology Tachycardia Dehydration Glioblastoma Critical Care I have personally spent greater than 45 minutes of critical care time in the direct management of this patient. This includes bedside care, interpretation of diagnostic studies, and testing, discussion with consultants, patient, and family members, and other required patient management activities. This 45 minutes is in excess of all separately billable procedures. Scribe Attestation The scribe's documentation has been prepared under my direction and personally reviewed by me in its entirety. I confirm that the note above accurately reflects all work, treatment, procedures, and medical decision making performed by me. Departure Information Dispostion Being Evaluated By Hospitalist Referrals Isabel Fuentes C.R.N.P. (PCP) Problem Qualifiers
[2017-12-28] MEDS ORDERED: PROM25TA9 PO (20:10)
[2017-12-28] MEDS ORDERED: AMIODARONE HCL INJ 50 MG/ML 3 ML VIAL IV STA (20:31)
[2017-12-28] MEDS ORDERED: AMIODARONE HCL INJ 50 MG/ML 3 ML VIAL IV ONE (20:31)
[2017-12-28] MEDS ORDERED: GLUCAGON FOR INJ 1 MG VIAL SQ PRN (20:45)
[2017-12-28] MEDS ORDERED: ALBUT/IPRATROP 3MG/0.5MG NEB 3 ML VIAL INH PRN (20:45)
[2017-12-28] MEDS ORDERED: GLUCOSE 40% GEL 15 GM TUBE PO PRN (20:45)
[2017-12-28] MEDS ORDERED: PIPERACILL/TAZOBAC CONSULT ACTIVE PRN (20:45)
[2017-12-28] MEDS ORDERED: DEXTROSE 50% 50 ML SYR IV PRN (20:45)
[2017-12-28] MEDS ORDERED: ONDANSETRON INJ 2 MG/ML 2 ML VIAL IV PRN (20:45)
[2017-12-28] MEDS ORDERED: CARBOHYDRATES FOR HYPOGLYCEMIA PO PRN (20:45)
[2017-12-28] MEDS ORDERED: GLUCOSE 10 TABS/TUBE PO PRN (20:45)
[2017-12-28] MEDS ORDERED: DC ALL PREVIOUSLY ORDERED DIABETES MEDS ONE (20:45)
[2017-12-28] MEDS ORDERED: PROMETHAZINE HCL INJ 12.5 MG in SODIUM CHLORIDE 0.9% 50ML 50 ML IV PRN (20:45)
[2017-12-28] MEDS ORDERED: AMIODARONE / D5W 100 ML IV STA (21:13)
[2017-12-28 21:22] VITALS: Ht 165.1 cm; Wt 79.4 kg
[2017-12-28] MEDS: SODIUM CHLORIDE 0.9% 1000ML 1,000 ML IV SCH (21:59)
[2017-12-28] MEDS: MoRPHine SULFATE 2 MG/ML CARP IV PRN (22:03)
--- NOTE | 2017-12-28 22:35 | History and Physical ---
History & Physical Date & Time of Service: Dec 28, 2017 at 22:19 Chief Complaint: Abdominal Pain Primary Care Physician: Isabel Fuentes C.R.N.P. History of Present Illness Source: patient, family 72yo male with history of GBM, AF, DVT/PE, HTN and DM presenting with 5 days of progressive abdominal pain and distention. Patient is a resident of [facility]. States that his abdomen has become more distended and tight, painful over the last few days. Mild constipation, passing small amounts of stool. +Nausea this AM otherwise no complaints. CT Abdomen performed in the ER revealed large amount of free intraperitoneal air. Patient is not a candidate for surgery and wishes to be made comfortable at this time. ER Course: Zosyn 4.5gm, Morphine 4mg, NSS, Zofran Past Medical/Surgical History Medical Problems: Anemia Glioblastoma multiforme Diabetes Hyperlipidemia Hypertension Left sided weakness Seizures Paroxysmal AF with RVR Pulmonary emboli - bilateral Surgical Problems: (1) H/O craniotomy (2) Status post skin graft Family History Diabetes mellitus FH: cancer FH: heart disease Social History Smoking Status: Never Smoker Alcohol Use: none Drug Use: none Marital Status: Housing status: assisted living ([facility]) Occupational Status: disabled Immunizations History of Influenza Vaccine: Unknown History of Tetanus Vaccine?: Unknown History of Pneumococcal: Unknown History of Hepatitis B Vaccine: Unknown Allergies Coded Allergies: No Known Allergies (Unverified , 09/16/17) Home Medications Scheduled Amiodarone Hcl (Cordarone), 200 MG PO DAILY Cholecalciferol (Vitamin D3), 1,000 UNITS PO DAILY Cyanocobalamin (Cyanocobalamin), 1 ML IM Q4WK Dapsone (Dapsone), 100 MG PO DAILY Dexamethasone (Decadron), 2 MG PO BID Enoxaparin (Lovenox), 80 MG SQ Q12H Insulin Glargine (Lantus), 20 UNITS SQ BID Levetiracetam (Keppra), 750 MG PO BID Losartan Potassium (Losartan Potassium), 50 MG PO QAM Melatonin (Melatonin Maximum Strengt), 5 MG PO HS Metformin Hcl (Glucophage), 500 MG PO EVENING MEAL Omeprazole (Omeprazole), 20 MG PO HS Oxycodone Ir (Roxicodone Ir), 5 MG PO QID Polyethylene Glycol 3350 (Miralax), 17 GM PO DAILY Senna/Docusate Sod (Senokot S), 2 TAB PO BID Trazodone Hcl (Trazodone), 100 MG PO HS Scheduled PRN Acetaminophen (Tylenol), 500 MG PO Q4 PRN for Pain or Fever Calcium Carbonate-Mag Hydrox (Antacid), 750 MG PO DIRECTED PRN for Indigestion Ipratropium-Albuterol (Duoneb), 1 TREATMENT INH Q4H PRN for Shortness of Breath Meclizine Hcl (Meclizine Hcl), 1 TAB PO TID PRN for Dizziness or Vertigo Oxycodone Ir (Roxicodone Ir), 10 MG PO Q4H PRN for Severe Pain Promethazine Hcl (Phenergan), 25 MG PO Q6H PRN for Nausea Review of Systems A 10 point review of systems negative with exception of those listed above in HPI Physical Exam Vital Signs Date Time Temp Pulse Resp B/P (MAP) Pulse Ox O2 Delivery O2 Flow Rate FiO2 12/28/17 21:35 100 20 92/54 99 Nasal Cannula 2.0 12/28/17 21:22 Nasal Cannula 2.0 12/28/17 20:05 127 20 123/81 94 Nasal Cannula 2.0 12/28/17 19:23 118 20 113/71 91 Room Air 12/28/17 18:24 130 12/28/17 18:21 36.3 130 22 119/81 Room Air General Appearance: WD/WN, no apparent distress Head: + pertinent finding (surgical scars, post-operative changes from prior craniotomy) Eyes: normal inspection, PERRL, sclerae normal ENT: hearing grossly normal, pharynx normal Neck: supple, no adenopathy, thyroid normal, no JVD, trachea midline Respiratory/Chest: chest non-tender, lungs clear, normal breath sounds, no respiratory distress, no accessory muscle use Cardiovascular: + pertinent finding (+S1, S2, irregularly irregular, no m/r/g) Abdomen/GI: + pertinent finding (abdomen distended, tympanic to percussion, diminished bowel sounds throughout, firm, tender to palpation diffusely with guarding/peritoneal signs) Genitourinary - Male: normal male genitalia Extremities/Musculoskelatal: normal inspection, + pedal edema (flaccid paralysis left side) Neurologic/Psych: + pertinent finding Skin: no rash, + pertinent finding (bruising on forearm right) Diagnostics Laboratory Results Results Past 24 Hours Test 12/28/17 18:30 12/28/17 18:40 12/28/17 18:43 12/28/17 18:46 Range/Units White Blood Count 4.04 4.8-10.8 K/uL Red Blood Count 2.98 4.7-6.1 M/uL Hemoglobin 10.4 14.0-18.0 g/dL Hematocrit 32.8 42-52 % Mean Corpuscular Volume 110.1 80-100 fL Mean Corpuscular Hemoglobin 34.9 25-34 pg Mean Corpuscular Hemoglobin Concent 31.7 32-36 g/dl Platelet Count 168 130-400 K/uL Mean Platelet Volume 9.4 7.4-10.4 fL Neutrophils (%) (Auto) 86.2 % Lymphocytes (%) (Auto) 6.7 % Monocytes (%) (Auto) 6.7 % Eosinophils (%) (Auto) 0.2 % Basophils (%) (Auto) 0.0 % Neutrophils # (Auto) 3.48 1.4-6.5 K/uL Lymphocytes # (Auto) 0.27 1.2-3.4 K/uL Monocytes # (Auto) 0.27 0.11-0.59 K/uL Eosinophils # (Auto) 0.01 0-0.5 K/uL Basophils # (Auto) 0.00 0-0.2 K/uL RDW Standard Deviation 68.3 36.4-46.3 fL RDW Coefficient of Variation 17.4 11.5-14.5 % Immature Granulocyte % (Auto) 0.2 % Immature Granulocyte # (Auto) 0.01 0.00-0.02 K/uL Nucleated RBC Absolute Count (auto) 0.15 0-0 K/uL Nucleated Red Blood Cells % 3.6 % Macrocytosis PRESENT Spherocytes 2+ Tear Drop Cells 1+ Prothrombin Time 10.1 9.0-12.0 SECONDS Prothromb Time International Ratio 1.0 0.9-1.1 Activated Partial Thromboplast Time 32.2 21.0-31.0 SECONDS Partial Thromboplastin Ratio 1.2 Sodium Level 133 136-145 mmol/L Potassium Level 3.9 3.5-5.1 mmol/L Chloride Level 99 98-107 mmol/L Carbon Dioxide Level 27 21-32 mmol/L Anion Gap 7.0 10.0 16-25 mmol/L Blood Urea Nitrogen 28 7-18 mg/dl Creatinine 0.57 0.60-1.40 mg/dl Est Creatinine Clear Calc Drug Dose 117.1 ml/min Estimated GFR () 120.6 Estimated GFR (Non- 104.0 BUN/Creatinine Ratio 48.4 10-20 Random Glucose 204 70-99 mg/dl Calcium Level 8.7 8.5-10.1 mg/dl Total Bilirubin 0.6 0.2-1 mg/dl Aspartate Amino Transf (AST/SGOT) 19 15-37 U/L Alanine Aminotransferase (ALT/SGPT) 39 12-78 U/L Alkaline Phosphatase 111 45-117 U/L Total Protein 6.6 6.4-8.2 gm/dl Albumin 2.1 3.4-5.0 gm/dl Globulin 4.5 2.5-4.0 gm/dl Albumin/Globulin Ratio 0.5 0.9-2 Lipase 41 73-393 U/L Urine Color YELLOW Urine Appearance CLOUDY CLEAR Urine pH 5.0 4.5-7.5 Urine Specific [place] 1.024 1.000-1.030 Urine Protein 1+ NEG Urine Glucose (UA) 1+ NEG Urine Ketones NEG NEG Urine Occult Blood TRACE NEG Urine Nitrite NEG NEG Urine Bilirubin NEG NEG Urine Urobilinogen NEG NEG Urine Leukocyte Esterase NEG NEG Urine WBC (Auto) 1-5 0-5 /hpf Urine RBC (Auto) 5-10 0-4 /hpf Urine Hyaline Casts (Auto) 1-5 0-5 /lpf Urine Epithelial Cells (Auto) 10-20 0-5 /lpf Urine Bacteria (Auto) NEG NEG Bedside Lactic Acid Venous 3.24 0.90-1.70 mmol/L Bedside Hemoglobin 11.6 14.0-18.0 g/dl Bedside Hematocrit 34 42-52 % Bedside Sodium 135 135-144 mEq/L Bedside Potassium 4.2 3.3-5.0 mEq/L Bedside Chloride 102 101-112 mEq/L Bedside Total CO2 27 24-31 mEq/l Bedside Blood Urea Nitrogen 27 7-18 mg/dl Bedside Creatinine 0.3 0.6-1.3 mg/dl Bedside Glucose (other) 218 70-99 mg/dl Bedside Ionized Calcium (Laura) 0.86 1.12-1.32 mmol/l Test 12/28/17 18:47 12/28/17 22:02 Range/Units Bedside Troponin I 0.040 0-0.045 ng/ml Bedside Glucose 184 70-99 mg/dl Microbiology Results 12/28/17 Blood Culture, Received Pending 12/28/17 Blood Culture, Received Pending Diagnostic Radiology ABD/PELVIS NO IV OR ORAL CONT CT DOSE: 1362.20 mGy.cm HISTORY: Pain. Nausea. ABD PAIN, POSSIBLE OBSTRUCTION, NO CONTRAST TECHNIQUE: Multiaxial CT images of the abdomen and pelvis were performed without contrast. A dose lowering technique was utilized adhering to the principles of ALARA. COMPARISON STUDY: None. FINDINGS: Lung bases show mild pleural reactive change with minimal right basilar infiltrative change. Findings of free intra-abdominal air. This is seen scattered throughout the abdomen and pelvis. Etiology is unknown. Nonobstructive bowel pattern. Kidneys demonstrate several renal cysts as well as moderate cortical scarring. No evidence for hydronephrosis. Inferior vena caval filter in position. Subcutaneous nodules most likely injection artifact sites. Trace free fluid within the low pelvic cul-de-sac. Chronic colonic diverticulosis. No evidence for abscess collection or obstruction. IMPRESSION: 1. Free intraperitoneal air. 2. Etiology is unclear as is the site of origin. 3. Scattered colonic diverticulosis with near potentially originating from perforated diverticulum. 4. No evidence for abscess collection or obstruction. The above report was generated using voice recognition software. It may contain grammatical, syntax or spelling errors. Electronically signed by: Darren Witt M.D. 12/28/2017 7:20 PM EKG Sinus tachycardia with wide complex QRS Impression Assessment and Plan 72yo male with history of Glioblastoma multiforme presenting with 5 days of progressive abdominal pain. Found to have free intraperitoneal air most likely secondary to perforated diverticuli. Due to underlying medical comorbidities as well patient is not a surgical candidate. Decision made to place the patient on comfort measures. 1. Free intraperitoneal air - most likely secondary to perforated diverticuli. Patient is tender and distended. Unfortunately is not a candidate for surgical intervention due to severity of underlying medical comorbidities and high risk status. -Pain control with Morphine 2mg IV q 2 hours PRN. Will adjust as needed to ensure patient comfort -Nausea control with Zofran 4mg IV q 6 hours PRN and Phenergan 12.5mg IV q 6 hours PRN -Zosyn 3.375gm IV q 6 -IVF - NSS at 100mL/hr x 2 liters -Palliative care consult - appreciate assistance 2. Atrial fibrillation - patient with AF with RVR, HR presently 118, minimally responsive to IVF. He is on Amiodarone as an outpatient -Will administer Amiodarone 150mg IV x 1 dose -Lovenox 80mg BID -Continue to monitor 3. Glioblastoma multiforme - s/p craniotomy x 2, XRT and chemotherapy. Patient is end stage, left sided paralysis, concomitant seizures -Dexamethasone converted to IV - 2mg IV BID -Keppra converted to IV - 750mg IV BID 4. Diabetes - blood sugar presently elevated at 218 -Decrease Lantus to 10u BID as patient is NPO -ISS -Consider discontinuing insulin coverage entirely 5. Hypertension - presently normotensive -Hold antihypertensive agents 6. History of DVT/PE - -Continue Lovenox BID 7. F/E/N - NSS at 100mL/hr x 2 liters, electrolytes WNL. NPO except chips/sips /meds 8. Ppx - Lovenox full dose, Protonix 40mg IV daily 9. Code - DNR per discussion with patient and family. Patient's brother, Nik (POA) at bedside as well as patient's . Patient and family are in agreement to pursue symptom management and a more palliative approach to his care at this time. 10. Dispo - admit to medical floor. Advanced Directives Existing Power of Sample Maker Hand: Yes Resuscitation Status DNR VTE Prophylaxis Will order VTE Prophylaxis: Yes
[2017-12-28] MEDS: INSULIN ASPART 100 UNITS/ML 3 ML PEN SC SCH (22:38)
[2017-12-28] MEDS: INSULIN GLARGINE SOLOSTAR 100 UNITS/ML 3 ML PEN SC SCH (22:38)
[2017-12-28] MEDS: ACETAMINOPHEN IV 1,000 MG in EMPTY BAG 0 ML IV SCH (22:42)
[2017-12-28 23:01] VITALS: BP 106/69; PULSE 120; TEMP 37.8; O2SAT 97
[2017-12-28] MEDS: LEVETIRACETAM IV 750 MG in DEXTROSE 5% 100ML 100 ML IV SCH (23:13)
[2017-12-28] MEDS: DEXAMETHASONE INJ 2 MG in SYRINGE 0 ML IV SCH (23:13)
[2017-12-28] MEDS: ENOXAPARIN 80 MG/0.8 ML SYR SQ SCH (23:14)
[2017-12-29] MEDS: PIPERACILL/TAZOBAC IV 3.375 GM in DEXTROSE 5% 100ML 100 ML IV SCH ×2 (00:09→09:00)
[2017-12-29] MEDS: MoRPHine SULFATE 2 MG/ML CARP IV PRN ×4 (00:15→13:03)
[2017-12-29] MEDS ORDERED: LORAZEPAM INJ 0.5 MG in SYRINGE 0.75 ML IV PRN (02:15)
[2017-12-29] MEDS: ACETAMINOPHEN IV 1,000 MG in EMPTY BAG 0 ML IV SCH ×3 (05:47→21:11)
[2017-12-29 08:30] VITALS: O2SAT 97
[2017-12-29] MEDS: INSULIN ASPART 100 UNITS/ML 3 ML PEN SC SCH ×4 (08:37→21:00)
[2017-12-29] MEDS: SODIUM CHLORIDE 0.9% 1000ML 1,000 ML IV SCH (08:38)
[2017-12-29] MEDS: LEVETIRACETAM IV 750 MG in DEXTROSE 5% 100ML 100 ML IV SCH ×2 (08:38→20:15)
[2017-12-29] MEDS: ENOXAPARIN 80 MG/0.8 ML SYR SQ SCH (08:39)
[2017-12-29] MEDS: DEXAMETHASONE INJ 2 MG in SYRINGE 0 ML IV SCH ×2 (08:39→20:16)
[2017-12-29] MEDS ORDERED: NURSING VERBAL MED ORDER ONE (09:00)
[2017-12-29] MEDS: PANTOprazole INJ 40 MG in SYRINGE 0 ML IV SCH (10:38)
--- NOTE | 2017-12-29 10:50 | Palliative Care Consultation ---
Consultation Date of Consultation: Dec 29, 2017. Requesting Physician: Dr. Cunningham Attending Physician: Dr. Butler Reason for Consultation: Gals of Care History of Present Illness This is a 72 year-old male patient, known to the Palliative Care Service who suffers from end-stage Glioblastoma Multiforme and, as of the last three months , has been a resident of [facility] as his care needs have increased while at home. The patient presented to the ED from [facility] with abdominal pain/ distention and nausea. Additional PMH includes AF, DVT, PE, and HTN. The patient was diagnosed with free peritoneal air and was deemed not a surgical candidate. Palliative care was discussed and recommended to discuss GOALS OF CARE as prognosis is poor. I met with the patient, his of 44 years, Marija, brother Nik (POA), Nik's , and patients sister at the bedside. The patient is still able to communicate and interact appropriately. He is very tearful and states that "I'm ready to go, I'm ready to ". He states that he is comfortable at this time and not experiencing any pain. When discussing GOALS OF CARE with the patient and family, we discussed stopping all fluids/antibiotics, blood draws, vital signs at this time. We discussed the patient returning to [facility] vs. Home Hospice vs GIP. I explained that at this time, I do not feel that he meets inpatient Hospice criteria, as he is able to communicate, and is not requiring much from a pain/symptom management at this time. That being said, if he would show acute decline/uncontrolled symptoms, this would be an appropriate avenue for this patient and family. The patient states that he "does not want to be a burden on his family at home" . We did discuss having Hospice at home, along with providing additional support if needed. The patients , Marija, as the primary caregiver at home may be to overwhelming based on my discussion, but the brother Nik and his would rotate out to cover 24 hours per day and they would utilize private duty if needed (they have used private duty before and have two persons they can reach out to) The patient has chosen [facility], as they have reached out to them previously , but never had a full evaluation. Currently, he has received two doses of Morphine 2mg IV over the past 24 hours. He has Ativan and Zofran ordered, but has not required any to date. Upon assessment, the patient opened his eyes, states he has blurry and double vision , but no pain overall. He does have some mottling on his knees, but, per family , this has been present for a few days and has not progressed. A POLST form was completed by the brother, Nik RO) at the bedside with the rest of the family and placed on the chart. Case management updated and met with family regarding above. Thank you kindly for this consult, we will follow and manage symptoms as needed. Past Medical/Surgical History Medical History: AF GBM HTN DVT PE Social History Smoking Status: Never Smoker History of Alcohol Use: No Drug Use: none Marital Status: Housing Status: assisted living ([facility]) Occupation Status: disabled Review of Systems General: Patient denies pain at this time HEENT: (+) blurry and double vision, (-) HOWELL, (-) dizziness CV: (-) CP, (-) palpitations Resp: (-) SOB GI: (-) abdominal pain, (-) nausea, (-) vomiting Psych: (+) tearful. states he "is ready to go" Allergies Coded Allergies: No Known Allergies (Unverified , 09/16/17) Medications Current Inpatient Medications Medications (Trade) Dose Ordered Sig/Clotilde Route Start Time Stop Time Status Last Admin Dose Admin Enoxaparin Sodium (Lovenox Inj) 80 mg Q12@0800,2000 SQ 12/28/17 22:30 01/27/18 22:29 Future hold 12/28/17 23:14 80 MG Albuterol/ Ipratropium (Duoneb) 1 ml Q4H PRN INH 12/28/17 20:45 01/27/18 20:44 Pantoprazole Sodium 40 mg/ Syringe 10 ml @ 5 mls/min DAILY@11 IV 12/29/17 11:00 01/28/18 10:59 Ondansetron HCl (Zofran Inj) 4 mg Q6H PRN IV 12/28/17 20:45 01/27/18 20:44 Promethazine HCl 12.5 mg/Sodium Chloride 50.5 ml @ 204 mls/hr Q6H PRN IV 12/28/17 20:45 01/27/18 20:44 Levetiracetam 750 mg/Dextrose 107.5 ml @ 420 mls/hr Q12H IV 12/28/17 21:00 01/27/18 20:59 12/29/17 08:38 420 MLS/HR Acetaminophen 1000 mg/Empty Bag 100 ml @ 400 mls/hr Q8H IV 12/28/17 22:00 01/27/18 21:59 12/29/17 05:47 400 MLS/HR Dexamethasone Sodium Phosphate 2 mg/Syringe 0.5 ml @ 1 mls/min BID IV 12/28/17 22:30 01/27/18 22:29 12/29/17 08:39 1 MLS/MIN Insulin Glargine (Lantus Solostar Pen) 10 units Q12 SC 12/28/17 21:00 01/27/18 20:59 Future hold 12/28/17 22:38 10 UNITS Insulin Aspart (novoLOG ASPART) SLIDING SCALE If C... ACHS SC 12/28/17 21:00 01/27/18 20:59 12/28/17 22:38 2 UNITS Glucose (Glucose 40% Gel) 15-30 GRAMS 15 GRAMS... UD PRN PO 12/28/17 20:45 01/27/18 20:44 Glucose (Glucose Chew Tab) 4-8 Tablets 4 Tabl... UD PRN PO 12/28/17 20:45 01/27/18 20:44 Dextrose (Dextrose 50% 50ML Syringe) 25-50ML 25ML FOR ... UD PRN IV 12/28/17 20:45 01/27/18 20:44 Glucagon (Glucagon Inj) 1 mg UD PRN SQ 12/28/17 20:45 01/27/18 20:44 Carbohydrates (Carbohydrates For Hypoglycemia) 15-30 GRAMS 15 grams if BSG 54-69... UD PRN PO 12/28/17 20:45 01/27/18 20:44 Piperacillin Sod/ Tazobactam Sod 3.375 gm/Dextrose 115 ml @ 28.75 mls/ hr Q8H IV 12/29/17 00:00 01/08/18 00:00 12/29/17 09:00 28.75 MLS/HR Miscellaneous Information (Consult) 1 ea UD PRN N/A 12/28/17 20:45 01/27/18 20:44 Sodium Chloride 1,000 ml @ 100 mls/hr Q10H IV 12/28/17 20:45 12/29/17 16:44 12/29/17 08:38 100 MLS/HR Morphine Sulfate (MoRPHine SULFATE INJ) 2 mg Q2R PRN IV 12/28/17 21:00 01/11/18 20:59 12/29/17 05:55 2 MG Lorazepam (Ativan Inj) 0.5 mg Q4H PRN IV 12/29/17 01:00 01/28/18 00:59 Lorazepam 0.5 mg/ Syringe 1 ml @ 1 mls/min Q4H PRN IV 12/29/17 02:15 01/28/18 02:14 Physical Exam Date Time Temp Pulse Resp B/P (MAP) Pulse Ox O2 Delivery O2 Flow Rate FiO2 12/29/17 00:00 Nasal Cannula 2.0 12/28/17 23:01 37.8 120 22 106/69 (81) 97 Nasal Cannula 2.0 12/28/17 21:35 100 20 92/54 99 Nasal Cannula 2.0 12/28/17 21:22 Nasal Cannula 2.0 12/28/17 20:05 127 20 123/81 94 Nasal Cannula 2.0 12/28/17 19:23 118 20 113/71 91 Room Air 12/28/17 18:24 130 12/28/17 18:21 36.3 130 22 119/81 Room Air General Appearance: no apparent distress (laying in bed) Neck: supple Respiratory: chest non-tender, lungs clear, normal breath sounds Cardiovascular: + pertinent finding (B/L LE +2 non pitting edema) Abdomen: + abnormal bowel sounds, + distended, + tenderness (on palpation) Neurologic/Psychiatric: + pertinent finding (alert, oriented to location, situation and self.) Skin: warm/dry, + mottled (knees), + pallor, + pertinent finding (right elbow with ecchymosis) Laboratory Results Last 24 Hours Test 12/28/17 18:30 12/28/17 18:40 12/28/17 18:43 12/28/17 18:46 White Blood Count 4.04 K/uL Red Blood Count 2.98 M/uL Hemoglobin 10.4 g/dL Hematocrit 32.8 % Mean Corpuscular Volume 110.1 fL Mean Corpuscular Hemoglobin 34.9 pg Mean Corpuscular Hemoglobin Concent 31.7 g/dl Platelet Count 168 K/uL Mean Platelet Volume 9.4 fL Neutrophils (%) (Auto) 86.2 % Lymphocytes (%) (Auto) 6.7 % Monocytes (%) (Auto) 6.7 % Eosinophils (%) (Auto) 0.2 % Basophils (%) (Auto) 0.0 % Neutrophils # (Auto) 3.48 K/uL Lymphocytes # (Auto) 0.27 K/uL Monocytes # (Auto) 0.27 K/uL Eosinophils # (Auto) 0.01 K/uL Basophils # (Auto) 0.00 K/uL RDW Standard Deviation 68.3 fL RDW Coefficient of Variation 17.4 % Immature Granulocyte % (Auto) 0.2 % Immature Granulocyte # (Auto) 0.01 K/uL Nucleated RBC Absolute Count (auto) 0.15 K/uL Nucleated Red Blood Cells % 3.6 % Macrocytosis PRESENT Spherocytes 2+ Tear Drop Cells 1+ Prothrombin Time 10.1 SECONDS Prothromb Time International Ratio 1.0 Activated Partial Thromboplast Time 32.2 SECONDS Partial Thromboplastin Ratio 1.2 Sodium Level 133 mmol/L Potassium Level 3.9 mmol/L Chloride Level 99 mmol/L Carbon Dioxide Level 27 mmol/L Anion Gap 7.0 mmol/L 10.0 mmol/L Blood Urea Nitrogen 28 mg/dl Creatinine 0.57 mg/dl Est Creatinine Clear Calc Drug Dose 117.1 ml/min Estimated GFR () 120.6 Estimated GFR (Non- 104.0 BUN/Creatinine Ratio 48.4 Random Glucose 204 mg/dl Calcium Level 8.7 mg/dl Total Bilirubin 0.6 mg/dl Aspartate Amino Transf (AST/SGOT) 19 U/L Alanine Aminotransferase (ALT/SGPT) 39 U/L Alkaline Phosphatase 111 U/L Total Protein 6.6 gm/dl Albumin 2.1 gm/dl Globulin 4.5 gm/dl Albumin/Globulin Ratio 0.5 Lipase 41 U/L Urine Color YELLOW Urine Appearance CLOUDY Urine pH 5.0 Urine Specific [place] 1.024 Urine Protein 1+ Urine Glucose (UA) 1+ Urine Ketones NEG Urine Occult Blood TRACE Urine Nitrite NEG Urine Bilirubin NEG Urine Urobilinogen NEG Urine Leukocyte Esterase NEG Urine WBC (Auto) 1-5 /hpf Urine RBC (Auto) 5-10 /hpf Urine Hyaline Casts (Auto) 1-5 /lpf Urine Epithelial Cells (Auto) 10-20 /lpf Urine Bacteria (Auto) NEG Bedside Lactic Acid Venous 3.24 mmol/L Bedside Hemoglobin 11.6 g/dl Bedside Hematocrit 34 % Bedside Sodium 135 mEq/L Bedside Potassium 4.2 mEq/L Bedside Chloride 102 mEq/L Bedside Total CO2 27 mEq/l Bedside Blood Urea Nitrogen 27 mg/dl Bedside Creatinine 0.3 mg/dl Bedside Glucose (other) 218 mg/dl Bedside Ionized Calcium (Laura) 0.86 mmol/l Test 12/28/17 18:47 12/28/17 22:02 12/29/17 07:43 Bedside Troponin I 0.040 ng/ml Bedside Glucose 184 mg/dl 91 mg/dl Assessment & Plan Palliative Performance Scale: 20 % Palliative Care Encounter GBM Double vision/blurry vision weakness Palliative Care Recommendations: ADVANCED DIRECTIVE: -Patient to remain DNR/DNI. Patient brotherNik is POA and completed the POLST form at the bedside. GLIOBLASTOMA MULTIFORME: -Patient with progressing GBM with poor prognosis. Discussed GOALS OF CARE at the bedside with the patient, , brotherNik (POA), and patients sister. No escalation in care. Discussed with primary team to D/C all non- essential medications, aside from comfort medications and Decadron at this time. All blood draws and vital signs were discontinued. DIPLOPIA: -Patient on oral Decadron. Discussed with the family that we will continue to administer this as long as the patient can tolerate swallowing as this may help with his visual changes while he continues to be communicative. DISCHARGE PLANNING: -Patient is a resident of [facility]. The family has expressed interest in him returning home. -We discussed the patient returning to [facility] vs. Home Hospice vs GIP. -I explained that at this time, I do not feel that he meets inpatient Hospice criteria, as he is able to communicate, and is not requiring much from a pain/symptom management at this time. That being said, if he would show acute decline/uncontrolled symptoms, this would be an appropriate avenue for this patient and family. -Case management was present for a portion of the above conversation and will proceed to contact [facility] for an evaluation. Counseling and Coordination Total time spent 90 minutes with > 50% of that time spent counseling/ coordinating patients care, discussing GOALS OF CARE, completing a POLST form and discussing end-of-life concerns. Time in 0850/Time out 0955.
[2017-12-29] MEDS ORDERED: LIDODERM (LIDOCAINE) PATCH 5% TD ONE (11:33)
[2017-12-29 15:50] VITALS: O2SAT 97
--- NOTE | 2017-12-29 22:24 | Progress Note ---
Subjective Date of Service: Dec 29, 2017. Subjective Pt evaluation today including: conversation w/ patient, physical exam 72 yo male reports that his main complaint is his right upper extremity. Patient reports that this was injured weeks ago and had a schedule appointment to see [facility] to get his arm drained. Patient states that the pain is severe. Problem List Medical Problems: (1) Anemia Status: Acute (2) Brain mass Status: Acute (3) Dehydration Status: Acute (4) Dehydration Status: Acute (5) Elevated troponin Status: Acute (6) Glioblastoma Status: Acute (7) Hypocalcemia Status: Acute (8) Hypotension Status: Acute (9) Hypotension Status: Acute (10) Intra-abdominal free air of unknown etiology Status: Acute (11) Left-sided weakness Status: Acute (12) Left-sided weakness Status: Acute (13) Rupture of bowel Status: Acute (14) Shortness of breath Status: Acute (15) Tachycardia Status: Acute (16) UTI (urinary tract infection) Status: Acute (17) Weakness Status: Acute Review of Systems Constitutional: No fever, No chills Eyes: No worsening of vision ENT: No hearing loss Respiratory: No sputum Cardiac: No chest pain Abdomen: + problem reported (BLOATED) Musculoskeletal: + muscle pain, + swelling Male : No urinary frequency Neurologic: No memory loss Psychiatric: No depression symptoms Endo: No excessive thirst Skin: No rash Objective Vital Signs Date Time Temp Pulse Resp B/P (MAP) Pulse Ox O2 Delivery O2 Flow Rate FiO2 12/29/17 15:50 97 Nasal Cannula 2.0 12/29/17 08:30 97 Nasal Cannula 2.0 12/29/17 00:00 Nasal Cannula 2.0 12/28/17 23:01 37.8 120 22 106/69 (81) 97 Nasal Cannula 2.0 Physical Exam Comments: General Appearance: WD/WN, no apparent distress Head: + pertinent finding (surgical scars, post-operative changes from prior craniotomy) Eyes: normal inspection, PERRL, sclerae normal ENT: hearing grossly normal, pharynx normal Neck: supple, no adenopathy, thyroid normal, no JVD, trachea midline Respiratory/Chest: chest non-tender, lungs clear, normal breath sounds, no respiratory distress, no accessory muscle use Cardiovascular: + pertinent finding (+S1, S2, irregularly irregular, no m/r/g) Abdomen/GI: + pertinent finding (abdomen distended, tympanic to percussion, diminished bowel sounds throughout, firm, tender to palpation diffusely with guarding/peritoneal signs) Genitourinary - Male: normal male genitalia Extremities/Musculoskelatal: normal inspection, + pedal edema (flaccid paralysis left side) Neurologic/Psych: + pertinent finding Skin: no rash, + pertinent finding (bruising on forearm right with hard hematoma) Laboratory Results Last 24 Hours Test 12/29/17 07:43 12/29/17 11:46 12/29/17 11:47 12/29/17 11:50 Bedside Glucose 91 mg/dl 15 mg/dl 79 mg/dl 79 mg/dl Test 12/29/17 17:27 12/29/17 20:48 Bedside Glucose 80 mg/dl 97 mg/dl Assessment and Plan 72yo male with history of Glioblastoma multiforme presenting with 5 days of progressive abdominal pain. Found to have free intraperitoneal air most likely secondary to perforated diverticuli. Due to underlying medical comorbidities as well patient is not a surgical candidate. Decision made to place the patient on comfort measures. 1. Free intraperitoneal air - most likely secondary to perforated diverticuli. Patient is tender and distended. Unfortunately is not a candidate for surgical intervention due to severity of underlying medical comorbidities and high risk status. Consulted palliative care -Patient will be discharged on Hospice continue pain control with Morphine 2mg IV q 2 hours PRN. Will adjust as needed to ensure patient comfort -Nausea control with Zofran 4mg IV q 6 hours PRN and Phenergan 12.5mg IV q 6 hours PRN -stop antibiotics -Awaiting arrangements for either home hospice or a outside hospice facility 2. Atrial fibrillation - patient with AF with RVR, HR presently 118, minimally responsive to IVF. He is on Amiodarone as an outpatient -Will administer Amiodarone 150mg IV x 1 dose -Lovenox 80mg BID -Continue to monitor 3. Glioblastoma multiforme - s/p craniotomy x 2, XRT and chemotherapy. Patient is end stage, left sided paralysis, concomitant seizures -Dexamethasone converted to IV - 2mg IV BID -Keppra converted to IV - 750mg IV BID 4. Diabetes - blood sugar presently elevated at 218 -Decrease Lantus to 10u BID as patient is NPO -ISS -Consider discontinuing insulin coverage entirely 5. Hypertension - presently normotensive -Hold antihypertensive agents 6. History of DVT/PE - -Continue Lovenox BID 7. Hematoma in right upper extremity Continues to be painful. Will place a lidocaine patch and monitor. Patient will continue on morphine IV q2h prn 8. F/E/N - NSS at 100mL/hr x 2 liters, electrolytes WNL. NPO except chips/sips /meds 9. Ppx - Lovenox full dose, Protonix 40mg IV daily 10. Code - DNR per discussion with patient and family. Patient's brother, Nik (POA) at bedside as well as patient's . Patient and family are in agreement to pursue symptom management and a more palliative approach to his care at this time. 11. Dispo - SAP ARIBA CONSULTANT
[2017-12-30] MEDS: ACETAMINOPHEN IV 1,000 MG in EMPTY BAG 0 ML IV SCH ×3 (05:48→21:56)
[2017-12-30] MEDS: INSULIN ASPART 100 UNITS/ML 3 ML PEN SC SCH ×2 (06:30→12:17)
[2017-12-30] MEDS: INSULIN GLARGINE SOLOSTAR 100 UNITS/ML 3 ML PEN SC SCH (07:29)
[2017-12-30] MEDS: ENOXAPARIN 80 MG/0.8 ML SYR SQ SCH (07:32)
[2017-12-30] MEDS: LIDODERM (LIDOCAINE) PATCH 5% TD SCH (08:12)
[2017-12-30] MEDS: LEVETIRACETAM IV 750 MG in DEXTROSE 5% 100ML 100 ML IV SCH ×2 (08:12→21:33)
[2017-12-30] MEDS: DEXAMETHASONE INJ 2 MG in SYRINGE 0 ML IV SCH ×2 (08:15→20:21)
[2017-12-30] MEDS: MoRPHine SULFATE 2 MG/ML CARP IV PRN (08:53)
[2017-12-30] MEDS: PANTOprazole INJ 40 MG in SYRINGE 0 ML IV SCH (12:16)
--- NOTE | 2017-12-30 12:47 | Palliative Care Progress Note ---
Palliative Care Progress Note Date of Service Dec 30, 2017. Subjective Pt evaluation today including: conversation w/ patient, physical exam, chart review Pain: none PO Intake: sips Voiding: washington catheter in place Patient is awake, alert and oriented. Somewhat forgetful. Does not remember exactly why he is in hospital. States he wants to go home, was tearful. Family deciding today about taking patient home with hospice vs. facility. [facility] meeting with family this afternoon. Review of Systems Constitutional: + weakness ENT: No trouble swallowing Respiratory: No shortness of breath Cardiac: No chest pain Abdomen: No pain, No nausea, No vomiting Male : No problem reported Psychiatric: No depression symptoms, No anxiety Objective Vital Signs Date Time Temp Pulse Resp B/P (MAP) Pulse Ox O2 Delivery O2 Flow Rate FiO2 12/30/17 08:30 Nasal Cannula 2.0 12/29/17 23:03 Nasal Cannula 2.0 12/29/17 15:50 97 Nasal Cannula 2.0 Physical Exam General Appearance: no apparent distress ENT: hearing grossly normal Neck: supple, no JVD Respiratory/Chest: no respiratory distress, no accessory muscle use, + decreased breath sounds Cardiovascular: regular rate, rhythm, + pertinent finding (+4 pitting edema to BL feet and ankles, pedal pulses unable to be palpated) Abdomen: normal bowel sounds, + distended (firm) Neurologic/Psychiatric: alert, normal mood/affect, oriented x 3 (forgetful) Skin: + mottled (bilateral knees and toes), + pallor Laboratory Results Last 24 Hours Test 12/29/17 17:27 12/29/17 20:48 Bedside Glucose 80 mg/dl 97 mg/dl Assessment and Plan Problem list: Diplopia Glioblastoma multiforme Abdominal free air- possible perforated diverticula Comfort measures only Palliative care recs: -Patient is DNR. -Not a surgical candidate. -Comfort measures only status as previously decided on admission. -Switch morphine to oral Roxanol prior to discharge. -Allow sips and bites as tolerated by patient for comfort. -Home hospice vs. hospice at SNF. [facility] is meeting with patient's family this afternoon to finalize plans. Case management is following. -POLST form completed yesterday by DELMER Porter. -Please contact us with any further palliative care needs. Total time spent 25 minute with >50% of time spent at bedside with patient discussing plan/goals of care. Palliative Performance Scale: 20 % Discharge planning: home with Hospice
[2017-12-30] MEDS ORDERED: MoRPHine SULFATE IR 15 MG TAB (IMMEDIATE RELEASE) PO PRN (13:45)
[2017-12-30] MEDS ORDERED: MoRPHine SULFATE IR 15 MG TAB (IMMEDIATE RELEASE) PO STA (13:47)
[2017-12-30] MEDS ORDERED: MoRPHine SULFATE 10 MG/0.5 ML UDP PO STA (13:52)
[2017-12-30] MEDS ORDERED: NURSING VERBAL MED ORDER ONE (14:00)
[2017-12-30] MEDS ORDERED: FENTANYL 12 MCG/HR TDSY TD SCH (16:15)
[2017-12-30] MEDS: MoRPHine SULFATE 10 MG/0.5 ML UDP PO PRN ×3 (16:22→21:34)
[2017-12-30] MEDS: ENOXAPARIN 120 MG/0.8 ML SYR SQ SCH (20:22)
--- NOTE | 2017-12-30 22:22 | Progress Note ---
Subjective Date of Service: Dec 30, 2017. Subjective Pt evaluation today including: conversation w/ patient, physical exam 72 yo M is calm and resting. Reports that he is not in significant pain. Patient was examined in the morning. Problem List Medical Problems: (1) Anemia Status: Acute (2) Brain mass Status: Acute (3) Dehydration Status: Acute (4) Dehydration Status: Acute (5) Elevated troponin Status: Acute (6) Glioblastoma Status: Acute (7) Hypocalcemia Status: Acute (8) Hypotension Status: Acute (9) Hypotension Status: Acute (10) Intra-abdominal free air of unknown etiology Status: Acute (11) Left-sided weakness Status: Acute (12) Left-sided weakness Status: Acute (13) Rupture of bowel Status: Acute (14) Shortness of breath Status: Acute (15) Tachycardia Status: Acute (16) UTI (urinary tract infection) Status: Acute (17) Weakness Status: Acute Review of Systems Constitutional: No fever, No chills Eyes: No worsening of vision ENT: No hearing loss Respiratory: No sputum Cardiac: No chest pain Abdomen: + problem reported (BLOATED) Musculoskeletal: + muscle pain, + swelling Male : No urinary frequency Neurologic: No memory loss Psychiatric: No depression symptoms Endo: No excessive thirst Skin: No rash All Other Systems: Reviewed and Negative Objective Vital Signs Date Time Temp Pulse Resp B/P (MAP) Pulse Ox O2 Delivery O2 Flow Rate FiO2 12/30/17 16:00 Nasal Cannula 2.0 12/30/17 08:30 Nasal Cannula 2.0 12/29/17 23:03 Nasal Cannula 2.0 Physical Exam Comments: General Appearance: WD/WN, no apparent distress Head: + pertinent finding (surgical scars, post-operative changes from prior craniotomy) Eyes: normal inspection, PERRL, sclerae normal ENT: hearing grossly normal, pharynx normal Neck: supple, no adenopathy, thyroid normal, no JVD, trachea midline Respiratory/Chest: chest non-tender, lungs clear, normal breath sounds, no respiratory distress, no accessory muscle use Cardiovascular: + pertinent finding (+S1, S2, irregularly irregular, no m/r/g) Abdomen/GI: + pertinent finding (abdomen distended, tympanic to percussion, diminished bowel sounds throughout, firm, tender to palpation diffusely with guarding/peritoneal signs) Genitourinary - Male: normal male genitalia Extremities/Musculoskelatal: normal inspection, + pedal edema (flaccid paralysis left side) Neurologic/Psych: + pertinent finding Skin: no rash, + pertinent finding (bruising on forearm right with hard hematoma) Assessment and Plan 72yo male with history of Glioblastoma multiforme presenting with 5 days of progressive abdominal pain. Found to have free intraperitoneal air most likely secondary to perforated diverticuli. Due to underlying medical comorbidities as well patient is not a surgical candidate. Decision made to place the patient on comfort measures. 1. Free intraperitoneal air - most likely secondary to perforated diverticuli. Patient is tender and distended. Unfortunately is not a candidate for surgical intervention due to severity of underlying medical comorbidities and high risk status. Consulted palliative care -Patient will be discharged on Hospice continue pain control with Morphine 2mg IV q 2 hours PRN. Will adjust as needed to ensure patient comfort -Nausea control with Zofran 4mg IV q 6 hours PRN and Phenergan 12.5mg IV q 6 hours PRN -stop antibiotics -Awaiting arrangements for either home hospice or a outside hospice facility -Leaning towards home hospice -Convert pain medicine to PO. 2. Atrial fibrillation - patient with AF with RVR, HR presently 118, minimally responsive to IVF. He is on Amiodarone as an outpatient -Will administer Amiodarone 150mg IV x 1 dose -Lovenox 80mg BID -Continue to monitor 3. Glioblastoma multiforme - s/p craniotomy x 2, XRT and chemotherapy. Patient is end stage, left sided paralysis, concomitant seizures -Dexamethasone converted to IV - 2mg IV BID -Keppra converted to IV - 750mg IV BID 4. Diabetes - blood sugar presently elevated at 218 -Decrease Lantus to 10u BID as patient is NPO -ISS -Consider discontinuing insulin coverage entirely 5. Hypertension - presently normotensive -Hold antihypertensive agents 6. History of DVT/PE - -Continue Lovenox BID 7. Hematoma in right upper extremity Continues to be painful. Will place a lidocaine patch and monitor. At this time, do not believe a simple drainage will be possible due to the fact that the hematoma is likely calcified. will hold off ortho consult. 8. F/E/N - NSS at 100mL/hr x 2 liters, electrolytes WNL. NPO except chips/sips /meds 9. Ppx - Lovenox full dose, Protonix 40mg IV daily 10. Code - DNR per discussion with patient and family. Patient's brother, Nik (POA) at bedside as well as patient's . Patient and family are in agreement to pursue symptom management and a more palliative approach to his care at this time. 11. Dispo - TALENT REP Above note pertains to my first visit with the patient. DurinG my second visit, which I spent from 2:45 to 3:20. This time was spent discussing with consultants. Updating family. Family is concerned that patient is not getting enough pain medicine. As patient does not like to ask for pain medication, I explained to family that we ask him every 2 hours if he is in pain, and patient has only received morphine about 3 times in past 24 hours as patient has refused it. Will place patient on fentanyl patch on a low dose and convert his morphine to PO. WILL CONSULT ORTHO as family requested this Spent about 35 minutes managing patient in my second visit. Discharge planning: home with Hospice
[2017-12-31] MEDS: CHECK FENTANYL PATCH PLACEMENT SCH ×3 (00:04→16:00)
[2017-12-31] MEDS: MoRPHine SULFATE 10 MG/0.5 ML UDP PO PRN ×8 (06:21→23:31)
[2017-12-31] MEDS: ACETAMINOPHEN IV 1,000 MG in EMPTY BAG 0 ML IV SCH ×3 (06:21→21:30)
[2017-12-31] MEDS ORDERED: NURSING VERBAL MED ORDER ONE (07:45)
[2017-12-31] MEDS: DEXAMETHASONE INJ 2 MG in SYRINGE 0 ML IV SCH ×2 (07:46→20:58)
[2017-12-31] MEDS: LIDODERM (LIDOCAINE) PATCH 5% TD SCH (07:46)
[2017-12-31] MEDS ORDERED: MoRPHine SULFATE 10 MG/0.5 ML UDP PO STA (07:48)
[2017-12-31] MEDS: LEVETIRACETAM IV 750 MG in DEXTROSE 5% 100ML 100 ML IV SCH ×2 (07:51→20:58)
[2017-12-31] MEDS ORDERED: FENTANYL PATCH REMOVE & WASTE SCH (09:29)
[2017-12-31] MEDS ORDERED: FENTANYL 25 MCG/HR TDSY TD SCH (09:30)
[2017-12-31] MEDS: PANTOprazole INJ 40 MG in SYRINGE 0 ML IV SCH (10:21)
--- NOTE | 2017-12-31 12:51 | Palliative Care Progress Note ---
Palliative Care Progress Note Date of Service Dec 31, 2017. Subjective Pt evaluation today including: conversation w/ patient, conversation w/ family (brother/POA Bill, patient's ), physical exam, chart review, conversation w / client care consultant (Dr. Butler) Pain: 9/10 in right arm PO Intake: minimal sips Voiding: washington catheter in place Patient is awake, alert and oriented to person, place and event. Patient is tearful. States that he is not crying due to pain, but because "I'm just emotional." Patient states he wants to go home. Brother and are at bedside and updated. Spoke at length with patient's brother Bill about plan of care, medications and end of life issues. Review of Systems Constitutional: + weakness ENT: No trouble swallowing Respiratory: No cough, No shortness of breath Cardiac: No chest pain, No edema Abdomen: No pain, No nausea, No vomiting Male : No problem reported Psychiatric: No depression symptoms, No anxiety Objective Vital Signs Date Time Temp Pulse Resp B/P (MAP) Pulse Ox O2 Delivery O2 Flow Rate FiO2 12/31/17 08:00 Nasal Cannula 2.0 12/30/17 20:35 Nasal Cannula 2.0 12/30/17 16:00 Nasal Cannula 2.0 Physical Exam General Appearance: no apparent distress ENT: hearing grossly normal Neck: supple, no JVD Respiratory/Chest: no respiratory distress, no accessory muscle use, + decreased breath sounds Cardiovascular: regular rate, rhythm, + pertinent finding (unable to palpate pedal pulses) Abdomen: non tender, + distended (firm), + pertinent finding (hypoactive bowel sounds) Neurologic/Psychiatric: alert, oriented x 3, + pertinent finding (tearful) Skin: + mottled (bilateral feet, dependent areas of legs between ankles and knees, bilateral knees), + pallor, + pertinent finding (large right upper arm hematoma that was present on admission from [facility]) Assessment and Plan Problem list: Diplopia Glioblastoma multiforme Abdominal free air- possible perforated diverticula Comfort measures only Palliative care recs: -Patient is DNR. -Not a surgical candidate for abdominal issues. -Comfort measures only status as previously decided on admission. -Orthopedic surgery is consulted for the right upper arm hematoma as requested by the family. Uncertain that anything can be done at this point since patient is terminal and mottling at this point. -Continue Roxanol as needed for pain or SOB. Can increase to 10mg PO/SL Q1h PRN pain or SOB. -Lorazepam 1mg PO/SL Q4h PRN anxiety/agitation. -Allow sips and bites as tolerated by patient for comfort. -Home with [facility] as agreed upon by family. -POLST form completed yesterday by DELMER Porter. -Please contact us with any further palliative care needs. Total time spent 65 minutes with >50% of time spent at bedside with patient and family discussing plan/goals of care, end of life issues, pain/symptom management, as well as collaborating with case management and physician to coordinate care. Palliative Performance Scale: 20 % Discharge planning: home with Hospice
--- NOTE | 2017-12-31 19:12 | ORTHOPEDIC CONSULTATION ---
DATE OF CONSULTATION: 12/31/2017 Special attention to right upper arm hematoma. HISTORY OF PRESENT ILLNESS: 72-old gentleman who is currently admitted for comfort measures with history of glioblastoma. He notes onset of a proximal approximately 2 to 3 weeks of pain and swelling in the upper arm. He states it began after a transfer to [place]. Currently, he is on Lovenox. As per family report they saw Dr. Turpin in the office. MRI was performed at [facility]. Per family report, they state they do not have results of this. PAST MEDICAL HISTORY: 1. Anemia. 2. Glioblastoma. 3. Diabetes. 4. Hyperlipidemia. 5. Left-sided weakness. 6. History of paroxysmal AFib. 7. History of pulmonary embolism. PAST SURGICAL HISTORY: Status post craniotomy. MEDICATIONS: Lovenox 80 mg subQ q. 12 hours, metformin, OxyIR 5 mg p.r.n., oxycodone 10 mg p.o. q. 4 p.r.n. Right upper extremity examination does show swelling in the posterior aspect of the triceps. No overlying erythema seen. Triceps is warm to touch. He can flex and extend the elbow, but exam is limited secondary to discomfort. ASSESSMENT: Right upper extremity hematoma and triceps muscle. PLAN: I discussed the findings to the family and also discussed the case with the hospital staff physician. Given that he is currently comfort care measures would not recommend surgical intervention. I feel this will likely be able to be drained successfully at the bedside. One consideration would be if he had persistent pain, for interventional radiology guided drainage or aspiration. I did discuss this as well with the hospitalist as an option. At this point in time, no further surgical treatment is recommended from my standpoint.
[2017-12-31] MEDS: ENOXAPARIN 120 MG/0.8 ML SYR SQ SCH (20:00)
--- NOTE | 2017-12-31 22:47 | Progress Note ---
Subjective Date of Service: Dec 31, 2017. Subjective Pt evaluation today including: conversation w/ patient, physical exam PATIENT was seen multiple times during the day. Adama was maryam in the morning. He stated that he had told the field nurse case manager that he would like to go home. He tells me that he has pain in his right arm, but that the pain medicine controls the pain. When asked if he would like more pain medicine, patient states no. I reinterated to the patient that he can get his pain medicine q2h. Problem List Medical Problems: (1) Anemia Status: Acute (2) Brain mass Status: Acute (3) Dehydration Status: Acute (4) Dehydration Status: Acute (5) Elevated troponin Status: Acute (6) Glioblastoma Status: Acute (7) Hypocalcemia Status: Acute (8) Hypotension Status: Acute (9) Hypotension Status: Acute (10) Intra-abdominal free air of unknown etiology Status: Acute (11) Left-sided weakness Status: Acute (12) Left-sided weakness Status: Acute (13) Rupture of bowel Status: Acute (14) Shortness of breath Status: Acute (15) Tachycardia Status: Acute (16) UTI (urinary tract infection) Status: Acute (17) Weakness Status: Acute Review of Systems Constitutional: No fever, No chills Eyes: No worsening of vision ENT: No hearing loss Respiratory: No sputum Cardiac: No chest pain Abdomen: + problem reported (BLOATED) Musculoskeletal: + muscle pain, + swelling Male : No urinary frequency Neurologic: No memory loss Psychiatric: No depression symptoms Endo: No excessive thirst Skin: No rash All Other Systems: Reviewed and Negative Objective Vital Signs Date Time Temp Pulse Resp B/P (MAP) Pulse Ox O2 Delivery O2 Flow Rate FiO2 12/31/17 16:00 Room Air 12/31/17 08:00 Nasal Cannula 2.0 Physical Exam Comments: General Appearance: WD/WN, no apparent distress Head: + pertinent finding (surgical scars, post-operative changes from prior craniotomy) Eyes: normal inspection, PERRL, sclerae normal ENT: hearing grossly normal, pharynx normal Neck: supple, no adenopathy, thyroid normal, no JVD, trachea midline Respiratory/Chest: chest non-tender, lungs clear, normal breath sounds, no respiratory distress, no accessory muscle use Cardiovascular: + pertinent finding (+S1, S2, irregularly irregular, no m/r/g) Abdomen/GI: + pertinent finding (abdomen distended, tympanic to percussion, diminished bowel sounds throughout, firm, tender to palpation diffusely with guarding/peritoneal signs) Genitourinary - Male: normal male genitalia Extremities/Musculoskelatal: normal inspection, + pedal edema (flaccid paralysis left side) Neurologic/Psych: + pertinent finding Skin: no rash, + pertinent finding (bruising on forearm right with hematoma) Assessment and Plan 72yo male with history of Glioblastoma multiforme presenting with 5 days of progressive abdominal pain. Found to have free intraperitoneal air most likely secondary to perforated diverticuli. Due to underlying medical comorbidities as well patient is not a surgical candidate. Decision made to place the patient on comfort measures. 1. Free intraperitoneal air - most likely secondary to perforated diverticuli. Patient is tender and distended. Unfortunately is not a candidate for surgical intervention due to severity of underlying medical comorbidities and high risk status. Consulted palliative care -Patient will be discharged on Hospice later today or tomorrow. continue pain control with Morphine 2mg IV q 2 hours PRN. Will adjust as needed to ensure patient comfort -Nausea control with Zofran 4mg IV q 6 hours PRN and Phenergan 12.5mg IV q 6 hours PRN -stop antibiotics -Arrangement arranged for home hospice -Converted pain medicine to PO. -It appears that patient pain is controlled, but family is concerned over his hematoma, and would like ortho to see patient. -awaiting consult. -increased fentanyl patch 2. Atrial fibrillation - patient with AF with RVR, HR presently 118, minimally responsive to IVF. He is on Amiodarone as an outpatient -Will administer Amiodarone 150mg IV x 1 dose -Lovenox 80mg BID -Continue to monitor 3. Glioblastoma multiforme - s/p craniotomy x 2, XRT and chemotherapy. Patient is end stage, left sided paralysis, concomitant seizures -Dexamethasone converted to IV - 2mg IV BID -Keppra converted to IV - 750mg IV BID 4. Diabetes - blood sugar presently elevated at 218 -Decrease Lantus to 10u BID as patient is NPO -ISS -Consider discontinuing insulin coverage entirely 5. Hypertension - presently normotensive -Hold antihypertensive agents 6. History of DVT/PE - -Continue Lovenox BID 7. Hematoma in right upper extremity Continues to be painful. Will place a lidocaine patch and monitor. and continue fenatnyl patch at a higher dose.. 8. F/E/N - NSS at 100mL/hr x 2 liters, electrolytes WNL. NPO except chips/sips /meds 9. Ppx - Lovenox full dose, Protonix 40mg IV daily 10. Code - DNR per discussion with patient and family. Patient's brother, Nik (POA) at bedside as well as patient's . Patient and family are in agreement to pursue symptom management and a more palliative approach to his care at this time. 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 During my second visit 3:30 to 3:50pm I discussed with about the fact that it appears he is in the process of dying and that the window to bring him home is short. If isn't discharged today, it will be unlikely that he will be able to be discharged over the weekend. Family is still undecided. 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 A option could be interventional radiology, but given patient condition, and staffing, it would have to be done next week, and I am not sure patient will survive until then. Continue pain medicine. Spent about 55 minutes of prolonged time in the afternoon in addition to the time spent on the first visit. Discharge planning: home with Hospice
[2018-01-01] MEDS ORDERED: SCOPOLAMINE 1.5 MG TDSY TD SCH ×3 (00:15→10:30)
[2018-01-01] MEDS: CHECK FENTANYL PATCH PLACEMENT SCH ×4 (00:33→23:57)
[2018-01-01] MEDS: MoRPHine SULFATE 10 MG/0.5 ML UDP PO PRN ×4 (01:33→08:18)
[2018-01-01] MEDS ORDERED: ATROPINE SULFATE 1% OP SOLN 2 ML BTL ONE (01:53)
[2018-01-01] MEDS: LORAZEPAM 2 MG/ML 1 ML VIAL IV PRN ×2 (01:56→10:11)
[2018-01-01] MEDS ORDERED: NURSING VERBAL MED ORDER ONE ×2 (02:00→09:30)
[2018-01-01] MEDS ORDERED: ATROPINE SULFATE 1% OP SOLN 2 ML BTL OP PRN (02:15)
[2018-01-01] MEDS: ACETAMINOPHEN IV 1,000 MG in EMPTY BAG 0 ML IV SCH ×3 (06:31→21:33)
[2018-01-01 08:00] VITALS: O2SAT 97
[2018-01-01] MEDS: CHECK SCOPOLAMINE PATCH PLACEMENT SCH ×5 (08:00→23:57)
[2018-01-01] MEDS: LIDODERM (LIDOCAINE) PATCH 5% TD SCH (08:00)
[2018-01-01] MEDS: DEXAMETHASONE INJ 2 MG in SYRINGE 0 ML IV SCH ×2 (08:18→20:40)
[2018-01-01] MEDS ORDERED: MoRPHine SULFATE 2 MG/ML CARP ONE (09:00)
[2018-01-01] MEDS: MoRPHine SULFATE 2 MG/ML CARP IV PRN ×6 (10:14→22:40)
[2018-01-01] MEDS: LEVETIRACETAM IV 750 MG in DEXTROSE 5% 100ML 100 ML IV SCH ×2 (10:14→20:40)
[2018-01-01] MEDS: PANTOprazole INJ 40 MG in SYRINGE 0 ML IV SCH (12:58)
[2018-01-01] MEDS ORDERED: CHECK SCOPOLAMINE PATCH PLACEMENT SCH (16:00)
[2018-01-01] MEDS: ATROPINE SULFATE 1% OP SOLN 2 ML BTL PO PRN ×2 (20:32→22:40)
[2018-01-01] MEDS: ENOXAPARIN 120 MG/0.8 ML SYR SQ SCH (20:40)
--- NOTE | 2018-01-01 22:57 | Progress Note ---
Subjective Date of Service: Jan 01, 2018. Subjective Pt evaluation today including: conversation w/ patient, physical exam Patient is lethargic, and is nonresponsive. Patient however does not appear to be in distress. Problem List Medical Problems: (1) Anemia Status: Acute (2) Brain mass Status: Acute (3) Dehydration Status: Acute (4) Dehydration Status: Acute (5) Elevated troponin Status: Acute (6) Glioblastoma Status: Acute (7) Hypocalcemia Status: Acute (8) Hypotension Status: Acute (9) Hypotension Status: Acute (10) Intra-abdominal free air of unknown etiology Status: Acute (11) Left-sided weakness Status: Acute (12) Left-sided weakness Status: Acute (13) Rupture of bowel Status: Acute (14) Shortness of breath Status: Acute (15) Tachycardia Status: Acute (16) UTI (urinary tract infection) Status: Acute (17) Weakness Status: Acute Review of Systems unable to obtain ROS. Objective Vital Signs Date Time Temp Pulse Resp B/P (MAP) Pulse Ox O2 Delivery O2 Flow Rate FiO2 01/01/18 21:30 Nasal Cannula 3.0 01/01/18 08:00 97 Nasal Cannula 3.0 01/01/18 04:40 Nasal Cannula 3.0 Physical Exam Comments: General Appearance: unresponsive. Head: + pertinent finding (surgical scars, post-operative changes from prior craniotomy) Eyes: normal inspection, PERRL, sclerae normal Neck: supple, no adenopathy, thyroid normal, no JVD, trachea midline Respiratory/Chest: chest non-tender, rhochi in lower [place] bilateral Cardiovascular: + pertinent finding (+S1, S2, irregularly irregular, no m/r/g) Abdomen/GI: + pertinent finding (abdomen distended, tympanic to percussion, diminished bowel sounds throughout, firm, tender to palpation diffusely with guarding/peritoneal signs) Genitourinary - Male: normal male genitalia Extremities/Musculoskelatal: normal inspection, + pedal edema (flaccid paralysis left side) Neurologic/Psych: + pertinent finding Skin: no rash, + pertinent finding (bruising on forearm right with hematoma) Assessment and Plan 72yo male with history of Glioblastoma multiforme presenting with 5 days of progressive abdominal pain. Found to have free intraperitoneal air most likely secondary to perforated diverticuli. Due to underlying medical comorbidities as well patient is not a surgical candidate. Decision made to place the patient on comfort measures. 1. Free intraperitoneal air - most likely secondary to perforated diverticuli. Patient is tender and distended. Unfortunately is not a candidate for surgical intervention due to severity of underlying medical comorbidities and high risk status. Consulted palliative care Family at this time refuses for patient to go home. continue pain control with Morphine 2mg IV q 2 hours PRN. Will adjust as needed to ensure patient comfort -Nausea control with Zofran 4mg IV q 6 hours PRN and Phenergan 12.5mg IV q 6 hours PRN -stop antibiotics -Arrangement arranged for home hospice -Due to patient being unresponsive, IV morphine has been ordered. Ortho states they will not operate on the hematoma due to his end of life prognosis. -cont fentanyl patch. -Likely will pass within next 24 hours. 2. Atrial fibrillation - patient with AF with RVR, HR presently 118, minimally responsive to IVF. He is on Amiodarone as an outpatient -Lovenox 80mg BID -Continue to monitor 3. Glioblastoma multiforme - s/p craniotomy x 2, XRT and chemotherapy. Patient is end stage, left sided paralysis, concomitant seizures -Dexamethasone converted to IV - 2mg IV BID -Keppra converted to IV - 750mg IV BID 4. Diabetes - blood sugar presently elevated at 218 -Decrease Lantus to 10u BID as patient is NPO -ISS -Consider discontinuing insulin coverage entirely 5. Hypertension - presently normotensive -Hold antihypertensive agents 6. History of DVT/PE - -Continue Lovenox BID 7. Hematoma in right upper extremity Continues to be painful. Placed lidocaine patch and monitor. and continue fenatnyl patch at a higher dose.. 8. F/E/N - NSS at 100mL/hr x 2 liters, electrolytes WNL. NPO except chips/sips /meds 9. Ppx - Lovenox full dose, Protonix 40mg IV daily 10. Code - DNR per discussion with patient and family. Patient's brother, Nik (POA) at bedside as well as patient's . Patient and family are in agreement to pursue symptom management and a more palliative approach to his care at this time. 11. Dispo - [employer] Above note pertains to my first visit with the patient. Spent 25 minutes in management of patient. Discharge planning: home with Hospice
[2018-01-02] MEDS: ATROPINE SULFATE 1% OP SOLN 2 ML BTL PO PRN ×3 (00:54→05:50)
[2018-01-02] MEDS: MoRPHine SULFATE 2 MG/ML CARP IV PRN ×3 (00:56→05:55)
[2018-01-02] MEDS: ACETAMINOPHEN IV 1,000 MG in EMPTY BAG 0 ML IV SCH (05:36)
--- NOTE | 2018-01-02 07:45 | Death Pronouncement Note ---
Pronouncement Note Date & Time of Jan 02, 2018. 0700 Pronouncement At time of pronouncement the patients pupils were fixed and dilated, there was no spontaneous respiratory effort, no palpable pulse, no audible heart tones, and no response to pain or voice. Time of was 7:00.
--- NOTE | 2018-01-02 07:53 | Death Summary ---
Summary of Admission Date Dec 28, 2017 at 21:58 Date & Time of Jan 02, 2018. 0700 Cause of Abdominal free air- possible perforated diverticula Secondary Diagnoses Glioblastoma multiforme Hospital Course 72yo male with history of GBM, AF, DVT/PE, HTN and DM presenting with 5 days of progressive abdominal pain and distention. Patient is a resident of [facility]. States that his abdomen has become more distended and tight, painful over the last few days. Mild constipation, passing small amounts of stool. +Nausea this AM otherwise no complaints. CT Abdomen performed in the ER revealed large amount of free intraperitoneal air. Patient is not a candidate for surgery and wishes to be made comfortable at this time. Palliative care was consulted and family meeting was held. Plan was converted patient to Comfort measures only. Plan was then to discharge patient to home hospice. Family however, wanted patient to be seen by ortho prior to discharge to assess his right arm. On 12/31/17, Ortho did see patient and determined that due to his complicated state to continue conservative management or perhaps interventional radiology. The next day though patient was lethargic and comatose. As patient continued to deteriorate, family did not feel comfortable taking him home and preferred that he pass in the hospital.. Patient continued to receive pain medicine for dyspnea throughout the day. On 01/02/18, patient was pronounced at 7:00. Family was informed. No autopsy will be performed. Copy To Isabel Fuentes C.R.N.P.
[2018-01-02] MEDS ORDERED: FENTANYL PATCH REMOVE & WASTE SCH (16:14)
== END 2018-01-02 11:00 | disposition expired | DRG 392 ==
LOC: EDBD 18:08 → C.EDB 18:09 → ENRESERV 21:14 → C.4E 21:58
PROVIDERS: ADMIT Internal Medicine; ATTEND Internal Medicine Sports Medicine
DX: K57.20 Diverticulitis of large intestine with perforation and abscess without bleeding (principal); C71.9 Malignant neoplasm of brain, unspecified; Z83.3 Family history of diabetes mellitus; Z82.49 Family history of ischemic heart disease and other diseases of the circulatory system; I48.91 Unspecified atrial fibrillation; Z86.718 Personal history of other venous thrombosis and embolism; Z86.711 Personal history of pulmonary embolism; I10 Essential (primary) hypertension; E11.9 Type 2 diabetes mellitus without complications; Z79.4 Long term (current) use of insulin; S40.021A Contusion of right upper arm, initial encounter; X58.XXXA Exposure to other specified factors, initial encounter